=== PATIENT | female | born 1945 | race Caucasian/White ===

== ENCOUNTER 2020-08-23 14:03 | Emergency (ER) | payer MEDICARE, SELFPAY ==
--- NOTE | 2020-08-23 | CT_ITS ---
EXAMINATION: CHEST X-RAY CLINICAL INFORMATION: Mental status change COMPARISON: Previous chest x-ray November 2019 TECHNIQUE: AP portable chest FINDINGS: The cardiac and mediastinal contours are stable. The lung volumes are low. The lungs are clear. There is no pleural effusion or pneumothorax. There are degenerative changes of the spine. IMPRESSION: No evidence for acute disease in the chest. EXAMINATION: Head CT without contrast CLINICAL INFORMATION: Mental status change COMPARISON: Previous head CT scans most recent November 2019 TECHNIQUE: Axial images through the brain without contrast. Sagittal and coronal reconstructions on the technologist workstation were performed. Patient dose 7 5 7 mg/cm. FINDINGS: There is no evidence of an extra-axial collection. There is no evidence of intra or extra-axial hemorrhage. The ventricles and extra-axial CSF spaces are prominent suggestive of generalized atrophy. There is nonspecific periventricular white matter disease. No mass, mass effect or infarct is seen. No skull fracture is seen. Visualized paranasal sinuses, mastoid air cells and middle ears are clear. IMPRESSION: No acute findings. Generalized atrophy and periventricular white matter disease similar to previous exams.
[2020-08-23 14:10] VITALS: BP 120/80; BP 122/41; PULSE 76; PULSE 80; RESP 18; TEMP 36.9; O2SAT 98; BMI 43.0
--- NOTE | 2020-08-23 15:01 | ECG_ITS ---
Test Reason : WEAKNESS Blood Pressure : / mmHG Vent. Rate : 069 BPM Atrial Rate : 069 BPM P-R Int : 170 ms QRS Dur : 094 ms QT Int : 420 ms P-R-T Axes : 047 -05 062 degrees QTc Int : 450 ms Normal sinus rhythm Possible Anterior infarct (cited on or before 17-JUL-2015) Abnormal ECG When compared with ECG of 11-DEC-2019 08:35, No significant change was found Referred By: Michelle Braun Electronically Signed By:MIKHAIL PATRICIA MD
--- NOTE | 2020-08-23 15:16 | ED.AMS ---
HPI - Altered Mental Status General Chief Complaint: Weakness Stated Complaint: AMS WEAKNESS Time Seen by Provider: 08/23/20 15:00 Source: patient and EMS Mode of arrival: EMS Limitations: other ( dementia) History of Present Illness HPI narrative: 74-year-old female with a past medical history of CVA, diabetes, hyperlipidemia, schizoaffective disorder, hypertension, dementia BIBA from snf for worsening confusion / AMS, and frequent falls the past few days. SNF concern for increased weakness and drooling /facial droop noted today. Reportedly baseline is pleasantly demented, occasionally follows commands, baseline ambulates with walker. unable to obtain history from patient due to dementia MD complaint: altered mental status and confusion Onset (ago): day(s) Related Data Allergies Allergy/AdvReac Type Severity Reaction Status Date / Time No Known Allergies Allergy Unverified 08/02/20 15:35 Review of Systems Review of Systems: unable to obtain due to dementia [facility] Past Medical History Attestation statement: The following information was validated with the patient. Source: old records reviewed and nursing notes reviewed Medical History (Updated 08/23/20 @ 16:30 by ROOSEVELT Vance) CVA (cerebral vascular accident) Diabetes Hyperlipidemia Schizoaffective disorder Social History Social History Alcohol intake: never Smoking Status: Heavy tobacco smoker Use of substances other than those prescribed or required for medical reasons: No Advance Directives: No Advance Directives Information Provided: Yes Physical Exam Vital Signs and I&O and Narrative: Vital Signs and I&O: Vital Signs Temp 98.4 F 08/23/20 14:10 Pulse 76 08/23/20 14:10 Resp 18 08/23/20 14:10 BP 122/41 L 08/23/20 14:10 Pulse Ox 98 08/23/20 14:10 Intake & Output 08/22/20 08/23/20 08/23/20 18:59 06:59 18:59 Weight 99.79 kg Body Mass Index 43.0 Const: General: cooperative Orientation/consciousness: oriented to person and oriented to place HENMT: Head: Yes normal to inspection Ears: hearing grossly normal bilaterally General nose exam: Normal external nose present Eyes: General: appearance normal, both eyes and all related structures Pupils: Equal, round and reactive pupils present EOM: EOMs intact bilaterally Neck: Neck: Yes normal visual inspection Resp: Effort & Inspection: normal respiratory effort and no stridor Auscultation: clear to auscultation bilaterally, no crackles, no rales, no rhonchi and no wheezes Cardio: Rate: regular rate Heart sounds: S1 normal heart sound present and S2 normal heart sound present GI: Inspection: Yes normal to inspection Palpation (GI): Soft to palpation, nontender, no guarding and not rigid Skin: Wounds: no wounds Neuro: Other: does not follow commands for complete/accurate evaluation General: oriented to person and oriented to place Cranial nerves: Yes Equal, round and reactive pupils present Motor exam (neuro): Abnormal motor strength present ( decrease in left upper extremity and left lower extremity) Extrem: General: Yes normal to inspection Course Course Course Narrative: -1627-- mild leukocytosis of 12.1, H&H at baseline, glucose low at 55>> patient given p.o. juice head CT without acute findings CXR without acute changes -1429--Repeat POC 87 MDM - Altered Mental Status MDM Narrative Medical decision making narrative: 74-year-old female with a past medical history of CVA, diabetes, hyperlipidemia, schizoaffective disorder, hypertension, dementia BIBA from snf for worsening confusion / AMS, and frequent falls the past few days. on exam VSS, NAD/well-appearing, A&O x2, left-sided weakness appreciated. Patient not following commands. concern for subacute CVA vs ICH vs infectious etiology plan: EKG, labs, UA, head CT, reassess Differential Diagnosis Differential diagnosis: Likely altered mental status, delirium, dementia, hypoglycemia and subarachnoid hemorrhage Medical Records Attestation: I reviewed the patient's medical records. Lab Data Attestation: I reviewed the patient's lab results. Result diagrams: 08/23/20 15:36 08/23/20 15:36 Labs: Lab Results 08/23/20 08/23/20 08/23/20 Range/Units 15:28 15:36 15:36 WBC 12.1 H (4.8-10.8) X10*3/uL RBC 4.43 (4.20-5.50) X10*6/uL Hgb 12.7 (12.0-16.0) g/dl Hct 39.4 (37-47) % MCV 88.9 (80-98) fL MCH 28.7 (27.0-33.0) pg MCHC 32.2 (31.0-35.0) g/dl RDW 13.7 (11.0-16.0) % Plt Count 373 (160-400) X10*3/uL MPV 9.5 (9.4-12.3) fL Immature Gran % (Auto) 0.3 (0.0-0.4) % Neut % (Auto) 56.0 (45-73) % Lymph % (Auto) 28.7 (20-40) % Power % (Auto) 11.6 H (2-11) % Eos % (Auto) 3.0 (0-4) % Baso % (Auto) 0.4 (0-2) % Lymph # (Auto) 3.5 (1.2-4.9) X10*3/uL Power # (Auto) 1.4 H (0.1-1.2) X10*3/uL Eos # (Auto) 0.4 (0.0-0.4) X10*3/uL Baso # (Auto) 0.1 (0.0-0.2) X10*3/uL Abs Immat Gran (auto) 0.04 H (0.00-0.03) X10*3/uL Absolute Neuts (auto) 6.8 (2.0-8.3) X10*3/uL Absolute Nucleated RBC 0.000 (0.0-0.012) X10*3/uL Nucleated RBC % (auto) 0.0 (0.0-0.2) /100WBC PT 12.3 (10.8-13.0) SEC INR 1.0 (0.9-1.1) APTT 38.0 (24.1-38.0) SEC Sodium (135-145) mmol/L Potassium (3.3-5.1) mmol/l Chloride (96-108) mmol/L Carbon Dioxide (22-29) mmol/L Anion Gap (12-20) BUN (9-16) mg/dL Creatinine (0.5-1.4) mg/dL Estim Creat Clear Calc Estimated GFR POC Glucose 55 L* (60-115) mg/dL Random Glucose (60-115) mg/dL Calcium (8.4-10.2) mg/dL Magnesium (1.6-2.6) mg/dL Total Bilirubin (0.0-1.0) mg/dL Direct Bilirubin (0.0-0.5) mg/dL AST (5-31) U/L ALT (0-31) U/L Alkaline Phosphatase (39-117) U/L Total Creatine Kinase (26-140) U/L Troponin I High Sens (<3.5-17.0) ng/L B-Natriuretic Peptide (<100) pg/mL Total Protein (6.5-8.0) g/dL Albumin (3.5-5.0) g/dL Lipase (8-78) U/L 08/23/20 08/23/20 08/23/20 Range/Units 15:36 15:36 15:39 WBC (4.8-10.8) X10*3/uL RBC (4.20-5.50) X10*6/uL Hgb (12.0-16.0) g/dl Hct (37-47) % MCV (80-98) fL MCH (27.0-33.0) pg MCHC (31.0-35.0) g/dl RDW (11.0-16.0) % Plt Count (160-400) X10*3/uL MPV (9.4-12.3) fL Immature Gran % (Auto) (0.0-0.4) % Neut % (Auto) (45-73) % Lymph % (Auto) (20-40) % Power % (Auto) (2-11) % Eos % (Auto) (0-4) % Baso % (Auto) (0-2) % Lymph # (Auto) (1.2-4.9) X10*3/uL Power # (Auto) (0.1-1.2) X10*3/uL Eos # (Auto) (0.0-0.4) X10*3/uL Baso # (Auto) (0.0-0.2) X10*3/uL Abs Immat Gran (auto) (0.00-0.03) X10*3/uL Absolute Neuts (auto) (2.0-8.3) X10*3/uL Absolute Nucleated RBC (0.0-0.012) X10*3/uL Nucleated RBC % (auto) (0.0-0.2) /100WBC PT (10.8-13.0) SEC INR (0.9-1.1) APTT (24.1-38.0) SEC Sodium 138 (135-145) mmol/L Potassium 4.4 (3.3-5.1) mmol/l Chloride 101 (96-108) mmol/L Carbon Dioxide 30 H (22-29) mmol/L Anion Gap 11 L (12-20) BUN 21 H (9-16) mg/dL Creatinine 0.83 (0.5-1.4) mg/dL Estim Creat Clear Calc 61.1 Estimated GFR > 60 POC Glucose (60-115) mg/dL Random Glucose 56 L* (60-115) mg/dL Calcium 9.4 (8.4-10.2) mg/dL Magnesium 2.2 (1.6-2.6) mg/dL Total Bilirubin 0.5 (0.0-1.0) mg/dL Direct Bilirubin 0.2 (0.0-0.5) mg/dL AST 25 (5-31) U/L ALT 30 (0-31) U/L Alkaline Phosphatase 91 (39-117) U/L Total Creatine Kinase 315 H (26-140) U/L Troponin I High Sens 4.2 (<3.5-17.0) ng/L B-Natriuretic Peptide 37 (<100) pg/mL Total Protein 6.2 L (6.5-8.0) g/dL Albumin 3.6 (3.5-5.0) g/dL Lipase 21 (8-78) U/L Discharge Plan Discharge Clinical Impression: Altered mental status
[2020-08-23 15:33] LABS: Glucose, Whole Blood 55 mg/dL (60-115)
[2020-08-23 15:43] LABS: MANUAL DIFF FLAG NO
[2020-08-23 15:48] LABS: Basophils Absolute Auto 0.1 X10*3/uL (0.0-0.2); Basophils Percent Auto 0.4 % (0-2); Eosinophils Absolute Auto 0.4 X10*3/uL (0.0-0.4); Hematocrit 39.4 % (37-47); Hemoglobin 12.7 g/dl (12.0-16.0); Imm Gran Abs Auto 0.04 X10*3/uL (0.00-0.03); Imm Gran Pct Auto 0.3 % (0.0-0.4); Lymphocytes Absolute Auto 3.5 X10*3/uL (1.2-4.9); Lymphocytes Percent Auto 28.7 % (20-40); Mean Corpuscular HGB Conc 32.2 g/dl (31.0-35.0); Mean Corpuscular Hemoglobin 28.7 pg (27.0-33.0); Mean Corpuscular Volume 88.9 fL (80-98); Mean Platelet Volume 9.5 fL (9.4-12.3); Monocytes Absolute Auto 1.4 X10*3/uL (0.1-1.2); Monocytes Percent Auto 11.6 % (2-11); Neutrophils Absolute Auto 6.8 X10*3/uL (2.0-8.3); Platelet Count 373 X10*3/uL (160-400); Red Blood Count 4.43 X10*6/uL (4.20-5.50); Red Cell Distribution Width 13.7 % (11.0-16.0); White Blood Count 12.1 X10*3/uL (4.8-10.8)
[2020-08-23 16:06] LABS: Prothrombin Time 12.3 SEC (10.8-13.0)
[2020-08-23 16:24] LABS: B Type Natriuretic Peptide 37 pg/mL (<100)
[2020-08-23 16:25] LABS: Troponin-I High Sensitivity 4.2 ng/L (<3.5-17.0)
[2020-08-23 16:26] LABS: Alanine Aminotransferase 30 U/L (0-31); Albumin Level 3.6 g/dL (3.5-5.0); Alkaline Phosphatase 91 U/L (39-117); Anion Gap 11 (12-20); Aspartate Amino Transferase 25 U/L (5-31); Bilirubin Direct 0.2 mg/dL (0.0-0.5); Bilirubin Total 0.5 mg/dL (0.0-1.0); Blood Urea Nitrogen 21 mg/dL (9-16); Calcium 9.4 mg/dL (8.4-10.2); Carbon Dioxide 30 mmol/L (22-29); Chloride 101 mmol/L (96-108); Creatinine Clr Calc Pharmacy 61.1; Estimated Glomerular Filt Rate > 60; Glucose Random 56 mg/dL (60-115); Lipase 21 U/L (8-78); Magnesium 2.2 mg/dL (1.6-2.6); Potassium 4.4 mmol/l (3.3-5.1); Sodium 138 mmol/L (135-145); Total Protein 6.2 g/dL (6.5-8.0)
[2020-08-23 16:33] LABS: Glucose, Whole Blood 87 mg/dL (60-115)
[2020-08-23 17:39] LABS: Appearance Urine CLEAR; Color Urine YELLOW; Glucose Urine UA NEG (NEG); Leukocyte Esterase Urine NEG (NEG); Nitrite Urine NEG (NEG); Urine Blood NEG (NEG); Urine Ketones NEG (NEG); Urine Protein NEG (NEG-TRACE)
[2020-08-23 18:16] VITALS: RESP 18
[2020-08-23 18:35] LABS: Glucose, Whole Blood 104 mg/dL (60-115)
[2020-08-23 18:38] VITALS: BP 128/64; PULSE 74; RESP 16; O2SAT 96
[2020-08-23] MEDS: 0.9 % Sodium Chloride 1,000 ML 999 ML IVCONT (18:38)
[2020-08-23] MEDS: Fluconazole 150 MG TABLET PO (18:44)
--- NOTE | 2020-08-23 19:11 | PC.NURSE ---
Robyn [place]: [phone]. Daughter and proxy can be reached at this number for update. Daughter called at this time for update.
[2020-08-23 20:17] VITALS: BP 168/68; PULSE 80; RESP 16; TEMP 36.8; O2SAT 96
[2020-08-23] MEDS: Acetaminophen 325 MG TABLET 650 MG PO (20:57)
== END 2020-08-23 21:04 | disposition home or self-care (01) ==
PROVIDERS: Physician Assistant; Emergency Provider Internal Medicine; PCP Family Medicine
DX: R41.82 Altered mental status, unspecified (principal); B37.3 Candidiasis of vulva and vagina; E11.9 Type 2 diabetes mellitus without complications; I10 Essential (primary) hypertension; F25.9 Schizoaffective disorder, unspecified; F03.90 Unspecified dementia, unspecified severity, without behavioral disturbance, psychotic disturbance, mood disturbance, and anxiety; F17.210 Nicotine dependence, cigarettes, uncomplicated
CPT/HCPCS: 36415; 70450; 71045; 80048; 80076; 81003; 82550; 82947; 83690; 83735; 83880; 84484; 85025; 85610; 85730; 93005; 96365; 96366; 96375; 99284; 99285; 99291

== ENCOUNTER 2020-10-09 11:52 | Inpatient (IN) | payer MEDICARE, SELFPAY ==
[2020-10-09] VITALS (7 sets, daily range): BP systolic 114–160; BP diastolic 39–80; PULSE 74–90; RESP 18–22; TEMP 36.1–37.8; O2SAT 88–98; BMI 37.8; BMI 39.2
[2020-10-09 12:31] LABS: Glucose, Whole Blood 131 mg/dL (60-115)
--- NOTE | 2020-10-09 12:32 | XR_ITS ---
EXAMINATION: XR CHEST CLINICAL INFORMATION: Shortness of breath COMPARISON: Previous chest x-ray August 2018 TECHNIQUE: Frontal view of the chest was obtained. FINDINGS: The cardiac and mediastinal contours are stable. The lungs are clear. There is no pleural effusion or pneumothorax. There are degenerative changes of the spine. XR/XR chest 1V IMPRESSION: No evidence for acute disease in the chest.
--- NOTE | 2020-10-09 12:32 | ECG_ITS ---
Test Reason : SOB Blood Pressure : / mmHG Vent. Rate : 078 BPM Atrial Rate : 078 BPM P-R Int : 164 ms QRS Dur : 088 ms QT Int : 392 ms P-R-T Axes : 051 -18 047 degrees QTc Int : 446 ms Normal sinus rhythm Left axis deviation Possible Anterior infarct (cited on or before 17-JUL-2015) Abnormal ECG When compared with ECG of 23-AUG-2020 15:14, No significant change was found Referred By: Generic ED Physician Electronically Signed By:MIKHAIL PATRICIA MD
--- NOTE | 2020-10-09 12:49 | PC.NURSE ---
Pt is full assist for all adl;s. bedbound, skin integrety good but blanchable area on coccyx, brief filled with loose stool, brown and cleansed at arrival. l sided deficit from cva. following simple commands. garggled resp continue and creamy yellow loose sputumn expelled at times. ski pwd. nsr on monitor. awaits md palencia.
[2020-10-09 13:00] LABS: MANUAL DIFF FLAG NO
[2020-10-09 13:02] LABS: Basophils Percent Auto 0.1 % (0-2); Hemoglobin 12.1 g/dl (12.0-16.0); Imm Gran Abs Auto 0.03 X10*3/uL (0.00-0.03); Imm Gran Pct Auto 0.3 % (0.0-0.4); Lymphocytes Absolute Auto 2.4 X10*3/uL (1.2-4.9); Lymphocytes Percent Auto 23.6 % (20-40); Mean Corpuscular HGB Conc 32.7 g/dl (31.0-35.0); Mean Corpuscular Hemoglobin 28.8 pg (27.0-33.0); Mean Corpuscular Volume 88.1 fL (80-98); Mean Platelet Volume 9.9 fL (9.4-12.3); Monocytes Absolute Auto 1.5 X10*3/uL (0.1-1.2); Monocytes Percent Auto 14.5 % (2-11); Neutrophils Absolute Auto 6.2 X10*3/uL (2.0-8.3); Neutrophils Percent Auto 61.5 % (45-73); Platelet Count 249 X10*3/uL (160-400)
[2020-10-09 13:13] LABS: Glucose Urine UA NEG (NEG); Leukocyte Esterase Urine 3+ (NEG); Nitrite Urine NEG (NEG); Urine Blood 3+ (NEG); Urine Ketones NEG (NEG); Urine Protein 1+ MG/DL (NEG-TRACE)
[2020-10-09 13:14] LABS: Appearance Urine CLOUDY; Color Urine YELLOW
[2020-10-09 13:24] LABS: Bacteria Urine 3+ /LPF; Squamous Epithelial Cell Urine 1+ /LPF; WBC Urine TNTC /HPF (0-4)
--- NOTE | 2020-10-09 13:24 | PC.NURSE ---
TIFFANY black at [place] states that patient 10/04 covid negative 10/05 covid positive. Baseline b/f covid was ambulatory and able to take pills. Now she's a bladimir lift, crushed pills, pureed meals, 81% room air 99.3 temporal. Pt has declined quickly.
[2020-10-09 13:27] LABS: Lactic Acid 0.9 mmol/L (0.5-2.0)
--- NOTE | 2020-10-09 13:27 | ED_ITS ---
HPI - SOB/Dyspnea General Chief Complaint: Dyspnea Stated Complaint: COVID +, SHORTNESS OF BREATH Time Seen by Provider: 10/09/20 12:55 History of Present Illness HPI Narrative: 75-year-old female transferred to the emergency department from her alf facility for altered mental status, decreased ability to ambulate, increased shortness of breath and increased hypoxia. The patient does have a history of schizoaffective disorder and stroke but according to the alf facility, at her baseline, she is awake, alert and able to walk without any difficulty. The patient was diagnosed with COVID-19 on October 05, 2020 and according to the alf facility she has been gradually deteriorating. She is not able to get out of bed and walk. She has become more lethargic. She has become more short of breath over the past 1-2 days and now has gurgling respirations. She has also required higher oxygen demands and her O2 saturation on room air was 88% at the nursing facility. The patient does speak Slov[place] only and with an translator and interpreter, she is only complaining of lower back pain and has no other complaints. She does appear to be in moderate respiratory distress and here in the emergency department her O2 saturation was 88% on room air and 95% on 2 L of oxygen via nasal cannula. 1501: Patient's laboratory evaluation revealed a normal CBC, normal BMP with a slightly elevated glucose of 128, LFTs with slight elevated AST of 35 otherwise unremarkable. The patient's ferritin was markedly elevated at 1094. Troponin was slightly elevated at 17.5. l. Lactic acid was normal at 0.9. D-dimer was elevated at 530, this could be related to the patient's COVID-19. Chest x-ray revealed no significant infiltrates to explain hypoxia. Patient's urinalysis was positive for rbc's, leukocyte esterase, too numerous to count WBCs and 3+ bacteria. The patient was given Levaquin 750 mg IV to give her pulmonary doctor as well as urinary coverage for possible bacterial sources. Patient shortness of breath and hypoxia could be related to COVID-19. I will discuss the patient with the covering hospitalist. Related Data Allergies Allergy/AdvReac Type Severity Reaction Status Date / Time No Known Allergies Allergy Verified 10/09/20 11:55 Review of Systems Review of Systems: Yes Unobtainable due to mental condition PMFSH Past Medical History Medical History CVA (cerebral vascular accident) Diabetes Hyperlipidemia Schizoaffective disorder Social History Social History Alcohol intake: unknown Smoking Status: Heavy tobacco smoker Smoked in Last 30 Days: No Use of substances other than those prescribed or required for medical reasons: Unknown Advance Directives: No Advance Directives Information Provided: Yes Physical Exam Vital Signs: Vital Signs: Last Vital Signs Temp 100.1 F 10/09/20 12:14 Pulse 74 10/09/20 14:00 Resp 18 10/09/20 14:00 BP 114/39 L 10/09/20 14:00 Pulse Ox 96 10/09/20 14:00 Body Mass Index 37.8 Const: General: awake and in distress (Tachypnea, gurgling respiratory sounds) Orientation/consciousness: oriented to person HENMT: Head: Yes normal to inspection, Yes normocephalic and Yes atraumatic Ears: external ears normal Eyes: General: appearance normal, both eyes and all related structures Periorbital: periorbital findings normal Eyelids: Yes eyelids normal Conjunctivae: conjunctivae normal Sclerae: sclerae normal Corneas: corneas normal Pupils: Equal, round and reactive pupils present Direct Ophth almoscopy: normal light reflex Neck: Neck: Yes normal visual inspection and Yes supple Lymphatic: no lymphadenopathy noted Chest: Chest palpation & inspection: normal inspection of the chest and normal palpation of entire chest wall Resp: Effort & Inspection: abnormal respiratory pattern, audible wheezes, respiratory distress, tachypneic and uses accessory muscles Auscultation: clear to auscultation bilaterally, crackles, rales, rhonchi and no wheezes Cardio: Rate: regular rate Rhythm: regular rhythm Heart sounds: S1 normal heart sound present, S2 normal heart sound present and Murmur heart sound present GI: Inspection: No distended Palpation (GI): Soft to palpation, nontender, no guarding and No hepatosplenomegaly present Auscultation: normal bowel sounds : General: Yes no CVA tenderness Back/Spine/Pelvis: Back: no CVA tenderness Skin: General skin exam: no rashes or lesions noted Lesions: no lesions Rashes: no rashes Wounds: no wounds Neuro: General: oriented to person Cranial nerves: Yes CN's II-XII intact bilaterally and Yes Equal, round and reactive pupils present Cognition (Neuro): abnormal cognition Motor exam (neuro): 5/5 motor strength present throughout Extrem: General: Yes normal to inspection, Yes full ROM, Yes no pedal edema and Yes no calf tenderness Psych: Affect: normal affect Course Course Course Narrative: MDM: 75-year-old female with history of diabetes, hyperlipidemia, stroke and schizoaffective disorder was diagnosed with COVID-19 10/05/2020 was sent emergency department for evaluation of change in mental status, increased respiratory distress, inability to walk, and hypoxia. The patient's O2 saturation on room air was 88% on 2 L improved to 95% and the patient does appear to be in moderate respiratory distress. A septic workup was ordered. 1500: The patient's laboratory evaluation revealed a normal CBC and normal comprehensive metabolic panel. The patient's lactate was not elevated. The patient's chest x-ray revealed no clear evidence for pneumonia or congestive heart failure. Patient's procalcitonin level was not elevated. Patient does have a slight elevation in her troponin of 17.5. The patient is COVID-19 positive and her INR at this time is normal at 1.1, her ferritin is markedly elevated at 1094. Patient's urinalysis is positive for rbc's and leukocyte esterase. Urine Microscopic revealed too numerous to count white blood cells and 3+ bacteria. This patient may have a urinary tract infection however this does not explain her respiratory symptoms and her hypoxia. I did order Levaquin 750 mg IV to treat her for urinary tract infection as well as given her coverage for possible pulmonary sources for infection. Given all of these laboratory findings and her presentation, I do not think that the patient has severe sepsis despite meeting SIRS criteria and being hypoxic. I think that her symptoms are more likely related to her COVID-19 viral infection and a large fluid bolus at this time may precipitate ARDS therefore she did not get 30 milliliters/kilogram of normal saline IV. I did discuss the patient's presentation with the covering hospitalist and the patient will be admitted to the [facility] COVID unit for further treatment. Twelve lead EKG interpretation: EKG was done at 12:53 p.m. and seen by me immediately after it was done. EKG revealed a sinus rhythm rate of 78, normal MS, QRS and QTC intervals, patient has Q-waves in lead 3 and AVF with poor R- wave progression V1 through V 3, there is no ST segment elevation, there is no ST segment depression. I the patient had an old EKG dated August 23, 2020 which revealed that the Q-waves and poor R-wave progression were old. Critical Care: The patient was critically ill with a high probability of imminent or life threatening deterioration. I spent greater than 30 minutes of discontinuous time evaluating the patient,delivering critical care at the bedside, discussing and evaluating pertinent data the covering hospitalist. Critical care time does not include time spent performing separately billable procedures or teaching. Total time spent performing critical care was 55 garcia rik. MDM - SOB/Dyspnea Lab Data Result diagrams: 10/09/20 12:44 10/09/20 12:43 Labs: Lab Results 10/09/20 10/09/20 10/09/20 Range/Units 12:18 12:43 12:43 WBC (4.8-10.8) X10*3/uL RBC (4.20-5.50) X10*6/uL Hgb (12.0-16.0) g/dl Hct (37-47) % MCV (80-98) fL MCH (27.0-33.0) pg MCHC (31.0-35.0) g/dl RDW (11.0-16.0) % Plt Count (160-400) X10*3/uL MPV (9.4-12.3) fL Immature Gran % (Auto) (0.0-0.4) % Neut % (Auto) (45-73) % Lymph % (Auto) (20-40) % Gray % (Auto) (2-11) % Eos % (Auto) (0-4) % Baso % (Auto) (0-2) % Lymph # (Auto) (1.2-4.9) X10*3/uL Gray # (Auto) (0.1-1.2) X10*3/uL Eos # (Auto) (0.0-0.4) X10*3/uL Baso # (Auto) (0.0-0.2) X10*3/uL Abs Immat Gran (auto) (0.00-0.03) X10*3/uL Absolute Neuts (auto) (2.0-8.3) X10*3/uL Absolute Nucleated RBC (0.0-0.012) X10*3/uL Nucleated RBC % (auto) (0.0-0.2) /100WBC PT 12.8 (10.8-13.0) SEC INR 1.1 (0.9-1.1) APTT 34.7 (24.1-38.0) SEC D-Dimer 537 NG/ML Hold Blue Top SEE NOTE Sodium (135-145) mmol/L Potassium (3.3-5.1) mmol/l Chloride (96-108) mmol/L Carbon Dioxide (22-29) mmol/L Anion Gap (12-20) BUN (9-16) mg/dL Creatinine (0.5-1.4) mg/dL Estim Creat Clear Calc Estimated GFR POC Glucose 131 H (60-115) mg/dL Random Glucose (60-115) mg/dL Lactic Acid (0.5-2.0) mmol/L Calcium (8.4-10.2) mg/dL Ferritin (10-250) ng/mL Total Bilirubin (0.0-1.0) mg/dL Direct Bilirubin (0.0-0.5) mg/dL AST (5-31) U/L ALT (0-31) U/L Alkaline Phosphatase (39-117) U/L Lactate Dehydrogenase (122-220) U/L Troponin I High Sens (<3.5-17.0) ng/L Total Protein (6.5-8.0) g/dL Albumin (3.5-5.0) g/dL Lipase (8-78) U/L Procalcitonin ng/mL Urine Color YELLOW Urine Appearance CLOUDY Urine pH 7.0 (5.0-8.0) Ur Specific [place] 1.020 (1.005-1.025) Urine Protein 1+ H (NEG-TRACE) MG/DL Urine Glucose (UA) NEG (NEG) MG/DL Urine Ketones NEG (NEG) MG/DL Urine Blood 3+ H (NEG) Urine Nitrite NEG (NEG) Ur Leukocyte Esterase 3+ H (NEG) Urine RBC 15-29 H (0) /HPF Urine WBC TNTC H (0-4) /HPF Ur Squamous Epith Cells 1+ /LPF Urine Bacteria 3+ /LPF 10/09/20 10/09/20 10/09/20 Range/Units 12:43 12:43 12:43 WBC (4.8-10.8) X10*3/uL RBC (4.20-5.50) X10*6/uL Hgb (12.0-16.0) g/dl Hct (37-47) % MCV (80-98) fL MCH (27.0-33.0) pg MCHC (31.0-35.0) g/dl RDW (11.0-16.0) % Plt Count (160-400) X10*3/uL MPV (9.4-12.3) fL Immature Gran % (Auto) (0.0-0.4) % Neut % (Auto) (45-73) % Lymph % (Auto) (20-40) % Gray % (Auto) (2-11) % Eos % (Auto) (0-4) % Baso % (Auto) (0-2) % Lymph # (Auto) (1.2-4.9) X10*3/uL Gray # (Auto) (0.1-1.2) X10*3/uL Eos # (Auto) (0.0-0.4) X10*3/uL Baso # (Auto) (0.0-0.2) X10*3/uL Abs Immat Gran (auto) (0.00-0.03) X10*3/uL Absolute Neuts (auto) (2.0-8.3) X10*3/uL Absolute Nucleated RBC (0.0-0.012) X10*3/uL Nucleated RBC % (auto) (0.0-0.2) /100WBC PT (10.8-13.0) SEC INR (0.9-1.1) APTT (24.1-38.0) SEC D-Dimer NG/ML Hold Blue Top Sodium 132 L (135-145) mmol/L Potassium 4.5 (3.3-5.1) mmol/l Chloride 96 (96-108) mmol/L Carbon Dioxide 29 (22-29) mmol/L Anion Gap 12 (12-20) BUN 19 H (9-16) mg/dL Creatinine 1.00 (0.5-1.4) mg/dL Estim Creat Clear Calc 54.1 Estimated GFR 54 POC Glucose (60-115) mg/dL Random Glucose 128 H D (60-115) mg/dL Lactic Acid 0.9 (0.5-2.0) mmol/L Calcium 8.7 D (8.4-10.2) mg/dL Ferritin 1094 H (10-250) ng/mL Total Bilirubin 0.4 (0.0-1.0) mg/dL Direct Bilirubin 0.3 (0.0-0.5) mg/dL AST 35 H (5-31) U/L ALT 27 (0-31) U/L Alkaline Phosphatase 74 (39-117) U/L Lactate Dehydrogenase 211 (122-220) U/L Troponin I High Sens 17.5 H D (<3.5-17.0) ng/L Total Protein 6.1 L (6.5-8.0) g/dL Albumin 3.3 L (3.5-5.0) g/dL Lipase 23 (8-78) U/L Procalcitonin ng/mL Urine Color Urine Appearance Urine pH (5.0-8.0) Ur Specific [place] (1.005-1.025) Urine Protein (NEG-TRACE) MG/DL Urine Glucose (UA) (NEG) MG/DL Urine Ketones (NEG) MG/DL Urine Blood (NEG) Urine Nitrite (NEG) Ur Leukocyte Esterase (NEG) Urine RBC (0) /HPF Urine WBC (0-4) /HPF Ur Squamous Epith Cells /LPF Urine Bacteria /LPF 10/09/20 10/09/20 Range/Units 12:43 12:44 WBC 10.0 (4.8-10.8) X10*3/uL RBC 4.20 (4.20-5.50) X10*6/uL Hgb 12.1 (12.0-16.0) g/dl Hct 37.0 (37-47) % MCV 88.1 (80-98) fL MCH 28.8 (27.0-33.0) pg MCHC 32.7 (31.0-35.0) g/dl RDW 14.0 (11.0-16.0) % Plt Count 249 D (160-400) X10*3/uL MPV 9.9 (9.4-12.3) fL Immature Gran % (Auto) 0.3 (0.0-0.4) % Neut % (Auto) 61.5 (45-73) % Lymph % (Auto) 23.6 (20-40) % Gray % (Auto) 14.5 H (2-11) % Eos % (Auto) 0.0 (0-4) % Baso % (Auto) 0.1 (0-2) % Lymph # (Auto) 2.4 (1.2-4.9) X10*3/uL Gray # (Auto) 1.5 H (0.1-1.2) X10*3/uL Eos # (Auto) 0.0 (0.0-0.4) X10*3/uL Baso # (Auto) 0.0 (0.0-0.2) X10*3/uL Abs Immat Gran (auto) 0.03 (0.00-0.03) X10*3/uL Absolute Neuts (auto) 6.2 (2.0-8.3) X10*3/uL Absolute Nucleated RBC 0.000 (0.0-0.012) X10*3/uL Nucleated RBC % (auto) 0.0 (0.0-0.2) /100WBC PT (10.8-13.0) SEC INR (0.9-1.1) APTT (24.1-38.0) SEC D-Dimer NG/ML Hold Blue Top Sodium (135-145) mmol/L Potassium (3.3-5.1) mmol/l Chloride (96-108) mmol/L Carbon Dioxide (22-29) mmol/L Anion Gap (12-20) BUN (9-16) mg/dL Creatinine (0.5-1.4) mg/dL Estim Creat Clear Calc Estimated GFR POC Glucose (60-115) mg/dL Random Glucose (60-115) mg/dL Lactic Acid (0.5-2.0) mmol/L Calcium (8.4-10.2) mg/dL Ferritin (10-250) ng/mL Total Bilirubin (0.0-1.0) mg/dL Direct Bilirubin (0.0-0.5) mg/dL AST (5-31) U/L ALT (0-31) U/L Alkaline Phosphatase (39-117) U/L Lactate Dehydrogenase (122-220) U/L Troponin I High Sens (<3.5-17.0) ng/L Total Protein (6.5-8.0) g/dL Albumin (3.5-5.0) g/dL Lipase (8-78) U/L Procalcitonin 0.20 ng/mL Urine Color Urine Appearance Urine pH (5.0-8.0) Ur Specific [place] (1.005-1.025) Urine Protein (NEG-TRACE) MG/DL Urine Glucose (UA) (NEG) MG/DL Urine Ketones (NEG) MG/DL Urine Blood (NEG) Urine Nitrite (NEG) Ur Leukocyte Esterase (NEG) Urine RBC (0) /HPF Urine WBC (0-4) /HPF Ur Squamous Epith Cells /LPF Urine Bacteria /LPF
[2020-10-09 13:33] LABS: Anion Gap 12 (12-20); Blood Urea Nitrogen 19 mg/dL (9-16); Calcium 8.7 mg/dL (8.4-10.2); Carbon Dioxide 29 mmol/L (22-29); Chloride 96 mmol/L (96-108); Creatinine Clr Calc Pharmacy 54.1; Estimated Glomerular Filt Rate 54; Glucose Random 128 mg/dL (60-115); Potassium 4.5 mmol/l (3.3-5.1); Sodium 132 mmol/L (135-145)
[2020-10-09 13:37] LABS: INTERNATIONAL NORM RATIO 1.1 (0.9-1.1); Prothrombin Time 12.8 SEC (10.8-13.0)
[2020-10-09 13:40] LABS: D Dimer 537 NG/ML; Partial Thromboplastin Time 34.7 SEC (24.1-38.0)
[2020-10-09 13:42] LABS: Troponin-I High Sensitivity 17.5 ng/L (<3.5-17.0)
[2020-10-09 13:45] LABS: Alanine Aminotransferase 27 U/L (0-31); Albumin Level 3.3 g/dL (3.5-5.0); Alkaline Phosphatase 74 U/L (39-117); Aspartate Amino Transferase 35 U/L (5-31); Bilirubin Direct 0.3 mg/dL (0.0-0.5); Bilirubin Total 0.4 mg/dL (0.0-1.0); Lactate Dehydrogenase 211 U/L (122-220); Lipase 23 U/L (8-78); Total Protein 6.1 g/dL (6.5-8.0)
--- NOTE | 2020-10-09 14:01 | PC.NURSE ---
Update given to daughter who's in [place]. [phone] Robyn Epperson. HCP.
[2020-10-09 14:06] LABS: Ferritin 1094 ng/mL (10-250)
--- NOTE | 2020-10-09 14:18 | PC.NURSE ---
Report received from Roxi ALLEN. Patient remains incoherent. On 3L O2 nasal cannula. O2 sat low to mid 90s. Patient continuously removing nasal cannula, and O2 sat drops to high 80s. Respirations continue to sound wet and gargly. Skin PWD. Awaiting results.
[2020-10-09] MEDS: levoFLOXacin/D5W 750 MG/150 ML PIGGYBACK 100 MG IV (15:19)
--- NOTE | 2020-10-09 15:55 | PC.NURSE ---
floor called for report. awaiting return call.
--- NOTE | 2020-10-09 16:12 | PM.IMHP ---
History of Present Illness Date of Service: 10/09/20 Chief Complaint: Shortness of breath, hypoxemia, increased lethargy, a 75 years old lady with PMH of diabetes, CVA , schizoaffective disorder and HLD who presents to the hospital from long-term for increased weakness, difficulty breathing and reported altered mentation. The patient is awake but seems id bit confused and speaks only [place]. History taken from long-term notes and emergency physician. The patient was tested positive for COVID-19 infection on the 13 of October. She has been to relating since then physically and mentally with decreased oral intake and increased lethargy. For the last day she was noticed to drop her oxygen saturation on room air requiring oxygen supplement. Today decision to bring her to the hospital as her overall situation deteriorated. In the emergency CXR showing clean lungs with no infiltrate. Urine is suspicious for possible infection. D-dimer mildly elevated at 500. Admitted for further evaluation and treatment. Review of Systems Review of Systems: No repoted fever, chills , has worsening weakness No chest pain, palpitation reported shortness of breath or coughing No abdominal pain, nausea or vomiting dysuria urinary symptoms No any rash or wounds PMFSH Medical History CVA (cerebral vascular accident) Diabetes Hyperlipidemia Schizoaffective disorder Social History Alcohol intake: unknown Smoking Status: Heavy tobacco smoker Smoked in Last 30 Days: No Use of substances other than those prescribed or required for medical reasons: Unknown Advance Directives: No Advance Directives Information Provided: Yes Meds Allergies Allergy/AdvReac Type Severity Reaction Status Date / Time No Known Allergies Allergy Verified 10/09/20 11:55 Physical Exam Vital Signs and Narrative: Vital Signs: Last Vital Signs Temp 100.1 F 10/09/20 12:14 Pulse 74 10/09/20 14:00 Resp 18 10/09/20 14:00 BP 114/39 L 10/09/20 14:00 Pulse Ox 96 10/09/20 14:00 Body Mass Index 37.8 Constitutional : Alert, mildly disoriented, not in distress Neck : Normal inspection, Supple Cardiovascular : RRR, S1 S2, no lower extremity edema Respiratory : decrease bilateral air entry, fine basal crackles, no wheezes or rhonchi Gastrointestinal: soft, lax, Normal bowel sounds, Non tender Skin : Warm/Dry, No rash Neurological : Alert & disoriented, No focal deficit Results Labs CBC and Chem 7: 10/09/20 12:44 10/09/20 12:43 Labs: Laboratory Results - last 24 hr 10/09/20 10/09/20 10/09/20 12:18 12:43 12:43 MCV MCH MCHC RDW Plt Count MPV Immature Gran % (Auto) Neut % (Auto) Lymph % (Auto) [place] % (Auto) Eos % (Auto) Baso % (Auto) Lymph # (Auto) [place] # (Auto) Eos # (Auto) Baso # (Auto) Abs Immat Gran (auto) Absolute Neuts (auto) Absolute Nucleated RBC Nucleated RBC % (auto) PT 12.8 INR 1.1 APTT 34.7 D-Dimer 537 Hold Blue Top SEE NOTE Anion Gap Estim Creat Clear Calc Estimated GFR POC Glucose 131 H Random Glucose Lactic Acid Calcium Ferritin Total Bilirubin Direct Bilirubin AST ALT Alkaline Phosphatase Lactate Dehydrogenase Troponin I High Sens Total Protein Albumin Lipase Procalcitonin Urine Color YELLOW Urine Appearance CLOUDY Urine pH 7.0 Ur Specific [place] 1.020 Urine Protein 1+ H Urine Glucose (UA) NEG Urine Ketones NEG Urine Blood 3+ H Urine Nitrite NEG Ur Leukocyte Esterase 3+ H Urine RBC 15-29 H Urine WBC TNTC H Ur Squamous Epith Cells 1+ Urine Bacteria 3+ 10/09/20 10/09/20 10/09/20 12:43 12:43 12:43 MCV MCH MCHC RDW Plt Count MPV Immature Gran % (Auto) Neut % (Auto) Lymph % (Auto) [place] % (Auto) Eos % (Auto) Baso % (Auto) Lymph # (Auto) [place] # (Auto) Eos # (Auto) Baso # (Auto) Abs Immat Gran (auto) Absolute Neuts (auto) Absolute Nucleated RBC Nucleated RBC % (auto) PT INR APTT D-Dimer Hold Blue Top Anion Gap 12 Estim Creat Clear Calc 54.1 Estimated GFR 54 POC Glucose Random Glucose 128 H D Lactic Acid 0.9 Calcium 8.7 D Ferritin 1094 H Total Bilirubin 0.4 Direct Bilirubin 0.3 AST 35 H ALT 27 Alkaline Phosphatase 74 Lactate Dehydrogenase 211 Troponin I High Sens 17.5 H D Total Protein 6.1 L Albumin 3.3 L Lipase 23 Procalcitonin Urine Color Urine Appearance Urine pH Ur Specific [place] Urine Protein Urine Glucose (UA) Urine Ketones Urine Blood Urine Nitrite Ur Leukocyte Esterase Urine RBC Urine WBC Ur Squamous Epith Cells Urine Bacteria 10/09/20 10/09/20 12:43 12:44 MCV 88.1 MCH 28.8 MCHC 32.7 RDW 14.0 Plt Count 249 D MPV 9.9 Immature Gran % (Auto) 0.3 Neut % (Auto) 61.5 Lymph % (Auto) 23.6 [place] % (Auto) 14.5 H Eos % (Auto) 0.0 Baso % (Auto) 0.1 Lymph # (Auto) 2.4 [place] # (Auto) 1.5 H Eos # (Auto) 0.0 Baso # (Auto) 0.0 Abs Immat Gran (auto) 0.03 Absolute Neuts (auto) 6.2 Absolute Nucleated RBC 0.000 Nucleated RBC % (auto) 0.0 PT INR APTT D-Dimer Hold Blue Top Anion Gap Estim Creat Clear Calc Estimated GFR POC Glucose Random Glucose Lactic Acid Calcium Ferritin Total Bilirubin Direct Bilirubin AST ALT Alkaline Phosphatase Lactate Dehydrogenase Troponin I High Sens Total Protein Albumin Lipase Procalcitonin 0.20 Urine Color Urine Appearance Urine pH Ur Specific [place] Urine Protein Urine Glucose (UA) Urine Ketones Urine Blood Urine Nitrite Ur Leukocyte Esterase Urine RBC Urine WBC Ur Squamous Epith Cells Urine Bacteria Imaging Radiologist's Impressions: Impressions Chest X-Ray 10/09/20 12:32 IMPRESSION: No evidence for acute disease in the chest. Assessment and Plan (1) Acute respiratory failure with hypoxia: Status: Acute (2) COVID-19 virus infection: Status: Acute (3) UTI (urinary tract infection): Status: Acute (4) Metabolic encephalopathy: Status: Acute a 75 years old lady with PMH of diabetes, CVA , schizoaffective disorder and HLD who presents to the hospital from long-term for increased weakness, difficulty breathing and reported altered mentation. Acute hypoxic respiratory failure Secondary COVID-19 infection O2 supplement, to wean down as tolerated O2 sat in 90s at this point Started on dexamethasone 6 mg daily Hold on room DC VH pending ID evaluation Inhalers as needed Cough medicine UTI Pending urine culture Received a dose of Levaquin in the emergency, to change to ceftriaxone Pending final culture result Metabolic encephalopathy 2/2 infection, hypoxemia, other etiologies To treat underlying infection Recurrent reorientation DMII SSI for now pending med rec. for rest of home meds DVT PPx Lovenox
--- NOTE | 2020-10-09 16:31 | PC.NURSE ---
Report given to [facility] RN. Patient remains on 2L O2 nasal cannula. Continues to produce white/yellow sputum. Upper gargled breathing. Attempted to suction excess sputum from mouth. Patient intolerant. Vitals remain stable. Repeat troponin collected. Awaiting transport.
[2020-10-09 16:49] LABS: Troponin-I High Sensitivity 15.3 ng/L (<3.5-17.0)
[2020-10-09] MEDS: dexAMETHasone sod phosphate 4 MG/ML VIAL 6 MG IVPUSH (16:55)
[2020-10-09] MEDS: 0.9 % Sodium Chloride Flush 3 ML SYRINGE IVFLUSH ×2 (16:55→21:31)
[2020-10-09] MEDS: Enoxaparin Sodium 40 MG/0.4 ML SYRINGE SUBCUT (17:16)
[2020-10-09 17:17] LABS: Glucose, Whole Blood 103 mg/dL (60-115)
[2020-10-09 21:14] LABS: Glucose, Whole Blood 131 mg/dL (60-115)
[2020-10-09] MEDS: Atorvastatin Calcium 40 MG TABLET PO (21:32)
[2020-10-09] MEDS: Divalproex Sodium Sprinkles 125 MG CAP.DR.SPR 250 MG PO (21:32)
[2020-10-09] MEDS: Sennosides 8.6 MG TABLET 17.2 MG PO (21:54)
[2020-10-09] MEDS: guaiFENesin LA 600 MG TAB.ER.12H PO (21:54)
[2020-10-10] VITALS (8 sets, daily range): BP systolic 143–169; BP diastolic 60–78; PULSE 74–83; RESP 18–20; TEMP 36.1–37.2; O2SAT 95–99; BMI 39.2
[2020-10-10 06:20] LABS: Hematocrit 37.8 % (37-47); Hemoglobin 12.1 g/dl (12.0-16.0); Mean Corpuscular Hemoglobin 28.2 pg (27.0-33.0); Mean Corpuscular Volume 88.1 fL (80-98); Mean Platelet Volume 9.9 fL (9.4-12.3); Platelet Count 247 X10*3/uL (160-400); Red Blood Count 4.29 X10*6/uL (4.20-5.50); White Blood Count 10.1 X10*3/uL (4.8-10.8)
[2020-10-10 06:28] LABS: D Dimer 508 NG/ML
[2020-10-10 07:03] LABS: Anion Gap 12 (12-20); Blood Urea Nitrogen 21 mg/dL (9-16); Calcium 8.6 mg/dL (8.4-10.2); Carbon Dioxide 28 mmol/L (22-29); Chloride 96 mmol/L (96-108); Creatinine Clr Calc Pharmacy 64.9; Estimated Glomerular Filt Rate > 60; Glucose Random 173 mg/dL (60-115); Potassium 4.9 mmol/l (3.3-5.1); Sodium 131 mmol/L (135-145)
[2020-10-10 08:12] LABS: Glucose, Whole Blood 159 mg/dL (60-115)
[2020-10-10] MEDS: cefTRIAXone sodium 1 GM in 0.9 % Sodium Chloride 50 ML IV (08:21)
[2020-10-10] MEDS: 0.9 % Sodium Chloride Flush 3 ML SYRINGE IVFLUSH ×3 (08:22→21:01)
[2020-10-10] MEDS: dexAMETHasone sod phosphate 4 MG/ML VIAL 6 MG IVPUSH (08:22)
[2020-10-10] MEDS: Insulin Lispro 100 UNIT/ML 3 ML VIAL SUBCUT ×4 (08:23→21:00)
[2020-10-10] MEDS: Divalproex Sodium Sprinkles 125 MG CAP.DR.SPR 250 MG PO ×2 (08:24→21:01)
[2020-10-10] MEDS: Aspirin 81 MG TAB.CHEW PO (08:24)
[2020-10-10] MEDS: lisinopriL 40 MG TABLET PO (08:24)
[2020-10-10] MEDS: guaiFENesin LA 600 MG TAB.ER.12H PO ×2 (08:24→21:01)
[2020-10-10] MEDS: Artificial Tears 15 ML DROPS 1 DROP EYE-BOTH ×2 (08:26→21:00)
--- NOTE | 2020-10-10 10:06 | MHC.CM.PN ---
Patient is on the Covid Unit and unable to be reached by phone; CM spoke with Daughter- Robyn. Patient is a LTC Resident at [facility] and the goal for dc is to return there. CM has initiated and will follow for dc planning.IMM addressed with Robyn and the original will be mailed certified letter to her and a copy has been placed on the chart.
[2020-10-10 11:39] LABS: Glucose, Whole Blood 223 mg/dL (60-115)
--- NOTE | 2020-10-10 13:27 | W.PM.IDCN ---
History of Present Illness Data of Consult Service Date: 10/10/20 Requesting physician: Rosio Chavez Primary Care Provider: Unknown Physician HPI Reason for consult: lethargy,gram negative rods urine She presents to hospital with lethargy from SNF She was diagnosed with COVID 10/05 there She has had declining ability to ambulate last week She cannot utter urinary symptoms Review of Systems Review of Systems: Yes Unobtainable due to mental status Neurologic: Reports confusion Psychiatric: Psychiatric: Reports confusion [facility] [place] Past Medical History Medical History Chronic lower back pain COVID-19 CVA (cerebral vascular accident) Diabetes HTN (hypertension) Hyperlipidemia Schizoaffective disorder Social History Social History Household Members: Caregiver Housing: [facility] Alcohol intake: unknown Smoking Status: Unknown if ever smoked Smoked in Last 30 Days: No Second Hand Smoke Exposure: No Use of substances other than those prescribed or required for medical reasons: Unknown Last Used Substance: Unknown Currently Displaying Signs/Symptoms of Drug Intoxication Withdrawal: No Advance Directives: No Advance Directives Information Provided: Yes Do you have thoughts of harming others: None Do you have a plan to hurt others: No Plan Recently lost weight without trying: No service: No Current occupational status: retired [employer] Allergies Allergy/AdvReac Type Severity Reaction Status Date / Time No Known Allergies Allergy Verified 10/09/20 11:55 Home Medications Medication Instructions Recorded Confirmed Type albuterol 2 mcg INHALATION Q4H 10/09/20 10/17/20 History aspirin 81 mg PO DAILY 10/09/20 10/17/20 History atorvastatin 40 mg PO BEDTIME 10/09/20 10/17/20 History glipizide 1 tab PO BID 10/09/20 10/17/20 History guaifenesin 1,200 mg PO DAILY 10/09/20 10/17/20 History lisinopril 1 tab PO DAILY 10/09/20 10/17/20 History olopatadine 1 drp OPHTHALMIC (EYE) BID 10/09/20 10/17/20 History polyvinyl alcohol 1 drp OPHTHALMIC (EYE) BID 10/09/20 10/17/20 History sennosides [senna] 17.2 mg PO BEDTIME 10/09/20 10/17/20 History Physical Exam Vital Signs: Vital Signs: Last Vital Signs Temp 97.2 F 10/10/20 11:11 Pulse 76 10/10/20 11:11 Resp 18 10/10/20 11:11 BP 169/74 H 10/10/20 11:11 Pulse Ox 98 10/10/20 11:11 Body Mass Index 39.2 Const: General: cooperative and confusion Orientation/consciousness: confusion HENMT: Head: Yes normal to inspection Mouth: Normal oral and palatal mucosa present Eyes: General: appearance normal, both eyes and all related structures Resp: Effort & Inspection: normal respiratory effort Cardio: Rate: regular rate Rhythm: regular rhythm GI: Palpation (GI): Soft to palpation and nontender : General: Yes no CVA tenderness Back/Spine/Pelvis: Back: no CVA tenderness Skin: General skin exam: no rashes or lesions noted Neuro: General: confusion Assessment and Plan (1) UTI (urinary tract infection): Status: Acute Continue Ceftriaxone Await blood cultures (2) COVID-19 virus infection: Status: Acute Would give Dexamethasone 6 mg daily, 10 d total Results Labs CBC & Chem 7: 10/14/20 06:36 10/14/20 06:36 Labs: Short CBC 10/10/20 Range/Units 05:46 WBC 10.1 (4.8-10.8) X10*3/uL Hgb 12.1 (12.0-16.0) g/dl Hct 37.8 (37-47) % Plt Count 247 (160-400) X10*3/uL BMP 10/09/20 10/10/20 12:43 05:46 Sodium 132 L 131 L Potassium 4.5 4.9 Chloride 96 96 Carbon Dioxide 29 28 BUN 19 H 21 H Creatinine 1.00 0.85 Calcium 8.7 D 8.6 Liver Function 10/09/20 Range/Units 12:43 Total Bilirubin 0.4 (0.0-1.0) mg/dL Direct Bilirubin 0.3 (0.0-0.5) mg/dL AST 35 H (5-31) U/L ALT 27 (0-31) U/L Alkaline Phosphatase 74 (39-117) U/L Albumin 3.3 L (3.5-5.0) g/dL Microbiology Microbiology Results: Microbiology 10/09/20 Unknown Urine Catheterized - Shore Catheter Urine Culture - Preliminary Gram negative skye 10/09/20 12:50 Blood - Venous Blood Culture - Preliminary
[2020-10-10] MEDS: Enoxaparin Sodium 40 MG/0.4 ML SYRINGE SUBCUT (16:25)
[2020-10-10 16:27] LABS: Glucose, Whole Blood 350 mg/dL (60-115)
--- NOTE | 2020-10-10 16:48 | HO.PM.IMPN ---
Subjective Subjective Date of Service: 10/10/20 Interval History: the patient was seen and evaluated this morning Laying in bed, feels comfortable Denies any fever, chills Report coughing and mind shortness of breath No reported other overnight events. Systemic review: No fever, chills or weakness No chest pain, palpitation reporting shortness of breath or coughing No abdominal pain, nausea or vomiting No urinary symptoms No any rash or wounds Physical Exam Vital Signs: Vital Signs: Last Vital Signs Temp 99.0 F 10/10/20 15:29 Pulse 80 10/10/20 15:29 Resp 20 10/10/20 15:29 BP 158/70 H 10/10/20 15:29 Pulse Ox 96 10/10/20 15:29 Body Mass Index 39.2 Constitutional : Alert, oriented, not in distress Neck : Normal inspection, Supple Cardiovascular : RRR, S1 S2, no lower extremity edema Respiratory : fair bilateral air entry, no crackles, scattered wheezes no rhonchi Gastrointestinal: soft, lax, Normal bowel sounds, Non tender Skin : Warm/Dry, No rash Neurological : Alert & oriented x3, mild left-sided weakness which is chronic Objective Data Current Medications Generic Name Dose Route Start Last Admin Trade Name Freq PRN Reason Stop Dose Admin Acetaminophen 650 mg 10/09/20 16:53 Acetaminophen 325 Mg Tablet PO Q6H PRN Pain, Mild (Pain Scale 1-3) Albuterol Sulfate 2 puff 10/09/20 16:53 Albuterol Sulfate 90 Mcg 8 Gm Inhaler INHALE RQ4H PRN Shortness of Breath/Wheezing Artificial Tears 1 drop 10/09/20 21:00 10/10/20 08:26 Artificial Tears 15 Ml Drops EYE-BOTH 1 drop BID MYCHAL Administration Aspirin 81 mg 10/10/20 09:00 10/10/20 08:24 Aspirin 81 Mg Tab.Chew PO 81 mg DAILY MY[facility] Administration Atorvastatin Calcium 40 mg 10/09/20 21:00 10/09/20 21:32 Atorvastatin Calcium 40 Mg Tablet PO 40 mg BEDTIME MY[facility] Administration Dexamethasone Sodium Phosphate 6 mg 10/09/20 15:30 10/10/20 08:22 Dexamethasone Sod Phosphate 4 Mg/Ml Vial IVPUSH 6 mg DAILY [facility] Administration Divalproex Sodium 250 mg 10/09/20 21:00 10/10/20 08:24 Divalproex Sodium Sprinkles 125 Mg Shree. PO 250 mg BID MY[facility] Administration Enoxaparin Sodium 40 mg 10/09/20 16:53 10/10/20 16:25 Enoxaparin Sodium 40 Mg/0.4 Ml Syringe SUBCUT 40 mg Q24H [facility] Administration Guaifenesin 600 mg 10/09/20 21:00 10/10/20 08:24 Guaifenesin La 600 Mg Tab.Er.12h PO 600 mg BID MY[facility] Administration Ceftriaxone Sodium 1 gm/ 50 mls @ 100 mls/hr 10/10/20 09:00 10/10/20 08:56 Sodium Chloride IV Infused Q24H [facility] Infusion Insulin Human Lispro 0 unit 10/09/20 21:00 10/10/20 16:25 Insulin Lispro 100 Unit/Ml 3 Ml Vial SUBCUT 8 unit QIDACHS [facility] Administration Protocol Lisinopril 40 mg 10/10/20 09:00 10/10/20 08:24 Lisinopril 40 Mg Tablet PO 40 mg DAILY [facility] Administration Protocol Ondansetron HCl 4 mg 10/09/20 16:53 Ondansetron Hcl 4 Mg/2 Ml Vial IVPUSH Q8H PRN Nausea and Vomiting Senna 17.2 mg 10/09/20 21:00 10/09/20 21:54 Sennosides 8.6 Mg Tablet PO 17.2 mg BEDTIME [facility] Administration Sodium Chloride 3 ml 10/09/20 16:53 10/10/20 15:18 0.9 % Sodium Chloride Flush 3 Ml Syringe IVFLUSH 3 ml QSHIFT [facility] Administration Labs CBC & Chem 7: 10/10/20 05:46 10/10/20 05:46 Microbiology Microbiology Results: Microbiology 10/09/20 12:50 Blood - Venous Blood Culture - Preliminary No growth after 24 hours. 10/09/20 Unknown Urine Catheterized - Shore Catheter Urine Culture - Preliminary Gram negative skye 10/09/20 12:50 Blood - Venous Blood Culture - Preliminary Assessment and Plan (1) Acute respiratory failure with hypoxia: Status: Acute (2) COVID-19 virus infection: Problem details: She has had about a week She has 2 liters saturation 95%, no desaturation Status: Acute (3) UTI (urinary tract infection): Problem details: gram negative rods Status: Acute (4) Metabolic encephalopathy: Status: Acute Assessment and Plan: a 75 years old lady with PMH of diabetes, CVA , schizoaffective disorder and HLD who presents to the hospital from [facility] for increased weakness, difficulty breathing and reported altered mentation. Acute hypoxic respiratory failure Secondary COVID-19 infection O2 supplement, to wean down as tolerated O2 saturation mid 90s o with oxygen supplement today continue dexamethasone 6 mg daily id input appreciated, continue steroids only for now Inhalers as needed Cough medicine gram-negative bacteremia Secondary to UTI Pending urine culture pending final blood culture result continue ceftriaxone Metabolic encephalopathy Improving 2/2 infection, hypoxemia, other etiologies Continue treat underlying infection Recurrent reorientation DMII SSI for now pending med rec. for rest of home meds DVT PPx Lovenox
[2020-10-10 20:39] LABS: Glucose, Whole Blood 320 mg/dL (60-115)
[2020-10-10] MEDS: Atorvastatin Calcium 40 MG TABLET PO (21:01)
[2020-10-11 03:40] VITALS: BP 141/83; PULSE 82; RESP 19; TEMP 36.1; O2SAT 95
[2020-10-11 07:30] LABS: Hematocrit 40.1 % (37-47); Hemoglobin 13.2 g/dl (12.0-16.0); Mean Corpuscular HGB Conc 32.9 g/dl (31.0-35.0); Mean Corpuscular Hemoglobin 28.8 pg (27.0-33.0); Mean Corpuscular Volume 87.4 fL (80-98); Mean Platelet Volume 10.4 fL (9.4-12.3); Platelet Count 317 X10*3/uL (160-400); Red Blood Count 4.59 X10*6/uL (4.20-5.50); Red Cell Distribution Width 13.6 % (11.0-16.0); White Blood Count 11.4 X10*3/uL (4.8-10.8)
[2020-10-11 07:55] LABS: Anion Gap 11 (12-20); Blood Urea Nitrogen 18 mg/dL (9-16); Calcium 8.9 mg/dL (8.4-10.2); Carbon Dioxide 30 mmol/L (22-29); Chloride 97 mmol/L (96-108); Creatinine Clr Calc Pharmacy 69.9; Estimated Glomerular Filt Rate > 60; Glucose Random 189 mg/dL (60-115); Potassium 4.4 mmol/l (3.3-5.1); Sodium 134 mmol/L (135-145)
[2020-10-11 08:00] VITALS: PULSE 85; RESP 20; TEMP 36.3; O2SAT 94
[2020-10-11 08:00] LABS: Glucose, Whole Blood 181 mg/dL (60-115)
[2020-10-11] MEDS: 0.9 % Sodium Chloride Flush 3 ML SYRINGE IVFLUSH ×3 (08:26→19:59)
[2020-10-11] MEDS: Insulin Lispro 100 UNIT/ML 3 ML VIAL SUBCUT ×3 (08:26→20:01)
[2020-10-11] MEDS: dexAMETHasone sod phosphate 4 MG/ML VIAL 6 MG IVPUSH (08:27)
[2020-10-11] MEDS: cefTRIAXone sodium 1 GM in 0.9 % Sodium Chloride 50 ML IV (08:27)
[2020-10-11] MEDS: ondansetron HCL 4 MG/2 ML VIAL IVPUSH (08:46)
[2020-10-11 11:41] LABS: Glucose, Whole Blood 192 mg/dL (60-115)
[2020-10-11 12:00] VITALS: BP 177/73; PULSE 84; RESP 20; TEMP 37.9; O2SAT 94
[2020-10-11 12:13] LABS: D Dimer 845 NG/ML
[2020-10-11 12:37] LABS: Troponin-I High Sensitivity 8.8 ng/L (<3.5-17.0)
--- NOTE | 2020-10-11 13:58 | HO.PM.IMPN ---
Subjective Subjective Date of Service: 10/11/20 Interval History: the patient was seen and evaluated this morning Laying in bed, not in distress spots looks altered mentation and difficult to arouse Unable to obtain much of the patient with her current situation No reported other overnight events. Systemic review: Very lethargic to answer and reply, Review of Systems Review of Systems: Yes Unobtainable due to mental condition Physical Exam Vital Signs: Vital Signs: Last Vital Signs Temp 97.4 F 10/11/20 08:00 Pulse 85 10/11/20 08:00 Resp 20 10/11/20 08:00 BP 141/83 H 10/11/20 03:40 Pulse Ox 94 10/11/20 08:00 Body Mass Index 39.2 Constitutional : Altered mentation, Alert with stimulation, cannot assess orientation, not in distress Neck : Normal inspection, Supple Cardiovascular : RRR, S1 S2, no lower extremity edema Respiratory : Fair bilateral air entry, no crackles, scattered bilateral wheezes and rhonchi can be here Gastrointestinal: soft, lax, Normal bowel sounds, Non tender Skin : Warm/Dry, No rash Neurological : Alert with stimulation, left-sided chronic weakness, altered mentation Objective Data Current Medications Generic Name Dose Route Start Last Admin Trade Name Freq PRN Reason Stop Dose Admin Acetaminophen 650 mg 10/09/20 16:53 Acetaminophen 325 Mg Tablet PO Q6H PRN Pain, Mild (Pain Scale 1-3) Albuterol Sulfate 2 puff 10/09/20 16:53 Albuterol Sulfate 90 Mcg 8 Gm Inhaler INHALE RQ4H PRN Shortness of Breath/Wheezing Artificial Tears 1 drop 10/09/20 21:00 10/11/20 08:27 Artificial Tears 15 Ml Drops EYE-BOTH Not Given BID [facility] Aspirin 81 mg 10/10/20 09:00 10/11/20 08:43 Aspirin 81 Mg Tab.Chew PO Not Given DAILY [facility] Atorvastatin Calcium 40 mg 10/09/20 21:00 10/10/20 21:01 Atorvastatin Calcium 40 Mg Tablet PO 40 mg BEDTIME [facility] Administration Dexamethasone Sodium Phosphate 6 mg 10/09/20 15:30 10/11/20 08:27 Dexamethasone Sod Phosphate 4 Mg/Ml Vial IVPUSH 6 mg DAILY [facility] Administration Divalproex Sodium 250 mg 10/09/20 21:00 10/11/20 08:43 Divalproex Sodium Sprinkles 125 Mg Cap.Spr PO Not Given BID [facility] Enoxaparin Sodium 40 mg 10/09/20 16:53 10/10/20 16:25 Enoxaparin Sodium 40 Mg/0.4 Ml Syringe SUBCUT 40 mg Q24H [facility] Administration Guaifenesin 600 mg 10/09/20 21:00 10/11/20 08:43 Guaifenesin La 600 Mg Tab.Er.12h PO Not Given BID [facility] Ceftriaxone Sodium 1 gm/ 50 mls @ 100 mls/hr 10/10/20 09:00 10/11/20 09:11 Sodium Chloride IV Infused Q24H [facility] Infusion Insulin Human Lispro 0 unit 10/09/20 21:00 10/11/20 12:19 Insulin Lispro 100 Unit/Ml 3 Ml Vial SUBCUT Not Given QIDACHS [facility] Protocol Lisinopril 40 mg 10/10/20 09:00 10/11/20 08:43 Lisinopril 40 Mg Tablet PO Not Given DAILY [facility] Protocol Ondansetron HCl 4 mg 10/09/20 16:53 10/11/20 08:46 Ondansetron Hcl 4 Mg/2 Ml Vial IVPUSH 4 mg Q8H PRN Administration Nausea and Vomiting Senna 17.2 mg 10/09/20 21:00 10/10/20 21:02 Sennosides 8.6 Mg Tablet PO Not Given BEDTIME [facility] Sodium Chloride 3 ml 10/09/20 16:53 10/11/20 08:26 0.9 % Sodium Chloride Flush 3 Ml Syringe IVFLUSH 3 ml QSHIFT [facility] Administration Labs CBC & Chem 7: 10/11/20 06:30 10/11/20 06:30 Microbiology Microbiology Results: Microbiology 10/09/20 Unknown Urine Catheterized - Shore Catheter Urine Culture - Final Proteus mirabilis 10/09/20 12:50 Blood - Venous Blood Culture - Preliminary Coagulase-neg Staphyloccocus 10/09/20 12:50 Blood - Venous Blood Culture - Preliminary No growth after 24 hours. Assessment and Plan (1) Acute respiratory failure with hypoxia: Status: Acute (2) COVID-19 virus infection: Problem details: She has had about a week She has 2 liters saturation 95%, no desaturation Status: Acute (3) UTI (urinary tract infection): Problem details: gram negative rods Status: Acute (4) Metabolic encephalopathy: Status: Acute Assessment and Plan: a 75 years old lady with PMH of diabetes, CVA , schizoaffective disorder and HLD who presents to the hospital from group home for increased weakness, difficulty breathing and reported altered mentation. Acute hypoxic respiratory failure Secondary COVID-19 infection O2 supplement, to wean down as tolerated O2 saturation mid 90s o with oxygen supplement today continue dexamethasone 6 mg daily id input appreciated, continue steroids only for now Inhalers as needed Cough medicine UTI Urine growing Proteus Final blood culture growing coag-negative staph Discontinue ceftriaxone Changed to Zosyn for broader coverage of possible aspiration pneumonia Metabolic encephalopathy For started to get worse again today EKG negative for any ACS, troponin negative To check ABG Decreased valproic acid dose to once a day for now Continue treat underlying infection Recurrent reorientation DMII SSI for now pending med rec. for rest of home meds DVT PPx Lovenox
[2020-10-11] MEDS: Piperacillin Sodium/Tazobactam 3.375 GM in 0.9 % Sodium Chloride 50 ML IV ×2 (14:29→19:58)
[2020-10-11] MEDS: Acetaminophen 325 MG TABLET 650 MG PO (14:29)
[2020-10-11 15:35] VITALS: BP 158/99; PULSE 83; RESP 20; TEMP 37.4; O2SAT 93
[2020-10-11 16:33] LABS: Glucose, Whole Blood 257 mg/dL (60-115)
[2020-10-11] MEDS: Enoxaparin Sodium 40 MG/0.4 ML SYRINGE SUBCUT (17:02)
[2020-10-11 19:10] VITALS: BP 139/65; PULSE 80; RESP 20; TEMP 38; O2SAT 97
[2020-10-11 20:04] LABS: Glucose, Whole Blood 273 mg/dL (60-115)
[2020-10-11 20:55] LABS: Base Excess VBG 3.9 mmol/L; Blood Gas Serial # 5414; HCO3 VBG 27 mmol/L; Oxygen Saturation VBG 85.5 %; PCO2 VBG 36 mmhg; PO2 VBG 45 mmhg; pH VBG 7.49 (7.32-7.43)
[2020-10-11 23:42] VITALS: BP 175/80; PULSE 76; RESP 18; TEMP 37.1; O2SAT 96
[2020-10-12] VITALS (8 sets, daily range): BP systolic 149–186; BP diastolic 70–90; PULSE 64–78; RESP 18–20; TEMP 36.1–37.6; O2SAT 91–96
[2020-10-12] MEDS: Piperacillin Sodium/Tazobactam 3.375 GM in 0.9 % Sodium Chloride 50 ML IV ×4 (02:13→21:28)
[2020-10-12] MEDS: vancomycin HCL 1,000 MG in 0.9 % Sodium Chloride 250 ML 270 MG IV (03:56)
[2020-10-12] MEDS: Artificial Tears 15 ML DROPS 1 DROP EYE-BOTH ×3 (05:31→21:30)
[2020-10-12 07:15] LABS: Hematocrit 37.6 % (37-47); Hemoglobin 12.1 g/dl (12.0-16.0); Mean Corpuscular HGB Conc 32.2 g/dl (31.0-35.0); Mean Corpuscular Hemoglobin 28.4 pg (27.0-33.0); Mean Corpuscular Volume 88.3 fL (80-98); Mean Platelet Volume 11.3 fL (9.4-12.3); Platelet Count 248 X10*3/uL (160-400); Red Blood Count 4.26 X10*6/uL (4.20-5.50); White Blood Count 8.3 X10*3/uL (4.8-10.8)
[2020-10-12 07:39] LABS: D Dimer 1447 NG/ML
[2020-10-12 08:04] LABS: Alanine Aminotransferase 28 U/L (0-31); Albumin Level 3.2 g/dL (3.5-5.0); Alkaline Phosphatase 70 U/L (39-117); Anion Gap 15 (12-20); Aspartate Amino Transferase 28 U/L (5-31); Bilirubin Direct 0.2 mg/dL (0.0-0.5); Bilirubin Total 0.5 mg/dL (0.0-1.0); Blood Urea Nitrogen 20 mg/dL (9-16); Calcium 8.4 mg/dL (8.4-10.2); Carbon Dioxide 25 mmol/L (22-29); Chloride 101 mmol/L (96-108); Creatinine Clr Calc Pharmacy 69.9; Estimated Glomerular Filt Rate > 60; Glucose Random 154 mg/dL (60-115); Potassium 4.3 mmol/l (3.3-5.1); Sodium 137 mmol/L (135-145); Total Protein 6.2 g/dL (6.5-8.0)
[2020-10-12] MEDS: 0.9 % Sodium Chloride Flush 3 ML SYRINGE IVFLUSH ×3 (08:13→21:30)
[2020-10-12] MEDS: dexAMETHasone sod phosphate 4 MG/ML VIAL 6 MG IVPUSH (08:13)
[2020-10-12] MEDS: Divalproex Sodium Sprinkles 125 MG CAP.DR.SPR 250 MG PO (08:14)
[2020-10-12] MEDS: Aspirin 81 MG TAB.CHEW PO (08:14)
[2020-10-12] MEDS: guaiFENesin LA 600 MG TAB.ER.12H PO ×2 (08:14→21:29)
[2020-10-12] MEDS: lisinopriL 40 MG TABLET PO (08:15)
[2020-10-12 08:33] LABS: Glucose, Whole Blood 150 mg/dL (60-115)
[2020-10-12 11:45] LABS: Glucose, Whole Blood 244 mg/dL (60-115)
[2020-10-12] MEDS: Insulin Lispro 100 UNIT/ML 3 ML VIAL SUBCUT ×3 (11:59→21:30)
--- NOTE | 2020-10-12 12:37 | ECG_ITS ---
Test Reason : CHEST PAIN Blood Pressure : / mmHG Vent. Rate : 086 BPM Atrial Rate : 086 BPM P-R Int : 166 ms QRS Dur : 090 ms QT Int : 372 ms P-R-T Axes : 052 -07 059 degrees QTc Int : 445 ms Normal sinus rhythm Intra-ventricular conduction delay Left axis deviation Borderline ECG No significant changes seen Referred By: Rosio Chavez Electronically Signed By:MIKHAIL PATRICIA MD
--- NOTE | 2020-10-12 12:51 | MHC.CM.PN ---
Goal for dc is for Patient to return to LTC at [facility]. Patient is receiving IV Decadron, IV Zosyn, and IV Vanco and is not yet medically cleared for dc. CM will continue to follow for dc planning and the possible need to adjust the dc plan.
--- NOTE | 2020-10-12 12:54 | P.EN_ITS ---
Event Note Date of Service: 10/12/20 Event Note: Patient with coagulase negative staph x2 in blood No vascular device or senior living line seen so most likely contaminant Of note,she defervesced when Vancomycin started Will stop Vancomycin and recheck blood cultures as doing and also recheck when off Vancomycin for 2-3 days
--- NOTE | 2020-10-12 16:02 | HO.PM.IMPN ---
Subjective Subjective Date of Service: 10/12/20 Interval History: the patient was seen and evaluated this morning Laying in bed, feels comfortable, confused and lethargic but much alert and oriented since yesterday Denies any fever, chills or shortness of breath No reported other overnight events. Systemic review: Feels weak and tired and had fever yesterday seems confused, alert and talkative, moving all extremities No chest pain, palpitation No shortness of breath or coughing No abdominal pain, nausea or vomiting No urinary symptoms No any rash or wounds Physical Exam Vital Signs: Vital Signs: Last Vital Signs Temp 97.4 F 10/12/20 15:18 Pulse 77 10/12/20 15:18 Resp 18 10/12/20 15:18 BP 182/81 H 10/12/20 15:18 Pulse Ox 96 10/12/20 15:18 Body Mass Index 39.2 Constitutional : Alert, Disoriented, not in distress Neck : Normal inspection, Supple Cardiovascular : RRR, S1 S2, no lower extremity edema Respiratory : fair and decreased bilateral air entry, no crackles, wheezes or rhonchi Gastrointestinal: soft, lax, Normal bowel sounds, Non tender Skin : Warm/Dry, No rash Neurological : Alert & oriented x3, No focal deficit Objective Data Current Medications Generic Name Dose Route Start Last Admin Trade Name Tachoq PRN Reason Stop Dose Admin Acetaminophen 650 mg 10/09/20 16:53 10/11/20 14:29 Acetaminophen 325 Mg Tablet PO 650 mg Q6H PRN Administration Pain, Mild (Pain Scale 1-3) Albuterol Sulfate 2 puff 10/09/20 16:53 Albuterol Sulfate 90 Mcg 8 Gm Inhaler INHALE RQ4H PRN Shortness of Breath/Wheezing Artificial Tears 1 drop 10/09/20 21:00 10/12/20 08:34 Artificial Tears 15 Ml Drops EYE-BOTH 1 drop BID [facility] Administration Aspirin 81 mg 10/10/20 09:00 10/12/20 08:14 Aspirin 81 Mg Tab.Chew PO 81 mg DAILY [facility] Administration Atorvastatin Calcium 40 mg 10/09/20 21:00 10/11/20 20:01 Atorvastatin Calcium 40 Mg Tablet PO Not Given BEDTIME [facility] Dexamethasone Sodium Phosphate 6 mg 10/09/20 15:30 10/12/20 08:13 Dexamethasone Sod Phosphate 4 Mg/Ml Vial IVPUSH 6 mg DAILY [facility] Administration Divalproex Sodium 250 mg 10/12/20 09:00 10/12/20 08:14 Divalproex Sodium Sprinkles 125 Mg Cap.Spr PO 250 mg DAILY [facility] Administration Enoxaparin Sodium 40 mg 10/09/20 16:53 10/11/20 17:02 Enoxaparin Sodium 40 Mg/0.4 Ml Syringe SUBCUT 40 mg Q24H [facility] Administration Guaifenesin 600 mg 10/09/20 21:00 10/12/20 08:14 Guaifenesin La 600 Mg Tab.Er.12h PO 600 mg BID [facility] Administration Piperacillin Sod/Tazobactam 50 mls @ 100 mls/hr 10/11/20 14:15 10/12/20 14:43 Sod 3.375 gm/ Sodium Chloride IV Infused Q6H [facility] Infusion Insulin Human Lispro 0 unit 10/09/20 21:00 10/12/20 11:59 Insulin Lispro 100 Unit/Ml 3 Ml Vial SUBCUT 4 unit QIDACHS [facility] Administration Protocol Lisinopril 40 mg 10/10/20 09:00 10/12/20 08:15 Lisinopril 40 Mg Tablet PO 40 mg DAILY [facility] Administration Protocol Ondansetron HCl 4 mg 10/09/20 16:53 10/11/20 08:46 Ondansetron Hcl 4 Mg/2 Ml Vial IVPUSH 4 mg Q8H PRN Administration Nausea and Vomiting Pharmacy Consult 1 each 10/11/20 14:41 Consult Rx Vancomycin Dosing MISCELLANE DAILY PRN Consult order Senna 17.2 mg 10/09/20 21:00 10/11/20 20:02 Sennosides 8.6 Mg Tablet PO Not Given BEDTIME [facility] Sodium Chloride 3 ml 10/09/20 16:53 10/12/20 14:08 0.9 % Sodium Chloride Flush 3 Ml Syringe IVFLUSH 3 ml QSHIFT [facility] Administration Labs CBC & Chem 7: 10/12/20 06:03 10/12/20 06:03 Microbiology Microbiology Results: Microbiology 10/09/20 12:50 Blood - Venous Blood Culture - Preliminary Coag negative Staphylococcus 10/09/20 12:50 Blood - Venous Blood Culture - Preliminary Staphylococcus epidermidis 10/09/20 Unknown Urine Catheterized - Shore Catheter Urine Culture - Final Proteus mirabilis Assessment and Plan (1) Acute respiratory failure with hypoxia: Status: Acute (2) COVID-19 virus infection: Status: Acute (3) UTI (urinary tract infection): Status: Acute (4) Metabolic encephalopathy: Status: Acute Assessment and Plan: a 75 years old lady with PMH of diabetes, CVA , schizoaffective disorder and HLD who [facility] for increased weakness, difficulty breathing and reported altered mentation. Acute hypoxic respiratory failure, resolving Secondary COVID-19 infection O2 supplement, wean down to room air continue dexamethasone 6 mg daily id input appreciated, continue steroids only for now Inhalers as needed Cough medicine Staph epidermidis positive blood culture Started on vancomycin received Two doses Id recommended holding id Pending repeat blood cultures UTI Urine growing Proteus Final blood culture growing coag-negative staph Discontinue ceftriaxone Changed to Zosyn for broader coverage of possible aspiration Risk Metabolic encephalopathy improving EKG negative for any ACS, troponin negative within normal ABG Decreased valproic acid dose to once a day for now Continue treat underlying infection with broad-spectrum antibiotics Recurrent reorientation DMII SSI of diabetic diet DVT PPx Lovenox
[2020-10-12 16:23] LABS: Glucose, Whole Blood 252 mg/dL (60-115)
[2020-10-12] MEDS: Enoxaparin Sodium 40 MG/0.4 ML SYRINGE SUBCUT (16:33)
[2020-10-12] MEDS: amLODIPine Besylate 2.5 MG TABLET PO (16:41)
[2020-10-12 20:59] LABS: Glucose, Whole Blood 272 mg/dL (60-115)
[2020-10-12] MEDS: Atorvastatin Calcium 40 MG TABLET PO (21:29)
[2020-10-12] MEDS: Sennosides 8.6 MG TABLET 17.2 MG PO (21:29)
[2020-10-13] MEDS: Piperacillin Sodium/Tazobactam 3.375 GM in 0.9 % Sodium Chloride 50 ML IV ×3 (01:36→14:12)
[2020-10-13 03:59] LABS: Vancomycin Trough 7.1 mcg/mL (10.0-20.0)
[2020-10-13 04:00] VITALS: BP 108/76; PULSE 70; RESP 18; TEMP 37.1; O2SAT 94
[2020-10-13 07:17] LABS: Anion Gap 13 (12-20); Blood Urea Nitrogen 17 mg/dL (9-16); Calcium 8.7 mg/dL (8.4-10.2); Carbon Dioxide 29 mmol/L (22-29); Chloride 101 mmol/L (96-108); Creatinine Clr Calc Pharmacy 70.8; Estimated Glomerular Filt Rate > 60; Glucose Random 156 mg/dL (60-115); Sodium 139 mmol/L (135-145)
[2020-10-13 08:00] VITALS: BP 152/72; PULSE 66; RESP 19; TEMP 37.2; O2SAT 95
[2020-10-13 08:01] LABS: Glucose, Whole Blood 155 mg/dL (60-115)
[2020-10-13] MEDS: Insulin Lispro 100 UNIT/ML 3 ML VIAL SUBCUT ×4 (08:52→21:23)
[2020-10-13] MEDS: 0.9 % Sodium Chloride Flush 3 ML SYRINGE IVFLUSH ×3 (08:52→21:23)
[2020-10-13] MEDS: dexAMETHasone sod phosphate 4 MG/ML VIAL 6 MG IVPUSH (08:54)
[2020-10-13 08:55] VITALS: BP 152/72; PULSE 66
[2020-10-13] MEDS: guaiFENesin LA 600 MG TAB.ER.12H PO ×2 (08:55→21:23)
[2020-10-13] MEDS: Aspirin 81 MG TAB.CHEW PO (08:55)
[2020-10-13] MEDS: Divalproex Sodium Sprinkles 125 MG CAP.DR.SPR 250 MG PO (08:55)
[2020-10-13] MEDS: lisinopriL 40 MG TABLET PO (08:55)
[2020-10-13] MEDS: Artificial Tears 15 ML DROPS 1 DROP EYE-BOTH ×2 (09:13→21:23)
[2020-10-13 11:13] VITALS: BP 141/81; PULSE 67; RESP 18; TEMP 36.1; O2SAT 96
[2020-10-13 11:23] LABS: Glucose, Whole Blood 185 mg/dL (60-115)
--- NOTE | 2020-10-13 13:18 | P.PNIM_ITS ---
Subjective Subjective Date of Service: 10/13/20 Interval History: the patient was seen and evaluated this morning more alert and interactive today, still confused but overall looks comfortable On room air satting in 90s Denies any fever, chills or shortness of breath No reported other overnight events. Systemic review: Feels weak and tired seems confused, alert and talkative No chest pain, palpitation No shortness of breath or coughing No abdominal pain, nausea or vomiting No urinary symptoms No any rash or wounds Physical Exam Vital Signs: Vital Signs: Last Vital Signs Temp 97.0 F 10/13/20 11:13 Pulse 67 10/13/20 11:13 Resp 18 10/13/20 11:13 BP 141/81 H 10/13/20 11:13 Pulse Ox 96 10/13/20 11:13 Body Mass Index 39.2 Constitutional : Alert, Disoriented, not in distress Neck : Normal inspection, Supple Cardiovascular : RRR, S1 S2, no lower extremity edema Respiratory : fair and decreased bilateral air entry, no crackles, wheezes or rhonchi Gastrointestinal: soft, lax, Normal bowel sounds, Non tender Skin : Warm/Dry, No rash Neurological : Alert & oriented x3, No focal deficit Objective Data Current Medications Generic Name Dose Route Start Last Admin Trade Name Freq PRN Reason Stop Dose Admin Acetaminophen 650 mg 10/09/20 16:53 10/11/20 14:29 Acetaminophen 325 Mg Tablet PO 650 mg Q6H PRN Administration Pain, Mild (Pain Scale 1-3) Albuterol Sulfate 2 puff 10/09/20 16:53 Albuterol Sulfate 90 Mcg 8 Gm Inhaler INHALE RQ4H PRN Shortness of Breath/Wheezing Artificial Tears 1 drop 10/09/20 21:00 10/13/20 09:13 Artificial Tears 15 Ml Drops EYE-BOTH 1 drop BID MYCHAL Administration Aspirin 81 mg 10/10/20 09:00 10/13/20 08:55 Aspirin 81 Mg Tab.Chew PO 81 mg DAILY MYCHAL Administration Atorvastatin Calcium 40 mg 10/09/20 21:00 10/12/20 21:29 Atorvastatin Calcium 40 Mg Tablet PO 40 mg BEDTIME MYCHAL Administration Dexamethasone Sodium Phosphate 6 mg 10/09/20 15:30 10/13/20 08:54 Dexamethasone Sod Phosphate 4 Mg/Ml Vial IVPUSH 6 mg DAILY MYCHAL Administration Divalproex Sodium 250 mg 10/12/20 09:00 10/13/20 08:55 Divalproex Sodium Sprinkles 125 Mg Cap.Spr PO 250 mg DAILY MYCHAL Administration Enoxaparin Sodium 40 mg 10/09/20 16:53 10/12/20 16:33 Enoxaparin Sodium 40 Mg/0.4 Ml Syringe SUBCUT 40 mg Q24H MYCHAL Administration Guaifenesin 600 mg 10/09/20 21:00 10/13/20 08:55 Guaifenesin La 600 Mg Tab.Er.12h PO 600 mg BID MYCHAL Administration Piperacillin Sod/Tazobactam 50 mls @ 100 mls/hr 10/11/20 14:15 10/13/20 10:09 Sod 3.375 gm/ Sodium Chloride IV Infused Q6H [facility] Infusion Insulin Human Lispro 0 unit 10/09/20 21:00 10/13/20 11:43 Insulin Lispro 100 Unit/Ml 3 Ml Vial SUBCUT 2 unit QIDACHS [facility] Administration Protocol Lisinopril 40 mg 10/10/20 09:00 10/13/20 08:55 Lisinopril 40 Mg Tablet PO 40 mg DAILY [facility] Administration Protocol Ondansetron HCl 4 mg 10/09/20 16:53 10/11/20 08:46 Ondansetron Hcl 4 Mg/2 Ml Vial IVPUSH 4 mg Q8H PRN Administration Nausea and Vomiting Pharmacy Consult 1 each 10/11/20 14:41 Consult Rx Vancomycin Dosing MISCELLANE DAILY PRN Consult order Senna 17.2 mg 10/09/20 21:00 10/12/20 21:29 Sennosides 8.6 Mg Tablet PO 17.2 mg BEDTIME [facility] Administration Sodium Chloride 3 ml 10/09/20 16:53 10/13/20 08:52 0.9 % Sodium Chloride Flush 3 Ml Syringe IVFLUSH 3 ml QSHIFT [facility] Administration Labs CBC & Chem 7: 10/12/20 06:03 10/13/20 06:07 Microbiology Microbiology Results: Microbiology 10/09/20 12:50 Blood - Venous Blood Culture - Preliminary Staphylococcus hominis ssp jaspal 10/11/20 14:36 Blood - Venous Blood Culture - Preliminary No growth after 24 hours. 10/11/20 14:33 Blood - Venous Blood Culture - Preliminary No growth after 24 hours. 10/09/20 12:50 Blood - Venous Blood Culture - Preliminary Staphylococcus epidermidis 10/09/20 Unknown Urine Catheterized - Shore Catheter Urine Culture - Final Proteus mirabilis Assessment and Plan (1) Acute respiratory failure with hypoxia: Status: Acute (2) COVID-19 virus infection: Status: Acute (3) UTI (urinary tract infection): Status: Acute (4) Metabolic encephalopathy: Status: Acute Assessment and Plan: a 75 years old lady with PMH of diabetes, CVA , schizoaffective disorder and HLD who presents to the hospital [facility] [place] [facility] for increased weakness, difficulty breathing and reported altered mentation. Acute hypoxic respiratory failure, resolved Secondary COVID-19 infection O2 supplement, wean down to room air continue dexamethasone 6 mg day 03/25 id input appreciated, continue steroids only for now Inhalers as needed Cough medicine Staph epidermidis positive blood culture Started on vancomycin received Two doses Id recommended holding id Pending repeat blood cultures UTI Urine growing Proteus Final blood culture growing coag-negative staph Discontinue ceftriaxone Discontinue Zosyn start p.o. Ceftin Metabolic encephalopathy Could be secondary to prolonged hospital stay delirium Decreased valproic acid dose to once a day for now Continue treat underlying infection with broad-spectrum antibiotics Recurrent reorientation DMII SSI of diabetic diet DVT PPx Lovenox
--- NOTE | 2020-10-13 15:13 | PC.NURSE ---
This RN found a skin tear to pt Buttocks. Xeroform and pink foam applied.
[2020-10-13] MEDS: Enoxaparin Sodium 40 MG/0.4 ML SYRINGE SUBCUT (15:28)
[2020-10-13 16:00] VITALS: BP 160/90; PULSE 87; RESP 18; TEMP 37; O2SAT 95
[2020-10-13 16:44] LABS: Glucose, Whole Blood 328 mg/dL (60-115)
[2020-10-13 20:00] VITALS: BP 164/86; PULSE 73; RESP 18; TEMP 36.6; O2SAT 99
[2020-10-13 21:17] LABS: Glucose, Whole Blood 291 mg/dL (60-115)
[2020-10-13] MEDS: Atorvastatin Calcium 40 MG TABLET PO (21:22)
[2020-10-13] MEDS: Sennosides 8.6 MG TABLET 17.2 MG PO (21:22)
[2020-10-14] VITALS: BP 168/80; PULSE 51; RESP 20; TEMP 36.4; O2SAT 95
[2020-10-14 03:46] VITALS: BP 160/82; PULSE 66; RESP 16; TEMP 36.6; O2SAT 96
[2020-10-14 07:09] LABS: Hematocrit 40.1 % (37-47); Mean Corpuscular HGB Conc 32.4 g/dl (31.0-35.0); Mean Corpuscular Hemoglobin 28.5 pg (27.0-33.0); Mean Corpuscular Volume 87.9 fL (80-98); Mean Platelet Volume 10.5 fL (9.4-12.3); Platelet Count 324 X10*3/uL (160-400); Red Blood Count 4.56 X10*6/uL (4.20-5.50); Red Cell Distribution Width 13.5 % (11.0-16.0); White Blood Count 8.4 X10*3/uL (4.8-10.8)
[2020-10-14 07:35] LABS: Anion Gap 13 (12-20); Blood Urea Nitrogen 17 mg/dL (9-16); Calcium 8.6 mg/dL (8.4-10.2); Carbon Dioxide 28 mmol/L (22-29); Chloride 100 mmol/L (96-108); Estimated Glomerular Filt Rate > 60; Glucose Random 163 mg/dL (60-115); Potassium 5.2 mmol/l (3.3-5.1); Sodium 136 mmol/L (135-145)
[2020-10-14 07:37] LABS: Glucose, Whole Blood 159 mg/dL (60-115)
[2020-10-14 08:00] VITALS: BP 130/67; PULSE 77; RESP 18; TEMP 36.1; O2SAT 93
[2020-10-14] MEDS: Insulin Lispro 100 UNIT/ML 3 ML VIAL SUBCUT ×2 (09:22→11:47)
[2020-10-14] MEDS: Divalproex Sodium Sprinkles 125 MG CAP.DR.SPR 250 MG PO (09:23)
[2020-10-14] MEDS: guaiFENesin LA 600 MG TAB.ER.12H PO (09:23)
[2020-10-14] MEDS: 0.9 % Sodium Chloride Flush 3 ML SYRINGE IVFLUSH (09:23)
[2020-10-14] MEDS: Artificial Tears 15 ML DROPS 1 DROP EYE-BOTH (09:23)
[2020-10-14] MEDS: Aspirin 81 MG TAB.CHEW PO (09:23)
[2020-10-14] MEDS: dexAMETHasone sod phosphate 4 MG/ML VIAL 6 MG IVPUSH (09:23)
[2020-10-14 09:24] VITALS: BP 130/67; PULSE 77
[2020-10-14] MEDS: lisinopriL 40 MG TABLET PO (09:24)
[2020-10-14 11:21] LABS: Glucose, Whole Blood 240 mg/dL (60-115)
[2020-10-14] MEDS: Sodium Polystyrene Sulfon/Sorb 15 GM/60 ML ORAL.SUSP 30 GM PO (11:47)
[2020-10-14 12:00] VITALS: BP 146/84; PULSE 67; RESP 18; TEMP 35.8; O2SAT 95
--- NOTE | 2020-10-14 13:39 | PM.DS ---
DS: Providers Provider Date of admission: 10/09/20 15:29 Primary care physician: Unknown Physician Consults: 10/09/20 16:53 Consult to Infectious Diseases Routine Consulting Provider: Romy Finnegan Reason for consultation: Hypoxemia 2/2 Covid 19 infection for your eval DS: Diagnosis Discharge Diagnosis (1) Acute respiratory failure with hypoxia: Status: Acute (2) COVID-19 virus infection: Status: Acute (3) UTI (urinary tract infection): Status: Acute (4) Metabolic encephalopathy: Status: Acute DS: Medications Discharge Medications Home Medications: Home Medications Medication Instructions Recorded Confirmed albuterol 2 mcg INHALATION Q4H 10/09/20 10/09/20 aspirin 81 mg PO DAILY 10/09/20 10/09/20 atorvastatin 40 mg PO BEDTIME 10/09/20 10/09/20 glipizide 1 tab PO BID 10/09/20 10/09/20 guaifenesin 1,200 mg PO DAILY 10/09/20 10/09/20 lisinopril 1 tab PO DAILY 10/09/20 10/09/20 olopatadine 1 drp OPHTHALMIC (EYE) BID 10/09/20 10/09/20 polyvinyl alcohol 1 drp OPHTHALMIC (EYE) BID 10/09/20 10/09/20 sennosides [senna] 17.2 mg PO BEDTIME 10/09/20 10/09/20 Previous Rx's Medication Instructions Recorded cefuroxime axetil 500 mg PO Q12H #4 tab 10/14/20 dexamethasone 6 mg PO DAILY #4 tab 10/14/20 divalproex 250 mg PO BEDTIME #0 cap 10/14/20 DS: Summary Hospital Course Hospital Course: admission note HPI a 75 years old lady with PMH of diabetes, CVA , schizoaffective disorder and HLD who presents to the hospital from long term for increased weakness, difficulty breathing and reported altered mentation. The patient is awake but seems id bit confused and speaks only [place]. History taken from long term notes and emergency physician. The patient was tested positive for COVID-19 infection on the 13 of October. She has been to relating since then physically and mentally with decreased oral intake and increased lethargy. For the last day she was noticed to drop her oxygen saturation on room air requiring oxygen supplement. Today decision to bring her to the hospital as her overall situation deteriorated. In the emergency CXR showing clean lungs with no infiltrate. Urine is suspicious for possible infection. D-dimer mildly elevated at 500. Admitted for further evaluation and treatment.The Hospital course The patient was admitted to the hospital for respiratory failure secondary to COVID-19 infection. Started treatment with oxygen supplement and dexamethasone IV. She was evaluated by infectious disease specialist who recommended to continue the steroids with no need to use any antiviral medications or plasma transfusion. The patient was successfully weaned off the oxygen during the hospital stay saturating mid 90s on room air. She was also noticed to have urine infection which was treated with IV antibiotic of ceftriaxone. Urine culture grew Proteus bacteria. To continue Ceftin for 2 more days. she developed acute encephalopathy during the hospital stay which was believed to be multifactorial including inpatient hypoactive delirium and usage of valproic acid home dose. Divalproex was decreased to 250 mg once daily instead. Confirmed with the daughter that the patient has no seizure disorder and she is using the medication for schizoaffective disorder. Blood cultures grew coagulase-negative Staph aureus. Evaluated by Infectious Disease who recommended no treatment as the sample contaminated. Repeated blood cultures remain negative after 48 hours of hospital stay. Time Spent with Patient Time attestation: Total time spent providing and/or coordinating discharge services: Physical Exam Vital Signs: Vital Signs: Last Vital Signs Temp 96.4 F L 10/14/20 12:00 Pulse 67 10/14/20 12:00 Resp 18 10/14/20 12:00 BP 146/84 H 10/14/20 12:00 Pulse Ox 95 10/14/20 12:00 Body Mass Index 39.2 Constitutional : Alert, oriented to sell and place, not in distress Neck : Normal inspection, Supple Cardiovascular : RRR, S1 S2, no lower extremity edema Respiratory : fair bilateral air entry, no crackles, fine scattered wheezes or rhonchi Gastrointestinal: soft, lax, Normal bowel sounds, Non tender Skin : Warm/Dry, No rash Neurological : Alert & oriented to self and place the the, No focal deficit DS: Data Data Completed and Pending Labs on day of discharge: 10/09/20 Urine Culture Routine 10/09/20 12:18 Glucose, Whole Blood Routine 10/09/20 12:32 ECG 12 lead EKG Stat XR chest 1V Stat 10/09/20 12:33 EKG Documentation DIRECTED 10/09/20 12:43 Basic Metabolic Panel Stat D Dimer Stat Ferritin Stat Hold Lt Blue - Possible Coag Stat Lactate Dehydrogenase Stat Lactic Acid Stat Lipase Stat Liver Panel Stat Partial Thromboplastin Time Stat Procalcitonin Stat Prothrombin Time INR Stat Troponin-I High Sensitivity Stat 10/09/20 12:44 Complete Blood Count Auto Diff Stat 10/09/20 13:35 Add Laboratory Test Stat Add Laboratory Test Stat 10/09/20 14:46 levoFLOXacin/D5W [Levaquin] 750 mg in 150 ml IV ONCE 10/09/20 15:21 Transfer Order Routine 10/09/20 Lunch Regular Diet 10/09/20 16:13 Troponin-I High Sensitivity Stat 10/09/20 16:53 Consult Rx Perform Med Rec 1 each MISCELLANE ONCE ONE 10/09/20 17:14 Glucose, Whole Blood Routine 10/09/20 21:00 Divalproex Sodium Sprinkles [Depakote Sprinkles] 250 mg PO BID 10/09/20 21:08 Glucose, Whole Blood Routine 10/10/20 05:46 Basic Metabolic Panel DAILY@0600 Complete Blood Count no Diff DAILY@0600 D Dimer Routine 10/10/20 07:42 Glucose, Whole Blood Routine 10/10/20 08:16 cefTRIAXone sodium [Rocephin] 1 gm .ROUTE .STK-MED ONE 10/10/20 09:00 cefTRIAXone sodium [Rocephin] 1 gm 0.9 % Sodium Chloride [Ns] 50 ml IV Q24H 10/10/20 11:14 Glucose, Whole Blood Routine 10/10/20 16:18 Glucose, Whole Blood Routine 10/10/20 20:33 Glucose, Whole Blood Routine 10/11/20 06:30 Basic Metabolic Panel DAILY@0600 Complete Blood Count no Diff DAILY@0600 10/11/20 07:51 Glucose, Whole Blood Routine 10/11/20 08:22 cefTRIAXone sodium [Rocephin] 1 gm .ROUTE .STK-MED ONE 10/11/20 11:32 Glucose, Whole Blood Routine 10/11/20 11:37 D Dimer Stat Troponin-I High Sensitivity ONCE 10/11/20 14:15 Piperacillin Sodium/Tazobactam [Zosyn] 3.375 gm 0.9 % Sodium Chloride [Ns] 50 ml IV Q6H 10/11/20 14:23 Piperacillin Sodium/Tazobactam [Zosyn] 3.375 gm IV .STK-MED ONE 10/11/20 16:00 vancomycin HCL 1,500 mg 0.9 % Sodium Chloride [Ns] 250 ml IV ONCE 10/11/20 16:24 Glucose, Whole Blood Routine 10/11/20 19:50 Piperacillin Sodium/Tazobactam [Zosyn] 3.375 gm IV .STK-MED ONE 10/11/20 19:56 Glucose, Whole Blood Routine 10/11/20 20:45 VBG [Venous Blood Gas] Routine 10/12/20 02:03 Piperacillin Sodium/Tazobactam [Zosyn] 3.375 gm IV .STK-MED ONE 10/12/20 03:48 vancomycin HCL 1,000 mg .ROUTE .STK-MED ONE 10/12/20 04:00 vancomycin HCL 1,000 mg 0.9 % Sodium Chloride [Ns] 250 ml IV Q12H 10/12/20 06:03 Basic Metabolic Panel DAILY@0600 Complete Blood Count no Diff DAILY@0600 D Dimer Routine Liver Panel Routine 10/12/20 07:55 Glucose, Whole Blood Routine 10/12/20 08:10 Piperacillin Sodium/Tazobactam [Zosyn] 3.375 gm IV .STK-MED ONE 10/12/20 11:26 Glucose, Whole Blood Routine 10/12/20 12:39 EKG Documentation DIRECTED 10/12/20 14:06 Piperacillin Sodium/Tazobactam [Zosyn] 3.375 gm IV .STK-MED ONE 10/12/20 16:17 Glucose, Whole Blood Routine 10/12/20 16:32 amLODIPine Besylate [Norvasc] 2.5 mg PO ONCE ONE 10/12/20 20:50 Glucose, Whole Blood Routine 10/12/20 21:21 Piperacillin Sodium/Tazobactam [Zosyn] 3.375 gm IV .STK-MED ONE 10/13/20 01:30 Piperacillin Sodium/Tazobactam [Zosyn] 3.375 gm IV .STK-MED ONE 10/13/20 02:53 Vancomycin Trough Routine 10/13/20 06:07 Basic Metabolic Panel DAILY@0600 10/13/20 07:57 Glucose, Whole Blood Routine 10/13/20 08:47 Piperacillin Sodium/Tazobactam [Zosyn] 3.375 gm IV .STK-MED ONE 10/13/20 11:11 Glucose, Whole Blood Routine 10/13/20 14:06 Piperacillin Sodium/Tazobactam [Zosyn] 3.375 gm IV .STK-MED ONE 10/13/20 16:38 Glucose, Whole Blood Routine 10/13/20 20:59 Glucose, Whole Blood Routine 10/14/20 06:36 Basic Metabolic Panel DAILY@0600 Complete Blood Count no Diff DAILY@0600 10/14/20 07:32 Glucose, Whole Blood Routine 10/14/20 08:01 Sodium Polystyrene Sulfon/Sorb [Kayexalate] 30 gm PO ONCE ONE 10/14/20 11:16 Glucose, Whole Blood Routine Laboratory Last Values WBC 8.4 X10*3/uL (4.8-10.8) 10/14/20 06:36 RBC 4.56 X10*6/uL (4.20-5.50) 10/14/20 06:36 Hgb 13.0 g/dl (12.0-16.0) 10/14/20 06:36 Hct 40.1 % (37-47) 10/14/20 06:36 MCV 87.9 fL (80-98) 10/14/20 06:36 MCH 28.5 pg (27.0-33.0) 10/14/20 06:36 MCHC 32.4 g/dl (31.0-35.0) 10/14/20 06:36 RDW 13.5 % (11.0-16.0) 10/14/20 06:36 Plt Count 324 X10*3/uL (160-400) D 10/14/20 06:36 MPV 10.5 fL (9.4-12.3) 10/14/20 06:36 Immature Gran % (Auto) 0.3 % (0.0-0.4) 10/09/20 12:44 Neut % (Auto) 61.5 % (45-73) 10/09/20 12:44 Lymph % (Auto) 23.6 % (20-40) 10/09/20 12:44 [place] % (Auto) 14.5 % (2-11) H 10/09/20 12:44 Eos % (Auto) 0.0 % (0-4) 10/09/20 12:44 Baso % (Auto) 0.1 % (0-2) 10/09/20 12:44 Lymph # (Auto) 2.4 X10*3/uL (1.2-4.9) 10/09/20 12:44 [place] # (Auto) 1.5 X10*3/uL (0.1-1.2) H 10/09/20 12:44 Eos # (Auto) 0.0 X10*3/uL (0.0-0.4) 10/09/20 12:44 Baso # (Auto) 0.0 X10*3/uL (0.0-0.2) 10/09/20 12:44 Abs Immat Gran (auto) 0.03 X10*3/uL (0.00-0.03) 10/09/20 12:44 Absolute Neuts (auto) 6.2 X10*3/uL (2.0-8.3) 10/09/20 12:44 Absolute Nucleated RBC 0.000 X10*3/uL (0.0-0.012) 10/14/20 06:36 Nucleated RBC % (auto) 0.0 /100WBC (0.0-0.2) 10/14/20 06:36 PT 12.8 SEC (10.8-13.0) 10/09/20 12:43 INR 1.1 (0.9-1.1) 10/09/20 12:43 APTT 34.7 SEC (24.1-38.0) 10/09/20 12:43 D-Dimer 1447 NG/ML 10/12/20 06:03 Hold Blue Top SEE NOTE 10/09/20 12:43 VBG pH 7.49 (7.32-7.43) H 10/11/20 20:45 VBG pCO2 36 mmhg 10/11/20 20:45 VBG pO2 45 mmhg 10/11/20 20:45 VBG HCO3 27 mmol/L 10/11/20 20:45 VBG O2 Saturation 85.5 % 10/11/20 20:45 VBG Base Excess 3.9 mmol/L 10/11/20 20:45 Sodium 136 mmol/L (135-145) 10/14/20 06:36 Potassium 5.2 mmol/l (3.3-5.1) H D 10/14/20 06:36 Chloride 100 mmol/L (96-108) 10/14/20 06:36 Carbon Dioxide 28 mmol/L (22-29) 10/14/20 06:36 Anion Gap 13 (12-20) 10/14/20 06:36 BUN 17 mg/dL (9-16) H 10/14/20 06:36 Creatinine 0.80 mg/dL (0.5-1.4) 10/14/20 06:36 Estim Creat Clear Calc 69.0 10/14/20 06:36 Estimated GFR > 60 10/14/20 06:36 POC Glucose 240 mg/dL (60-115) H 10/14/20 11:16 Random Glucose 163 mg/dL (60-115) H 10/14/20 06:36 Lactic Acid 0.9 mmol/L (0.5-2.0) 10/09/20 12:43 Calcium 8.6 mg/dL (8.4-10.2) 10/14/20 06:36 Ferritin 1094 ng/mL (10-250) H 10/09/20 12:43 Total Bilirubin 0.5 mg/dL (0.0-1.0) 10/12/20 06:03 Total Bilirubin Cancelled 10/12/20 06:03 Direct Bilirubin 0.2 mg/dL (0.0-0.5) 10/12/20 06:03 Direct Bilirubin Cancelled 10/12/20 06:03 AST 28 U/L (5-31) 10/12/20 06:03 AST Cancelled 10/12/20 06:03 ALT 28 U/L (0-31) 10/12/20 06:03 ALT Cancelled 10/12/20 06:03 Alkaline Phosphatase 70 U/L (39-117) 10/12/20 06:03 Alkaline Phosphatase Cancelled 10/12/20 06:03 Lactate Dehydrogenase 211 U/L (122-220) 10/09/20 12:43 Troponin I High Sens 8.8 ng/L (<3.5-17.0) 10/11/20 11:37 Total Protein 6.2 g/dL (6.5-8.0) L 10/12/20 06:03 Total Protein Cancelled 10/12/20 06:03 Albumin 3.2 g/dL (3.5-5.0) L 10/12/20 06:03 Albumin Cancelled 10/12/20 06:03 Lipase 23 U/L (8-78) 10/09/20 12:43 Procalcitonin 0.20 ng/mL 10/09/20 12:43 Urine Color YELLOW 10/09/20 12:43 Urine Appearance CLOUDY 10/09/20 12:43 Urine pH 7.0 (5.0-8.0) 10/09/20 12:43 Ur Specific [place] 1.020 (1.005-1.025) 10/09/20 12:43 Urine Protein 1+ MG/DL (NEG-TRACE) H 10/09/20 12:43 Urine Glucose (UA) NEG MG/DL (NEG) 10/09/20 12:43 Urine Ketones NEG MG/DL (NEG) 10/09/20 12:43 Urine Blood 3+ (NEG) H 10/09/20 12:43 Urine Nitrite NEG (NEG) 10/09/20 12:43 Ur Leukocyte Esterase 3+ (NEG) H 10/09/20 12:43 Urine RBC 15-29 /HPF (0) H 10/09/20 12:43 Urine WBC TNTC /HPF (0-4) H 10/09/20 12:43 Ur Squamous Epith Cells 1+ /LPF 10/09/20 12:43 Urine Bacteria 3+ /LPF 10/09/20 12:43 Vancomycin Trough 7.1 mcg/mL (10.0-20.0) L 10/13/20 02:53 Preliminary micro results at discharge 10/11/20 14:33 Blood Culture - Preliminary Blood - Venous No growth after 48 hours. 10/11/20 14:36 Blood Culture - Preliminary Blood - Venous No growth after 48 hours. 10/09/20 12:50 Blood Culture - Preliminary Blood - Venous Staphylococcus hominis ssp jaspal 10/09/20 12:50 Blood Culture - Preliminary Blood - Venous Staphylococcus epidermidis Discharge Plan Discharge Patient Disposition: er [facility] Referrals: Physician,Unknown [Primary Care Provider] - Discharge Medications: New cefuroxime axetil 500 mg Tablet 500 mg PO Q12H Qty: 4 RF: 0 dexamethasone 6 mg tablet 6 mg PO DAILY Qty: 4 RF: 0 Continued atorvastatin 40 mg tablet 40 mg PO BEDTIME RF: 0 lisinopril 40 mg tablet 1 tab PO DAILY RF: 0 glipizide 5 mg tablet 1 tab PO BID RF: 0 olopatadine 0.2 % drops 1 drp ophthalmic (eye) BID RF: 0 sennosides [senna] 8.6 mg Tablet 17.2 mg PO BEDTIME RF: 0 guaifenesin 600 mg Tablet Extended Release 1,200 mg PO DAILY RF: 0 polyvinyl alcohol 1.4 % Drops 1 drp OPHTHALMIC (EYE) BID RF: 0 aspirin 81 mg Tablet,Chewable 81 mg PO DAILY RF: 0 albuterol 90 mcg/actuation Aerosol 2 mcg INHALATION Q4H RF: 0 Changed divalproex 125 mg capsule, delayed rel sprinkle 250 mg PO BEDTIME Qty: 0 RF: 0 Discharge Orders: Discharge Order (Routine); Ordered 10/14/20 Ordered By: Rosio Chavez Diet: advance to usual diet Activity on Discharge: As tolerated Visit Report Forms: Patient Portal Discharge page Care Plan Goals: read below Health Concerns: read below Plan of Treatment: you were admitted to the hospital for evaluation of difficulty breathing and shortness of breath. Found to have COVID-19 infection treated with oxygen supplement and steroids with good response. You were evaluated by infectious disease specialist and treated with IV antibiotics for urine infection. You have recovered well from the COVID infection but you might still be infection was. We advise you to keep yourself current team for at least 1 week after resolving of all symptoms. Continue dexamethasone for 4 more days to use Ceftin for 2 more days for urine infection Decrease Divalproex he to 250 mg once daily at bedtime
--- NOTE | 2020-10-14 13:46 | MHC.CM.PN ---
pt cleared for DC back to [facility]. CM contacted pts daughter, Robyn ([phone]) who indicated she had a couple of questions for the MD but was otherwise very happy that her mother would be returning to the SNF. Robyn was informed that pt would transport via [facility] at 1430 and pts second IMM was delivered.
== END 2020-10-14 16:00 | disposition skilled nursing facility (03) | DRG 177 ==
LOC: HO.ED 12:54 → HO.IMC 15:43
PROVIDERS: Admitting Provider Student in an Organized Health Care Education/Training Program; Emergency Provider Emergency Medicine Emergency Medical Services; Visit Provider Student in an Organized Health Care Education/Training Program
DX: U07.1 COVID-19 (principal); J96.01 Acute respiratory failure with hypoxia; G93.41 Metabolic encephalopathy; N39.0 Urinary tract infection, site not specified; B96.4 Proteus (mirabilis) (morganii) as the cause of diseases classified elsewhere; F25.9 Schizoaffective disorder, unspecified; E78.5 Hyperlipidemia, unspecified; E11.9 Type 2 diabetes mellitus without complications; Z86.73 Personal history of transient ischemic attack (TIA), and cerebral infarction without residual deficits; Z79.82 Long term (current) use of aspirin; Z79.84 Long term (current) use of oral hypoglycemic drugs; Z79.899 Other long term (current) drug therapy
CPT/HCPCS: 36415; 71045; 80048; 80076; 80202; 81001; 81003; 82728; 82803; 82947; 83605; 83615; 83690; 84145; 84484; 85025; 85027; 85379; 85610; 85730; 87040; 87077; 87086; 87088; 87147; 87186; 93005; 96365; 96366; 99285; J0696; J1100; J1650; J1956; J2405; J2543; J3370

== ENCOUNTER 2020-10-17 12:47 | Inpatient (IN) | payer MEDICARE, SELFPAY ==
[2020-10-17] VITALS (10 sets, daily range): BP systolic 149–188; BP diastolic 57–97; PULSE 71–89; RESP 16–20; TEMP 36.2–37.7; O2SAT 91–99; BMI 34.4
--- NOTE | 2020-10-17 13:04 | ECG_ITS ---
Test Reason : STROKE Blood Pressure : / mmHG Vent. Rate : 079 BPM Atrial Rate : 079 BPM P-R Int : 160 ms QRS Dur : 088 ms QT Int : 422 ms P-R-T Axes : 045 -13 145 degrees QTc Int : 483 ms Normal sinus rhythm T wave abnormality, consider lateral ischemia Prolonged QT Abnormal ECG When compared to the previous EKG of Lateral T waves changes noted Referred By: Carrillo Taylor Electronically Signed By:LUCIA AMADOR MD
--- NOTE | 2020-10-17 13:04 | CT_ITS ---
EXAMINATION: CT HEAD WITHOUT CONTRAST (STROKE PROTOCOL) CLINICAL INFORMATION: Stroke protocol. COMPARISON: February 22, 2020 TECHNIQUE: Contiguous axial imaging was performed from the skull base to vertex without intravenous administration of contrast. This CT examination was performed using dose optimization techniques as appropriate, variously including the following: *Automated exposure control *Adjustment of mA and/or kV according to patient size (this includes techniques or standardized protocols for targeted exams where dose is matched to indication/reason for exam; i.e. extremities or head) *Use of iterative reconstruction technique DLP: 868 mGy-cm FINDINGS: There is no intracranial hemorrhage, hematoma, or extra-axial fluid collection. The ventricles, sulci, and cisterns are prominent consistent with generalized atrophy. There is a large amount of periventricular white matter low density consistent with diffuse microangiopathy. There are also noted to be old infarcts involving the right thalamus, the right extreme capsule in the right insular as well as the left lentiform nucleus with some calcifications present as well.. There is no acute infarct or mass lesion. The calvarium appears intact. There is no pneumocephalus or orbital emphysema. The visualized sinuses and middle ears and mastoid air cells show no significant mucosal thickening. There are no air-fluid levels. CT/CT head for stroke IMPRESSION: No acute intracranial pathology. Stable diffuse changes of microangiopathy. This critical result was discussed with Dr. Taylor at 1:42 PM hours on October 17, 2020. It was ascertained that the content and urgency of the report was understood at the time of direct communication.
--- NOTE | 2020-10-17 13:04 | ED_ITS ---
HPI - Neuro Symptoms/Deficit General Chief Complaint: Weakness Stated Complaint: covid/ams Time Seen by Provider: 10/17/20 13:03 Source: EMS Mode of arrival: EMS Limitations: language barrier and altered mental status History of Present Illness HPI Narrative: Patient last seen well at breakfast found 30 minutes ago with altered mental status with left sided weakness. Patient with old CVA unknown deficits at this time Onset (ago): minute(s) (30) Location: speech, left face, left arm and left leg Severity: severe Quality: weak and constant Relieving factors: none Context: other (unknown onset, found this way) Associated symptoms: confusion Related Data Home Medications Medication Instructions Recorded Confirmed albuterol 2 mcg INHALATION Q4H 10/09/20 10/09/20 aspirin 81 mg PO DAILY 10/09/20 10/09/20 atorvastatin 40 mg PO BEDTIME 10/09/20 10/09/20 glipizide 1 tab PO BID 10/09/20 10/09/20 guaifenesin 1,200 mg PO DAILY 10/09/20 10/09/20 lisinopril 1 tab PO DAILY 10/09/20 10/09/20 olopatadine 1 drp OPHTHALMIC (EYE) BID 10/09/20 10/09/20 polyvinyl alcohol 1 drp OPHTHALMIC (EYE) BID 10/09/20 10/09/20 sennosides [senna] 17.2 mg PO BEDTIME 10/09/20 10/09/20 Previous Rx's Medication Instructions Recorded cefuroxime axetil 500 mg PO Q12H #4 tab 10/14/20 dexamethasone 6 mg PO DAILY #4 tab 10/14/20 divalproex 250 mg PO BEDTIME #0 cap 10/14/20 Allergies Allergy/AdvReac Type Severity Reaction Status Date / Time No Known Allergies Allergy Verified 10/09/20 11:55 Review of Systems Review of Systems: Yes Unobtainable due to mental status Neurologic: Denies Sensory deficit (Neuro) [facility] Past Medical History Medical History Chronic lower back pain COVID-19 CVA (cerebral vascular accident) Diabetes HTN (hypertension) Hyperlipidemia Schizoaffective disorder Social History Social History Household Members: Other Housing: Intermediate Alcohol intake: unknown Smoking Status: Never smoker Second Hand Smoke Exposure: No Advance Directives: No Advance Directives Information Provided: Yes service: No Current occupational status: retired Physical Exam Vital Signs: Vital Signs: Last Vital Signs Temp 99.8 F 10/17/20 12:58 Pulse 77 10/17/20 15:25 Resp 20 10/17/20 15:25 BP 159/97 H 10/17/20 15:25 Pulse Ox 98 10/17/20 15:25 Body Mass Index 34.4 Const: Other: not verbalizing and not moving her left side Nutritional Appearance: obese Orientation/consciousness: oriented to person Limitations: altered mental status HENMT: Head: Yes normal to inspection Ears: external ears normal General nose exam: Normal external nose present Mouth: Normal oral and palatal mucosa present and oropharynx normal Throat: Yes posterior oropharynx normal Eyes: General: appearance normal, both eyes and all related structures Neck: Other: supple Neck: Yes normal visual inspection Chest: Chest palpation & inspection: normal inspection of the chest Resp: Auscultation: clear to auscultation bilaterally Cardio: Jugular venous distension: no JVD Rate: regular rate Rhythm: regular rhythm Heart sounds: S1 normal heart sound present and S2 normal heart sound present GI: Other: obese Palpation (GI): Soft to palpation, nontender and No hepatosplenomegaly present Auscultation: normal bowel sounds : General: Yes no CVA tenderness Back/Spine/Pelvis: Back: no CVA tenderness Skin: General skin exam: no rashes or lesions noted Neuro: General: oriented to person and Unable to assess gait Cranial nerves: Yes Other cranial nerve findings present (left facial deficit) Speech: Other speech findings present (Neuro) (dysarthria) Gait exam (Neuro): Unable to assess gait Motor exam (neuro): Other motor observations present (left arm and leg weakness does not withdraw to pain) Sensory Exam: No Sensory deficit (Neuro) Coordination: other (unable) Extrem: General: Yes normal to inspection Psych: Appearance: grossly normal Course Course Course Narrative: Patient with likely stroke secondary to COVID MDM - Neuro Symptoms/Deficit MDM Narrative Medical decision making narrative: Patient with likely thronboembolic disease secondary to COVID. No evidence of CVA on CT, no LVO. However patient has multiple PEs seen on CT angio of head and neck. will admit for stroke and PE Lab Data Result diagrams: 10/17/20 13:16 10/17/20 13:16 Labs: Lab Results 10/17/20 10/17/20 10/17/20 Range/Units 13:16 13:16 13:16 WBC 15.3 H (4.8-10.8) X10*3/uL RBC 4.22 (4.20-5.50) X10*6/uL Hgb 12.3 (12.0-16.0) g/dl Hct 37.4 (37-47) % MCV 88.6 (80-98) fL MCH 29.1 (27.0-33.0) pg MCHC 32.9 (31.0-35.0) g/dl RDW 13.6 (11.0-16.0) % Plt Count 433 H D (160-400) X10*3/uL MPV 9.3 L (9.4-12.3) fL Immature Gran % (Auto) 1.0 H (0.0-0.4) % Neut % (Auto) 83.0 H (45-73) % Lymph % (Auto) 11.3 L (20-40) % Hod[place]eman % (Auto) 4.5 (2-11) % Eos % (Auto) 0.1 (0-4) % Baso % (Auto) 0.1 (0-2) % Lymph # (Auto) 1.7 (1.2-4.9) X10*3/uL Hodgeman # (Auto) 0.7 (0.1-1.2) X10*3/uL Eos # (Auto) 0.0 (0.0-0.4) X10*3/uL Baso # (Auto) 0.0 (0.0-0.2) X10*3/uL Abs Immat Gran (auto) 0.15 H (0.00-0.03) X10*3/uL Absolute Neuts (auto) 12.7 H (2.0-8.3) X10*3/uL Absolute Nucleated RBC 0.000 (0.0-0.012) X10*3/uL Nucleated RBC % (auto) 0.0 (0.0-0.2) /100WBC PT 14.0 H (10.8-13.0) SEC INR 1.2 H (0.9-1.1) APTT 32.8 (24.1-38.0) SEC Sodium 138 (135-145) mmol/L Potassium 4.8 (3.3-5.1) mmol/l Chloride 101 (96-108) mmol/L Carbon Dioxide 30 H (22-29) mmol/L Anion Gap 12 (12-20) BUN 20 H (9-16) mg/dL Creatinine 0.82 (0.5-1.4) mg/dL Estim Creat Clear Calc 67.4 Estimated GFR > 60 Random Glucose 362 H* (60-115) mg/dL Calcium 8.7 (8.4-10.2) mg/dL Total Bilirubin 0.6 (0.0-1.0) mg/dL Direct Bilirubin 0.2 (0.0-0.5) mg/dL AST 24 (5-31) U/L ALT 30 (0-31) U/L Alkaline Phosphatase 74 (39-117) U/L Troponin I High Sens (<3.5-17.0) ng/L Total Protein 6.3 L (6.5-8.0) g/dL Albumin 3.0 L (3.5-5.0) g/dL Urine Color Urine Appearance Urine pH (5.0-8.0) Ur Specific [place] (1.005-1.025) Urine Protein (NEG-TRACE) MG/DL Urine Glucose (UA) (NEG) MG/DL Urine Ketones (NEG) MG/DL Urine Blood (NEG) Urine Nitrite (NEG) Ur Leukocyte Esterase (NEG) 10/17/20 10/17/20 Range/Units 13:16 14:23 WBC (4.8-10.8) X10*3/uL RBC (4.20-5.50) X10*6/uL Hgb (12.0-16.0) g/dl Hct (37-47) % MCV (80-98) fL MCH (27.0-33.0) pg MCHC (31.0-35.0) g/dl RDW (11.0-16.0) % Plt Count (160-400) X10*3/uL MPV (9.4-12.3) fL Immature Gran % (Auto) (0.0-0.4) % Neut % (Auto) (45-73) % Lymph % (Auto) (20-40) % Hodgeman % (Auto) (2-11) % Eos % (Auto) (0-4) % Baso % (Auto) (0-2) % Lymph # (Auto) (1.2-4.9) X10*3/uL Hodgeman # (Auto) (0.1-1.2) X10*3/uL Eos # (Auto) (0.0-0.4) X10*3/uL Baso # (Auto) (0.0-0.2) X10*3/uL Abs Immat Gran (auto) (0.00-0.03) X10*3/uL Absolute Neuts (auto) (2.0-8.3) X10*3/uL Absolute Nucleated RBC (0.0-0.012) X10*3/uL Nucleated RBC % (auto) (0.0-0.2) /100WBC PT (10.8-13.0) SEC INR (0.9-1.1) APTT (24.1-38.0) SEC Sodium (135-145) mmol/L Potassium (3.3-5.1) mmol/l Chloride (96-108) mmol/L Carbon Dioxide (22-29) mmol/L Anion Gap (12-20) BUN (9-16) mg/dL Creatinine (0.5-1.4) mg/dL Estim Creat Clear Calc Estimated GFR Random Glucose (60-115) mg/dL Calcium (8.4-10.2) mg/dL Total Bilirubin (0.0-1.0) mg/dL Direct Bilirubin (0.0-0.5) mg/dL AST (5-31) U/L ALT (0-31) U/L Alkaline Phosphatase (39-117) U/L Troponin I High Sens 15.7 D (<3.5-17.0) ng/L Total Protein (6.5-8.0) g/dL Albumin (3.5-5.0) g/dL Urine Color YELLOW Urine Appearance HAZY Urine pH 7.5 (5.0-8.0) Ur Specific [place] 1.010 (1.005-1.025) Urine Protein NEG (NEG-TRACE) MG/DL Urine Glucose (UA) 500 H (NEG) MG/DL Urine Ketones NEG (NEG) MG/DL Urine Blood NEG (NEG) Urine Nitrite NEG (NEG) Ur Leukocyte Esterase NEG (NEG) Imaging Data CT scan - head: Radiologist's impression: Partially imaged right upper lobar and right upper lobe segmental pulmonary arterial emboli. Chest CTA/PE protocol recommended for further assessment. - Limited assessment for acute infarcts given the degree of probable advanced chronic microangiopathy. There is global cerebral volume loss. If there is focal neurologic deficit, MRI would be more sensitive in evaluation. - Indeterminate age partial occlusion of one of the anterior right sylvian MCA branches with associated oligemia throughout the anterior right MCA territory. - Indeterminate age occlusion of the left anterior cerebral artery A3 segment at the level of the genu of the corpus callosum with more distal reconstitution of this vessel. There is also a severe stenosis involving the proximal right A2 KRISTIE segment. - There are multiple severe segmental stenoses along the left posterior cerebral artery which remains patent. - There is a severe stenosis of the distal intradural right vertebral artery. - There is atherosclerotic calcification involving the left greater than right carotid bifurcation resulting in an 80% stenosis of the proximal left cervical ICA in a less than 50% stenosis of the proximal right cervical ICA. Critical findings discussed with Dr. Taylor at 2:00 PM on 10/17/2020. Dictated By:REDD ROLAND MD Signed By:<Electronically signed by REDD ROLAND MD in OV>10/17/20 1404 DD/ 1306 TD/TT: [employer] Technician ECG Data Attestation: I personally reviewed and interpreted this ECG as follows: Interpretation: sinus rate of 80, flipped ts in I and AVL, no acute st or twave changes NIH Stroke Scale Internal: Other (5 hours) Level of Consciousness: Alert Level of Consciousness Questions: Answers neither question correctly Level of Consciousness Commands: Performs neither task correctly Best Gaze: Normal Visual: No visual loss Facial Palsy: Minor paralyis Motor Arm (Right): No drift Motor Arm (Left): Some effort against gravity Motor Leg (Right): No drift Motor Leg (Left): Some effort against gravity Limb Ataxia: Absent Best Language: No aphasia Dysarthia: Severe dysarthria Extinction and Inattention: Profound charlene-inattention or extinction to more than one modality Critical Care Time Critical Care Time Critical Care Time: Yes Total Critical Care Time: 35 Attestation: I spent 35 minutes of critical care, with interventions, assessments, speaking to patient, consultants, and family. Discharge Plan Discharge Clinical Impression: COVID-19 virus infection CVA (cerebral vascular accident) Qualifiers: CVA mechanism: embolism Precerebral and cerebral artery: unspecified cerebral artery Qualified Code(s): I63.40 - Cerebral infarction due to embolism of unspecified cerebral artery Pulmonary embolism Qualifiers: Pulmonary embolism type: multiple subsegmental (without acute cor pulmonale) Qualified Code(s): I26.94 - Multiple subsegmental pulmonary emboli without acute cor pulmonale Patient Disposition: Admitted As Inpatient
--- NOTE | 2020-10-17 13:04 | XR_ITS ---
EXAMINATION: XR CHEST CLINICAL INFORMATION: Covid Positive and low O2 COMPARISON: Chest x-ray 10/09/2020 TECHNIQUE: Frontal view of the chest was obtained. FINDINGS: No significant abnormality is noted involving the heart, lungs, mediastinum, bony thorax or soft tissues. XR/XR chest 1V IMPRESSION: Unremarkable chest examination.
--- NOTE | 2020-10-17 13:06 | CT_ITS ---
EXAMINATION: CT ANGIOGRAM NECK WITH CONTRAST CT ANGIOGRAM BRAIN WITH CONTRAST CLINICAL INFORMATION: Question large vessel occlusion. COMPARISON: Head CT performed earlier the same day. TECHNIQUE: Test bolus sequences followed by intravenous administration 70 mL of Omnipaque 350. Helical imaging was performed in the axial plane from the thoracic inlet to the skull vertex. Delayed postcontrast imaging of the head was also performed. The data was processed at the health information technologist workstation for generation of MIP sequences. Angled MIPs and volume rendered reformatted images were also generated at an offline 3D workstation under concurrent supervision. Stenoses are assessed in accordance with NASCET criteria unless otherwise indicated. This CT examination was performed using dose optimization techniques as appropriate, variously including the following: *Automated exposure control *Adjustment of mA and/or kV according to patient size (this includes techniques or standardized protocols for targeted exams where dose is matched to indication/reason for exam; i.e. extremities or head) *Use of iterative reconstruction technique FINDINGS: BRAIN: [Limited assessment for acute infarcts given the degree of probable advanced chronic microangiopathy. There is global cerebral volume loss. If there is focal neurologic deficit, MRI would be more sensitive in evaluation. There is no intracranial hemorrhage, hydrocephalus, extra-axial surface collection, midline shift, or other herniation pattern. Reyes to white matter differentiation is diffusely maintained without evidence of an evolved acute territorial infarct. The basilar cisterns are preserved. No significant soft tissue abnormality. No acute osseous abnormality. The paranasal sinuses and the mastoid air cells are well aerated.] CERVICAL SOFT TISSUES AND LUNG APICES: Partially imaged right upper lobar and right upper lobe segmental pulmonary arterial emboli. Chest CTA/PE protocol recommended for further assessment. There is multilevel cervical spondylosis. No significant soft tissue findings are appreciated within the neck with assessment limited by patient obliquity. NECK CTA: [There is a classic 3 vessel configuration of the aortic arch. Proximal arch vessels are non-stenotic. The vertebral arteries are codominant. No significant ostial stenosis is visualized on either side. Both vertebral arteries are widely patent throughout their extracranial cervical course. Both common carotid arteries are normal in course and caliber.] There is atherosclerotic calcification involving the left greater than right carotid bifurcation resulting in an 80% stenosis of the proximal left cervical ICA in a less than 50% stenosis of the proximal right cervical ICA. BRAIN CTA: Atherosclerotic calcification involving the intradural vertebral arteries bilaterally without significant stenosis. There is atherosclerotic calcification throughout the carotid siphons bilaterally resulting in mild luminal narrowing of the intracranial internal carotid arteries on both sides. Indeterminate age occlusion of the left anterior cerebral artery A3 segment at the level of the genu of the corpus callosum with more distal reconstitution of this vessel. There is also a severe stenosis involving the proximal right A2 KRISTIE segment. There is a severe stenosis of the distal intradural right vertebral artery. There are multiple severe segmental stenoses along the left posterior cerebral artery which remains patent. CT/CT angio head neck stroke IMPRESSION: - Partially imaged right upper lobar and right upper lobe segmental pulmonary arterial emboli. Chest CTA/PE protocol recommended for further assessment. - Limited assessment for acute infarcts given the degree of probable advanced chronic microangiopathy. There is global cerebral volume loss. If there is focal neurologic deficit, MRI would be more sensitive in evaluation. - Indeterminate age partial occlusion of one of the anterior right sylvian MCA branches with associated oligemia throughout the anterior right MCA territory. - Indeterminate age occlusion of the left anterior cerebral artery A3 segment at the level of the genu of the corpus callosum with more distal reconstitution of this vessel. There is also a severe stenosis involving the proximal right A2 KRISTIE segment. - There are multiple severe segmental stenoses along the left posterior cerebral artery which remains patent. - There is a severe stenosis of the distal intradural right vertebral artery. - There is atherosclerotic calcification involving the left greater than right carotid bifurcation resulting in an 80% stenosis of the proximal left cervical ICA in a less than 50% stenosis of the proximal right cervical ICA. Critical findings discussed with Dr. Taylor at 2:00 PM on 10/17/2020.
[2020-10-17 13:26] LABS: Basophils Percent Auto 0.1 % (0-2); Eosinophils Percent Auto 0.1 % (0-4); Hematocrit 37.4 % (37-47); Hemoglobin 12.3 g/dl (12.0-16.0); Imm Gran Abs Auto 0.15 X10*3/uL (0.00-0.03); Lymphocytes Absolute Auto 1.7 X10*3/uL (1.2-4.9); Lymphocytes Percent Auto 11.3 % (20-40); Mean Corpuscular HGB Conc 32.9 g/dl (31.0-35.0); Mean Corpuscular Hemoglobin 29.1 pg (27.0-33.0); Mean Corpuscular Volume 88.6 fL (80-98); Mean Platelet Volume 9.3 fL (9.4-12.3); Monocytes Absolute Auto 0.7 X10*3/uL (0.1-1.2); Monocytes Percent Auto 4.5 % (2-11); Neutrophils Absolute Auto 12.7 X10*3/uL (2.0-8.3); Platelet Count 433 X10*3/uL (160-400); Red Blood Count 4.22 X10*6/uL (4.20-5.50); Red Cell Distribution Width 13.6 % (11.0-16.0); White Blood Count 15.3 X10*3/uL (4.8-10.8)
[2020-10-17 13:27] LABS: MANUAL DIFF FLAG NO
[2020-10-17 13:34] LABS: INTERNATIONAL NORM RATIO 1.2 (0.9-1.1)
[2020-10-17 13:37] LABS: Partial Thromboplastin Time 32.8 SEC (24.1-38.0)
[2020-10-17 13:43] LABS: Stroke Lab Use COMPLETE
[2020-10-17 13:52] LABS: Anion Gap 12 (12-20); Carbon Dioxide 30 mmol/L (22-29); Chloride 101 mmol/L (96-108); Potassium 4.8 mmol/l (3.3-5.1); Sodium 138 mmol/L (135-145); Troponin-I High Sensitivity 15.7 ng/L (<3.5-17.0)
[2020-10-17] MEDS: iohexoL 350 MG/ML 100 ML INFUS..BTL 70 ML IV (13:55)
[2020-10-17 14:01] LABS: Alanine Aminotransferase 30 U/L (0-31); Alkaline Phosphatase 74 U/L (39-117); Aspartate Amino Transferase 24 U/L (5-31); Bilirubin Direct 0.2 mg/dL (0.0-0.5); Bilirubin Total 0.6 mg/dL (0.0-1.0); Blood Urea Nitrogen 20 mg/dL (9-16); Calcium 8.7 mg/dL (8.4-10.2); Creatinine Clr Calc Pharmacy 67.4; Estimated Glomerular Filt Rate > 60; Total Protein 6.3 g/dL (6.5-8.0)
[2020-10-17 14:33] LABS: Glucose Urine UA 500 MG/DL (NEG); Leukocyte Esterase Urine NEG (NEG); Nitrite Urine NEG (NEG); PH 7.5 (5.0-8.0); Urine Blood NEG (NEG); Urine Ketones NEG (NEG); Urine Protein NEG (NEG-TRACE)
[2020-10-17 14:34] LABS: Appearance Urine HAZY; Color Urine YELLOW
[2020-10-17] MEDS: Heparin Sodium,Porcine 5,000 UNIT/ML VIAL 7760 UNIT IVPUSH (15:14)
[2020-10-17] MEDS: Insulin Regular, Human 100 UNIT/ML 3 ML VIAL SUBCUT (15:14)
[2020-10-17] MEDS: Heparin Sodium,Porcine/1/2NS 25,000 UNIT/250 ML IV.SOLN 13.58 UNIT IVCONT (15:18)
[2020-10-17 15:24] LABS: Glucose Random 362 mg/dL (60-115)
[2020-10-17] MEDS: Aspirin 300 MG SUPP.RECT PR (16:01)
[2020-10-17 16:34] LABS: Glucose, Whole Blood 339 mg/dL (60-115)
--- NOTE | 2020-10-17 17:19 | PC.NURSE ---
Per Dr. Chavez follow protocol for redraw pt/ptt at 2000 for heparin.
--- NOTE | 2020-10-17 17:39 | PM.IMHP ---
History of Present Illness Date of Service: 10/17/20 <Ana Luisa Andrews NP - Last Filed: 10/17/20 18:43> Chief Complaint: Confusion <Ana Luisa Andrews NP - Last Filed: 10/17/20 18:43> 75 year old women presenting from [facility] with confusion. She also had facial droop on the left side of of her face. She is lethargic and unable to give any accurate information. According to the record she was seen at breakfast in her usual state of health and then found 30 minutes later with altered mental status and left-sided weakness. Her daughter lives win [place] and is her HCP. Head CTA showed multiple areas of stenosis and occlusion as well as pulmonary emboli. She was started on IV heparin, given aspirin, insulin. She will be admitted for Stroke, acute PE and covid-19. <Ana Luisa Andrews NP - Last Filed: 10/17/20 18:43> Review of Systems Review of Systems: Yes Unobtainable due to mental status <Ana Luisa Andrews NP - Last Filed: 10/17/20 18:43> Neurologic: Denies Sensory deficit (Neuro) <Ana Luisa Andrews NP - Last Filed: 10/17/20 18:43> [facility] Medical History: Medical History Chronic lower back pain COVID-19 CVA (cerebral vascular accident) Diabetes HTN (hypertension) Hyperlipidemia Schizoaffective disorder <Ana Luisa Andrews NP - Last Filed: 10/17/20 18:43> Pertinent family history: Unable to obtain due to confusion <Ana Luisa Andrews NP - Last Filed: 10/17/20 18:43> Social History: Social History Household Members: Caregiver Housing: Snf Alcohol intake: unknown Smoking Status: Unknown if ever smoked Smoked in Last 30 Days: No Second Hand Smoke Exposure: No Use of substances other than those prescribed or required for medical reasons: Unknown Last Used Substance: Unknown Currently Displaying Signs/Symptoms of Drug Intoxication Withdrawal: No Advance Directives: No Advance Directives Information Provided: Yes Do you have thoughts of harming others: None Do you have a plan to hurt others: No Plan Recently lost weight without trying: No service: No Current occupational status: retired <Ana Luisa Andrews NP - Last Filed: 10/17/20 18:43> Meds Allergies/Adverse reactions: Allergies Allergy/AdvReac Type Severity Reaction Status Date / Time No Known Allergies Allergy Verified 10/09/20 11:55 <Ana Luisa Andrews NP - Last Filed: 10/17/20 18:43> Home medications: Home Medications Medication Instructions Recorded Confirmed Type albuterol 2 mcg INHALATION Q4H 10/09/20 10/17/20 History aspirin 81 mg PO DAILY 10/09/20 10/17/20 History atorvastatin 40 mg PO BEDTIME 10/09/20 10/17/20 History glipizide 1 tab PO BID 10/09/20 10/17/20 History guaifenesin 1,200 mg PO DAILY 10/09/20 10/17/20 History lisinopril 1 tab PO DAILY 10/09/20 10/17/20 History olopatadine 1 drp OPHTHALMIC (EYE) BID 10/09/20 10/17/20 History polyvinyl alcohol 1 drp OPHTHALMIC (EYE) BID 10/09/20 10/17/20 History sennosides [senna] 17.2 mg PO BEDTIME 10/09/20 10/17/20 History <Ana Luisa Andrews NP - Last Filed: 10/17/20 18:43> Physical Exam Vital Signs and Narrative: Vital Signs: Last Vital Signs Temp 98.7 F 10/17/20 16:14 Pulse 89 10/17/20 16:14 Resp 16 10/17/20 16:14 BP 160/70 H 10/17/20 16:14 Pulse Ox 99 10/17/20 16:00 Body Mass Index 34.4 <Ana Luisa Andrews NP - Last Filed: 10/17/20 18:43> Lethargic head is normocephalic atraumatic eyes pupils are PERRLA sclera is anicteric mouth throat mucous membranes are intact and moist neck is supple lung sounds normal lung expansion heart regular rate rhythm Soft abdomen neuro not alert, mumbling, left sided facial droop, not moving extremities, wakes to painful stimuli only. <Ana Luisa Andrews NP - Last Filed: 10/17/20 18:43> Neuro: Sensory Exam: No Sensory deficit (Neuro) <Ana Luisa Andrews NP - Last Filed: 10/17/20 18:43> Results Labs CBC and Chem 7: : 10/20/20 06:02 10/20/20 06:02 <Ana Luisa Andrews NP - Last Filed: 10/17/20 18:43> Labs: Laboratory Results - last 24 hr 10/17/20 10/17/20 10/17/20 13:16 13:16 13:16 MCV 88.6 MCH 29.1 MCHC 32.9 RDW 13.6 Plt Count 433 H D MPV 9.3 L Immature Gran % (Auto) 1.0 H Neut % (Auto) 83.0 H Lymph % (Auto) 11.3 L Dickinson % (Auto) 4.5 Eos % (Auto) 0.1 Baso % (Auto) 0.1 Lymph # (Auto) 1.7 Dickinson # (Auto) 0.7 Eos # (Auto) 0.0 Baso # (Auto) 0.0 Abs Immat Gran (auto) 0.15 H Absolute Neuts (auto) 12.7 H Absolute Nucleated RBC 0.000 Nucleated RBC % (auto) 0.0 PT 14.0 H INR 1.2 H APTT 32.8 Anion Gap 12 Estim Creat Clear Calc 67.4 Estimated GFR > 60 POC Glucose Random Glucose 362 H* Calcium 8.7 Total Bilirubin 0.6 Direct Bilirubin 0.2 AST 24 ALT 30 Alkaline Phosphatase 74 Troponin I High Sens Total Protein 6.3 L Albumin 3.0 L Urine Color Urine Appearance Urine pH Ur Specific [place] Urine Protein Urine Glucose (UA) Urine Ketones Urine Blood Urine Nitrite Ur Leukocyte Esterase 10/17/20 10/17/20 10/17/20 13:16 14:23 16:10 MCV MCH MCHC RDW Plt Count MPV Immature Gran % (Auto) Neut % (Auto) Lymph % (Auto) Dickinson % (Auto) Eos % (Auto) Baso % (Auto) Lymph # (Auto) Dickinson # (Auto) Eos # (Auto) Baso # (Auto) Abs Immat Gran (auto) Absolute Neuts (auto) Absolute Nucleated RBC Nucleated RBC % (auto) PT INR APTT Anion Gap Estim Creat Clear Calc Estimated GFR POC Glucose 339 H Random Glucose Calcium Total Bilirubin Direct Bilirubin AST ALT Alkaline Phosphatase Troponin I High Sens 15.7 D Total Protein Albumin Urine Color YELLOW Urine Appearance HAZY Urine pH 7.5 Ur Specific [place] 1.010 Urine Protein NEG Urine Glucose (UA) 500 H Urine Ketones NEG Urine Blood NEG Urine Nitrite NEG Ur Leukocyte Esterase NEG <Ana Luisa Andrews NP - Last Filed: 10/17/20 18:43> Imaging Radiologist's Impressions: Impressions Chest X-Ray 10/17/20 13:04 IMPRESSION: Unremarkable chest examination. Head CT 10/17/20 13:04 IMPRESSION: No acute intracranial pathology. Stable diffuse changes of microangiopathy. This critical result was discussed with Dr. Taylor at 1:42 PM hours on October 17, 2020. It was ascertained that the content and urgency of the report was understood at the time of direct communication. Head/Neck CTA 10/17/20 13:06 IMPRESSION: - Partially imaged right upper lobar and right upper lobe segmental pulmonary arterial emboli. Chest CTA/PE protocol recommended for further assessment. - Limited assessment for acute infarcts given the degree of probable advanced chronic microangiopathy. There is global cerebral volume loss. If there is focal neurologic deficit, MRI would be more sensitive in evaluation. - Indeterminate age partial occlusion of one of the anterior right sylvian MCA branches with associated oligemia throughout the anterior right MCA territory. - Indeterminate age occlusion of the left anterior cerebral artery A3 segment at the level of the genu of the corpus callosum with more distal reconstitution of this vessel. There is also a severe stenosis involving the proximal right A2 KRISTIE segment. - There are multiple severe segmental stenoses along the left posterior cerebral artery which remains patent. - There is a severe stenosis of the distal intradural right vertebral artery. - There is atherosclerotic calcification involving the left greater than right carotid bifurcation resulting in an 80% stenosis of the proximal left cervical ICA in a less than 50% stenosis of the proximal right cervical ICA. Critical findings discussed with Dr. Taylor at 2:00 PM on 10/17/2020. <Ana Luisa Andrews NP - Last Filed: 10/17/20 18:43> Assessment and Plan (1) CVA (cerebral vascular accident): Qualifiers: CVA mechanism: embolism Precerebral and cerebral artery: unspecified cerebral artery Qualified Code(s): I63.40 - Cerebral infarction due to embolism of unspecified cerebral artery <Ana Luisa Andrews NP - Last Filed: 10/17/20 18:43> Status: Acute <Ana Luisa Andrews NP - Last Filed: 10/17/20 18:43> (2) Pulmonary embolism: Qualifiers: Pulmonary embolism type: multiple subsegmental (without acute cor pulmonale) Qualified Code(s): I26.94 - Multiple subsegmental pulmonary emboli without acute cor pulmonale <Ana Luisa Andrews NP - Last Filed: 10/17/20 18:43> Status: Acute <Ana Luisa Andrews NP - Last Filed: 10/17/20 18:43> 75 year old women admitted with what appears to be an acute CVA. She was also noted to have multiple PE and multiple areas of stenosis and occlusion on head CTA. Stroke. MRI, neuro to follow. Lethargic unable to give oral medications at this time. Swallow evaluation, PT/OT. Pulmonary embolism. Likely secondary to Covid. Will need Chest CTA, Heparin drip started in the ED. Follow neuro status, with the stroke its possible she could have Hemorrhagic conversion If she does indeed have a stroke. COVID-19. Diagnosed at SNF. no hypoxia noted Metabolic encephalopathy. Likely related to stroke, follow neuro status. hx of dementia. Diabetes. Sliding scale, NPO for now. DVT prophylaxis with heparin. Discussed with Dr. Lau Full code <Ana Luisa Andrews NP - Last Filed: 10/17/20 18:43>
--- NOTE | 2020-10-17 17:55 | PC.NURSE ---
Hospitalist in to see pt, update given to daughter and HCP, gertrude, via telephone. No neuro status change, pt remains confused.
--- NOTE | 2020-10-17 18:48 | P.ACPN_ITS ---
Documented by User: Ana Luisa Andrews NP 10/17/20 18:54 Advanced Care Planning Note Advanced Care Planning Note Discussed with: family member(s) (Daughter Robyn ) Time spent (in minutes): 18 Narrative: 75 year old women presenting from SNF with what appears to be a stroke. She has baseline dementia but today seems more confused. Head CTA showed multiple areas of occlusion as well as PE. Spoke with her daughter Robyn, who lives in [place]. Discussion was had regarding patients poor prognosis. Patient is currently a full code and her daughter would like a chance to speak with her brother regarding the patients condition and if her code status should be changed to DNR considering her condition. Her daughter was able to have all her questions answered and she is aware that if the patients condition changes she will be contacted. Problems Discussed (1) CVA (cerebral vascular accident): (2) Pulmonary embolism:
[2020-10-17 19:19] LABS: COVID-19 Test Positive (Negative); IDNOW Serial# 9DD0AD1C
--- NOTE | 2020-10-17 19:38 | PC.NURSE ---
x1 attempt to give report, traveling secretary states bed listed is not covid room, pending new bed assignment, plumbing warehouse helper aware.
--- NOTE | 2020-10-17 20:22 | PC.NURSE ---
x2 attempt to give report
[2020-10-17 21:04] LABS: INTERNATIONAL NORM RATIO 1.3 (0.9-1.1); Prothrombin Time 15.6 SEC (10.8-13.0)
--- NOTE | 2020-10-17 21:04 | PC.NURSE ---
x3 call for report. awaiting callback
[2020-10-17 21:34] LABS: PTT Heparin Drip > 200.0 SEC (53-77.9)
[2020-10-17 22:14] LABS: Glucose, Whole Blood 319 mg/dL (60-115)
[2020-10-17 23:06] LABS: PTT Heparin Drip > 200.0 SEC (53-77.9)
[2020-10-18] VITALS (9 sets, daily range): BP systolic 140–209; BP diastolic 70–91; PULSE 69–80; RESP 18–20; TEMP 36.2–36.8; O2SAT 96–98; BMI 34.4
[2020-10-18] MEDS: Insulin Lispro 100 UNIT/ML 3 ML VIAL SUBCUT ×4 (00:02→17:09)
[2020-10-18] MEDS: 0.9 % Sodium Chloride Flush 3 ML SYRINGE IVFLUSH ×3 (00:10→22:29)
[2020-10-18 01:05] LABS: PTT Heparin Drip 154.3 SEC (53-77.9)
[2020-10-18 02:05] LABS: PTT Heparin Drip 59.9 SEC (53-77.9)
--- NOTE | 2020-10-18 06:00 | CT_ITS ---
EXAMINATION: CT ANGIOGRAM OF THE CHEST WITH AND WITHOUT CONTRAST (CT PULMONARY ANGIOGRAM FOR PE) CLINICAL INFORMATION: Reason for Exam multiple PE on head CT COMPARISON: CTA of the head and neck TECHNIQUE: Prior to contrast administration, noncontrast localization images were obtained. Subsequently, multidetector volumetric imaging was performed from the thoracic inlet to below the diaphragms following the administration of 65 mL Omnipaque 350 intravenous contrast. No contrast reaction reported Sagittal, coronal, and MIP oblique sagittal reformatted images were obtained on the CT workstation, uploaded to PACS, and reviewed. This CT examination was performed using dose optimization techniques as appropriate, variously including the following: *Automated exposure control *Adjustment of mA and/or kV according to patient size (this includes techniques or standardized protocols for targeted exams where dose is matched to indication/reason for exam; i.e. extremities or head) *Use of iterative reconstruction technique Total exam dose-length product 205 mGy-cm FINDINGS: QUALITY OF STUDY/CONTRAST BOLUS: Satisfactory. PULMONARY ARTERIES: No central or segmental pulmonary emboli. THORACIC AORTA: No aneurysm or dissection. LUNG: There is right lower lobe consolidation present which may be related to atelectasis or pneumonitis. There is mild dependent atelectasis seen at the left base. Central airways are patent. There is some bronchial wall thickening seen centrally bilaterally. No bronchiectasis is appreciated. There are mild changes of centrilobular emphysema within the upper lobes. PLEURA: No pleural effusion or pneumothorax. MEDIASTINUM: Heart normal size. No pericardial effusion. Mild coronary artery calcification present. No evidence of septal bowing or right heart strain. There appears to be some right paratracheal lymphadenopathy however due to streak artifact is difficult to evaluate well. There is some right infrahilar lymphadenopathy measuring approximately 1.5 x 1.4 cm in size. CHEST WALL/AXILLA: No axillary or internal mammary lymphadenopathy. OSSEOUS STRUCTURES: No suspicious destructive bony lesions identified. There is multilevel degenerative disc disease seen. There is degenerative change of both shoulders. UPPER ABDOMEN: Unremarkable. No reflux of contrast into the hepatic veins to suggest elevated right heart pressures. CT/CT angio chest PE protocol IMPRESSION: No evidence of acute pulmonary artery embolus. The appearance of emboli within the right upper lobe on CTA of the head and neck was artifactual. No evidence of thoracic aortic aneurysm or dissection. Consolidation of the right lower lobe with inferior right hilar lymphadenopathy. VTE: negative
[2020-10-18 06:23] LABS: MANUAL DIFF FLAG NO
[2020-10-18 06:29] LABS: Hematocrit 36.2 % (37-47); Hemoglobin 11.6 g/dl (12.0-16.0); Imm Gran Abs Auto 0.13 X10*3/uL (0.00-0.03); Imm Gran Pct Auto 1.1 % (0.0-0.4); Lymphocytes Absolute Auto 2.5 X10*3/uL (1.2-4.9); Lymphocytes Percent Auto 20.7 % (20-40); Mean Corpuscular Hemoglobin 28.4 pg (27.0-33.0); Mean Corpuscular Volume 88.5 fL (80-98); Mean Platelet Volume 9.8 fL (9.4-12.3); Monocytes Absolute Auto 1.1 X10*3/uL (0.1-1.2); Monocytes Percent Auto 9.4 % (2-11); Neutrophils Absolute Auto 8.4 X10*3/uL (2.0-8.3); Neutrophils Percent Auto 68.8 % (45-73); Platelet Count 447 X10*3/uL (160-400); Red Blood Count 4.09 X10*6/uL (4.20-5.50); Red Cell Distribution Width 13.2 % (11.0-16.0); White Blood Count 12.2 X10*3/uL (4.8-10.8)
[2020-10-18 06:45] LABS: INTERNATIONAL NORM RATIO 1.2 (0.9-1.1); Prothrombin Time 13.7 SEC (10.8-13.0)
[2020-10-18 06:55] LABS: Anion Gap 12 (12-20); Blood Urea Nitrogen 18 mg/dL (9-16); Calcium 8.9 mg/dL (8.4-10.2); Carbon Dioxide 32 mmol/L (22-29); Chloride 101 mmol/L (96-108); Cholesterol 119 mg/dL; Creatinine Clr Calc Pharmacy 70.9; Estimated Glomerular Filt Rate > 60; Glucose Random 283 mg/dL (60-115); HDL Cholesterol 33 mg/dL; LDL Cholesterol Calculated 64 mg/dl; Potassium 4.2 mmol/l (3.3-5.1); Sodium 141 mmol/L (135-145); Triglycerides 114 mg/dL
[2020-10-18 08:10] LABS: Glucose, Whole Blood 356 mg/dL (60-115)
--- NOTE | 2020-10-18 08:59 | MHC.CM.PN ---
IMM 10/18/20 Verbal delivery HCP. Female Covid+ CVA PE. Information obtained from HCP, EMR and therapy staff. Pt resides at [facility] . She has a PMH of Dementia and CVA. HCP and Molst on file. She is dependent all functional mobility. DP return to [place] via BLS. CM will follow.
[2020-10-18 09:38] LABS: PTT Heparin Drip 98.3 SEC (53-77.9)
[2020-10-18 12:09] LABS: Glucose, Whole Blood 311 mg/dL (60-115)
--- NOTE | 2020-10-18 12:33 | HO.PM.IMPN ---
Subjective Subjective Date of Service: 10/18/20 Interval History: Seen in f/u for stroke, PE in setting recent covid. Remarkably doing much better this morning. She is fully alert, and moving all extremities. Physical Exam Vital Signs: Vital Signs: Last Vital Signs Temp 98.0 F 10/18/20 11:56 Pulse 80 10/18/20 11:56 Resp 20 10/18/20 11:56 BP 165/74 H 10/18/20 11:56 Pulse Ox 97 10/18/20 11:56 Body Mass Index 34.4 General: AO X 3, no acute distress normal lung examResp: CVS: S1,S2,RRR GI: +BS, NT, no distention Skin: No rash Neuro: moving all extremities Psych: appropriate affect Objective Data Current Medications Generic Name Dose Route Start Last Admin Trade Name Freq PRN Reason Stop Dose Admin Aspirin 81 mg 10/18/20 09:00 10/18/20 09:55 Aspirin 81 Mg Tab.Chew PO Not Given DAILY [facility] Atorvastatin Calcium 40 mg 10/17/20 22:02 10/17/20 23:23 Atorvastatin Calcium 40 Mg Tablet PO Not Given BEDTIME [facility] Heparin Sodium (Porcine) 7,760 unit 10/17/20 14:30 10/17/20 15:14 Heparin Sodium,Porcine 5,000 Unit/Ml Vial 80 unit/kg (7760 unit) 7,760 unit IVPUSH Administration BOLUS PRN 80 unit/kg - Heparin Protocol Heparin Sodium/Sodium Chloride 25,000 unit in 250 mls @ 0 mls/hr 10/17/20 14:30 10/18/20 11:14 IVCONT 7 units/kg/hr .Q0M [facility] 6.79 mls/hr Titration Protocol Per Protocol Insulin Human Lispro 0 unit 10/17/20 22:02 10/18/20 09:54 Insulin Lispro 100 Unit/Ml 3 Ml Vial SUBCUT 10 unit QIDACHS [facility] Administration Protocol Pharmacy Consult 1 each 10/17/20 15:30 Consult Rx Perform Med Rec MISCELLANE ONCE PRN Consult order Sodium Chloride 3 ml 10/18/20 00:00 10/18/20 09:55 0.9 % Sodium Chloride Flush 3 Ml Syringe IVFLUSH Not Given QSHIFT [facility] Labs CBC & Chem 7: 10/18/20 05:43 10/18/20 05:43 Assessment and Plan (1) CVA (cerebral vascular accident): Status: Acute (2) Pulmonary embolism: Status: Acute Assessment and Plan: 75 year old women admitted with what appears to be an acute CVA. She was also noted to have multiple PE and multiple areas of stenosis and occlusion on head CTA. Acute embolic stroke in setting of recent covid and PE. Clincally looks much better. MRI won't change outcome. Continu rehab PT, OT, speech, ASA, statin Pulmonary embolism. Likely secondary to Covid. CTA confirms PE COVID-19. Diagnosed at SNF. no hypoxia noted , no further treatment at this time Metabolic encephalopathy. Likely related to stroke, follow neuro status. hx of dementia. Diabetes. Sliding scale, NPO for now. DVT prophylaxis with heparin.
--- NOTE | 2020-10-18 13:01 | MHC.CLN ---
RE: CONSULT PT CURRENTLY NPO WHEN DIET ADVANCED, RECOMMEND 1800 DM DIET WITH GLUCERNA AND ATIF TO PROMOTE WOUND HEALING SEE ALSO NUTRITION ASSESSMENT
[2020-10-18] MEDS: iohexoL 350 MG/ML 100 ML INFUS..BTL 65 ML IV (13:03)
[2020-10-18] MEDS: Heparin Sodium,Porcine/1/2NS 25,000 UNIT/250 ML IV.SOLN 6.79 UNIT IVCONT (14:21)
[2020-10-18 16:24] LABS: PTT Heparin Drip 59.5 SEC (53-77.9)
--- NOTE | 2020-10-18 16:27 | PC.NURSE ---
BP 190/[address] Lau.
--- NOTE | 2020-10-18 16:31 | PM.NEUROCN ---
History of Present Illness Data of Consult Service Date: 10/18/20 Primary Care Provider: Unknown Physician 75 years old woman who was admitted from emergency room yesterday presenting with left-sided weakness and lethargy and was diagnosed with pulmonary embolism and possible stroke. She was anticoagulated for pulmonary embolism. This morning she was feeling better. There was no sign of trauma or seizure disorder. On presentation her diagnosis was unclear and had comorbidity of pulmonary embolism because of which stroke treatment with intravenous tPA was not considered. Review of Systems Review of Systems: Initially she was confused and had lethargy and shortness of breath. There was no recent cold or flu-like illness but she was complaining of bronchitis type of symptoms. Neurologic: Denies Sensory deficit (Neuro) PMFSH Past Medical History Medical History Chronic lower back pain COVID-19 CVA (cerebral vascular accident) Diabetes HTN (hypertension) Hyperlipidemia Schizoaffective disorder Social History Social History Household Members: Caregiver Housing: Detention Alcohol intake: unknown Smoking Status: Unknown if ever smoked Smoked in Last 30 Days: No Second Hand Smoke Exposure: No Use of substances other than those prescribed or required for medical reasons: Unknown Last Used Substance: Unknown Currently Displaying Signs/Symptoms of Drug Intoxication Withdrawal: No Advance Directives: No Advance Directives Information Provided: Yes Do you have thoughts of harming others: None Do you have a plan to hurt others: No Plan Recently lost weight without trying: No service: No Current occupational status: retired Meds Allergies Allergy/AdvReac Type Severity Reaction Status Date / Time No Known Allergies Allergy Verified 10/09/20 11:55 Home Medications Medication Instructions Recorded Confirmed Type albuterol 2 mcg INHALATION Q4H 10/09/20 10/17/20 History aspirin 81 mg PO DAILY 10/09/20 10/17/20 History atorvastatin 40 mg PO BEDTIME 10/09/20 10/17/20 History glipizide 1 tab PO BID 10/09/20 10/17/20 History guaifenesin 1,200 mg PO DAILY 10/09/20 10/17/20 History lisinopril 1 tab PO DAILY 10/09/20 10/17/20 History olopatadine 1 drp OPHTHALMIC (EYE) BID 10/09/20 10/17/20 History polyvinyl alcohol 1 drp OPHTHALMIC (EYE) BID 10/09/20 10/17/20 History sennosides [senna] 17.2 mg PO BEDTIME 10/09/20 10/17/20 History Physical Exam Vital Signs: Vital Signs: Last Vital Signs Temp 98.0 F 10/18/20 16:00 Pulse 69 10/18/20 16:00 Resp 18 10/18/20 16:00 BP 190/81 H 10/18/20 16:00 Pulse Ox 97 10/18/20 16:00 Body Mass Index 34.4 She was alert and awake with normal spontaneity of speech. She was answering questions and following commands. There was right-sided facial weakness of central type and right hemiparesis. She was able to move her left side. She also had right visual field defect. Plantars were equivocal. Pupils were equal and reactive to light. Neuro: Sensory Exam: No Sensory deficit (Neuro) Results Labs CBC & Chem 7: 10/18/20 05:43 10/18/20 05:43 Labs: Short CBC 10/18/20 10/18/20 Range/Units 05:43 05:43 WBC Cancelled 12.2 H Hgb Cancelled 11.6 L Hct Cancelled 36.2 L Plt Count Cancelled 447 H BMP 10/18/20 05:43 Sodium 141 Potassium 4.2 Chloride 101 Carbon Dioxide 32 H BUN 18 H Creatinine 0.[address] and CTA of brain and neck revealed no obvious acute pathology. Significant chronic microvascular disease was noted. Diffuse cerebral atrophy was noted. She had multiple areas of intracranial and extracranial atherosclerotic vascular disease of cerebral vasculature. There was moderate to severe right ICA and [id number] left ICA extracranial stenosis. Right vertebral artery stenosis was noted and some stenoses were noted in intracranial vasculature. Assessment and Plan (1) CVA (cerebral vascular accident): Qualifiers: CVA mechanism: embolism Precerebral and cerebral artery: unspecified cerebral artery Qualified Code(s): I63.40 - Cerebral infarction due to embolism of unspecified cerebral artery Status: Acute 75 years old woman with a complex medical situation including COVID infection, pulmonary embolism, previous cerebral vascular ischemic disease, multiple areas of intracranial and extracranial atherosclerotic vascular stenoses and possibly another cerebral infarct. At this time she was anticoagulated because of pulmonary embolism. Recommendations 1. May continue anticoagulation 2. For now I would defer MRI scan because of the COVID situation and also it would not change our management in any way. If needed a repeat noncontrast head CT can be obtained. 3. Blood pressure control 4. Baby aspirin daily when feasible and 5. Statin
[2020-10-18 16:48] LABS: Glucose, Whole Blood 238 mg/dL (60-115)
[2020-10-18 20:29] LABS: Glucose, Whole Blood 217 mg/dL (60-115)
--- NOTE | 2020-10-18 20:47 | PC.NURSE ---
spoke with daughter on phone this evening, requesting a [employer] update as well, facetime email confirmed with daughter, head of digital and this RN attempted x4 to [employer], no answer.
[2020-10-19] VITALS (8 sets, daily range): BP systolic 127–145; BP diastolic 62–88; PULSE 69–85; RESP 18–20; TEMP 36.1–37.1; O2SAT 92–100
--- NOTE | 2020-10-19 | CT_ITS ---
EXAMINATION: CT HEAD WITHOUT CONTRAST CLINICAL INFORMATION: Posterior stroke evaluation. COMPARISON: CT brain 10/17/2020 TECHNIQUE: Contiguous axial imaging was performed from the skull base to vertex without intravenous administration of contrast. This CT examination was performed using dose optimization techniques as appropriate, variously including the following: *Automated exposure control *Adjustment of mA and/or kV according to patient size (this includes techniques or standardized protocols for targeted exams where dose is matched to indication/reason for exam; i.e. extremities or head) *Use of iterative reconstruction technique DLP: 1472 mGy-cm FINDINGS: The lateral ventricles are moderately enlarged with mild proximal cortical sulci consistent cerebral volume loss. There is diffuse perivascular hypodensity consistent with advanced chronic small vessel ischemic changes. Bilateral prominent sylvian fissures are seen. There is no acute intra-axial, extra-axial bleed, masses or midline shift. There is no acute infarction in evolution compared to previous study 10/17/2020. Bone windows reveal no calvarial abnormality. There is no scalp soft tissue mammography. There is benign hyperostosis frontalis interna. The paranasal sinuses and mastoid air cells are well-aerated and clear. There is normal symmetry of both orbits, optic globe and optic nerves. CT/CT head/brain wo con IMPRESSION: No acute intracranial process. Significant cerebral atrophy with chronic small assessment changes involving both cerebral hemispheres. No major change from 10/17/2020 Results were called to Dr. Lacy by [facility] at 3:30 PM.
[2020-10-19 00:22] LABS: PTT Heparin Drip 59.6 SEC (53-77.9)
[2020-10-19 06:51] LABS: PTT Heparin Drip 59.1 SEC (53-77.9)
[2020-10-19 07:27] LABS: Glucose, Whole Blood 192 mg/dL (60-115)
[2020-10-19] MEDS: Insulin Lispro 100 UNIT/ML 3 ML VIAL SUBCUT ×4 (08:51→21:04)
[2020-10-19] MEDS: 0.9 % Sodium Chloride Flush 3 ML SYRINGE IVFLUSH ×2 (08:51→21:03)
--- NOTE | 2020-10-19 10:27 | MHC.SLORD ---
CANNED FOOD RECONDITIONING INSPECTOR attempted to see patient for dysphagia treatment, but patient was not appropriate for PO trials due to lethargy. RN reported that patient ate breakfast without difficulty. Patient is on GROUND/[facility] ALTERED (NDD2) solids and NECTAR THICK liquids, with pills CRUSHED in PUREE. Continue to recommend assistance with meals, total supervision, and strict aspiration precautions. Name: Ibis Hernandez Date of : 1945 Age: 75 Date of Registration: 10/17/20 Speech Language Pathology Order Status:
[2020-10-19 11:02] LABS: Glucose, Whole Blood 275 mg/dL (60-115)
--- NOTE | 2020-10-19 12:21 | P.PNIM_ITS ---
Subjective Subjective Date of Service: 10/19/20 Interval History: Seen in f/u for stroke, PE in setting recent covid. She seems a bit more tired today, yet following direction moves arms ROS: no new neuro changes. no chest pain, sob Physical Exam Vital Signs: Vital Signs: Last Vital Signs Temp 97.6 F 10/19/20 08:00 Pulse 69 10/19/20 09:38 Resp 18 10/19/20 08:00 BP 135/62 10/19/20 09:38 Pulse Ox 92 10/19/20 09:38 Body Mass Index 34.4 General: Alert,no acute distress normal lung examResp: CVS: S1,S2,RRR GI: +BS, NT, no distention Skin: No rash Neuro: moving all extremities, Psych: appropriate affect Objective Data Current Medications Generic Name Dose Route Start Last Admin Trade Name Freq PRN Reason Stop Dose Admin Acetaminophen 650 mg 10/18/20 18:31 Acetaminophen 325 Mg Tablet PO Q6H PRN Pain, Mild (Pain Scale 1-3) Aspirin 81 mg 10/18/20 09:00 10/19/20 08:51 Aspirin 81 Mg Tab.Chew PO Not Given DAILY [facility] Atorvastatin Calcium 40 mg 10/17/20 22:02 10/18/20 20:43 Atorvastatin Calcium 40 Mg Tablet PO Not Given BEDTIME [facility] Heparin Sodium (Porcine) 7,760 unit 10/17/20 14:30 10/17/20 15:14 Heparin Sodium,Porcine 5,000 Unit/Ml Vial 80 unit/kg (7760 unit) 7,760 unit IVPUSH Administration BOLUS PRN 80 unit/kg - Heparin Protocol Heparin Sodium/Sodium Chloride 25,000 unit in 250 mls @ 0 mls/hr 10/17/20 14 :30 10/18/20 16:58 IVCONT 7 units/kg/hr .Q0M MYCHAL 6.79 mls/hr Titration Protocol Per Protocol Insulin Human Lispro 0 unit 10/17/20 22:02 10/19/20 12:10 Insulin Lispro 100 Unit/Ml 3 Ml Vial SUBCUT 6 unit QIDACHS MYCHAL Administration Protocol Pharmacy Consult 1 each 10/17/20 15:30 Consult Rx Perform Med Rec MISCELLANE ONCE PRN Consult order Sodium Chloride 3 ml 10/18/20 00:00 10/19/20 08:51 0.9 % Sodium Chloride Flush 3 Ml Syringe IVFLUSH 3 ml QSHIFT MYCHAL Administration Labs CBC & Chem 7: 10/18/20 05:43 10/18/20 05:43 Assessment and Plan (1) CVA (cerebral vascular accident): Status: Acute (2) Pulmonary embolism: Status: Acute Assessment and Plan: 75 year old women admitted with what appears to be an acute CVA. She was also noted to have multiple PE and multiple areas of stenosis and occlusion on head CTA. Acute embolic stroke in setting of recent covid and PE. Clincally looks much better. MRI won't change outcome. Continu rehab PT, OT, speech, ASA, statin. Repeat head CT today Pulmonary embolism. Likely secondary to Covid. CTA confirms PE -continue heparin if repeat CT is ok, will transitioned to eliquis COVID-19. Diagnosed at SNF. no hypoxia noted , no further treatment at this time Metabolic encephalopathy. Likely related to stroke, follow neuro status. hx of dementia. improving Diabetes. Sliding scale, diet as recommended by speech DVT prophylaxis with heparin.
[2020-10-19 16:40] LABS: Glucose, Whole Blood 281 mg/dL (60-115)
[2020-10-19 20:32] LABS: Glucose, Whole Blood 322 mg/dL (60-115)
[2020-10-19] MEDS: Apixaban 5 MG TABLET PO (21:03)
[2020-10-19] MEDS: Atorvastatin Calcium 40 MG TABLET PO (21:03)
[2020-10-20 03:40] VITALS: BP 147/69; PULSE 75; RESP 20; TEMP 36.2; O2SAT 94
[2020-10-20 07:10] LABS: Hematocrit 36.4 % (37-47); Hemoglobin 11.8 g/dl (12.0-16.0); Mean Corpuscular HGB Conc 32.4 g/dl (31.0-35.0); Mean Corpuscular Hemoglobin 28.7 pg (27.0-33.0); Mean Corpuscular Volume 88.6 fL (80-98); Mean Platelet Volume 10.2 fL (9.4-12.3); Platelet Count 433 X10*3/uL (160-400); Red Blood Count 4.11 X10*6/uL (4.20-5.50); Red Cell Distribution Width 13.2 % (11.0-16.0)
[2020-10-20 07:18] LABS: Anion Gap 13 (12-20); Blood Urea Nitrogen 21 mg/dL (9-16); Calcium 8.6 mg/dL (8.4-10.2); Carbon Dioxide 28 mmol/L (22-29); Chloride 100 mmol/L (96-108); Estimated Glomerular Filt Rate > 60; Glucose Random 217 mg/dL (60-115); Potassium 3.7 mmol/l (3.3-5.1); Sodium 137 mmol/L (135-145)
[2020-10-20 07:43] LABS: Glucose, Whole Blood 255 mg/dL (60-115)
[2020-10-20 08:00] VITALS: BP 177/79; PULSE 74; RESP 20; TEMP 36.2; O2SAT 94
[2020-10-20] MEDS: Apixaban 5 MG TABLET PO (09:42)
[2020-10-20] MEDS: 0.9 % Sodium Chloride Flush 3 ML SYRINGE IVFLUSH ×3 (09:42→20:47)
[2020-10-20] MEDS: Aspirin 81 MG TAB.CHEW PO (09:42)
[2020-10-20] MEDS: Insulin Lispro 100 UNIT/ML 3 ML VIAL SUBCUT ×4 (09:42→20:47)
[2020-10-20 11:18] LABS: Glucose, Whole Blood 367 mg/dL (60-115)
[2020-10-20 11:37] VITALS: BP 174/77; PULSE 87; RESP 20; O2SAT 97
--- NOTE | 2020-10-20 14:20 | MHC.CM.PN ---
BENIGNO spoke to pts daughter, Robyn ([phone]) who reports she is interested in changing pts code status and would like to speak to the MD. BENIGNO messaged MD with the request. She also reports she wants to have the pt cremated and asked for numbers to local crematoriums which was provided. Pt is a LTC resident of [facility]. Current DC plan is to return there via BLS.
--- NOTE | 2020-10-20 14:57 | P.PNIM_ITS ---
Subjective Subjective Date of Service: 10/20/20 Interval History: Seen in f/u for stroke, PE in setting recent covid. She continues to make progress with no new neurological symptoms and no new covid symptoms ROS: no new neuro changes. no chest pain, sob Physical Exam Vital Signs: Vital Signs: Last Vital Signs Temp 97.1 F 10/20/20 08:00 Pulse 87 10/20/20 11:37 Resp 20 10/20/20 11:37 BP 174/77 H 10/20/20 11:37 Pulse Ox 97 10/20/20 11:37 Body Mass Index 34.4 General: Alert,no acute distress normal lung examResp: CVS: S1,S2,RRR GI: +BS, NT, no distention Skin: No rash Neuro: moving all extremities, Psych: appropriate affect Objective Data Current Medications Generic Name Dose Route Start Last Admin Trade Name Freq PRN Reason Stop Dose Admin Acetaminophen 650 mg 10/18/20 18:31 Acetaminophen 325 Mg Tablet PO Q6H PRN Pain, Mild (Pain Scale 1-3) Apixaban 10 mg 10/20/20 21:00 Apixaban 5 Mg Tablet PO BID [facility] Aspirin 81 mg 10/18/20 09:00 10/20/20 09:42 Aspirin 81 Mg Tab.Chew PO 81 mg DAILY MYCHAL Administration Atorvastatin Calcium 40 mg 10/17/20 22:02 10/19/20 21:03 Atorvastatin Calcium 40 Mg Tablet PO 40 mg BEDTIME MYCHAL Administration Insulin Human Lispro 0 unit 10/17/20 22:02 10/20/20 14:19 Insulin Lispro 100 Unit/Ml 3 Ml Vial SUBCUT 10 unit QIDACHS [facility] Administration Protocol Pharmacy Consult 1 each 10/17/20 15:30 Consult Rx Perform Med Rec MISCELLANE ONCE PRN Consult order Sodium Chloride 3 ml 10/18/20 00:00 10/20/20 09:42 0.9 % Sodium Chloride Flush 3 Ml Syringe IVFLUSH 3 ml QSHIFT [facility] Administration Labs CBC & Chem 7: 10/20/20 06:02 10/20/20 06:02 Assessment and Plan (1) CVA (cerebral vascular accident): Status: Acute (2) Pulmonary embolism: Status: Acute Assessment and Plan: 75 year old women admitted with what appears to be an acute CVA. She was also noted to have multiple PE and multiple areas of stenosis and occlusion on head CTA. Acute embolic stroke in setting of recent covid and PE. Clincally looks much better. MRI won't change outcome. Continu rehab PT, OT, speech, ASA, statin. Repeat head CT today Pulmonary embolism. Likely secondary to Covid. CTA confirms PE -Has transitioned to Eliquis COVID-19. Diagnosed at SNF. no hypoxia noted , no further treatment at this time Metabolic encephalopathy. Likely related to stroke, follow neuro status. hx of dementia. improving Diabetes. Sliding scale, diet as recommended by speech DVT prophylaxis with heparin. Goal of care covresation between me, patient, patient's daughter Robyn,nurse Norma and patient wants to be DNR/DNI.. See additional documentation Plan to discharge tomorrow back o SNF
[2020-10-20 15:51] VITALS: BP 128/65; PULSE 92; RESP 18; TEMP 36.5; O2SAT 95
[2020-10-20 16:34] LABS: Glucose, Whole Blood 388 mg/dL (60-115)
[2020-10-20 19:29] VITALS: BP 158/70; PULSE 93; RESP 18; TEMP 36.9; O2SAT 98
[2020-10-20 20:34] LABS: Glucose, Whole Blood 286 mg/dL (60-115)
[2020-10-20] MEDS: Apixaban 5 MG TABLET 10 MG PO (20:46)
[2020-10-20] MEDS: Atorvastatin Calcium 40 MG TABLET PO (20:46)
[2020-10-21] VITALS: BP 155/86; PULSE 79; RESP 20; TEMP 36.7; O2SAT 95
[2020-10-21 03:40] VITALS: BP 148/72; PULSE 76; RESP 18; TEMP 37.1; O2SAT 98
[2020-10-21 07:38] LABS: Glucose, Whole Blood 211 mg/dL (60-115)
[2020-10-21 08:00] VITALS: BP 140/67; PULSE 84; RESP 20; TEMP 36.9; O2SAT 95
[2020-10-21] MEDS: Aspirin 81 MG TAB.CHEW PO (09:07)
[2020-10-21] MEDS: Apixaban 5 MG TABLET 10 MG PO (09:07)
[2020-10-21] MEDS: Insulin Lispro 100 UNIT/ML 3 ML VIAL SUBCUT ×2 (09:07→12:47)
[2020-10-21] MEDS: 0.9 % Sodium Chloride Flush 3 ML SYRINGE IVFLUSH (09:08)
--- NOTE | 2020-10-21 10:08 | P.DS_ITS ---
DS: Providers Provider Date of admission: 10/17/20 18:10 Primary care physician: Unknown Physician Consults: 10/17/20 22:02 Consult to Neurology Routine Consulting Provider: [facility] Reason for consultation: stroke Has provider been notified: No DS: Diagnosis Discharge Diagnosis (1) CVA (cerebral vascular accident): Status: Acute (2) Pulmonary embolism: Status: Acute DS: Medications Discharge Medications Home Medications: Home Medications Medication Instructions Recorded Confirmed albuterol 2 mcg INHALATION Q4H 10/09/20 10/17/20 aspirin 81 mg PO DAILY 10/09/20 10/17/20 atorvastatin 40 mg PO BEDTIME 10/09/20 10/17/20 glipizide 1 tab PO BID 10/09/20 10/17/20 guaifenesin 1,200 mg PO DAILY 10/09/20 10/17/20 lisinopril 1 tab PO DAILY 10/09/20 10/17/20 olopatadine 1 drp OPHTHALMIC (EYE) BID 10/09/20 10/17/20 polyvinyl alcohol 1 drp OPHTHALMIC (EYE) BID 10/09/20 10/17/20 sennosides [senna] 17.2 mg PO BEDTIME 10/09/20 10/17/20 Previous Rx's Medication Instructions Recorded divalproex 250 mg PO BEDTIME #0 cap 10/14/20 DS: Summary Hospital Course Hospital Course: Date of admission: 10/17/20 Chief Complaint: Confusion HPI: 75 year old women presenting from [facility] with confusion. She also had facial droop on the left side of of her face. She is lethargic and unable to give any accurate information. According to the record she was seen at breakfast in her usual state of health and then found 30 minutes later with altered mental status and left-sided weakness. Her daughter lives [facility] and is her HCP. Head CTA showed multiple areas of stenosis and occlusion as well as pulmonary emboli. She was started on IV heparin, given aspirin, insulin. She will be admitted for Stroke, acute PE and covid-1. Hospital course by Problems: Acute embolic stroke in setting of recent covid and PE. Clincally looks much better but still has some right sided facial weak, little muffle speech, and weakness of the right side MRI won't change outcome sow was not done. Repeat CT 2 days later showed no bleed. She was seen by Dr. Davalos recommend anticoagulation (on for PE), statin and BP control. She was seen by PT, OT and OT per stroke protocol. Pulmonary embolism. Likely secondary to Covid. She was initially anticoagulated with heparin but transitioned to Eliquis on10/19 and should be on 10 bid for total of 7 days, then 5 bid --standard for PE COVID-19. Diagnosed at SNF. no hypoxia noted , no further treatment at this time Metabolic encephalopathy. Likely related to stroke, follow neuro status. hx of dementia. Seems to be at her baseline Diabetes. Sliding scale. Speech recommends GROUND/MECH ALTERED (NDD2) solids and NECTAR THICK liquids, with pills CRUSHED in PUREE. Continue to recommend assistance with meals, total supervision, and strict aspiration precautions. Following discussion with patient and daughter Robyn by phone conference patient opted to be DNR/DNI--conversation witnessed by RN Jennifer Mooney on 10/20/20 Time Spent with Patient Time attestation: Total time spent providing and/or coordinating discharge services: Discharge coordination time: Greater than 30 minutes Physical Exam Vital Signs: Vital Signs: Last Vital Signs Temp 98.5 F 10/21/20 08:00 Pulse 84 10/21/20 08:00 Resp 20 10/21/20 08:00 BP 140/67 H 10/21/20 08:00 Pulse Ox 95 10/21/20 08:00 Body Mass Index 34.4 General: Alert,no acute distress normal lung examResp: CVS: S1,S2,RRR GI: +BS, NT, no distention Skin: No rash Neuro: moving all extremities, right sided facial weaknes, and arm weakness but better Psych: appropriate affect DS: Data Data Completed and Pending Labs on day of discharge: 10/17/20 13:04 ECG 12 lead EKG Stat EKG Documentation DIRECTED CT head for stroke Stat XR chest 1V Stat 10/17/20 13:06 CT angio head neck stroke Stat 10/17/20 13:11 Glucose, Whole Blood Routine 10/17/20 13:16 Basic Metabolic Panel Stat Complete Blood Count Auto Diff Stat Liver Panel Stat Partial Thromboplastin Time Stat Prothrombin Time INR Stat Stroke Lab Use Stat Troponin-I High Sensitivity Stat 10/17/20 13:55 iohexoL 350 MG/ML [Omnipaque 350 MG/ML] 70 ml IV ONCE ONE 10/17/20 14:23 UA CC w/rflx Micro + Cult Stat 10/17/20 14:29 Aspirin Enteric Coated [Ecotrin] 162 mg PO ONCE ONE 10/17/20 14:30 Heparin Sodium,Porcine 7,760 unit IVPUSH BOLUS PRN Heparin Sodium,Porcine/1/2NS 25,000 unit in 250 ml IVCONT Per Protocol units/kg/hr 10/17/20 14:35 Insulin Regular, Human [Humulin R] 5 unit SUBCUT ONCE ONE 10/17/20 15:25 Aspirin 300 mg RI ONCE ONE 10/17/20 16:10 Glucose, Whole Blood Routine 10/17/20 17:40 Code Status Routine Transfer Order Routine 10/17/20 17:52 COVID-19 ID NOW (Paula) Stat 10/17/20 Dinner NPO Diet 10/17/20 20:13 PTT Heparin Drip Stat Prothrombin Time INR Stat 10/17/20 22:02 Insulin Lispro [Humalog] See Protocol SUBCUT QIDACHS 10/17/20 22:10 Glucose, Whole Blood Routine 10/17/20 22:25 PTT Heparin Drip Stat 10/17/20 23:26 Insulin Lispro [Humalog] 2 unit SUBCUT ONCE ONE 10/18/20 00:20 PTT Heparin Drip Stat 10/18/20 01:42 PTT Heparin Drip Stat 10/18/20 04:51 Labetalol HCL [Normodyne] 10 mg IVPUSH ONCE ONE 10/18/20 05:43 Basic Metabolic Panel DAILY@0600 Complete Blood Count Auto Diff DAILY@0600 Lipid Panel Routine Prothrombin Time INR Routine 10/18/20 06:00 CT angio chest PE protocol Routine 10/18/20 09:15 PTT Heparin Drip Stat 10/18/20 11:29 Glucose, Whole Blood Routine 10/18/20 13:02 iohexoL 350 MG/ML [Omnipaque 350 MG/ML] 65 ml IV ONCE ONE 10/18/20 15:44 PTT Heparin Drip Routine 10/18/20 16:35 Glucose, Whole Blood Routine 10/18/20 Dinner Diabetic Diet 10/18/20 20:25 Glucose, Whole Blood Routine 10/18/20 23:45 PTT Heparin Drip Routine 10/19/20 CT head/brain wo con Stat 10/19/20 06:18 PTT Heparin Drip Routine 10/19/20 07:21 Glucose, Whole Blood Routine 10/19/20 10:56 Glucose, Whole Blood Routine 10/19/20 16:35 Glucose, Whole Blood Routine 10/19/20 20:28 Glucose, Whole Blood Routine 10/19/20 21:00 Apixaban [Eliquis] 5 mg PO BID 10/20/20 06:02 Basic Metabolic Panel DAILY@0600 Complete Blood Count no Diff DAILY@0600 10/20/20 07:39 Glucose, Whole Blood Routine 10/20/20 11:12 Glucose, Whole Blood Routine 10/20/20 16:31 Glucose, Whole Blood Routine 10/20/20 20:30 Glucose, Whole Blood Routine 10/21/20 07:34 Glucose, Whole Blood Routine Laboratory Last Values WBC 10.0 X10*3/uL (4.8-10.8) 10/20/20 06:02 RBC 4.11 X10*6/uL (4.20-5.50) L 10/20/20 06:02 Hgb 11.8 g/dl (12.0-16.0) L 10/20/20 06:02 Hct 36.4 % (37-47) L 10/20/20 06:02 MCV 88.6 fL (80-98) 10/20/20 06:02 MCH 28.7 pg (27.0-33.0) 10/20/20 06:02 MCHC 32.4 g/dl (31.0-35.0) 10/20/20 06:02 RDW 13.2 % (11.0-16.0) 10/20/20 06:02 Plt Count 433 X10*3/uL (160-400) H 10/20/20 06:02 MPV 10.2 fL (9.4-12.3) 10/20/20 06:02 Immature Gran % (Auto) 1.1 % (0.0-0.4) H 10/18/20 05:43 Neut % (Auto) 68.8 % (45-73) 10/18/20 05:43 Lymph % (Auto) 20.7 % (20-40) 10/18/20 05:43 [place] % (Auto) 9.4 % (2-11) 10/18/20 05:43 Eos % (Auto) 0.0 % (0-4) 10/18/20 05:43 Baso % (Auto) 0.0 % (0-2) 10/18/20 05:43 Lymph # (Auto) 2.5 X10*3/uL (1.2-4.9) 10/18/20 05:43 [place] # (Auto) 1.1 X10*3/uL (0.1-1.2) 10/18/20 05:43 Eos # (Auto) 0.0 X10*3/uL (0.0-0.4) 10/18/20 05:43 Baso # (Auto) 0.0 X10*3/uL (0.0-0.2) 10/18/20 05:43 Abs Immat Gran (auto) 0.13 X10*3/uL (0.00-0.03) H 10/18/20 05:43 Absolute Neuts (auto) 8.4 X10*3/uL (2.0-8.3) H 10/18/20 05:43 Absolute Nucleated RBC 0.000 X10*3/uL (0.0-0.012) 10/20/20 06:02 Nucleated RBC % (auto) 0.0 /100WBC (0.0-0.2) 10/20/20 06:02 PT 13.7 SEC (10.8-13.0) H 10/18/20 05:43 INR 1.2 (0.9-1.1) H 10/18/20 05:43 APTT 32.8 SEC (24.1-38.0) 10/17/20 13:16 PTT (Heparin Protocol) 59.1 SEC (53-77.9) 10/19/20 06:18 Sodium 137 mmol/L (135-145) 10/20/20 06:02 Potassium 3.7 mmol/l (3.3-5.1) 10/20/20 06:02 Chloride 100 mmol/L (96-108) 10/20/20 06:02 Carbon Dioxide 28 mmol/L (22-29) 10/20/20 06:02 Anion Gap 13 (12-20) 10/20/20 06:02 BUN 21 mg/dL (9-16) H 10/20/20 06:02 Creatinine 0.70 mg/dL (0.5-1.4) 10/20/20 06:02 Estim Creat Clear Calc 79.0 10/20/20 06:02 Estimated GFR > 60 10/20/20 06:02 POC Glucose 211 mg/dL (60-115) H 10/21/20 07:34 Random Glucose 217 mg/dL (60-115) H 10/20/20 06:02 Calcium 8.6 mg/dL (8.4-10.2) 10/20/20 06:02 Total Bilirubin 0.6 mg/dL (0.0-1.0) 10/17/20 13:16 Direct Bilirubin 0.2 mg/dL (0.0-0.5) 10/17/20 13:16 AST 24 U/L (5-31) 10/17/20 13:16 ALT 30 U/L (0-31) 10/17/20 13:16 Alkaline Phosphatase 74 U/L (39-117) 10/17/20 13:16 Troponin I High Sens 15.7 ng/L (<3.5-17.0) D 10/17/20 13:16 Total Protein 6.3 g/dL (6.5-8.0) L 10/17/20 13:16 Albumin 3.0 g/dL (3.5-5.0) L 10/17/20 13:16 Triglycerides 114 mg/dL 10/18/20 05:43 Cholesterol 119 mg/dL 10/18/20 05:43 LDL Cholesterol, Calc 64 mg/dl 10/18/20 05:43 HDL Cholesterol 33 mg/dL 10/18/20 05:43 Urine Color YELLOW 10/17/20 14:23 Urine Appearance HAZY 10/17/20 14:23 Urine pH 7.5 (5.0-8.0) 10/17/20 14:23 Ur Specific [place] 1.010 (1.005-1.025) 10/17/20 14:23 Urine Protein NEG MG/DL (NEG-TRACE) 10/17/20 14:23 Urine Glucose (UA) 500 MG/DL (NEG) H 10/17/20 14:23 Urine Ketones NEG MG/DL (NEG) 10/17/20 14:23 Urine Blood NEG (NEG) 10/17/20 14:23 Urine Nitrite NEG (NEG) 10/17/20 14:23 Ur Leukocyte Esterase NEG (NEG) 10/17/20 14:23 COVID-19 (EMERY) Positive (Negative) A 10/17/20 17:52 COVID-19 Clin Com See Note 10/17/20 17:52 Discharge Plan Discharge Anticipated Discharge Date/Time: 10/21/20 10:28 Patient Disposition: er SNF Referrals: [facility] [Outside] Physician,Unknown [Primary Care Provider] - Discharge Medications: New apixaban 5 mg tablet 5 - 10 mg PO BID Qty: 60 RF: 0 Continued atorvastatin 40 mg tablet 40 mg PO BEDTIME RF: 0 lisinopril 40 mg tablet 1 tab PO DAILY RF: 0 glipizide 5 mg tablet 1 tab PO BID RF: 0 olopatadine 0.2 % drops 1 drp ophthalmic (eye) BID RF: 0 sennosides [senna] 8.6 mg Tablet 17.2 mg PO BEDTIME RF: 0 guaifenesin 600 mg Tablet Extended Release 1,200 mg PO DAILY RF: 0 polyvinyl alcohol 1.4 % Drops 1 drp OPHTHALMIC (EYE) BID RF: 0 aspirin 81 mg Tablet,Chewable 81 mg PO DAILY RF: 0 albuterol 90 mcg/actuation Aerosol 2 mcg INHALATION Q4H RF: 0 divalproex 125 mg capsule, delayed rel sprinkle 250 mg PO BEDTIME Qty: 0 RF: 0 Discharge Orders: Discharge Order (Routine); Ordered 10/21/20 Ordered By: Harinder Lau Diet: other Activity on Discharge: As tolerated Discharge Date/Time: 10/21/20 16:55 Visit Report Forms: Patient Portal Discharge page Care Plan Goals: Some of full recovery from stroke and pulmonary embolism Health Concerns: stroke, Pulmonary embolism and covid 19 Plan of Treatment: continue covid 19 isolation per facility protocol Take Eliquis as directed with 10 mg bid x 7 days (ending on 10/25/20), then 5 mg bid indefinately, take baby aspirin, Lipitor and blood pressure medication and participate in PT, OT and speech therapy. The following diet is recommended by Speech therapy:GROUND/MECH ALTERED (NDD2) solids and NECTAR THICK liquids, with pills CRUSHED in PUREE. Continue to recommend assistance with meals, total supervision, and strict aspiration precautions.
[2020-10-21 11:23] LABS: Glucose, Whole Blood 290 mg/dL (60-115)
[2020-10-21 12:00] VITALS: BP 174/81; PULSE 78; RESP 20; TEMP 36.9; O2SAT 97
[2020-10-21 15:25] VITALS: BP 172/71; PULSE 86; RESP 18; TEMP 36.6; O2SAT 98
--- NOTE | 2020-10-21 16:02 | MHC.CM.PN ---
CONFERENCE CALL COMPLETED WITH PTS DAUGHTER/HCP, Amada DAWSON/W, AND HOSPITALIST. HOSPITALIST REVIEWED THE MOLST FOR WITH PTS HCP AND WHAT EACH SECTION MEANT AND PTS HCP VOCALIZED WHAT SHE BELIEVED HER MOTHER/THE PT WOULD WANT. MOLST FORM WAS SIGNED BY HOSPITALIST AND WITNESSED BY T/W. CM THEN SENT A COPY TO PTS SNF VIA [employer] AND PLACED ONE IN THE CHART. [facility] WILL EMAIL A COPY TO PTS HCP PER HER REQUEST TO [facility]. HCP WAS AWARE PT WAS CLEARED TO DC BACK TO SNF TODAY. DC SET FOR 1600 HOURS. HCP REQUESTED CM ASK THE SNF STAFF TO CONTACT HER ONCE THE PT ARRIVED. REQUEST FORWARDED VIA [employer]. PT WILL DISCHARGE BACK TO [place] FOR LTC [facility]IA [facility]
--- NOTE | 2020-10-21 17:32 | W.MHC.ACPN ---
Advanced Care Planning Note Advanced Care Planning Note Time spent (in minutes): 25 Narrative: Multiple conversation over the phone with patient's daughter Robyn who is health care proxy to disucuss patient's diagnossis, treatment plan and clinical outcome and intermediate goal as well discussing code status which was change from Full code to DNR after explaining in detail to patient, her daughter via a telephone conference. In a separate conversation i discussed and completed MOLST form with patient's daughter over the phone with medical case manager Natalie Motta , time spent 25 minutes in agregate. Problems Discussed (1) CVA (cerebral vascular accident): (2) Pulmonary embolism:
--- NOTE | 2020-10-22 10:46 | MHC.STROKE ---
Addendum entered by Nelsy Larson RN 10/24/20 12:02: LATE ENTRY, CLARIFICATION ON LKW, SEEN AT BREAKFAST TIME 0800 AND SYMPTOMS DISCOVERED APPROX 12:15. Original Note: late entry for 10/17/20 1347 NIHSS = 14 done upon arrival to ED.
== END 2020-10-21 16:55 | disposition skilled nursing facility (03) | DRG 64 ==
LOC: HO.ED 15:29 → HO.IMC 19:20
PROVIDERS: Internal Medicine; Nurse Practitioner Acute Care; Physician Assistant Medical; Admitting Provider Internal Medicine; Emergency Provider Emergency Medicine; Visit Provider Internal Medicine
DX: I63.40 Cerebral infarction due to embolism of unspecified cerebral artery (principal); U07.1 COVID-19; I26.94 Multiple subsegmental thrombotic pulmonary emboli without acute cor pulmonale; G93.41 Metabolic encephalopathy; G81.94 Hemiplegia, unspecified affecting left nondominant side; E11.9 Type 2 diabetes mellitus without complications; F03.90 Unspecified dementia, unspecified severity, without behavioral disturbance, psychotic disturbance, mood disturbance, and anxiety; E78.5 Hyperlipidemia, unspecified; Z79.82 Long term (current) use of aspirin; Z79.899 Other long term (current) drug therapy
CPT/HCPCS: 36415; 70450; 70496; 70498; 71045; 71275; 80048; 80061; 80076; 81003; 82947; 84484; 85025; 85027; 85610; 85730; 87635; 92523; 92610; 93005; 96375; 97112; 97163; 97167; 99285; 99291; Q9967

== ENCOUNTER 2022-12-18 13:36 | Inpatient (IN) | payer OTHER, SELFPAY ==
[2022-12-18] VITALS (9 sets, daily range): BP systolic 105–157; BP diastolic 37–83; PULSE 80–94; RESP 14–22; TEMP 36.1–36.9; O2SAT 99–100; BMI 35.2
--- NOTE | ~2022-12-18 | CT_ITS ---
EXAMINATION: CT PELVIS WITH CONTRAST CLINICAL INFORMATION: Bacteremia, sacral pressure ulcer. Rule out abscess. COMPARISON: CT abdomen and pelvis dated 12/18/2022. TECHNIQUE: Helical scanning was performed with submillimeter collimation through the pelvis with the use of oral contrast and during bolus intravenous injection of 100 mL of Omnipaque 350 intravenous contrast. Sagittal and coronal multiplanar 2-D reconstructions were obtained. This CT examination was performed using dose optimization techniques as appropriate, variously including the following: *Automated exposure control *Adjustment of mA and/or kV according to patient size (this includes techniques or standardized protocols for targeted exams where dose is matched to indication/reason for exam; i.e. extremities or head) *Use of iterative reconstruction technique DLP: 431 mGy-cm FINDINGS: There is subtle skin thickening over the sacrum which may correspond to the known site of soft tissue ulceration. No underlying fluid collections are identified. The sacrum and coccyx are normal in bone mineralization without evidence of osteomyelitis. No significant presacral fluid collections. Minimal presacral fat stranding. There is mild osteoarthritis in the hips bilaterally with nonuniform joint space narrowing, marginal osteophytes, and foci of subchondral cystic change. Mild osteoarthritis is also evident at the SI joints. There is more moderate osteoarthritis at the pubic symphysis. Degenerative spondylosis is present in the lower lumbar spine with marked facet arthropathy, grade 1 anterolisthesis of L4 on L5, and grade 1 anterolisthesis of L5 on S1. There is an air-fluid level in the rectum, consistent with liquid stool. No appreciable bowel wall thickening at the imaged intrapelvic small bowel and colon. No appreciable intraperitoneal free fluid or free air. Appendix is normal. Calcific atherosclerosis is present in the abdominal aorta and iliac arteries. No aneurysmal dilatation. No adenopathy. The bladder wall is thickened with mucosal hyperemia as can be seen with cystitis. Uterus is unremarkable. No appreciable adnexal lesions. There is generalized subcutaneous fat stranding at the abdomen and pelvis, likely due to mild anasarca. CT/CT pelvis w IV con IMPRESSION: 1. Subtle skin thickening over the sacrum, potentially corresponding to the known site of soft tissue ulceration. No underlying fluid collections. No evidence of osteomyelitis. 2. Air-fluid level in the rectum, consistent with liquid stool. 3. Mild bladder wall thickening with mucosal hyperemia is suggestive of cystitis. Recommend correlation with urinalysis. 4. Mild osteoarthritis in the hips, SI joints, and pubic symphysis. 5. Mild anasarca. 6. Degenerative spondylosis in the lower lumbar spine with grade 1 anterolisthesis of L4 on L5 and L5 on S1.
--- NOTE | ~2022-12-18 | XR_ITS ---
EXAMINATION: XR CHEST CLINICAL INFORMATION: Stroke COMPARISON: Chest x-ray 10/17/2020 TECHNIQUE: Frontal portable view of the chest was obtained. 2:49 PM FINDINGS: No significant abnormality is noted involving the heart, lungs, mediastinum, bony thorax or soft tissues. XR/XR chest 1V IMPRESSION: Unremarkable examination.
--- NOTE | ~2022-12-18 | CT_ITS ---
EXAMINATION: CT HEAD WITHOUT CONTRAST CLINICAL INFORMATION: Acute change in mental status. Flaccid right side. COMPARISON: CT head from 10/19/2020. TECHNIQUE: Contiguous axial imaging was performed from the skull base to vertex without intravenous administration of contrast. This CT examination was performed using dose optimization techniques as appropriate, variously including the following: *Automated exposure control. *Adjustment of mA and/or kV according to patient size (this includes techniques or standardized protocols for targeted exams where dose is matched to indication/reason for exam; i.e. extremities or head). *Use of iterative reconstruction technique. DLP: 854 mGy-cm FINDINGS: There is loss of thayer-white matter differentiation within the high parasagittal right parietal lobe. No evidence of acute intracranial hemorrhage. Confluent hypoattenuation in the periventricular and deep white matter. Chronic lacunar infarcts of the right lentiform nucleus and left thalamus. Proportional prominence of the ventricles and sulcal spaces without evidence of obstructive hydrocephalus. No abnormal mass effect or midline shift. No extra-axial fluid collections. Calcific atherosclerotic disease of the intracranial internal carotid and vertebral arteries. No overtly demonstrated hyperdense vessel sign. No acute soft tissue or osseous abnormalities. Mild mucosal thickening of the paranasal sinuses. The mastoid air cells and middle ear cavities are clear. CT/CT head for stroke IMPRESSION: 1. Loss of thayer-white matter differentiation within the high parasagittal right parietal lobe suggestive of an acute to subacute infarct. 2. No evidence of acute intracranial hemorrhage. 3. Extensive underlying microangiopathy and generalized cerebral volume loss. Chronic lacunar infarcts of the deep nuclei. This critical result was discussed with Dr. Clark Irizarry at 14:25 on 12/18/2022 and it was ascertained that the content and urgency of the report was understood at the time of direct communication.
--- NOTE | ~2022-12-18 | CT_ITS ---
EXAMINATION: CT CHEST, ABDOMEN AND PELVIS WITH CONTRAST CLINICAL INFORMATION: Anemia, unclear etiology. COMPARISON: 10/18/2020 TECHNIQUE: Multidetector volumetric imaging was performed of the chest, abdomen and pelvis following administration of oral and 100 mL Omnipaque 300 intravenous contrast. Sagittal and coronal reformatted images were obtained on the technologist's workstation. This CT examination was performed using dose optimization techniques as appropriate, variously including the following: *Automated exposure control *Adjustment of mA and/or kV according to patient size (this includes techniques or standardized protocols for targeted exams where dose is matched to indication/reason for exam; i.e. extremities or head) *Use of iterative reconstruction technique DLP: 572.66 mGy-cm FINDINGS: CHEST, ABDOMINAL AND PELVIC WALL: Small fat-containing umbilical hernia. LUNGS: Mild motion degradation lung bases otherwise, right lung base linear atelectasis versus scarring. No pulmonary consolidation or suspicious nodule central airways are patent. MEDIASTINUM: No mediastinal adenopathy. No hilar adenopathy. Mild coronary artery atherosclerotic calcifications. PLEURA: There is no pleural effusion. No pleural mass or thickening. AXILLA: No lymphadenopathy. LIVER AND BILIARY TREE: Hepatic steatosis. No suspicious liver lesions. GALLBLADDER: Status post cholecystectomy. PANCREAS: Mild pancreatic atrophy.. SPLEEN: Unremarkable ADRENAL GLANDS: Unremarkable. KIDNEYS AND URETERS: Unremarkable. GASTROINTESTINAL TRACT: . Thickening rectosigmoid colon with focal narrowing of the sigmoid colon followed by gaseous distention of the proximal sigmoid colon (13:60). No evidence of bowel obstruction. Small bowel is unremarkable. Normal appendix. VASCULAR: Aortic atherosclerotic calcifications, no aneurysmal dilation. LYMPH NODES: No lymphadenopathy. FREE FLUID: No free fluid. BLADDER: Unremarkable PELVIC VISCERA: Unremarkable OSSEOUS STRUCTURES: Mild degenerative changes of the spine . CT/CT abdomen pelvis w IV con IMPRESSION: 1. Mild thickening of the rectosigmoid colon with focal narrowing of the sigmoid colon followed by gaseous distention of the proximal colon. Differential considerations include infectious/inflammatory colitis, however underlying neoplasm cannot be excluded, particularly in the setting of anemia of unknown etiology and recommend correlation with colonoscopy.. 2. Hepatic steatosis.
--- NOTE | 2022-12-18 13:43 | ECG_ITS ---
Test Reason : STROKE Blood Pressure : / mmHG Vent. Rate : 082 BPM Atrial Rate : 094 BPM P-R Int : 188 ms QRS Dur : 090 ms QT Int : 370 ms P-R-T Axes : 067 002 165 degrees QTc Int : 432 ms Artifact in tracing Sinus rhythm with marked sinus arrhythmia with Premature supraventricular complexes Cannot rule out Anterior infarct , age undetermined Abnormal ECG When compared with ECG of 17-OCT-2020 13:55, Premature supraventricular complexes are now Present Nonspecific T wave abnormality, worse in Inferior leads Referred By: Clark Irizarry Electronically Signed By:Baldemar Mayer
--- NOTE | 2022-12-18 13:51 | ED_ITS ---
HPI - General Adult General Chief complaint: Stroke Stated complaint: STROKE ALERT Time Seen by Provider: 12/18/22 13:43 Source: EMS Mode of arrival: EMS Limitations: altered mental status History of Present Illness HPI narrative: 77-year-old female presents with possible stroke. She was found unresponsive around 11:00 a.m. today. Is unclear when the last time she was seen normal. Apparently she denied good breakfast earlier today and when she was checked on she was found unresponsive. Patient is unable to provide history due to her current medical condition. History is limited due to the unavailability of [facility] care facility. They are not answering the phone. Related Data Home Medications Medication Instructions Recorded Confirmed albuterol 90 mcg/actuation aerosol 2 mcg inhalation Q4H 10/09/20 10/17/20 inhaler aspirin 81 mg chewable tablet 81 mg PO DAILY 10/09/20 10/17/20 atorvastatin 40 mg tablet 40 mg PO BEDTIME 10/09/20 10/17/20 glipizide 5 mg tablet 1 tab PO BID 10/09/20 10/17/20 guaifenesin 600 mg tablet,extended 1,200 mg PO DAILY 10/09/20 10/17/20 release lisinopril 40 mg tablet 1 tab PO DAILY 10/09/20 10/17/20 olopatadine 0.2 % eye drops 1 drp ophthalmic (eye) BID 10/09/20 10/17/20 polyvinyl alcohol 1.4 % eye drops 1 drp ophthalmic (eye) BID 10/09/20 10/17/20 sennosides 8.6 mg tablet (senna) 17.2 mg PO BEDTIME 10/09/20 10/17/20 Previous Rx's Medication Instructions Recorded divalproex 125 mg capsule,delayed 250 mg PO BEDTIME #0 caps 10/14/20 release sprinkle apixaban 5 mg tablet 5 - 10 mg PO BID #60 tabs 10/21/20 Allergies Allergy/AdvReac Type Severity Reaction Status Date / Time No Known Allergies Allergy Verified 10/09/20 11:55 Review of Systems Review of Systems: Yes Unobtainable due to mental condition (Obtundation) PMFSH Past Medical History Medical History Chronic lower back pain COVID-19 CVA (cerebral vascular accident) Diabetes HTN (hypertension) Hyperlipidemia Schizoaffective disorder Social History Social History Household Members: Caregiver Household Members Other:: SNF Housing: Group Home Do you presently have visiting nurse or other home services: No (DETENTION) Unable to assess alcohol history related to: Unable to respond Alcohol intake: unknown Smoked in Last 30 Days: No Second Hand Smoke Exposure: No Use of substances other than those prescribed or required for medical reasons: No Advance Directives: Yes Advance Directives on File: Yes Advance Directives Date on File: 12/18/22 service: No Current occupational status: retired Physical Exam ED Vital Signs: Vital Signs - 24 hr 12/18/22 14:15 12/18/22 14:39 12/18/22 16:00 Temperature 97.0 F Pulse Rate 82 94 Respiratory Rate 22 H 14 Blood Pressure 135/53 L 114/37 L Pulse Oximetry 100 99 Oxygen Delivery Method Room Air Room Air BMI result Body Mass Index 35.2 Course Course Course Narrative: 77-year-old female with a history of CVA presents to the emergency department with alteration in mental status, seemed to go unresponsive around 11:00 a.m. today. Is currently approximately 2:00 a.m. this afternoon. Patient presented as a stroke alert. However, I cannot clearly identify focal neurologic defic its. I do not have a timeline. Per EMS, she was seen to go unresponsive or was found unresponsive around 11:00 a.m.. I attempted to call Bijan Serrato 10 times around 145 today. I called multiple floors as well as a cloth shrinking supervisor. The supervisors mailbox was not available to leave a message. At this point, I do not have an appropriate time line consider the patient for possible tPA. Also, given the global nature of her condition, and that she is having a brainstem stroke or global stroke, is unlikely to be an acute CVA. Is most likely a encephalopathy of some sort. In any event, we will obtain a CT scan routine urinalysis laboratory analysis chest x-ray an EKG. Patient will likely need to be admitted to the hospital. Reevaluation(s) Reevaluation #1: audio visual coordinator was able to get a hold of abnormality. Apparently she was not seen well about 9:00 a.m. this morning. Unclear when she was last seen well. At around 11:00 a.m. she seemed to be much less responsive than earlier around 1:00 a.m. this afternoon they called EMS to bring her to the hospital. I did receive a call from the radiologist who read her CT noting some right-sided parietal edematous changes however, patient has significant diffuse disease from previous insult. audio visual coordinator pipe smoking machine operator helping us determine whether a CTA would be appropriate at this time whether she would be a thrombectomy candidate. At this point, I still suspect patient has another issue other than acute CVA given her encephalopathic appearance. Time: 14:37 Reevaluation #2: Spoke with daughter Robyn about patient's current condition as well as her low hemoglobin level. I am recommending blood transfusion help prevent end-organ damage and also improve her mental status. Patient will contact her brother to see if this is consistent with the care that they would like the mother to receive. I have ordered a type and screen in the meantime. Time: 14:58 Reevaluation #3: Discussed potential need for transfusion with E larry and son Lucas. They would like her to receive a transfusion at this time. She remains DNR DNI. We will contact the hospitalist regarding admission. She was guaiac negative with brown stool. Unclear etiology of either blood loss or lack of production. Time: 15:23 Additional Reevaluation(s): Spoke with the hospitalist attending admission. Will obtain CT scan prior to doing so in order to decide whether patient and family to consider comfort measures versus continue current treatment with blood transfusions and supportive care. Medical Decision Making Medical Decision Making MDM Narrative: Please see course above, patient presented as seen to be unresponsive. She is a DNR DNI. Is not entirely clear the course of events when she was last seen normal. Around 11:00 a.m. she was either seen to go unresponsive were found unresponsive. She does have a history of a CVA. On examination she is obtunded. She has rigidity of the left arm in full acidity of the right upper extremity. She is otherwise unresponsive except to painful stimuli. Unable to assess fully neurologic exam. We will do a full workup the patient will likely need to be admitted. Differential Diagnosis Differential Diagnoses: The differential diagnosis associated with the presentation includes (Encephalopathy, urinary tract infection, pneumonia, CVA, diabetic complication, altered mental status) Admission/Observation Consideration of admission/observation: Escalation of care including admission/o bservation considered Lab Data MDM Lab Attestation statement: I reviewed the patient's lab results. 12/18/22 14:22 12/18/22 14:22 Labs: Lab Results 12/18/22 12/18/22 12/18/22 Range/Units 14:20 14:22 14:22 WBC 8.1 (4.8-10.8) X10*3/uL RBC 2.43 L (4.20-5.50) X10*6/uL Hgb 4.4 L* (12.0-16.0) g/dl Hct 16.4 L* (37.0-47.0) % MCV 67.5 L (80.0-98.0) fL MCH 18.1 L (27.0-33.0) pg MCHC 26.8 L (31.0-35.0) g/dl RDW 18.4 H (11.0-16.0) % Plt Count 387 (160-400) X10*3/uL MPV 9.4 (9.4-12.3) fL Immature Gran % (Auto) 0.4 (0.0-0.4) % Neut % (Auto) 71.0 (45-73) % Lymph % (Auto) 20.2 (20-40) % [place] % (Auto) 8.1 (2-11) % Eos % (Auto) 0.2 (0-4) % Baso % (Auto) 0.1 (0-2) % Lymph # (Auto) 1.6 (1.2-4.9) X10*3/uL [place] # (Auto) 0.7 (0.1-1.2) X10*3/uL Eos # (Auto) 0.0 (0.0-0.4) X10*3/uL Baso # (Auto) 0.0 (0.0-0.2) X10*3/uL Abs Immat Gran (auto) 0.03 (0.00-0.03) X10*3/uL Absolute Neuts (auto) 5.7 (2.0-8.3) x10*3/uL Absolute Nucleated RBC 0.020 H (0.0-0.012) X10*3/uL Nucleated RBC % (auto) 0.2 (0.0-0.2) /100WBC Absolute Retic 0.046 (0.026-0.095) X10*6/uL Percent Retic 1.9 H (0.5-1.8) % Immature Retic Fraction 16.7 H (3.0-15.9) % Retic Hgb Equivalent 15.9 L (30.0-35.0) pg PT 18.7 H (10.0-13.1) SEC INR 1.6 H (0.9-1.1) APTT 39.3 H (26.0-36.4) SEC Sodium (135-145) mmol/L Potassium (3.3-5.1) mmol/L Chloride (96-108) mmol/L Carbon Dioxide (22-29) mmol/L Anion Gap (12-20) BUN (9-16) mg/dL Creatinine (0.5-1.4) mg/dL Estim Creat Clear Calc Estimated GFR POC Glucose 111 (60-115) mg/dL Random Glucose (60-115) mg/dL Lactic Acid (0.5-2.0) mmol/L Calcium (8.4-10.2) mg/dL Total Bilirubin (0.0-1.0) mg/dL Direct Bilirubin (0.0-0.5) mg/dL AST (5-31) U/L ALT (0-31) U/L Alkaline Phosphatase (39-117) U/L Total Creatine Kinase (26-140) U/L Troponin I High Sens (<3.5-17.0) ng/L Total Protein (6.5-8.0) g/dL Albumin (3.5-5.0) g/dL COVID-19 (EMERY) (Negative) COVID-19 Clin Com Crossmatch 12/18/22 12/18/22 12/18/22 Range/Units 14:22 14:22 14:22 WBC (4.8-10.8) X10*3/uL RBC (4.20-5.50) X10*6/uL Hgb (12.0-16.0) g/dl Hct (37.0-47.0) % MCV (80.0-98.0) fL MCH (27.0-33.0) pg MCHC (31.0-35.0) g/dl RDW (11.0-16.0) % Plt Count (160-400) X10*3/uL MPV (9.4-12.3) fL Immature Gran % (Auto) (0.0-0.4) % Neut % (Auto) (45-73) % Lymph % (Auto) (20-40) % [place] % (Auto) (2-11) % Eos % (Auto) (0-4) % Baso % (Auto) (0-2) % Lymph # (Auto) (1.2-4.9) X10*3/uL [place] # (Auto) (0.1-1.2) X10*3/uL Eos # (Auto) (0.0-0.4) X10*3/uL Baso # (Auto) (0.0-0.2) X10*3/uL Abs Immat Gran (auto) (0.00-0.03) X10*3/uL Absolute Neuts (auto) (2.0-8.3) x10*3/uL Absolute Nucleated RBC (0.0-0.012) X10*3/uL Nucleated RBC % (auto) (0.0-0.2) /100WBC Absolute Retic (0.026-0.095) X10*6/uL Percent Retic (0.5-1.8) % Immature Retic Fraction (3.0-15.9) % Retic Hgb Equivalent (30.0-35.0) pg PT (10.0-13.1) SEC INR (0.9-1.1) APTT (26.0-36.4) SEC Sodium 141 (135-145) mmol/L Potassium 4.3 (3.3-5.1) mmol/L Chloride 104 (96-108) mmol/L Carbon Dioxide 29 (22-29) mmol/L Anion Gap 12 (12-20) BUN 31 H (9-16) mg/dL Creatinine 1.18 (0.5-1.4) mg/dL Estim Creat Clear Calc 47.4 Estimated GFR 44 POC Glucose (60-115) mg/dL Random Glucose 101 (60-115) mg/dL Lactic Acid 0.8 (0.5-2.0) mmol/L Calcium 9.4 D (8.4-10.2) mg/dL Total Bilirubin 0.6 (0.0-1.0) mg/dL Direct Bilirubin 0.2 (0.0-0.5) mg/dL AST 15 (5-31) U/L ALT 12 (0-31) U/L Alkaline Phosphatase 76 (39-117) U/L Total Creatine Kinase 53 (26-140) U/L Troponin I High Sens 5.1 (<3.5-17.0) ng/L Total Protein 6.5 (6.5-8.0) g/dL Albumin 3.7 (3.5-5.0) g/dL COVID-19 (EMERY) (Negative) COVID-19 Clin Com Crossmatch 12/18/22 12/18/22 Range/Units 14:22 16:19 WBC (4.8-10.8) X10*3/uL RBC (4.20-5.50) X10*6/uL Hgb (12.0-16.0) g/dl Hct (37.0-47.0) % MCV (80.0-98.0) fL MCH (27.0-33.0) pg MCHC (31.0-35.0) g/dl RDW (11.0-16.0) % Plt Count (160-400) X10*3/uL MPV (9.4-12.3) fL Immature Gran % (Auto) (0.0-0.4) % Neut % (Auto) (45-73) % Lymph % (Auto) (20-40) % [place] % (Auto) (2-11) % Eos % (Auto) (0-4) % Baso % (Auto) (0-2) % Lymph # (Auto) (1.2-4.9) X10*3/uL [place] # (Auto) (0.1-1.2) X10*3/uL Eos # (Auto) (0.0-0.4) X10*3/uL Baso # (Auto) (0.0-0.2) X10*3/uL Abs Immat Gran (auto) (0.00-0.03) X10*3/uL Absolute Neuts (auto) (2.0-8.3) x10*3/uL Absolute Nucleated RBC (0.0-0.012) X10*3/uL Nucleated RBC % (auto) (0.0-0.2) /100WBC Absolute Retic (0.026-0.095) X10*6/uL Percent Retic (0.5-1.8) % Immature Retic Fraction (3.0-15.9) % Retic Hgb Equivalent (30.0-35.0) pg PT (10.0-13.1) SEC INR (0.9-1.1) APTT (26.0-36.4) SEC Sodium (135-145) mmol/L Potassium (3.3-5.1) mmol/L Chloride (96-108) mmol/L Carbon Dioxide (22-29) mmol/L Anion Gap (12-20) BUN (9-16) mg/dL Creatinine (0.5-1.4) mg/dL Estim Creat Clear Calc Estimated GFR POC Glucose (60-115) mg/dL Random Glucose (60-115) mg/dL Lactic Acid (0.5-2.0) mmol/L Calcium (8.4-10.2) mg/dL Total Bilirubin (0.0-1.0) mg/dL Direct Bilirubin (0.0-0.5) mg/dL AST (5-31) U/L ALT (0-31) U/L Alkaline Phosphatase (39-117) U/L Total Creatine Kinase (26-140) U/L Troponin I High Sens (<3.5-17.0) ng/L Total Protein (6.5-8.0) g/dL Albumin (3.5-5.0) g/dL COVID-19 (EMERY) Negative (Negative) COVID-19 Clin Com See Note Crossmatch See Detail Independent Interpretation I performed an independent interpretation of an: EKG (Normal sinus rhythm with heart rate of 82, sinus arrhythmia, PVCs, no acute ST elevations or depressions) and Plain X-Ray Radiology Impression Discussion of test interpretation with radiology: I have reviewed the radiologist's reading. (1. Loss of thayer-white matter differentiation within the high parasagittal right parietal lobe suggestive of an acute to subacute infarct. 2. No evidence of acute intracranial hemorrhage. 3. Extensive under lying microangiopathy and generalized cerebral volume loss. Chronic lacunar infarcts of the ) Independent Historian Clinical information obtained from an independent historian. History obtained from or confirmed by: EMS External Record Review External record reviewed: Inpatient record (2019 CVA discharge summary) Tests considered The following testing was considered but not selected: MRI, CTA Chronic Conditions Patient?s care impacted by: Diabetes and Other (CVA) Discharge Plan Discharge Clinical Impression: Unresponsive state Prescriptions: No Action apixaban 5 mg tablet 5 - 10 mg PO BID Qty: 60 0RF Rx Instructions: 10 mg bid until 10/25/20, then 5 bid after that atorvastatin 40 mg tablet 40 mg PO BEDTIME lisinopril 40 mg tablet 1 tab PO DAILY glipizide 5 mg tablet 1 tab PO BID olopatadine 0.2 % drops 1 drp ophthalmic (eye) BID sennosides [senna] 8.6 mg Tablet 17.2 mg PO BEDTIME guaifenesin 600 mg Tablet Extended Release 1,200 mg PO DAILY Rx Instructions: X 7 DAYS polyvinyl alcohol 1.4 % Drops 1 drp OPHTHALMIC (EYE) BID aspirin 81 mg Tablet,Chewable 81 mg PO DAILY albuterol 90 mcg/actuation Aerosol 2 mcg INHALATION Q4H divalproex 125 mg capsule, delayed rel sprinkle 250 mg PO BEDTIME Qty: 0 0RF
[2022-12-18 14:34] LABS: MANUAL DIFF FLAG NO
[2022-12-18 14:36] LABS: Glucose, Whole Blood 111 mg/dL (60-115)
--- NOTE | 2022-12-18 14:36 | PC.NURSE ---
Pt presents to ED, transfer to CT scan upon arrival. Pt noted minimally responsive to voice. Eyes closed. Mumbling when attempting to speak. B/L etyes with PERRLA however sluggish. Gaze to left noted. Per EMS onset of sx approx 10-11am, Per facility [facility] arond 0930 per Nelsy medication coordinator. Pt skin pale. Afebrile with rectal of 97.0. A fib on tele rate 90s at this time. Pt congested. Sat 95-100% on room air. Large amount of diarrhea on arrival, cleaned and repositioned
[2022-12-18 14:38] LABS: Basophils Percent Auto 0.1 % (0-2); Eosinophils Percent Auto 0.2 % (0-4); Imm Gran Abs Auto 0.03 X10*3/uL (0.00-0.03); Imm Gran Pct Auto 0.4 % (0.0-0.4); Lymphocytes Absolute Auto 1.6 X10*3/uL (1.2-4.9); Lymphocytes Percent Auto 20.2 % (20-40); Mean Corpuscular HGB Conc 26.8 g/dl (31.0-35.0); Mean Corpuscular Hemoglobin 18.1 pg (27.0-33.0); Mean Corpuscular Volume 67.5 fL (80.0-98.0); Mean Platelet Volume 9.4 fL (9.4-12.3); Monocytes Absolute Auto 0.7 X10*3/uL (0.1-1.2); Monocytes Percent Auto 8.1 % (2-11); NRBC Pct Auto 0.2 /100WBC (0.0-0.2); Neutrophils Absolute Auto 5.7 x10*3/uL (2.0-8.3); Platelet Count 387 X10*3/uL (160-400); Red Blood Count 2.43 X10*6/uL (4.20-5.50); Red Cell Distribution Width 18.4 % (11.0-16.0); White Blood Count 8.1 X10*3/uL (4.8-10.8)
[2022-12-18 14:42] LABS: Hematocrit 16.4 % (37.0-47.0)
[2022-12-18 14:45] LABS: INTERNATIONAL NORM RATIO 1.6 (0.9-1.1); Prothrombin Time 18.7 SEC (10.0-13.1)
[2022-12-18 14:48] LABS: Hemoglobin 4.4 g/dl (12.0-16.0); Partial Thromboplastin Time 39.3 SEC (26.0-36.4)
[2022-12-18 14:50] LABS: Stroke Lab Use COMPLETE
[2022-12-18 14:51] LABS: Alanine Aminotransferase 12 U/L (0-31); Albumin Level 3.7 g/dL (3.5-5.0); Alkaline Phosphatase 76 U/L (39-117); Anion Gap 12 (12-20); Aspartate Amino Transferase 15 U/L (5-31); Bilirubin Direct 0.2 mg/dL (0.0-0.5); Bilirubin Total 0.6 mg/dL (0.0-1.0); Blood Urea Nitrogen 31 mg/dL (9-16); Calcium 9.4 mg/dL (8.4-10.2); Carbon Dioxide 29 mmol/L (22-29); Chloride 104 mmol/L (96-108); Creatinine Clr Calc Pharmacy 47.4; Estimated Glomerular Filt Rate 44; Glucose Random 101 mg/dL (60-115); Lactic Acid 0.8 mmol/L (0.5-2.0); Potassium 4.3 mmol/L (3.3-5.1); Sodium 141 mmol/L (135-145); Total Protein 6.5 g/dL (6.5-8.0)
--- NOTE | 2022-12-18 14:51 | PC.NURSE ---
Spoke to daughter Robyn and updated. Dr Irizarry speaking to Robyn at this time
[2022-12-18 14:52] LABS: COVID-19 Test Negative (Negative); IDNOW Serial# 16C4AD1C
[2022-12-18 14:58] LABS: Troponin-I High Sensitivity 5.1 ng/L (<3.5-17.0)
--- NOTE | 2022-12-18 15:16 | PM.NEUROCN ---
History of Present Illness Data of Consult Service Date: 12/18/22 HPI Reason for consult: Change in mental status 77 years old woman with underlying extensive atherosclerotic disease, she has affective disorder, diabetes and UTI who was brought to hospital with unresponsiveness. She was noted to have left gaze deviation and this consultation was requested. I saw her in emergency room. She was unable to provide any history. Review of Systems Review of Systems: [facility] be [facility] Past Medical History Medical History Chronic lower back pain COVID-19 CVA (cerebral vascular accident) Diabetes HTN (hypertension) Hyperlipidemia Schizoaffective disorder Social History Social History Household Members: Caregiver Household Members Other:: SNF Housing: Long Term Do you presently have visiting nurse or other home services: No (HALF-WAY) Unable to assess alcohol history related to: Unable to respond Alcohol intake: unknown Smoked in Last 30 Days: No Second Hand Smoke Exposure: No Use of substances other than those prescribed or required for medical reasons: No service: No Current occupational status: [employer] Allergies Allergy/AdvReac Type Severity Reaction Status Date / Time No Known Allergies Allergy Verified 10/09/20 11:55 Home Medications Medication Instructions Recorded Confirmed Last Taken Type albuterol 90 mcg/actuation aerosol 2 mcg inhalation Q4H 10/09/20 10/17/20 Unknown History inhaler aspirin 81 mg chewable tablet 81 mg PO DAILY 10/09/20 10/17/20 Unknown History atorvastatin 40 mg tablet 40 mg PO BEDTIME 10/09/20 10/17/20 Unknown History glipizide 5 mg tablet 1 tab PO BID 10/09/20 10/17/20 Unknown History guaifenesin 600 mg tablet,extended 1,200 mg PO DAILY 10/09/20 10/17/20 Unknown History release lisinopril 40 mg tablet 1 tab PO DAILY 10/09/20 10/17/20 Unknown History olopatadine 0.2 % eye drops 1 drp ophthalmic (eye) BID 10/09/20 10/17/20 Unknown History polyvinyl alcohol 1.4 % eye drops 1 drp ophthalmic (eye) BID 10/09/20 10/17/20 Unknown History sennosides 8.6 mg tablet (senna) 17.2 mg PO BEDTIME 10/09/20 10/17/20 Unknown History Physical Exam Vital Signs: Vital Signs: Last Vital Signs Temp 97.0 F 12/18/22 14:39 Pulse 82 12/18/22 14:15 Resp 22 H 12/18/22 14:15 BP 135/53 L 12/18/22 14:15 Pulse Ox 100 12/18/22 14:15 O2 Del Method 12/18/22 14:15 BMI result Body Mass Index 35.2 Neuro: Other: Mumbling but could not answer questions. Gaze was deviated to left with slight jerking movements. Otherwise there was no overt shaking in face or limbs. There was no abnormal posturing. Plantars were flexors. Exam was limited. Results Labs 12/18/22 14:22 12/18/22 14:22 Labs: Short CBC 12/18/22 Range/Units 14:22 WBC 8.1 (4.8-10.8) X10*3/uL Hgb 4.4 L* (12.0-16.0) g/dl Hct 16.4 L* (37.0-47.0) % Plt Count 387 (160-400) X10*3/uL BMP 12/18/22 14:22 Sodium 141 Potassium 4.3 Chloride 104 Carbon Dioxide 29 BUN 31 H Creatinine 1.18 Calcium 9.4 D Cardiac Enzymes 12/18/22 Range/Units 14:22 Total Creatine Kinase 53 (26-140) U/L Liver Function 12/18/22 Range/Units 14:22 Total Bilirubin 0.6 (0.0-1.0) mg/dL Direct Bilirubin 0.2 (0.0-0.5) mg/dL AST 15 (5-31) U/L ALT 12 (0-31) U/L Alkaline Phosphatase 76 (39-117) U/L Albumin 3.7 (3.5-5.0) g/dL Head CT did not reveal any acute abnormality. Assessment and Plan (1) Unresponsive state: Status: Acute 77 years old woman with unresponsiveness. Exam revealed left gaze deviation with slight eye jerking and mumbling speech. Possibilities included seizure disorder, infection or stroke. Her hematocrit has tremendously dropped and I would suggest investigating that. I do not recommend any further investigation for stroke as no further treatment could be offered. If her mental status is not improved, an EEG should be performed tomorrow or rule out possibility of epileptic encephalopathy. Time Spent With Patient Time: Total time managing care of this patient today ____ minutes. Procedures Date of Service Date of Service: 12/18/22
--- NOTE | 2022-12-18 15:32 | MHC.STROKE ---
12/18/22 EMS PRE-NOTIFICATION STROKE ALERT, FROM [facility], PATIENT FOUND UNRESPONSIVE, UNCLEAR ONSET. ARRIVED AT [facility]. EXAMINED BY PROVIDER, STROKE PROTOCOL ACTIVATED, CTH DONE NO BLEED. NIHSS = 31, I CALLED [facility], I SPOKE WITH INSTANTIZER OPERATOR DIANA TO CLARIFY ONSET OF SYMPTOMS SHE SAID STAFF DISCOVERED HER TO BE LETHARGIC AROUND 0930, EMS WAS CALLED 1300. HER BASELINE IS ALERT BUT CONFUSED, BEDBOUND, NEEDS TO BE FED 1:1, ON ELIQUIS 5MG BID, SEE MED LIST. EXCLUDED FROM TPA - THROMBOLYTICS BASED ON A NUMBER OF REASONS, H&H 4.4/16.4, MOLST FORM ON CHART, DNR/DNI, CTA NOT RECOMMENDED BY NEUROLOGY, EEG IN AM, CASE DISCUSSED WITH PROVIDER AND NURSE. SEVERAL DISCUSSIONS WITH THE FAMILY BY THE PROVIDER AND NURSE. PATIENT KNOWN TO STROKE SERVICE FROM 10/2020 CVA, PE, I WILL CONTINUE TO FOLLOW.
--- NOTE | 2022-12-18 15:35 | PC.NURSE ---
patient responding to painful stimulus, property assessment monitor intact, vitals stable at this time, graduate nurse performing ekg, will obtain t&s as well, call gregory within reach, will continue to monitor
[2022-12-18 15:41] LABS: SCAN SMEAR FLAG 1
[2022-12-18 15:43] LABS: Immature Retic Fraction 16.7 % (3.0-15.9); Retic HGB Equivalent 15.9 pg (30.0-35.0); Reticulocyte Percent 1.9 % (0.5-1.8); Reticulocytes Absolute 0.046 X10*6/uL (0.026-0.095)
[2022-12-18] MEDS: iohexoL 350 MG/ML 100 ML INFUS..BTL IV (17:08)
--- NOTE | 2022-12-18 18:12 | PC.NURSE ---
patient awake- attempting to speak-speech garbled, left gaze, personnel monitor intact, vss, blood transfusion started-pt tolerating well, will continue to monitor
--- NOTE | 2022-12-18 19:03 | P.HPHOSP_ITS ---
History of Present Illness Date of Service: 12/18/22 Chief Complaint: Altered mentation This is a 77-year-old female with pertinent history of qej-fnugryn-lnwsdrxsu diabetes mellitus, mood disorder, history of CVA, mixed hyperlipidemia, essential hypertension, history of PE on Eliquis was sent to the emergency dep artment for altered mental status. Patient was found with unresponsiveness at around 11:00 today. Patient is unable to provide any history. History obtained from the ER provider and chart review. Apparently patient refused breakfast this morning and later was found to be unresponsiveness. In the emergency department, left gaze deviation was noted and neurology was consulted Review of Systems Review of Systems: Yes Unobtainable due to mental condition [facility] Medical History Chronic lower back pain COVID-19 CVA (cerebral vascular accident) Diabetes HTN (hypertension) Hyperlipidemia Schizoaffective disorder Social History Household Members: Caregiver Household Members Other:: SNF Housing: [facility] Do you presently have visiting nurse or other home services: No ([facility]) Unable to assess alcohol history related to: Unable to respond Alcohol intake: unknown Smoked in Last 30 Days: No Second Hand Smoke Exposure: No Use of substances other than those prescribed or required for medical reasons: No Advance Directives: Yes Advance Directives on File: Yes Advance Directives Date on File: 12/18/22 service: No Current occupational status: retired Meds Allergies Allergy/AdvReac Type Severity Reaction Status Date / Time No Known Allergies Allergy Verified 10/09/20 11:55 Active Medications: Current Medications Acetaminophen (Acetaminophen Supp 650 Mg Supp.Rect) 650 mg MO Q6H PRN PRN Reason: Pain, Mild (Pain Scale 1-3) Melatonin (Melatonin 3 Mg Tablet) 6 mg PO BEDTIME PRN PRN Reason: Insomnia Ondansetron HCl (Ondansetron Hcl 4 Mg/2 Ml Vial) 4 mg IVPUSH Q8H PRN PRN Reason: Nausea and Vomiting Sodium Chloride (0.9 % Sodium Chloride Flush 3 Ml Syringe) 3 ml IVFLUSH [facility] Home Medications Medication Instructions Recorded Confirmed Last Taken Type albuterol 90 mcg/actuation aerosol 90 mcg inhalation Q4H 10/09/20 12/18/22 Unknown History inhaler aspirin 81 mg chewable tablet 81 mg PO DAILY 10/09/20 12/18/22 Unknown History atorvastatin 40 mg tablet 40 mg PO BEDTIME 10/09/20 12/18/22 Unknown History glipizide 5 mg tablet 1 tab PO BID 10/09/20 12/18/22 Unknown History lisinopril 40 mg tablet 1 tab PO DAILY 10/09/20 12/18/22 Unknown History olopatadine 0.2 % eye drops 1 drp ophthalmic (eye) BID 10/09/20 12/18/22 Unknown History sennosides 8.6 mg tablet (senna) 17.2 mg PO BEDTIME 10/09/20 12/18/22 Unknown History acetaminophen 325 mg tablet 650 mg PO Q4H PRN Pain 12/18/22 12/18/22 Unknown History apixaban 5 mg tablet 5 mg PO BID 12/18/22 12/18/22 Unknown History divalproex 125 mg capsule,delayed 125 mg PO BID 12/18/22 12/18/22 Unknown History release sprinkle furosemide 40 mg tablet 1 tab PO DAILY 12/18/22 12/18/22 Unknown History pantoprazole 40 mg tablet,delayed 1 tab PO BID 12/18/22 12/18/22 Unknown History release potassium chloride 40 mEq/15 mL 40 meq PO DAILY 12/18/22 12/18/22 Unknown History oral liquid Physical Exam Vital Signs and Narrative: Vital Signs: Last Vital Signs Temp 97.6 F 12/18/22 18:08 Pulse 93 12/18/22 18:08 Resp 18 12/18/22 18:08 BP 152/68 H 12/18/22 18:08 Pulse Ox 99 12/18/22 16:00 O2 Del Method 12/18/22 16:00 BMI result Body Mass Index 35.2 Middle-aged female lying in bed Neck supple, no JVD Regular rate and rhythm, S1-S2 heard Regular breath sounds bilaterally, no wheezing or crackles appreciated Abdomen soft nontender, no guarding, no rigidity Patient is awake and mumbling, withdraws to pain, left gaze deviation, non conversational Results Labs 12/18/22 14:22 12/18/22 14:22 Labs: Laboratory Results - last 24 hr 12/18/22 12/18/22 12/18/22 14:20 14:22 14:22 MCV 67.5 L MCH 18.1 L MCHC 26.8 L RDW 18.4 H Plt Count 387 MPV 9.4 Immature Gran % (Auto) 0.4 Neut % (Auto) 71.0 Lymph % (Auto) 20.2 Wheeler % (Auto) 8.1 Eos % (Auto) 0.2 Baso % (Auto) 0.1 Lymph # (Auto) 1.6 Wheeler # (Auto) 0.7 Eos # (Auto) 0.0 Baso # (Auto) 0.0 Abs Immat Gran (auto) 0.03 Absolute Neuts (auto) 5.7 Absolute Nucleated RBC 0.020 H Nucleated RBC % (auto) 0.2 Absolute Retic 0.046 Percent Retic 1.9 H Immature Retic Fraction 16.7 H Retic Hgb Equivalent 15.9 L PT 18.7 H INR 1.6 H APTT 39.3 H Anion Gap Estim Creat Clear Calc Estimated GFR POC Glucose 111 Random Glucose Lactic Acid Calcium Total Bilirubin Direct Bilirubin AST ALT Alkaline Phosphatase Total Creatine Kinase Troponin I High Sens Total Protein Albumin COVID-19 (EMERY) COVIDISBX Blood Type Antibody Screen Crossmatch 12/18/22 12/18/22 12/18/22 14:22 14:22 14:22 MCV MCH MCHC RDW Plt Count MPV Immature Gran % (Auto) Neut % (Auto) Lymph % (Auto) Wheeler % (Auto) Eos % (Auto) Baso % (Auto) Lymph # (Auto) Wheeler # (Auto) Eos # (Auto) Baso # (Auto) Abs Immat Gran (auto) Absolute Neuts (auto) Absolute Nucleated RBC Nucleated RBC % (auto) Absolute Retic Percent Retic Immature Retic Fraction Retic Hgb Equivalent PT INR APTT Anion Gap 12 Estim Creat Clear Calc 47.4 Estimated GFR 44 POC Glucose Random Glucose 101 Lactic Acid 0.8 Calcium 9.4 D Total Bilirubin 0.6 Direct Bilirubin 0.2 AST 15 ALT 12 Alkaline Phosphatase 76 Total Creatine Kinase 53 Troponin I High Sens 5.1 Total Protein 6.5 Albumin 3.7 COVID-19 (EMERY) COVIDISBX Blood Type Antibody Screen Crossmatch 12/18/22 12/18/22 14:22 16:19 MCV MCH MCHC RDW Plt Count MPV Immature Gran % (Auto) Neut % (Auto) Lymph % (Auto) Wheeler % (Auto) Eos % (Auto) Baso % (Auto) Lymph # (Auto) Wheeler # (Auto) Eos # (Auto) Baso # (Auto) Abs Immat Gran (auto) Absolute Neuts (auto) Absolute Nucleated RBC Nucleated RBC % (auto) Absolute Retic Percent Retic Immature Retic Fraction Retic Hgb Equivalent PT INR APTT Anion Gap Estim Creat Clear Calc Estimated GFR POC Glucose Random Glucose Lactic Acid Calcium Total Bilirubin Direct Bilirubin AST ALT Alkaline Phosphatase Total Creatine Kinase Troponin I High Sens Total Protein Albumin COVID-19 (EMERY) Negative COVID-19 Clin Com See Note Blood Type O Positive Antibody Screen NEGATIVE Crossmatch See Detail Imaging Radiologist's Impressions: Impressions Head CT 12/18/22 14:05 IMPRESSION: 1. Loss of thayer-white matter differentiation within the high parasagittal right parietal lobe suggestive of an acute to subacute infarct. 2. No evidence of acute intracranial hemorrhage. 3. Extensive underlying microangiopathy and generalized cerebral volume loss. Chronic lacunar infarcts of the deep nuclei. This critical result was discussed with Dr. Clark Irizarry at 14:25 on 12/18/2022 and it was ascertained that the content and urgency of the report was understood at the time of direct communication. Chest X-Ray 12/18/22 14:55 IMPRESSION: Unremarkable examination. Abdomen/Pelvis CT 12/18/22 17:04 IMPRESSION: 1. Mild thickening of the rectosigmoid colon with focal narrowing of the sigmoid colon followed by gaseous distention of the proximal colon. Differential considerations include infectious/inflammatory colitis, however underlying neoplasm cannot be excluded, particularly in the setting of anemia of unknown etiology and recommend correlation with colonoscopy.. 2. Hepatic steatosis. Chest CT 12/18/22 17:04 IMPRESSION: 1. Mild thickening of the rectosigmoid colon with focal narrowing of the sigmoid colon followed by gaseous distention of the proximal colon. Differential considerations include infectious/inflammatory colitis, however underlying neoplasm cannot be excluded, particularly in the setting of anemia of unknown etiology and recommend correlation with colonoscopy.. 2. Hepatic steatosis. Assessment and Plan (1) Unresponsive state: Status: Acute Plan This is a 77-year-old female with pertinent history of acv-ctahgvh-pbydsmtli diabetes mellitus, mood disorder, history of CVA, mixed hyperlipidemia, essential hypertension, history of PE on Eliquis was sent to the emergency department for altered mental status. #. Acute encephalopathy: Unclear etiology. Neurology consulted from the ER, appreciate recommendations. Differentials include seizure disorder versus acute CVA. Hold off investigation for stroke as per Neurology as no further treatment to be offered. Imaging with acute to subacute infarct. Will order EEG to rule out epileptic encephalopathy. UA pending #. Microcytic anemia, ?acute: Consulted GI to rule out GI loss. Iron panel pending. 2 unit PRBC ordered in the ER. Closely monitor H&H. IV Protonix 80 mg x 1 #. Imaging with thickening of rectosigmoid colon: GI consulted as above to rule out neoplasm with possible colonoscopy #. Dtw-enpuvyq-siqeeenco diabetes mellitus: Initiate Accu-Cheks with sliding scale insulin every 6 hours #. History of PE: Hold Eliquis in the setting of possible GI bleed. #. Mood disorder: Has history of bipolar and schizoaffective disorder. Med rec pending DVT prophylaxis: Mechanical. DNR/DNI NPO until mentation improves Admit as inpatient and will require two night minimum hospital stay for PRBC tr ansfusion and possible GI scope. Specialist consult pending Time Spent With Patient Time: Total time managing care of this patient today ____ minutes. Quality Stroke Does the patient have a stroke diagnosis?: No VTE Prior VTE?: No VTE Risk Level:: Medical - moderate - high VTE Device Contraindication: N/A - Device Ordered VTE Drug Contraindication: Treatment Not Indicated
--- NOTE | 2022-12-18 19:49 | PHA.MEDREC ---
Pharmacy Consult ? Medication Reconciliation Pharmacy has completed the medication reconciliation. List from [facility]
--- NOTE | 2022-12-18 19:50 | PC.NURSE ---
This telegraphic typewriter mechanic assumed care of this PT at 1900. Rigid left arm noted, moving right arm appropriately. PT verbally mumbling. PT has bilateral wraps to lower extremities, no edema noted. Skin is warm and intact. 16F ochoa placed as ordered, draining clear, yellow urine. Urine sample collected and sent to lab. Second unit of blood running.
[2022-12-18 19:55] LABS: Iron 17 mcg/dL (30-160); Lactate Dehydrogenase 198 U/L (122-220); Percent Iron Saturation 4 % (15-50); Total Iron Binding Capacity 410 mcg/dL (228-428); Unsaturated Iron Binding 393 ug/dL
--- NOTE | 2022-12-18 20:48 | PC.NURSE ---
patient awake, slurred speech, threat monitoring analyst intact nsr, vss, second unit of blood hanging-pt tolerating well, urine obtained, call gregory within reach, will continue to monitor
[2022-12-18 20:55] LABS: Glucose, Whole Blood 89 mg/dL (60-115)
[2022-12-18 21:04] LABS: Appearance Urine Clear; Color Urine Yellow; Glucose Urine UA Negative (Negative); Leukocyte Esterase Urine Negative (Negative); Nitrite Urine Negative (Negative); PH 5.5 (5.0-9.0); Specific Gravity - Urine >= 1.030 (1.005-1.025); Urine Blood Negative (Negative); Urine Ketones Negative (Negative); Urine Protein Negative (Neg-Trace)
[2022-12-18 21:13] LABS: Amphetamine Screen Urine Not Detected (Not Detect); Barbiturates, Urine Not Detected (Not Detect); Benzodiazepines Screen Urine Not Detected (Not Detect); Cannabinoid Screen Urine Not Detected (Not Detect); Cocaine Screen Urine Not Detected (Not Detect); Fentanyl, urine Not Detected (Not Detect); Opiate Screen Urine Not Detected (Not Detect); Phencyclidine Screen Urine Not Detected (Not Detect)
[2022-12-18] MEDS: Pantoprazole Sodium 40 MG/10 ML VIAL 80 MG IVPUSH (21:13)
[2022-12-19] VITALS (7 sets, daily range): BP systolic 119–164; BP diastolic 60–88; PULSE 58–87; RESP 16–20; TEMP 36–36.6; O2SAT 93–100; BMI 32.1
--- NOTE | 2022-12-19 | EEG_ITS ---
FINDINGS: This is a 16-channel EEG with an EKG lead. Patient is reported unresponsive during tracing. Background EEG rhythm is low amplitude, mixed theta, beta with no obvious asymmetry or paroxysmal tendency. Photic stimulation and hypoventilation were not performed. Cardiac lead does not reveal any significant abnormality. No sharp spikes or paroxysmal tendency noted. IMPRESSION: Generalized slowing with no evidence of seizure disorder. MD JAMES Ambrosio/ALISA / [id number]
--- NOTE | 2022-12-19 00:01 | PC.NURSE ---
second unit of blood complete. VSS. No apparent distress. Will CTM.
[2022-12-19] MEDS: 0.9 % Sodium Chloride Flush 3 ML SYRINGE IVFLUSH ×4 (00:12→20:32)
--- NOTE | 2022-12-19 01:41 | PC.NURSE ---
Incontinent care provided. PT repositioned. PT resting comfortably, no apparent distress.
--- NOTE | 2022-12-19 02:03 | PC.NURSE ---
Rn to RN report given. PT being transported to room 384 by color laboratory technician. Daughter updated.
--- NOTE | 2022-12-19 02:40 | PC.NURSE ---
Pt arrived to the unit via stretcher, lethargic, garbled speech, right sided facial drop, responding to loud noise and painful stimuli. Respiration is even and non laboured. POC 69, pt given 50 % Dextrose per hypoglycemic protocol, 15 minute repeat POC is 179.
[2022-12-19 02:58] LABS: Glucose, Whole Blood 69 mg/dL (60-115)
[2022-12-19] MEDS: Dextrose 50 % 25 GM/50 ML SYRINGE IVPUSH (03:27)
[2022-12-19 03:54] LABS: Glucose, Whole Blood 176 mg/dL (60-115)
[2022-12-19 06:21] LABS: MANUAL DIFF FLAG NO
[2022-12-19 06:32] LABS: Basophils Percent Auto 0.5 % (0-2); Eosinophils Absolute Auto 0.1 X10*3/uL (0.0-0.4); Eosinophils Percent Auto 0.9 % (0-4); Hematocrit 26.7 % (37.0-47.0); Imm Gran Abs Auto 0.05 X10*3/uL (0.00-0.03); Imm Gran Pct Auto 0.8 % (0.0-0.4); Lymphocytes Absolute Auto 2.2 X10*3/uL (1.2-4.9); Lymphocytes Percent Auto 32.6 % (20-40); Mean Corpuscular Hemoglobin 22.8 pg (27.0-33.0); Mean Corpuscular Volume 76.1 fL (80.0-98.0); Mean Platelet Volume 9.4 fL (9.4-12.3); Monocytes Percent Auto 15.6 % (2-11); Neutrophils Absolute Auto 3.3 x10*3/uL (2.0-8.3); Neutrophils Percent Auto 49.6 % (45-73); Platelet Count 324 X10*3/uL (160-400); Red Blood Count 3.51 X10*6/uL (4.20-5.50); Red Cell Distribution Width 21.2 % (11.0-16.0); White Blood Count 6.6 X10*3/uL (4.8-10.8)
[2022-12-19 06:38] LABS: NRBC Pct Auto 1.1 /100WBC (0.0-0.2)
[2022-12-19 06:41] LABS: INTERNATIONAL NORM RATIO 1.4 (0.9-1.1); Prothrombin Time 16.4 SEC (10.0-13.1)
[2022-12-19 07:03] LABS: Anion Gap 11 (12-20); Blood Urea Nitrogen 28 mg/dL (9-16); Calcium 9.8 mg/dL (8.4-10.2); Carbon Dioxide 29 mmol/L (22-29); Chloride 106 mmol/L (96-108); Creatinine Clr Calc Pharmacy 59.9; Estimated Glomerular Filt Rate > 60; Glucose Random 94 mg/dL (60-115); Sodium 142 mmol/L (135-145)
[2022-12-19 07:55] LABS: Glucose, Whole Blood 83 mg/dL (60-115)
--- NOTE | 2022-12-19 09:06 | P.CNGI_ITS ---
History of Present Illness Data of Consult Service Date: 12/19/22 Requesting physician: Berto Charles Primary Care Provider: Vanessa Kennedy MD HPI Reason for consult: anemia 77-year-old female with history of [id number] diabetes mellitus, mood disorder, history of CVA, mixed hyperlipidemia, essential hypertension, history of PE on Eliquis who I am seeing for assessment for anemia Patient unable to provide history, information from chart and discussion with primary team. Patient was initially admitted for altered mental state and unresponsiveness. She was noted to have right sided weakness and CT revealed right sided acute parietal lobe infarct as well as chronic lacunar infarcts. Ct abdoment iwth rectosigmoid thickening and possible stricture with proximal dilation Labs revealed microcytic anemia with HGB 4.4. g/dl, received 2 units pRBC with increase of HGB to 8 g/dl Review of Systems Review of Systems: Yes Unobtainable due to mental condition and Unobtainable due to mental status PMFSH Past Medical History Medical History Chronic lower back pain COVID-19 CVA (cerebral vascular accident) Diabetes HTN (hypertension) Hyperlipidemia Schizoaffective disorder Social History Social History Household Members: Unknown / Unable to assess Household Members Other:: SNF Housing: Unknown / Unable to assess Do you presently have visiting nurse or other home services: No ([facility]) Unable to assess alcohol history related to: Unable to respond Alcohol intake: unknown Patient Tobacco Use Status: Tobacco use Unknown Second Hand Smoke Exposure: No Advance Directives Date on File: 12/18/22 service: No Current occupational status: retired Meds Allergies Allergy/AdvReac Type Severity Reaction Status Date / Time No Known Allergies Allergy Verified 10/09/20 11:55 Active Medications: Current Medications Acetaminophen (Acetaminophen Supp 650 Mg Supp.Rect) 650 mg IL Q6H PRN PRN Reason: Pain, Mild (Pain Scale 1-3) Atorvastatin Calcium (Atorvastatin Calcium 40 Mg Tablet) 40 mg PO BEDTIME MYCHAL Dextrose (Dextrose 50 % 25 Gm/50 Ml Syringe) 25 gm IVPUSH Q15M PRN; Protocol PRN Reason: per Hypoglycemia Standing Ord. Last Admin: 12/19/22 03:27 Dose: 25 gm Divalproex Sodium (Divalproex Sodium Sprinkles 125 Mg ) 125 mg PO BID [facility] Glucose (Glucose Gel 15 Gm Gel..Gram.) 15 gm PO Q15M PRN; Protocol PRN Reason: per Hypoglycemia Standing Ord. Insulin Human Lispro (Insulin Lispro 100 Unit/Ml 3 Ml Vial) 0 unit SUBCUT Q6H [facility]; Protocol Last Admin: 12/19/22 08:07 Dose: Not Given Melatonin (Melatonin 3 Mg Tablet) 6 mg PO BEDTIME PRN PRN Reason: Insomnia Ondansetron HCl (Ondansetron Hcl 4 Mg/2 Ml Vial) 4 mg IVPUSH Q8H PRN PRN Reason: Nausea and Vomiting Pharmacy Consult (Consult Rx Perform Med Rec) 1 each MISCELLANE ONCE PRN PRN Reason: Consult order Sodium Chloride (0.9 % Sodium Chloride Flush 3 Ml Syringe) 3 ml IVFLUSH QSHIFT [facility] Last Admin: 12/19/22 08:18 Dose: 3 ml Home Medications Medication Instructions Recorded Confirmed Last Taken Type albuterol 90 mcg/actuation aerosol 90 mcg inhalation Q4H 10/09/20 12/18/22 Unknown History inhaler aspirin 81 mg chewable tablet 81 mg PO DAILY 10/09/20 12/18/22 Unknown History atorvastatin 40 mg tablet 40 mg PO BEDTIME 10/09/20 12/18/22 Unknown History glipizide 5 mg tablet 1 tab PO BID 10/09/20 12/18/22 Unknown History lisinopril 40 mg tablet 1 tab PO DAILY 10/09/20 12/18/22 Unknown History olopatadine 0.2 % eye drops 1 drp ophthalmic (eye) BID 10/09/20 12/18/22 Unknown History sennosides 8.6 mg tablet (senna) 17.2 mg PO BEDTIME 10/09/20 12/18/22 Unknown History acetaminophen 325 mg tablet 650 mg PO Q4H PRN Pain 12/18/22 12/18/22 Unknown History apixaban 5 mg tablet 5 mg PO BID 12/18/22 12/18/22 Unknown History divalproex 125 mg capsule,delayed 125 mg PO BID 12/18/22 12/18/22 Unknown History release sprinkle furosemide 40 mg tablet 1 tab PO DAILY 12/18/22 12/18/22 Unknown History pantoprazole 40 mg tablet,delayed 1 tab PO BID 12/18/22 12/18/22 Unknown History release potassium chloride 40 mEq/15 mL 40 meq PO DAILY 12/18/22 12/18/22 Unknown History oral liquid Physical Exam Vital Signs: Vital Signs: Last Vital Signs Temp 96.8 F 12/19/22 08:00 Pulse 77 12/19/22 08:00 Resp 16 12/19/22 08:00 BP 164/77 H 12/19/22 08:00 Pulse Ox 93 12/19/22 08:00 O2 Del Method 12/19/22 08:00 BMI result Body Mass Index 32.1 EXAM: GENERAL: The patient is obese VITAL SIGNS:see workflow HEENT: Nonicteric sclerae, PERRLA, EOMI. Oropharynx clear. Moist mucous membranes. Conjunctivae appear well perfused. No thyroid mass. CHEST: Chest wall is nontender. HEART: Regular rate and rhythm without murmurs. LUNGS: Clear to auscultation bilaterally. ABDOMEN: Soft, positive bowel sounds, nontender, no organomegaly.no flank tenderness SKIN: No rash, no excessive bruising, petechiae, or purpura. NEUROLOGIC: facial droop and right sided flacid, incoherent speech Psych: mumbling, incoherent Results Labs 12/19/22 05:48 12/19/22 05:48 Labs: Short CBC 12/18/22 12/19/22 Range/Units 14:22 05:48 WBC 8.1 6.6 (4.8-10.8) X10*3/uL Hgb 4.4 L* 8.0 L D (12.0-16.0) g/dl Hct 16.4 L* 26.7 L D (37.0-47.0) % Plt Count 387 324 (160-400) X10*3/uL BMP 12/18/22 12/19/22 14:22 05:48 Sodium 141 142 Potassium 4.3 4.0 Chloride 104 106 Carbon Dioxide 29 29 BUN 31 H 28 H Creatinine 1.18 0.89 Calcium 9.4 D 9.8 Cardiac Enzymes 12/18/22 Range/Units 14:22 Total Creatine Kinase 53 (26-140) U/L Liver Function 12/18/22 Range/Units 14:22 Total Bilirubin 0.6 (0.0-1.0) mg/dL Direct Bilirubin 0.2 (0.0-0.5) mg/dL AST 15 (5-31) U/L ALT 12 (0-31) U/L Alkaline Phosphatase 76 (39-117) U/L Albumin 3.7 (3.5-5.0) g/dL Urine 12/18/22 Range/Units 20:57 Urine Color Yellow Urine Appearance Clear Urine pH 5.5 (5.0-9.0) Ur Specific [place] >= 1.030 H (1.005-1.025) Urine Protein Negative (Neg-Trace) mg/dL Urine Glucose (UA) Negative (Negative) mg/dL Microbiology Microbiology Results: Microbiology 12/18/22 14:22 Blood - Venous Blood Culture - Preliminary Prelim: GPC Gram Stain only Imaging CT scan - head: Attestation: I personally reviewed and interpreted this imaging study as follows: (right sided swelling and edema ) Assessment and Plan (1) Anemia: Qualifiers: Iron deficiency anemia type: chronic blood loss Status: Acute (2) CVA (cerebral vascular accident): Qualifiers: CVA mechanism: embolism Precerebral and cerebral artery: unspecified cerebral artery Qualified Code(s): I63.40 - Cerebral infarction due to embolism of unspecified cerebral artery Status: Acute Plan 1/ Acute CVA with anemia, most likely the anemia is chronic givne the blood indices with low MCV. Abnormal imaging with possible rectosigmoid thickening with possible stricture/ patient is also on eliquis and aspirin which may also be playing a role in her anemia. PLAN: 1/ Given she has just had an acute stroke and anemia appears chronic would hold on endoscopy for the moment and revisit this in 1-2 weeks. In the interim recommend PPI e.g pantoprazole 40 mg OD, would cont with aspirin if needed, consider holding eliquis for the moment 2/ If she has overt GI bleeding then would need to weigh the benefits vs risks at that time 3/ check CEA level Time Spent With Patient Time: Total time managing care of this patient today ____ minutes. Procedures Date of Service Date of Service: 12/19/22
--- NOTE | 2022-12-19 11:06 | HO.PM.IMPN ---
Subjective Subjective Date of Service: 12/19/22 Interval History: cc: ams interval history:not verbal Physical Exam Vital Signs: Vital Signs: Last Vital Signs Temp 96.8 F 12/19/22 08:00 Pulse 77 12/19/22 08:00 Resp 16 12/19/22 08:00 BP 164/77 H 12/19/22 08:00 Pulse Ox 93 12/19/22 08:00 O2 Del Method 12/19/22 08:00 BMI result Body Mass Index 32.1 non verbal, left hemiparesis Objective Data Active Medications Acetaminophen (Acetaminophen Supp 650 Mg Supp.Rect) 650 mg ID Q6H PRN PRN Reason: Pain, Mild (Pain Scale 1-3) Atorvastatin Calcium (Atorvastatin Calcium 40 Mg Tablet) 40 mg PO BEDTIME MYCHAL Dextrose (Dextrose 50 % 25 Gm/50 Ml Syringe) 25 gm IVPUSH Q15M PRN; Protocol PRN Reason: per Hypoglycemia Standing Ord. Last Admin: 12/19/22 03:27 Dose: 25 gm Documented By: NARINDER Divalproex Sodium (Divalproex Sodium Sprinkles 125 Mg Shree.) 125 mg PO BID [facility] Glucose (Glucose Gel 15 Gm Gel..Gram.) 15 gm PO Q15M PRN; Protocol PRN Reason: per Hypoglycemia Standing Ord. Insulin Human Lispro (Insulin Lispro 100 Unit/Ml 3 Ml Vial) 0 unit SUBCUT Q6H [facility]; Protocol Last Admin: 12/19/22 08:07 Dose: Not Given Documented By: LEWIS Non-Admin Reason: No Insulin Coverage Melatonin (Melatonin 3 Mg Tablet) 6 mg PO BEDTIME PRN PRN Reason: Insomnia Ondansetron HCl (Ondansetron Hcl 4 Mg/2 Ml Vial) 4 mg IVPUSH Q8H PRN PRN Reason: Nausea and Vomiting Pharmacy Consult (Consult Rx Perform Med Rec) 1 each MISCELLANE ONCE PRN PRN Reason: Consult order Sodium Chloride (0.9 % Sodium Chloride Flush 3 Ml Syringe) 3 ml IVFLUSH QSHIFT [facility] Last Admin: 12/19/22 08:18 Dose: 3 ml Documented By: LEWIS Labs 12/19/22 05:48 12/19/22 05:48 Labs: Laboratory Results - last 24 hr 12/18/22 12/18/22 12/18/22 14:20 14:22 14:22 MCV 67.5 L MCH 18.1 L MCHC 26.8 L RDW 18.4 H Plt Count 387 MPV 9.4 Immature Gran % (Auto) 0.4 Neut % (Auto) 71.0 Lymph % (Auto) 20.2 [place] % (Auto) 8.1 Eos % (Auto) 0.2 Baso % (Auto) 0.1 Lymph # (Auto) 1.6 [place] # (Auto) 0.7 Eos # (Auto) 0.0 Baso # (Auto) 0.0 Abs Immat Gran (auto) 0.03 Absolute Neuts (auto) 5.7 Absolute Nucleated RBC 0.020 H Nucleated RBC % (auto) 0.2 Absolute Retic 0.046 Percent Retic 1.9 H Immature Retic Fraction 16.7 H Retic Hgb Equivalent 15.9 L PT 18.7 H INR 1.6 H APTT 39.3 H Anion Gap Estim Creat Clear Calc Estimated GFR POC Glucose 111 Random Glucose Lactic Acid Calcium Iron TIBC % Saturation Unsat Iron Binding Total Bilirubin Direct Bilirubin AST ALT Alkaline Phosphatase Lactate Dehydrogenase Total Creatine Kinase Troponin I High Sens Total Protein Albumin Urine Color Urine Appearance Urine pH Ur Specific [place] Urine Protein Urine Glucose (UA) Urine Ketones Urine Blood Urine Nitrite Ur Leukocyte Esterase Urine Opiates Screen Urine Fentanyl Screen Ur Barbiturates Screen Ur Phencyclidine Scrn Ur Amphetamines Screen U Benzodiazepines Scrn Urine Cocaine Screen U Marijuana (THC) Screen COVID-19 (EMERY) COVID-19 Clin Com Blood Type Antibody Screen Crossmatch 12/18/22 12/18/22 12/18/22 14:22 14:22 14:22 MCV MCH MCHC RDW Plt Count MPV Immature Gran % (Auto) Neut % (Auto) Lymph % (Auto) [place] % (Auto) Eos % (Auto) Baso % (Auto) Lymph # (Auto) [place] # (Auto) Eos # (Auto) Baso # (Auto) Abs Immat Gran (auto) Absolute Neuts (auto) Absolute Nucleated RBC Nucleated RBC % (auto) Absolute Retic Percent Retic Immature Retic Fraction Retic Hgb Equivalent PT INR APTT Anion Gap 12 Estim Creat Clear Calc 47.4 Estimated GFR 44 POC Glucose Random Glucose 101 Lactic Acid 0.8 Calcium 9.4 D Iron TIBC % Saturation Unsat Iron Binding Total Bilirubin 0.6 Direct Bilirubin 0.2 AST 15 ALT 12 Alkaline Phosphatase 76 Lactate Dehydrogenase Total Creatine Kinase 53 Troponin I High Sens 5.1 Total Protein 6.5 Albumin 3.7 Urine Color Urine Appearance Urine pH Ur Specific [place] Urine Protein Urine Glucose (UA) Urine Ketones Urine Blood Urine Nitrite Ur Leukocyte Esterase Urine Opiates Screen Urine Fentanyl Screen Ur Barbiturates Screen Ur Phencyclidine Scrn Ur Amphetamines Screen U Benzodiazepines Scrn Urine Cocaine Screen U Marijuana (THC) Screen COVID-19 (EMERY) COVID-19 Clin Com Blood Type Antibody Screen Crossmatch 12/18/22 12/18/22 12/18/22 14:22 14:22 16:19 MCV MCH MCHC RDW Plt Count MPV Immature Gran % (Auto) Neut % (Auto) Lymph % (Auto) [place] % (Auto) Eos % (Auto) Baso % (Auto) Lymph # (Auto) [place] # (Auto) Eos # (Auto) Baso # (Auto) Abs Immat Gran (auto) Absolute Neuts (auto) Absolute Nucleated RBC Nucleated RBC % (auto) Absolute Retic Percent Retic Immature Retic Fraction Retic Hgb Equivalent PT INR APTT Anion Gap Estim Creat Clear Calc Estimated GFR POC Glucose Random Glucose Lactic Acid Calcium Iron 17 L TIBC 410 % Saturation 4 L Unsat Iron Binding 393 Total Bilirubin Direct Bilirubin AST ALT Alkaline Phosphatase Lactate Dehydrogenase 198 Total Creatine Kinase Troponin I High Sens Total Protein Albumin Urine Color Urine Appearance Urine pH Ur Specific [place] Urine Protein Urine Glucose (UA) Urine Ketones Urine Blood Urine Nitrite Ur Leukocyte Esterase Urine Opiates Screen Urine Fentanyl Screen Ur Barbiturates Screen Ur Phencyclidine Scrn Ur Amphetamines Screen U Benzodiazepines Scrn Urine Cocaine Screen U Marijuana (THC) Screen COVID-19 (EMERY) Negative COVID-19 Clin Com See Note Blood Type O Positive Antibody Screen NEGATIVE Crossmatch See Detail 12/18/22 12/18/22 12/18/22 20:52 20:57 20:57 MCV MCH MCHC RDW Plt Count MPV Immature Gran % (Auto) Neut % (Auto) Lymph % (Auto) [place] % (Auto) Eos % (Auto) Baso % (Auto) Lymph # (Auto) [place] # (Auto) Eos # (Auto) Baso # (Auto) Abs Immat Gran (auto) Absolute Neuts (auto) Absolute Nucleated RBC Nucleated RBC % (auto) Absolute Retic Percent Retic Immature Retic Fraction Retic Hgb Equivalent PT INR APTT Anion Gap Estim Creat Clear Calc Estimated GFR POC Glucose 89 Random Glucose Lactic Acid Calcium Iron TIBC % Saturation Unsat Iron Binding Total Bilirubin Direct Bilirubin AST ALT Alkaline Phosphatase Lactate Dehydrogenase Total Creatine Kinase Troponin I High Sens Total Protein Albumin Urine Color Yellow Urine Appearance Clear Urine pH 5.5 Ur Specific [place] >= 1.030 H Urine Protein Negative Urine Glucose (UA) Negative Urine Ketones Negative Urine Blood Negative Urine Nitrite Negative Ur Leukocyte Esterase Negative Urine Opiates Screen Not Detected Urine Fentanyl Screen Not Detected Ur Barbiturates Screen Not Detected Ur Phencyclidine Scrn Not Detected Ur Amphetamines Screen Not Detected U Benzodiazepines Scrn Not Detected Urine Cocaine Screen Not Detected U Marijuana (THC) Screen Not Detected COVID-19 (EMERY) COVID-19 Biopharmacopae Com Blood Type Antibody Screen Crossmatch 12/19/22 12/19/22 12/19/22 02:53 03:51 05:48 MCV 76.1 L D MCH 22.8 L MCHC 30.0 L RDW 21.2 H Plt Count 324 MPV 9.4 Immature Gran % (Auto) 0.8 H Neut % (Auto) 49.6 Lymph % (Auto) 32.6 [place] % (Auto) 15.6 H Eos % (Auto) 0.9 Baso % (Auto) 0.5 Lymph # (Auto) 2.2 [place] # (Auto) 1.0 Eos # (Auto) 0.1 Baso # (Auto) 0.0 Abs Immat Gran (auto) 0.05 H Absolute Neuts (auto) 3.3 Absolute Nucleated RBC 0.070 H Nucleated RBC % (auto) 1.1 H Absolute Retic Percent Retic Immature Retic Fraction Retic Hgb Equivalent PT INR APTT Anion Gap Estim Creat Clear Calc Estimated GFR POC Glucose 69 176 H Random Glucose Lactic Acid Calcium Iron TIBC % Saturation Unsat Iron Binding Total Bilirubin Direct Bilirubin AST ALT Alkaline Phosphatase Lactate Dehydrogenase Total Creatine Kinase Troponin I High Sens Total Protein Albumin Urine Color Urine Appearance Urine pH Ur Specific [place] Urine Protein Urine Glucose (UA) Urine Ketones Urine Blood Urine Nitrite Ur Leukocyte Esterase Urine Opiates Screen Urine Fentanyl Screen Ur Barbiturates Screen Ur Phencyclidine Scrn Ur Amphetamines Screen U Benzodiazepines Scrn Urine Cocaine Screen U Marijuana (THC) Screen COVID-19 (EMERY) COVID-19 Biopharmacopae Com Blood Type Antibody Screen Crossmatch 12/19/22 12/19/22 12/19/22 05:48 05:48 07:44 MCV MCH MCHC RDW Plt Count MPV Immature Gran % (Auto) Neut % (Auto) Lymph % (Auto) [place] % (Auto) Eos % (Auto) Baso % (Auto) Lymph # (Auto) [place] # (Auto) Eos # (Auto) Baso # (Auto) Abs Immat Gran (auto) Absolute Neuts (auto) Absolute Nucleated RBC Nucleated RBC % (auto) Absolute Retic Percent Retic Immature Retic Fraction Retic Hgb Equivalent PT 16.4 H INR 1.4 H APTT Anion Gap 11 L Estim Creat Clear Calc 59.9 Estimated GFR > 60 POC Glucose 83 Random Glucose 94 Lactic Acid Calcium 9.8 Iron TIBC % Saturation Unsat Iron Binding Total Bilirubin Direct Bilirubin AST ALT Alkaline Phosphatase Lactate Dehydrogenase Total Creatine Kinase Troponin I High Sens Total Protein Albumin Urine Color Urine Appearance Urine pH Ur Specific [place] Urine Protein Urine Glucose (UA) Urine Ketones Urine Blood Urine Nitrite Ur Leukocyte Esterase Urine Opiates Screen Urine Fentanyl Screen Ur Barbiturates Screen Ur Phencyclidine Scrn Ur Amphetamines Screen U Benzodiazepines Scrn Urine Cocaine Screen U Marijuana (THC) Screen COVID-19 (EMERY) COVID-19 Clin Com Blood Type Antibody Screen Crossmatch Microbiology Microbiology Results: Microbiology 12/18/22 14:22 Blood Culture - Preliminary Blood - Venous Prelim: GPC Gram Stain only Assessment and Plan (1) Anemia: Status: Acute Plan 77-year-old female with pertinent history of [id number] diabetes mellitus, mood disorder, history of CVA with left hemiparesis, mixed hyperlipidemia, essential hypertension, history of PE on Eliquis was sent to the emergency department for altered mental status. 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 Mechanical due to bleed DNR/DNI reason for continued hospitalization:working up ams and gi bleed Time Spent With Patient Time: Total time managing care of this patient today ____ minutes. Quality Stroke Does the patient have a stroke diagnosis?: No VTE Prior VTE?: No VTE Risk Level:: Medical - moderate - high VTE Device Contraindication: N/A - Device Ordered VTE Drug Contraindication: Treatment Not Indicated
--- NOTE | 2022-12-19 13:05 | PHA.PROG ---
Admission Date/Time: December 18, 2022 19:00 Indication: bacteremia Weight in k kg Adjusted body weight in Kg: Clare body weight in Kg: Obesity Dosing Indication % IBW: Serum Creatinine - Last 168 Hours 12/18/22 12/19/22 14:22 05:48 Creatinine 1.18 0.89 Estimated CrCl and GFR - Last 168 Hours 12/18/22 12/19/22 14:22 05:48 Estim Creat Clear Calc 47.4 59.9 Estimated GFR 44 > 60 Vancomycin Loading Dose: 2000mg X 1 Current Vancomycin Dosing Regimen: 1250mg Q24H Vancomycin Monitoring using AUC goal of 400 - 600 range with trough as surrogate marker: 535mg/L Date and Time for next Vancomycin Level to be drawn: 12/22/22 @1100 Pharmacist Comments on Vancomycin Plan: obesity model used, will continue to monitor renal Vancomycin dosing will take advantage of [employer] as a clinical decision support tool that uses Bayesian modeling to calculate individual patient's pharmacokinetic parameters and forecast the patient's drug concentration time course with the target goal AUC 24 range of 400 - 600 mg/L/hr.
[2022-12-19] MEDS: levETIRAcetam in NaCl (iso-os) 1,000 MG/100 ML PIGGYBACK 400 MG IV ×2 (13:11→23:23)
--- NOTE | 2022-12-19 13:21 | MHC.CM.PN ---
PATIENT IS IN FROM [place] (BED HOLD) REFERRAL PLACED F OR FACILITY OT FOLLOW CASE MANAGEMENT TO CONTACT FAMILY/HCP (ON FILE) AND PERFORM ASSESSMENT
--- NOTE | 2022-12-19 13:56 | MHC.SL.SWA ---
Speech Pathologist Impression: Oropharyngeal dysphagia, risk of aspiration Risk of Aspiration Due to: Neurological Condition Dysphasia Diet Status: Coughing on thin and NT liquids; Downgrade liquids to HT Liquid Consistency and Strategies for Safe Swallow: Liquid Intake Recommendation: Honey Thick Liquid Intake Strategies: Small Sips No Straws Solid Food Consistency: Dietary Recommendations: Pureed (NDD1) Additional Modifications to Solid Foods: Recommend start on PUREED (NDD1) diet and HONEY THICK liquids by teaspoon or controlled cup sip (NO STRAWS), pills CRUSHED in PUREE. Ensure pt is awake and alert for presentation of PO, minimize distractions during mealtime. Pt requires total 1:1 assistance feeding and strict aspiration precautions, monitoring of tolerance. RN REHAB wrote recommendations on whiteboard in pt's room. Notified care team (MD, RN, RD) via [employer] Message. Oral Medication Intake: Crushed with Puree Please contact the pharmacy regarding appropriate crushable or liquid drug formulations that are available whenever modified delivery is recommended. Compensatory Strategies and Precautions to be Taken for Safe Swallow: Sitting Upright (90 deg) No Straw Small Bites and Sips Rate of Ingestion Change Oral Check Supervision While Eating and Drinking for Safe Swallow: Total Assistance (1:1) Swallowing Recommended Treatments: Compens. Strategy Educat. Recommendation for Speech: Inpatient Speech Therapy Speech Therapy through Rehab Facility Rink Rat Clinican/Clinical Fellow: No Supervisory Statement: I have reviewed and agree with the student/clinical fellow's documentation: N/A Speech Language Pathologist: Rosalind Blackmon M.A., CCC-RN REHAB
[2022-12-19 14:50] LABS: Glucose, Whole Blood 87 mg/dL (60-115)
--- NOTE | 2022-12-19 15:14 | MHC.CM.PN ---
CALL TO HCP/JOSH [phone] PATIENT HAS BEEN AT [facility] SINCE JANUARY 2020, AFTER SHE CONTRACTED COVID. PLAN IS FOR PATIENT TO RETURN TO FACILITY. HCP ON FILE AND VERIFIED IMM 2/3 IN CHART
--- NOTE | 2022-12-19 15:19 | MHC.CM.PN ---
PLAN IS FOR COLONOSCOPY Thursday12/22/22 SON JOSH ([phone]) AWARE
[2022-12-19 16:43] LABS: Glucose, Whole Blood 86 mg/dL (60-115)
[2022-12-19 17:51] LABS: Prothrombin Time Whole Bld POC 18.1 sec (11.1-13.5); ~PT, ~INR - Anti Coag Clinic 1.5 (0.9-1.1)
[2022-12-19 20:12] LABS: Glucose, Whole Blood 111 mg/dL (60-115)
[2022-12-19] MEDS: Divalproex Sodium Sprinkles 125 MG CAP.DR.SPR PO (20:37)
[2022-12-19] MEDS: Atorvastatin Calcium 40 MG TABLET PO (20:37)
[2022-12-20 02:12] LABS: Glucose, Whole Blood 83 mg/dL (60-115)
[2022-12-20 03:13] VITALS: BP 154/65; PULSE 69; RESP 17; TEMP 36.1; O2SAT 98
[2022-12-20 06:11] LABS: Hematocrit 25.8 % (37.0-47.0); Hemoglobin 7.6 g/dl (12.0-16.0); Mean Corpuscular HGB Conc 29.5 g/dl (31.0-35.0); Mean Corpuscular Hemoglobin 23.2 pg (27.0-33.0); Mean Corpuscular Volume 78.7 fL (80.0-98.0); Mean Platelet Volume 9.4 fL (9.4-12.3); Platelet Count 293 X10*3/uL (160-400); Red Blood Count 3.28 X10*6/uL (4.20-5.50); Red Cell Distribution Width 21.3 % (11.0-16.0); White Blood Count 7.4 X10*3/uL (4.8-10.8)
[2022-12-20 06:32] LABS: Anion Gap 9 (12-20); Blood Urea Nitrogen 22 mg/dL (9-16); Calcium 9.3 mg/dL (8.4-10.2); Carbon Dioxide 31 mmol/L (22-29); Chloride 107 mmol/L (96-108); Creatinine Clr Calc Pharmacy 72.2; Estimated Glomerular Filt Rate > 60; Glucose Fasting 74 mg/dL (60-99); Potassium 4.1 mmol/L (3.3-5.1); Sodium 143 mmol/L (135-145)
[2022-12-20 07:58] LABS: Glucose, Whole Blood 79 mg/dL (60-115)
[2022-12-20 08:00] VITALS: BP 143/66; PULSE 63; RESP 18; TEMP 35.1; O2SAT 98
--- NOTE | 2022-12-20 09:13 | P.PNIM_ITS ---
Subjective Subjective Date of Service: 12/20/22 Interval History: cc: ams interval history:not verbal Physical Exam Vital Signs: Vital Signs: Last Vital Signs Temp 95.2 F L 12/20/22 08:00 Pulse 63 12/20/22 08:00 Resp 18 12/20/22 08:00 BP 143/66 H 12/20/22 08:00 Pulse Ox 98 12/20/22 08:00 O2 Del Method 12/20/22 08:00 BMI result Body Mass Index 32.1 non verbal, left hemiparesis Objective Data Active Medications Acetaminophen (Acetaminophen Supp 650 Mg Supp.Rect) 650 mg DE Q6H PRN PRN Reason: Pain, Mild (Pain Scale 1-3) Aspirin (Aspirin Enteric Coated 81 Mg Tablet.) 81 mg PO DAILY [facility] Atorvastatin Calcium (Atorvastatin Calcium 40 Mg Tablet) 40 mg PO BEDTIME [facility] Last Admin: 12/19/22 20:37 Dose: 40 mg Documented By: JAH Dextrose (Dextrose 50 % 25 Gm/50 Ml Syringe) 25 gm IVPUSH Q15M PRN; Protocol PRN Reason: per Hypoglycemia Standing Ord. Last Admin: 12/19/22 03:27 Dose: 25 gm Documented By: NARINDER Divalproex Sodium (Divalproex Sodium Sprinkles 125 Mg ) 125 mg PO BID [facility] Last Admin: 12/19/22 20:37 Dose: 125 mg Documented By: JAH Glucose (Glucose Gel 15 Gm Gel..Gram.) 15 gm PO Q15M PRN; Protocol PRN Reason: per Hypoglycemia Standing Ord. Levetiracetam (Keppra) 1,000 mg in 100 mls @ 400 mls/hr IV Q12H [facility] Last Infusion: 12/19/22 23:42 Dose: 0 mls/hr Documented By: JAH Vancomycin HCl 1,250 mg/ (Sodium Chloride) 250 mls @ 166.667 mls/hr IV Q24H [facility] Insulin Human Lispro (Insulin Lispro 100 Unit/Ml 3 Ml Vial) 0 unit SUBCUT Q6H [facility]; Protocol Last Admin: 12/20/22 08:06 Dose: Not Given Documented By: MARICARMEN Non-Admin Reason: No Insulin Coverage Melatonin (Melatonin 3 Mg Tablet) 6 mg PO BEDTIME PRN PRN Reason: Insomnia Ondansetron HCl (Ondansetron Hcl 4 Mg/2 Ml Vial) 4 mg IVPUSH Q8H PRN PRN Reason: Nausea and Vomiting Pharmacy Consult (Consult Rx Perform Med Rec) 1 each MISCELLANE ONCE PRN PRN Reason: Consult order Pharmacy Consult (Consult Rx Vancomycin Dosing) 1 each MISCELLANE DAILY PRN PRN Reason: Consult order Sodium Chloride (0.9 % Sodium Chloride Flush 3 Ml Syringe) [facility] Admin: 12/19/22 20:32 Dose: 3 ml Documented By: JAH Labs 12/20/22 05:42 12/20/22 05:42 Labs: Laboratory Results - last 24 hr 12/18/22 12/19/22 12/19/22 14:19 14:47 15:38 MCV MCH MCHC RDW Plt Count MPV Absolute Nucleated RBC Nucleated RBC % (auto) Whole Blood PT 18.1 H Whole Blood INR 1.5 H Anion Gap Estim Creat Clear Calc Estimated GFR POC Glucose 87 86 Fasting Glucose Calcium 12/19/22 12/20/22 12/20/22 20:04 02:08 05:42 MCV MCH MCHC RDW Plt Count MPV Absolute Nucleated RBC Nucleated RBC % (auto) Whole Blood PT Whole Blood INR Anion Gap 9 L Estim Creat Clear Calc 72.2 Estimated GFR > 60 POC Glucose 111 83 Fasting Glucose 74 Calcium 9.3 12/20/22 12/20/22 05:42 07:31 MCV 78.7 L MCH 23.2 L MCHC 29.5 L RDW 21.3 H Plt Count 293 MPV 9.4 Absolute Nucleated RBC 0.000 Nucleated RBC % (auto) 0.0 Whole Blood PT Whole Blood INR Anion Gap Estim Creat Clear Calc Estimated GFR POC Glucose 79 Fasting Glucose Calcium Microbiology Microbiology Results: Microbiology 12/18/22 14:22 Blood Culture - Preliminary Blood - Venous Staphylococcus species 12/18/22 14:22 Blood Culture - Preliminary Blood - Venous Staphylococcus species Assessment and Plan (1) Anemia: Status: Acute Plan 77-year-old female with pertinent history of [id number]-[id number] diabetes mellitus, mood disorder, history of CVA with left hemiparesis, mixed hyperlipidemia, essential hypertension, history of PE on Eliquis was sent to the emergency department for altered mental status. 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 Mechanical due to bleed DNR/DNI reason for continued hospitalization:working up ams and gi bleed, bacteremia Time Spent With Patient Time: Total time managing care of this patient today ____ minutes. Quality Stroke Does the patient have a stroke diagnosis?: No VTE Prior VTE?: No VTE Risk Level:: Medical - moderate - high VTE Device Contraindication: N/A - Device Ordered VTE Drug Contraindication: Treatment Not Indicated
--- NOTE | 2022-12-20 09:15 | HE.PHANOTE ---
scr improved, predicted auc is 456, cont same dose, trough 2/6
[2022-12-20 10:30] VITALS: TEMP 35.9
[2022-12-20] MEDS: Divalproex Sodium Sprinkles 125 MG CAP.DR.SPR PO ×2 (10:30→20:32)
[2022-12-20] MEDS: Aspirin Enteric Coated 81 MG TABLET.DR PO (10:30)
[2022-12-20] MEDS: 0.9 % Sodium Chloride Flush 3 ML SYRINGE IVFLUSH ×3 (10:31→20:32)
[2022-12-20] MEDS: levETIRAcetam in NaCl (iso-os) 1,000 MG/100 ML PIGGYBACK 400 MG IV ×2 (11:28→23:18)
[2022-12-20 12:11] LABS: Glucose, Whole Blood 147 mg/dL (60-115)
[2022-12-20] MEDS: vancomycin HCL 1,250 MG in 0.9 % Sodium Chloride 250 ML 166.67 MG IV (12:40)
[2022-12-20 14:02] LABS: COVID-19 Test Negative (Negative); IDNOW Serial# 16C4AD1C
[2022-12-20 14:23] LABS: Haptoglobin 207 mg/dL (43-212)
[2022-12-20 15:40] VITALS: BP 122/55; PULSE 59; RESP 14; TEMP 35.9; O2SAT 98
[2022-12-20 16:37] LABS: Glucose, Whole Blood 93 mg/dL (60-115)
[2022-12-20] MEDS: Pantoprazole Sodium 40 MG/10 ML VIAL IVPUSH (17:21)
[2022-12-20 19:28] VITALS: BP 127/58; PULSE 63; RESP 17; TEMP 36.1; O2SAT 97
[2022-12-20 20:18] LABS: Glucose, Whole Blood 124 mg/dL (60-115)
[2022-12-20] MEDS: Atorvastatin Calcium 40 MG TABLET PO (20:32)
[2022-12-21 01:55] LABS: Glucose, Whole Blood 89 mg/dL (60-115)
[2022-12-21 04:00] VITALS: BP 142/66; PULSE 67; RESP 18; TEMP 36.7; O2SAT 97
[2022-12-21] MEDS: Pantoprazole Sodium 40 MG/10 ML VIAL IVPUSH (05:19)
[2022-12-21 07:46] LABS: Hematocrit 25.9 % (37.0-47.0); Hemoglobin 7.6 g/dl (12.0-16.0); Mean Corpuscular HGB Conc 29.3 g/dl (31.0-35.0); Mean Corpuscular Hemoglobin 22.8 pg (27.0-33.0); Mean Corpuscular Volume 77.5 fL (80.0-98.0); Mean Platelet Volume 9.6 fL (9.4-12.3); NRBC Pct Auto 0.3 /100WBC (0.0-0.2); Platelet Count 345 X10*3/uL (160-400); Red Blood Count 3.34 X10*6/uL (4.20-5.50); Red Cell Distribution Width 22.5 % (11.0-16.0); White Blood Count 7.9 X10*3/uL (4.8-10.8)
[2022-12-21 08:00] VITALS: BP 133/63; PULSE 65; RESP 18; TEMP 36.1; O2SAT 100
[2022-12-21 08:14] LABS: Glucose, Whole Blood 85 mg/dL (60-115)
[2022-12-21 08:39] LABS: Anion Gap 15 (12-20); Blood Urea Nitrogen 20 mg/dL (9-16); Calcium 9.4 mg/dL (8.4-10.2); Carbon Dioxide 26 mmol/L (22-29); Chloride 108 mmol/L (96-108); Creatinine Clr Calc Pharmacy 69.3; Estimated Glomerular Filt Rate > 60; Glucose Fasting 73 mg/dL (60-99); Sodium 145 mmol/L (135-145)
[2022-12-21] MEDS: 0.9 % Sodium Chloride Flush 3 ML SYRINGE IVFLUSH ×2 (09:13→16:23)
[2022-12-21] MEDS: Divalproex Sodium Sprinkles 125 MG CAP.DR.SPR PO ×2 (09:13→21:29)
--- NOTE | 2022-12-21 09:39 | P.PNIM_ITS ---
Subjective Subjective Date of Service: 12/21/22 Interval History: more responsive Physical Exam Vital Signs: Vital Signs: Last Vital Signs Temp 97.0 F 12/21/22 08:00 Pulse 65 12/21/22 08:00 Resp 18 12/21/22 08:00 BP 133/63 12/21/22 08:00 Pulse Ox 100 12/21/22 08:00 O2 Del Method 12/21/22 08:00 BMI result Body Mass Index 32.1 more responsive, answering simple questions, left hemiparesis Objective Data Active Medications Acetaminophen (Acetaminophen Supp 650 Mg Supp.Rect) 650 mg OR Q6H PRN PRN Reason: Pain, Mild (Pain Scale 1-3) Aspirin (Aspirin Enteric Coated 81 Mg Tablet.) 81 mg PO DAILY [facility] Last Admin: 12/21/22 09:10 Dose: Not Given Documented By: KENNY Non-Admin Reason: cant crush med Atorvastatin Calcium (Atorvastatin Calcium 40 Mg Tablet) 40 mg PO BEDTIME [facility] Last Admin: 12/20/22 20:32 Dose: 40 mg Documented By: JAH Dextrose (Dextrose 50 % 25 Gm/50 Ml Syringe) 25 gm IVPUSH Q15M PRN; Protocol PRN Reason: per Hypoglycemia Standing Ord. Last Admin: 12/19/22 03:27 Dose: 25 gm Documented By: NARINDER Divalproex Sodium (Divalproex Sodium Sprinkles 125 Mg Cap) 125 mg PO BID [facility] Last Admin: 12/21/22 09:13 Dose: 125 mg Documented By: KENNY Glucose (Glucose Gel 15 Gm Gel..Gram.) 15 gm PO Q15M PRN; Protocol PRN Reason: per Hypoglycemia Standing Ord. Levetiracetam (Keppra) 1,000 mg in 100 mls @ 400 mls/hr IV Q12H [facility] Last Infusion: 12/20/22 23:36 Dose: 0 mls/hr Documented By: JAH Vancomycin HCl 1,250 mg/ (Sodium Chloride) 250 mls @ 166.667 mls/hr IV Q24H [facility] Last Infusion: 12/20/22 14:21 Dose: 0 mls/hr Documented By: MARICARMEN Insulin Human Lispro (Insulin Lispro 100 Unit/Ml 3 Ml Vial) 0 unit SUBCUT Q6H [facility]; Protocol Last Admin: 12/21/22 08:18 Dose: Not Given Documented By: KENNY Non-Admin Reason: No Insulin Coverage Melatonin (Melatonin 3 Mg Tablet) 6 mg PO BEDTIME PRN PRN Reason: Insomnia Ondansetron HCl (Ondansetron Hcl 4 Mg/2 Ml Vial) 4 mg IVPUSH Q8H PRN PRN Reason: Nausea and Vomiting Pantoprazole Sodium (Pantoprazole Sodium 40 Mg/10 Ml Vial) 40 mg IVPUSH BID@0630,1630 [facility] Last Admin: 12/21/22 05:19 Dose: 40 mg Documented By: JAH Pharmacy Consult (Consult Rx Perform Med Rec) 1 each MISCELLANE ONCE PRN PRN Reason: Consult order Pharmacy Consult (Consult Rx Vancomycin Dosing) 1 each MISCELLANE DAILY PRN PRN Reason: Consult order Sodium Chloride (0.9 % Sodium Chloride Flush 3 Ml Syringe) 3 ml IVFLUSH QSHIFT [facility] Last Admin: 12/21/22 09:13 Dose: 3 ml Documented By: KENNY Labs 12/21/22 05:55 12/21/22 05:55 Labs: Laboratory Results - last 24 hr 12/18/22 12/18/22 12/20/22 14:22 16:19 12:04 MCV MCH MCHC RDW Plt Count MPV Absolute Nucleated RBC Nucleated RBC % (auto) Haptoglobin 207 Anion Gap Estim Creat Clear Calc Estimated GFR POC Glucose 147 H Fasting Glucose Calcium COVID-19 ([facility]) COVID-19 Clin Com Crossmatch See Detail 12/20/22 12/20/22 12/20/22 13:41 16:33 20:05 MCV MCH MCHC RDW Plt Count MPV Absolute Nucleated RBC Nucleated RBC % (auto) Haptoglobin Anion Gap Estim Creat Clear Calc Estimated GFR POC Glucose 93 124 H Fasting Glucose Calcium COVID-19 ([facility]) Negative COVID-19 Clin Com See Note Crossmatch 12/21/22 12/21/22 12/21/22 01:51 05:55 05:55 MCV 77.5 L MCH 22.8 L MCHC 29.3 L RDW 22.5 H Plt Count 345 MPV 9.6 Absolute Nucleated RBC 0.020 H Nucleated RBC % (auto) 0.3 H Haptoglobin Anion Gap 15 Estim Creat Clear Calc 69.3 Estimated GFR > 60 POC Glucose 89 Fasting Glucose 73 Calcium 9.4 COVID-19 ([facility]) COVID-19 Clin Com Crossmatch 12/21/22 07:35 MCV MCH MCHC RDW Plt Count MPV Absolute Nucleated RBC Nucleated RBC % (auto) Haptoglobin Anion Gap Estim Creat Clear Calc Estimated GFR POC Glucose 85 Fasting Glucose Calcium COVID-19 ([facility]) COVID-19 Clin Com Crossmatch Microbiology Microbiology Results: Microbiology 12/18/22 14:22 Blood Culture - Final Blood - Venous Staphylococcus warneri 12/18/22 14:22 Blood Culture - Final Blood - Venous Staphylococcus warneri Assessment and Plan (1) Anemia: Status: Acute Plan 77-year-old female with pertinent history of [id number]-czurvsyuq diabetes mellitus, mood disorder, history of CVA with left hemiparesis, mixed hyperlipidemia, essential hypertension, history of PE on Eliquis was sent to the emergency department for altered mental status. 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 Mechanical due to bleed DNR/DNI reason for continued hospitalization:working up ams and gi bleed, bacteremia Time Spent With Patient Time: Total time managing care of this patient today ____ minutes. Quality Stroke Does the patient have a stroke diagnosis?: No VTE Prior VTE?: No VTE Risk Level:: Medical - moderate - high VTE Device Contraindication: N/A - Device Ordered VTE Drug Contraindication: Treatment Not Indicated
[2022-12-21] MEDS: levETIRAcetam Oral Soln 500 MG/5 ML 1000 MG PO ×2 (10:43→21:29)
[2022-12-21 11:33] LABS: Glucose, Whole Blood 166 mg/dL (60-115)
[2022-12-21] MEDS: vancomycin HCL 1,250 MG in 0.9 % Sodium Chloride 250 ML 166.67 MG IV (13:02)
[2022-12-21] MEDS: Insulin Lispro 100 UNIT/ML 3 ML VIAL SUBCUT (15:04)
[2022-12-21 15:05] LABS: Glucose, Whole Blood 158 mg/dL (60-115)
[2022-12-21 16:00] VITALS: BP 157/62; PULSE 65; RESP 15; TEMP 36.1; O2SAT 99
[2022-12-21 16:46] LABS: Glucose, Whole Blood 141 mg/dL (60-115)
[2022-12-21 19:49] VITALS: BP 147/64; PULSE 72; RESP 16; TEMP 36.1; O2SAT 98
[2022-12-21 20:22] LABS: Glucose, Whole Blood 141 mg/dL (60-115)
[2022-12-21] MEDS: Atorvastatin Calcium 40 MG TABLET PO (21:29)
[2022-12-22] MEDS: 0.9 % Sodium Chloride Flush 3 ML SYRINGE IVFLUSH ×4 (00:34→20:29)
[2022-12-22 02:11] LABS: Glucose, Whole Blood 89 mg/dL (60-115)
[2022-12-22 04:00] VITALS: BP 128/58; PULSE 69; RESP 18; TEMP 37; O2SAT 96
[2022-12-22 06:45] LABS: Hematocrit 27.4 % (37.0-47.0); Mean Corpuscular HGB Conc 29.2 g/dl (31.0-35.0); Mean Corpuscular Hemoglobin 22.8 pg (27.0-33.0); Mean Corpuscular Volume 78.1 fL (80.0-98.0); Mean Platelet Volume 9.1 fL (9.4-12.3); Platelet Count 337 X10*3/uL (160-400); Red Blood Count 3.51 X10*6/uL (4.20-5.50); Red Cell Distribution Width 22.9 % (11.0-16.0); White Blood Count 8.1 X10*3/uL (4.8-10.8)
[2022-12-22 07:07] LABS: Anion Gap 12 (12-20); Blood Urea Nitrogen 16 mg/dL (9-16); Calcium 9.3 mg/dL (8.4-10.2); Carbon Dioxide 27 mmol/L (22-29); Chloride 108 mmol/L (96-108); Creatinine Clr Calc Pharmacy 76.2; Estimated Glomerular Filt Rate > 60; Glucose Fasting 84 mg/dL (60-99); Potassium 3.5 mmol/L (3.3-5.1); Sodium 143 mmol/L (135-145)
[2022-12-22 07:40] LABS: Glucose, Whole Blood 83 mg/dL (60-115)
[2022-12-22 08:00] VITALS: BP 132/60; PULSE 69; RESP 18; TEMP 36.2; O2SAT 97
[2022-12-22] MEDS: Divalproex Sodium Sprinkles 125 MG CAP.DR.SPR PO ×2 (08:46→20:28)
[2022-12-22] MEDS: Aspirin Enteric Coated 81 MG TABLET.DR PO (08:46)
[2022-12-22] MEDS: levETIRAcetam Oral Soln 500 MG/5 ML 1000 MG PO ×2 (08:47→20:28)
--- NOTE | 2022-12-22 08:51 | HO.PM.IMPN ---
Subjective Subjective Date of Service: 12/22/22 Interval History: better appetite Physical Exam Vital Signs: Vital Signs: Last Vital Signs Temp 97.1 F 12/22/22 08:00 Pulse 69 12/22/22 08:00 Resp 18 12/22/22 08:00 BP 132/60 12/22/22 08:00 Pulse Ox 97 12/22/22 08:00 O2 Del Method 12/22/22 08:00 BMI result Body Mass Index 32.1 more responsive, answering simple questions, left hemiparesis Objective Data Active Medications Acetaminophen (Acetaminophen Supp 650 Mg Supp.Rect) 650 mg NM Q6H PRN PRN Reason: Pain, Mild (Pain Scale 1-3) Aspirin (Aspirin Enteric Coated 81 Mg Tablet.) 81 mg PO DAILY [facility] Last Admin: 12/21/22 09:10 Dose: Not Given Documented By: KENNY Non-Admin Reason: cant crush med Atorvastatin Calcium (Atorvastatin Calcium 40 Mg Tablet) 40 mg PO BEDTIME [facility] Last Admin: 12/21/22 21:29 Dose: 40 mg Documented By: RICKEY Dextrose (Dextrose 50 % 25 Gm/50 Ml Syringe) 25 gm IVPUSH Q15M PRN; Protocol PRN Reason: per Hypoglycemia Standing Ord. Last Admin: 12/19/22 03:27 Dose: 25 gm Documented By: NARINDER Divalproex Sodium (Divalproex Sodium Sprinkles 125 Mg Cap.) 125 mg PO BID [facility] Last Admin: 12/21/22 21:29 Dose: 125 mg Documented By: RICKEY Glucose (Glucose Gel 15 Gm Gel..Gram.) 15 gm PO Q15M PRN; Protocol PRN Reason: per Hypoglycemia Standing Ord. Vancomycin HCl 1,250 mg/ (Sodium Chloride) 250 mls @ 166.667 mls/hr IV Q24H [facility] Last Infusion: 12/21/22 14:57 Dose: 0 mls/hr Documented By: KENNY Insulin Human Lispro (Insulin Lispro 100 Unit/Ml 3 Ml Vial) 0 unit SUBCUT Q6H [facility]; Protocol Last Admin: 12/22/22 07:59 Dose: Not Given Documented By: TAMICA Non-Admin Reason: No Insulin Coverage Levetiracetam (Levetiracetam Oral Soln 500 Mg/5 Ml) 1,000 mg PO BID [facility] Last Admin: 12/21/22 21:29 Dose: 1,000 mg Documented By: RICKEY Melatonin (Melatonin 3 Mg Tablet) 6 mg PO BEDTIME PRN PRN Reason: Insomnia Omeprazole (Omeprazole 40 Mg Capsule.Dr) 40 mg PO BID@0630,1630 [facility] Last Admin: 12/22/22 06:07 Dose: Not Given Documented By: JENNA Non-Admin Reason: sleepy, unable swallow safely Ondansetron HCl (Ondansetron Hcl 4 Mg/2 Ml Vial) 4 mg IVPUSH Q8H PRN PRN Reason: Nausea and Vomiting Pharmacy Consult (Consult Rx Perform Med Rec) 1 each MISCELLANE ONCE PRN PRN Reason: Consult order Pharmacy Consult (Consult Rx Vancomycin Dosing) 1 each MISCELLANE DAILY PRN PRN Reason: Consult order Sodium Chloride (0.9 % Sodium Chloride Flush 3 Ml Syringe) 3 ml IVFLUSH QSHIFT [facility] Last Admin: 12/22/22 00:34 Dose: 3 ml Documented By: JENNA Labs 12/22/22 06:15 12/22/22 06:15 Labs: Laboratory Results - last 24 hr 12/21/22 12/21/22 12/21/22 11:20 15:00 16:34 MCV MCH MCHC RDW Plt Count MPV Absolute Nucleated RBC Nucleated RBC % (auto) Anion Gap Estim Creat Clear Calc Estimated GFR POC Glucose 166 H 158 H 141 H Fasting Glucose Calcium 12/21/22 12/22/22 12/22/22 20:13 02:06 06:15 MCV MCH MCHC RDW Plt Count MPV Absolute Nucleated RBC Nucleated RBC % (auto) Anion Gap 12 Estim Creat Clear Calc 76.2 Estimated GFR > 60 POC Glucose 141 H 89 Fasting Glucose 84 Calcium 9.3 12/22/22 12/22/22 06:15 07:33 MCV 78.1 L MCH 22.8 L MCHC 29.2 L RDW 22.9 H Plt Count 337 MPV 9.1 L Absolute Nucleated RBC 0.000 Nucleated RBC % (auto) 0.0 Anion Gap Estim Creat Clear Calc Estimated GFR POC Glucose 83 Fasting Glucose Calcium Microbiology Microbiology Results: Microbiology 12/21/22 05:55 Blood Culture - Preliminary Blood - Venous Prelim: GPC Gram Stain only 12/21/22 05:55 Blood Culture - Preliminary Blood - Venous Prelim: GPC Gram Stain only 12/18/22 14:22 Blood Culture - Final Blood - Venous Staphylococcus warneri 12/18/22 14:22 Blood Culture - Final Blood - Venous Staphylococcus warneri Assessment and Plan (1) Anemia: Status: Acute Plan 77-year-old female with pertinent history of ywx-drswktk-heazxfofj diabetes mellitus, mood disorder, history of CVA with left hemiparesis, mixed hyperlipidemia, essential hypertension, history of PE on Eliquis was sent to the emergency department for altered mental status. 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 Mechanical due to bleed DNR/DNI reason for continued hospitalization:working up ams and gi bleed, bacteremia Time Spent With Patient Time: Total time managing care of this patient today ____ minutes. Quality Stroke Does the patient have a stroke diagnosis?: No VTE Prior VTE?: No VTE Risk Level:: Medical - moderate - high VTE Device Contraindication: N/A - Device Ordered VTE Drug Contraindication: Treatment Not Indicated
--- NOTE | 2022-12-22 10:58 | MHC.CM.PN ---
PATIENT IS STILL ACUTE. NO PLAN FOR DC TODAY TWAN GUNTER UPDATED IN [facility]
[2022-12-22 11:14] LABS: Glucose, Whole Blood 124 mg/dL (60-115)
--- NOTE | 2022-12-22 11:23 | MHC.SLORD ---
Speech Language Pathology Order Status: Pt sleeping upon arrival of ELECTRICAL DEVELOPMENT ENGINEER. Pt quickly falling back asleep after awoken momentarily, was not appropriate for PO trials d/t lethargic state. Pt is on NDD1 diet with honey thick liquids. Ensure pt is awake and alert for presentation of PO, hold tray if pt is lethargic or unable to attend to meal. ELECTRICAL DEVELOPMENT ENGINEER will continue to follow.
[2022-12-22 11:34] LABS: Vancomycin Trough 13.2 mcg/mL (10.0-20.0)
[2022-12-22] MEDS: vancomycin HCL 1,250 MG in 0.9 % Sodium Chloride 250 ML 166.67 MG IV (12:04)
--- NOTE | 2022-12-22 15:34 | W.PM.IDCN ---
History of Present Illness Data of Consult Service Date: 12/22/22 Requesting physician: Berto Charles Primary Care Provider: Vanessa Kennedy MD HPI Reason for consult: bacteremia She presents with unresponsiveness. She has no specific symptoms but was lethargic. Blood cultures staph warneri x2. She has repeat blood cultures pending with positive gram stain so far. Review of Systems Review of Systems: Yes all other systems are reviewed and are negative [facility] Past Medical History Medical History Chronic lower back pain COVID-19 CVA (cerebral vascular accident) Diabetes HTN (hypertension) Hyperlipidemia Schizoaffective disorder Family History Family history: reviewed and not pertinent Social History Social History Household Members: Unknown / Unable to assess Household Members Other:: SNF Housing: Unknown / Unable to assess Do you presently have visiting nurse or other home services: No (ALF) Unable to assess alcohol history related to: Unable to respond Alcohol intake: unknown Patient Tobacco Use Status: Tobacco use Unknown Second Hand Smoke Exposure: No Advance Directives Date on File: 12/18/22 service: No Current occupational status: retired [employer] Allergies Allergy/AdvReac Type Severity Reaction Status Date / Time No Known Allergies Allergy Verified 10/09/20 11:55 Active Medications: Current Medications Acetaminophen (Acetaminophen Supp 650 Mg Supp.Rect) 650 mg DE Q6H PRN PRN Reason: Pain, Mild (Pain Scale 1-3) Aspirin (Aspirin Enteric Coated 81 Mg Tablet.) 81 mg PO DAILY [facility] Last Admin: 12/22/22 08:46 Dose: 81 mg Atorvastatin Calcium (Atorvastatin Calcium 40 Mg Tablet) 40 mg PO BEDTIME [facility] Last Admin: 12/21/22 21:29 Dose: 40 mg Dextrose (Dextrose 50 % 25 Gm/50 Ml Syringe) 25 gm IVPUSH Q15M PRN; Protocol PRN Reason: per Hypoglycemia Standing Ord. Last Admin: 12/19/22 03:27 Dose: 25 gm Divalproex Sodium (Divalproex Sodium Sprinkles 125 Mg ) 125 mg PO BID [facility] Last Admin: 12/22/22 08:46 Dose: 125 mg Glucose (Glucose Gel 15 Gm Gel..Gram.) 15 gm PO Q15M PRN; Protocol PRN Reason: per Hypoglycemia Standing Ord. Vancomycin HCl 1,250 mg/ (Sodium Chloride) 250 mls @ 166.667 mls/hr IV Q24H [facility] Last Infusion: 12/22/22 13:56 Dose: Infused Insulin Human Lispro (Insulin Lispro 100 Unit/Ml 3 Ml Vial) 0 unit SUBCUT Q6H [facility]; Protocol Last Admin: 12/22/22 15:24 Dose: Not Given Levetiracetam (Levetiracetam Oral Soln 500 Mg/5 Ml) 1,000 mg PO BID [facility] Last Admin: 12/22/22 08:47 Dose: 1,000 mg Melatonin (Melatonin 3 Mg Tablet) 6 mg PO BEDTIME PRN PRN Reason: Insomnia Omeprazole (Omeprazole 40 Mg Capsule.Dr) 40 mg PO BID@0630,1630 [facility] Last Admin: 12/22/22 06:07 Dose: Not Given Ondansetron HCl (Ondansetron Hcl 4 Mg/2 Ml Vial) 4 mg IVPUSH Q8H PRN PRN Reason: Nausea and Vomiting Pharmacy Consult (Consult Rx Perform Med Rec) 1 each MISCELLANE ONCE PRN PRN Reason: Consult order Pharmacy Consult (Consult Rx Vancomycin Dosing) 1 each MISCELLANE DAILY PRN PRN Reason: Consult order Sodium Chloride (0.9 % Sodium Chloride Flush 3 Ml Syringe) 3 ml IVFLUSH QSHIFT [facility] Last Admin: 12/22/22 08:46 Dose: 3 ml Home Medications Medication Instructions Recorded Confirmed Last Taken Type albuterol 90 mcg/actuation aerosol 90 mcg inhalation Q4H 10/09/20 12/18/22 Unknown History inhaler aspirin 81 mg chewable tablet 81 mg PO DAILY 10/09/20 12/18/22 Unknown History atorvastatin 40 mg tablet 40 mg PO BEDTIME 10/09/20 12/18/22 Unknown History glipizide 5 mg tablet 1 tab PO BID 10/09/20 12/18/22 Unknown History lisinopril 40 mg tablet 1 tab PO DAILY 10/09/20 12/18/22 Unknown History olopatadine 0.2 % eye drops 1 drp ophthalmic (eye) BID 10/09/20 12/18/22 Unknown History sennosides 8.6 mg tablet (senna) 17.2 mg PO BEDTIME 10/09/20 12/18/22 Unknown History acetaminophen 325 mg tablet 650 mg PO Q4H PRN Pain 12/18/22 12/18/22 Unknown History apixaban 5 mg tablet 5 mg PO BID 12/18/22 12/18/22 Unknown History divalproex 125 mg capsule,delayed 125 mg PO BID 12/18/22 12/18/22 Unknown History release sprinkle furosemide 40 mg tablet 1 tab PO DAILY 12/18/22 12/18/22 Unknown History pantoprazole 40 mg tablet,delayed 1 tab PO BID 12/18/22 12/18/22 Unknown History release potassium chloride 40 mEq/15 mL 40 meq PO DAILY 12/18/22 12/18/22 Unknown History oral liquid Physical Exam Vital Signs: Vital Signs: Last Vital Signs Temp 97.1 F 12/22/22 08:00 Pulse 69 12/22/22 08:00 Resp 18 12/22/22 08:00 BP 132/60 12/22/22 08:00 Pulse Ox 97 12/22/22 08:00 O2 Del Method 12/22/22 08:00 BMI result Body Mass Index 32.1 Const: General: cooperative HEENT: Head: Yes normal to inspection Face and sinus: Yes normal facial exam Mouth: Normal oral and palatal mucosa present Teeth and gingiva: dentition normal Eyes: General: appearance normal, both eyes and all related structures Pupils: Equal, round and reactive pupils present Resp: Effort & Inspection: normal respiratory effort Cardio: Rate: regular rate Rhythm: regular rhythm GI: Palpation (GI): Soft to palpation and nontender : General: Yes no CVA tenderness Back/Spine/Pelvis: Back: no CVA tenderness Skin: General skin exam: no rashes or lesions noted Neuro: General: moves all extremities Cranial nerves: Yes Equal, round and reactive pupils present Extrem: General: Yes normal to inspection Psych: Appearance: grossly normal Results Labs 12/22/22 06:15 12/22/22 06:15 Labs: Short CBC 12/22/22 Range/Units 06:15 WBC 8.1 (4.8-10.8) X10*3/uL Hgb 8.0 L (12.0-16.0) g/dl Hct 27.4 L (37.0-47.0) % Plt Count 337 (160-400) X10*3/uL BMP 12/22/22 06:15 Sodium 143 Potassium 3.5 Chloride 108 Carbon Dioxide 27 BUN 16 Creatinine 0.70 Calcium 9.3 Microbiology Microbiology Results: Microbiology 12/21/22 05:55 Blood - Venous Blood Culture - Preliminary Prelim: GPC Gram Stain only 12/21/22 05:55 Blood - Venous Blood Culture - Preliminary Prelim: GPC Gram Stain only 12/18/22 14:22 Blood - Venous Blood Culture - Final Staphylococcus warneri 12/18/22 14:22 Blood - Venous Blood Culture - Final Staphylococcus warneri Assessment and Plan (1) Unresponsive state: Status: Acute staph warneri generally contaminant and patient has no focus seen for these infections such as joint or catheter (2) Anemia: Qualifiers: Iron deficiency anemia type: chronic blood loss Status: Acute Plan Continue Vancomycin at this time and see what new positive cultures show. Would check echo. Time Spent With Patient Time: Total time managing care of this patient today ____ minutes.
[2022-12-22 15:50] VITALS: BP 164/77; PULSE 80; RESP 16; TEMP 36.3; O2SAT 98
[2022-12-22] MEDS: Omeprazole 40 MG CAPSULE.DR PO (15:54)
[2022-12-22 16:43] LABS: Glucose, Whole Blood 137 mg/dL (60-115)
[2022-12-22 20:00] VITALS: BP 155/70; PULSE 82; RESP 20; TEMP 36.1; O2SAT 95
[2022-12-22] MEDS: Atorvastatin Calcium 40 MG TABLET PO (20:28)
[2022-12-22] MEDS: Insulin Lispro 100 UNIT/ML 3 ML VIAL SUBCUT (21:23)
[2022-12-22 21:25] LABS: Glucose, Whole Blood 172 mg/dL (60-115)
[2022-12-23 03:19] VITALS: BP 150/68; PULSE 67; RESP 19; TEMP 36.1; O2SAT 98
[2022-12-23 03:33] LABS: Glucose, Whole Blood 84 mg/dL (60-115)
[2022-12-23] MEDS: 0.9 % Sodium Chloride Flush 3 ML SYRINGE IVFLUSH ×2 (06:15→20:31)
[2022-12-23 06:54] LABS: Hemoglobin 7.8 g/dl (12.0-16.0); Mean Corpuscular HGB Conc 28.9 g/dl (31.0-35.0); Mean Corpuscular Hemoglobin 22.6 pg (27.0-33.0); Mean Corpuscular Volume 78.3 fL (80.0-98.0); Mean Platelet Volume 9.4 fL (9.4-12.3); Platelet Count 357 X10*3/uL (160-400); Red Blood Count 3.45 X10*6/uL (4.20-5.50); Red Cell Distribution Width 23.1 % (11.0-16.0); White Blood Count 9.9 X10*3/uL (4.8-10.8)
--- NOTE | 2022-12-23 07:00 | CA_ITS ---
Transthoracic Echocardiogram/Limited Patient (Last, First, Middle): Ibis Hernandez, Gender: Female Date of : 1945 Age: 77 Procedure Date: 12/23/2022 Procedure Type: Transthoracic Echocardiogram/Limited Location: S3E Height: 170.18 cm Weight: 92.99 kg BSA: 2.04 m2 Heart Rate: 70 bpm BP: 132 / 60 mmHg Service Trainer: SB Referring MD: Berto Charles MD Wood Boat Builder Supervisor: Jairo Suarez MD Symptoms: bacteremia Study Quality: Fair/pt term exam/valvular focused ECG Rhythm: Sinus Conclusions: - Technically extremely limited study due to patient noncooperation Findings Procedure Information The quality of the study was technically difficult. The study quality is limited by the patients inability to tolerate the test, patients body habitus, limitations of a portable exam, and an uncooperative patient. Left Ventricle Technically very limited study as patient was uncooperative. LV was not well visualized. Limited to evaluate for vegetations or infective endocarditis as well. Recommendations, Care & Conclusions Consider a TUCKER if clinically appropriate. Updated in Other Vendor System with Status of Final Jairo Suarez MD electronically signed on 12/23/2022 4:39:09 PM with status of Final
[2022-12-23 07:04] LABS: Glucose, Whole Blood 76 mg/dL (60-115)
[2022-12-23 07:09] LABS: Anion Gap 17 (12-20); Blood Urea Nitrogen 16 mg/dL (9-16); Calcium 9.3 mg/dL (8.4-10.2); Carbon Dioxide 24 mmol/L (22-29); Chloride 107 mmol/L (96-108); Creatinine Clr Calc Pharmacy 74.1; Estimated Glomerular Filt Rate > 60; Glucose Fasting 67 mg/dL (60-99); Potassium 3.6 mmol/L (3.3-5.1); Sodium 144 mmol/L (135-145)
[2022-12-23 07:37] VITALS: BP 129/68; PULSE 69; RESP 18; TEMP 36.2; O2SAT 97
--- NOTE | 2022-12-23 08:33 | HO.PM.IMPN ---
Subjective Subjective Date of Service: 12/23/22 Interval History: better appetite Physical Exam Vital Signs: Vital Signs: Last Vital Signs Temp 97.1 F 12/23/22 07:37 Pulse 69 12/23/22 07:37 Resp 18 12/23/22 07:37 BP 129/68 12/23/22 07:37 Pulse Ox 97 12/23/22 07:37 O2 Del Method 12/23/22 07:37 BMI result Body Mass Index 32.1 Const: General: cooperative HEENT: Head: Yes normal to inspection Face and sinus: Yes normal facial exam Mouth: Normal oral and palatal mucosa present Teeth and gingiva: dentition normal Eyes: General: appearance normal, both eyes and all related structures Pupils: Equal, round and reactive pupils present Resp: Effort & Inspection: normal respiratory effort Cardio: Rate: regular rate Rhythm: regular rhythm GI: Palpation (GI): Soft to palpation and nontender : General: Yes no CVA tenderness Back/Spine/Pelvis: Back: no CVA tenderness Skin: General skin exam: no rashes or lesions noted Neuro: General: moves all extremities Cranial nerves: Yes Equal, round and reactive pupils present Extrem: General: Yes normal to inspection Psych: Appearance: grossly normal Objective Data Active Medications Acetaminophen (Acetaminophen Supp 650 Mg Supp.Rect) 650 mg [place] Q6H PRN PRN Reason: Pain, Mild (Pain Scale 1-3) Aspirin (Aspirin Enteric Coated 81 Mg Tablet.) 81 mg PO DAILY [facility] Last Admin: 12/22/22 08:46 Dose: 81 mg Documented By: TAMICA Atorvastatin Calcium (Atorvastatin Calcium 40 Mg Tablet) 40 mg PO BEDTIME [facility] Last Admin: 12/22/22 20:28 Dose: 40 mg Documented By: NARINDER Dextrose (Dextrose 50 % 25 Gm/50 Ml Syringe) 25 gm IVPUSH Q15M PRN; Protocol PRN Reason: per Hypoglycemia Standing Ord. Last Admin: 12/19/22 03:27 Dose: 25 gm Documented By: NARINDER Divalproex Sodium (Divalproex Sodium Sprinkles 125 Mg ) 125 mg PO BID [facility] Last Admin: 12/22/22 20:28 Dose: 125 mg Documented By: NARINDER Glucose (Glucose Gel 15 Gm Gel..Gram.) 15 gm PO Q15M PRN; Protocol PRN Reason: per Hypoglycemia Standing Ord. Vancomycin HCl 1,250 mg/ (Sodium Chloride) 250 mls @ 166.667 mls/hr IV Q24H [facility] Last Infusion: 12/22/22 13:56 Dose: 166.6 mls/hr Documented By: TAMICA Insulin Human Lispro (Insulin Lispro 100 Unit/Ml 3 Ml Vial) 0 unit SUBCUT Q6H [facility]; Protocol Last Admin: 12/23/22 07:14 Dose: Not Given Documented By: NARINDER Non-Admin Reason: No Insulin Coverage Levetiracetam (Levetiracetam Oral Soln 500 Mg/5 Ml) 1,000 mg PO BID [facility] Last Admin: 12/22/22 20:28 Dose: 1,000 mg Documented By: NARINDER Melatonin (Melatonin 3 Mg Tablet) 6 mg PO BEDTIME PRN PRN Reason: Insomnia Omeprazole (Omeprazole 40 Mg Capsule.Dr) 40 mg PO BID@0630,1630 [facility] Last Admin: 12/23/22 05:30 Dose: Not Given Documented By: NARINDER Non-Admin Reason: unable to swallow safely Ondansetron HCl (Ondansetron Hcl 4 Mg/2 Ml Vial) 4 mg IVPUSH Q8H PRN PRN Reason: Nausea and Vomiting Pharmacy Consult (Consult Rx Perform Med Rec) 1 each MISCELLANE ONCE PRN PRN Reason: Consult order Pharmacy Consult (Consult Rx Vancomycin Dosing) 1 each MISCELLANE DAILY PRN PRN Reason: Consult order Sodium Chloride (0.9 % Sodium Chloride Flush 3 Ml Syringe) 3 ml IVFLUSH QSHIFT [facility] Last Admin: 12/23/22 06:15 Dose: 3 ml Documented By: NARINDER Labs 12/23/22 05:45 12/23/22 05:45 Labs: Laboratory Results - last 24 hr 12/22/22 12/22/22 12/22/22 11:03 11:06 16:25 MCV MCH MCHC RDW Plt Count MPV Absolute Nucleated RBC Nucleated RBC % (auto) Anion Gap Estim Creat Clear Calc Estimated GFR POC Glucose 124 H 137 H Fasting Glucose Calcium Vancomycin Trough 13.2 12/22/22 12/23/22 12/23/22 21:12 03:27 05:45 MCV MCH MCHC RDW Plt Count MPV Absolute Nucleated RBC Nucleated RBC % (auto) Anion Gap 17 Estim Creat Clear Calc 74.1 Estimated GFR > 60 POC Glucose 172 H 84 Fasting Glucose 67 Calcium 9.3 Vancomycin Trough 12/23/22 12/23/22 05:45 07:00 MCV 78.3 L MCH 22.6 L MCHC 28.9 L RDW 23.1 H Plt Count 357 MPV 9.4 Absolute Nucleated RBC 0.000 Nucleated RBC % (auto) 0.0 Anion Gap Estim Creat Clear Calc Estimated GFR POC Glucose 76 Fasting Glucose Calcium Vancomycin Trough Microbiology Microbiology Results: Microbiology 12/21/22 05:55 Blood Culture - Preliminary Blood - Venous Prelim: GPC Gram Stain only 12/21/22 05:55 Blood Culture - Preliminary Blood - Venous Prelim: GPC Gram Stain only Assessment and Plan (1) Anemia: Status: Acute Plan 77-year-old female with pertinent history of [id number] diabetes mellitus, mood disorder, history of CVA with left hemiparesis, mixed hyperlipidemia, essential hypertension, history of PE on Eliquis was sent to the emergency department for altered mental status. 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 Mechanical due to bleed DNR/DNI reason for continued hospitalization:working up ams and gi bleed, bacteremia Time Spent With Patient Time: Total time managing care of this patient today ____ minutes. Quality Stroke Does the patient have a stroke diagnosis?: No VTE Prior VTE?: No VTE Risk Level:: Medical - moderate - high VTE Device Contraindication: N/A - Device Ordered VTE Drug Contraindication: Treatment Not Indicated
[2022-12-23] MEDS: Divalproex Sodium Sprinkles 125 MG CAP.DR.SPR PO ×2 (10:28→20:31)
[2022-12-23] MEDS: levETIRAcetam Oral Soln 500 MG/5 ML 1000 MG PO ×2 (10:28→20:31)
[2022-12-23 11:20] LABS: Glucose, Whole Blood 132 mg/dL (60-115)
[2022-12-23] MEDS: vancomycin HCL 1,250 MG in 0.9 % Sodium Chloride 250 ML 166.6 MG IV (12:17)
--- NOTE | 2022-12-23 14:34 | MHC.CM.PN ---
Pt is a bed hold at [facility] and will return when medically stable . Repeat blood cultures drawn 12/23 and not resulted. Pt will need BLS transport. CM to follow
[2022-12-23 15:05] VITALS: BP 132/61; PULSE 69; RESP 18; TEMP 36; O2SAT 98
[2022-12-23 16:08] LABS: Glucose, Whole Blood 150 mg/dL (60-115)
[2022-12-23] MEDS: Omeprazole 40 MG CAPSULE.DR PO (16:57)
--- NOTE | 2022-12-23 18:51 | MHC.SL.SWA ---
Speech Pathologist Impression: Risk of Aspiration Due to: Neurological Condition Dysphasia Diet Status: Recommend continue on PUREE (NDD1) with HONEY THICK liquids by TSP, pills crushed in puree. Patient will continue to need 1-1 feeding, discontinue if patient is not alert/awake/engaged in meal, is coughing during meal or evidences excessive throat clearing/vocal wetness (clinical signs of aspiration). Liquid Consistency and Strategies for Safe Swallow: Liquid Intake Recommendation: Honey Thick Liquid Intake Strategies: Liquids by Teaspoon Only Solid Food Consistency: Dietary Recommendations: Pureed (NDD1) Additional Modifications to Solid Foods: 1-1 feeding, close monitor for clinical signs of aspiration. Blend in sauces/gravies. DO NOT give thin soups/broths (not appropriate consistency). Oral Medication Intake: Crushed with Puree Please contact the pharmacy regarding appropriate crushable or liquid drug formulations that are available whenever modified delivery is recommended. Compensatory Strategies and Precautions to be Taken for Safe Swallow: Sitting Upright (90 deg) No Straw Liquids from Spoon Small Bites and Sips Alternate Liquids/Solids Rate of Ingestion Change Supervision While Eating and Drinking for Safe Swallow: Total Supervision (1:1) Foods to Avoid: Sticky, congealed purees. Thin broths/soups. Swallowing Recommended Treatments: Compens. Strategy Educat. Recommendation for Speech: Inpatient Speech Therapy Speech Therapy through Rehab Facility Comment: Patient seen during lunch to assess swallow/toleration of diet. Patient was alone in room with lunch tray at bedside at onset. Patient was repositioned to be seated upright in bed for the meal. Patient was communicated to in Danish, with patient minimally verbalizing throughout. Patient took puree by tsp, producing a mildly prolonged oral phase, mild delay initiating swallow, reduced laryngeal elevation on swallow noted. Honey thick liquids were given by tsp, with mild delay of oral transit, mild delay of swallow, reduced laryngeal elevation. Patient noted to periodically clear throat during meal followed by swallow, with clearer vocal/airway quality after. Recommend continue on PUREE (NDD1) with HONEY THICK liquids by TSP, pills crushed in puree. Patient will continue to need 1-1 feeding, discontinue if patient is not alert/awake/engaged in meal, is coughing during meal or evidences excessive throat clearing/vocal wetness (clinical signs of aspiration). Frequency/Duration: Date Range for Service Req: Timeline to reassess: Business Intelligence Administrator Clinican/Clinical Fellow: No Supervisory Statement: I have reviewed and agree with the student/clinical fellow's documentation: N/A Speech Language Pathologist: Nubia James M.A., [facility]
[2022-12-23 19:39] VITALS: BP 152/64; PULSE 70; RESP 18; TEMP 35.8; O2SAT 99
[2022-12-23 19:51] LABS: Glucose, Whole Blood 147 mg/dL (60-115)
[2022-12-23] MEDS: Atorvastatin Calcium 40 MG TABLET PO (20:31)
[2022-12-24 03:02] LABS: Glucose, Whole Blood 96 mg/dL (60-115)
[2022-12-24 03:46] VITALS: BP 164/65; PULSE 69; RESP 18; TEMP 36.3; O2SAT 99
[2022-12-24 06:42] LABS: Anion Gap 17 (12-20); Blood Urea Nitrogen 14 mg/dL (9-16); Calcium 9.1 mg/dL (8.4-10.2); Carbon Dioxide 25 mmol/L (22-29); Chloride 106 mmol/L (96-108); Creatinine Clr Calc Pharmacy 78.5; Estimated Glomerular Filt Rate > 60; Glucose Fasting 86 mg/dL (60-99); Potassium 3.5 mmol/L (3.3-5.1); Sodium 144 mmol/L (135-145)
[2022-12-24 06:51] LABS: Hematocrit 26.7 % (37.0-47.0); Hemoglobin 7.7 g/dl (12.0-16.0); Mean Corpuscular HGB Conc 28.8 g/dl (31.0-35.0); Mean Corpuscular Hemoglobin 22.8 pg (27.0-33.0); Mean Platelet Volume 9.4 fL (9.4-12.3); Platelet Count 348 X10*3/uL (160-400); Red Blood Count 3.38 X10*6/uL (4.20-5.50); Red Cell Distribution Width 23.3 % (11.0-16.0); White Blood Count 8.4 X10*3/uL (4.8-10.8)
[2022-12-24 07:21] VITALS: BP 152/66; PULSE 72; RESP 18; TEMP 36.2; O2SAT 98
[2022-12-24 07:25] LABS: Glucose, Whole Blood 82 mg/dL (60-115)
[2022-12-24] MEDS: Aspirin 81 MG TAB.CHEW PO (08:41)
[2022-12-24] MEDS: levETIRAcetam Oral Soln 500 MG/5 ML 1000 MG PO (08:41)
[2022-12-24] MEDS: Divalproex Sodium Sprinkles 125 MG CAP.DR.SPR PO ×2 (08:41→19:48)
[2022-12-24] MEDS: 0.9 % Sodium Chloride Flush 3 ML SYRINGE IVFLUSH ×3 (08:46→19:48)
[2022-12-24 11:28] LABS: Vancomycin Random 12.5 mcg/mL (15-20)
[2022-12-24 11:30] LABS: Glucose, Whole Blood 127 mg/dL (60-115)
--- NOTE | 2022-12-24 11:44 | HE.PHANOTE ---
Vancomycin Dosing Addendum Patients level came back at 12.5 mg/L. Continue 1250 mg Q24H dosing. Renal function stable. Predicted AUC 418 mg/L/hr
[2022-12-24] MEDS: vancomycin HCL 1,250 MG in 0.9 % Sodium Chloride 250 ML 166.6 MG IV (12:07)
--- NOTE | 2022-12-24 12:25 | MHC.CM.PN ---
Per ROUNDS discussion, Patient is not yet medically cleared for dc (BC pending); returning to [facility] is the plan and CM will continue to follow.
--- NOTE | 2022-12-24 13:04 | P.PNIM_ITS ---
Subjective Subjective Date of Service: 12/24/22 Interval History: More alert and interactive Denies any pain Blood culture still pending No other overnight events Review of Systems Review of Systems: Yes all other systems are reviewed and are negative Physical Exam Vital Signs: Vital Signs: Last Vital Signs Temp 97.1 F 12/24/22 07:21 Pulse 72 12/24/22 07:21 Resp 18 12/24/22 07:21 BP 152/66 H 12/24/22 07:21 Pulse Ox 98 12/24/22 07:21 O2 Del Method 12/24/22 07:21 BMI result Body Mass Index 32.1 Const: Other: Constitutional : Awake, interactive, not in distress Neck : Normal inspection, Supple Cardiovascular : RRR, no JVP, no lower extremity edema Respiratory : good bilateral air entry, no crackles, wheezes or rhonchi Gastrointestinal: soft, lax, Normal bowel sounds, Non tender Skin : Warm, Dry, stage II sacral ulcer Neurological : Alert & oriented to self only, No focal deficit Objective Data Active Medications Acetaminophen (Acetaminophen Supp 650 Mg Supp.Rect) 650 mg [place] Q6H PRN PRN Reason: Pain, Mild (Pain Scale 1-3) Aspirin (Aspirin 81 Mg Tab.Chew) 81 mg PO DAILY [facility] Last Admin: 12/24/22 08:41 Dose: 81 mg Documented By: SHOSHANA Atorvastatin Calcium (Atorvastatin Calcium 40 Mg Tablet) 40 mg PO BEDTIME [facility] Last Admin: 12/23/22 20:31 Dose: 40 mg Documented By: NARINDER Dextrose (Dextrose 50 % 25 Gm/50 Ml Syringe) 25 gm IVPUSH Q15M PRN; Protocol PRN Reason: per Hypoglycemia Standing Ord. Last Admin: 12/19/22 03:27 Dose: 25 gm Documented By: NARINDER Divalproex Sodium (Divalproex Sodium Sprinkles 125 Mg ) 125 mg PO BID [facility] Last Admin: 12/24/22 08:41 Dose: 125 mg Documented By: SHOSHANA Glucose (Glucose Gel 15 Gm Gel..Gram.) 15 gm PO Q15M PRN; Protocol PRN Reason: per Hypoglycemia Standing Ord. Vancomycin HCl 1,250 mg/ (Sodium Chloride) 250 mls @ 166.667 mls/hr IV Q24H [facility] Last Admin: 12/24/22 12:07 Dose: 166.6 mls/hr Documented By: SHOSHANA Insulin Human Lispro (Insulin Lispro 100 Unit/Ml 3 Ml Vial) 0 unit SUBCUT QIDACHS [facility]; Protocol Levetiracetam (Levetiracetam Oral Soln 500 Mg/5 Ml) 1,000 mg PO BID [facility] Last Admin: 12/24/22 08:41 Dose: 1,000 mg Documented By: SHOSHANA Melatonin (Melatonin 3 Mg Tablet) 6 mg PO BEDTIME PRN PRN Reason: Insomnia Omeprazole (Omeprazole 20 Mg/10 Ml Susp.Recon) 40 mg PO BID@0630,1630 [facility] Ondansetron HCl (Ondansetron Hcl 4 Mg/2 Ml Vial) 4 mg IVPUSH Q8H PRN PRN Reason: Nausea and Vomiting Pharmacy Consult (Consult Rx Perform Med Rec) 1 each MISCELLANE ONCE PRN PRN Reason: Consult order Pharmacy Consult (Consult Rx Vancomycin Dosing) 1 each MISCELLANE DAILY PRN PRN Reason: Consult order Sodium Chloride (0.9 % Sodium Chloride Flush 3 Ml Syringe) 3 ml IVFLUSH QSHIFT [facility] Last Admin: 12/24/22 08:46 Dose: 3 ml Documented By: SHOSHANA Labs 12/24/22 05:28 12/24/22 05:28 Labs: Laboratory Results - last 24 hr 12/23/22 12/23/22 12/24/22 16:05 19:41 02:58 MCV MCH MCHC RDW Plt Count MPV Absolute Nucleated RBC Nucleated RBC % (auto) Anion Gap Estim Creat Clear Calc Estimated GFR POC Glucose 150 H 147 H 96 Fasting Glucose Calcium Random Vancomycin 12/24/22 12/24/22 12/24/22 05:28 05:28 07:19 MCV 79.0 L MCH 22.8 L MCHC 28.8 L RDW 23.3 H Plt Count 348 MPV 9.4 Absolute Nucleated RBC 0.000 Nucleated RBC % (auto) 0.0 Anion Gap 17 Estim Creat Clear Calc 78.5 Estimated GFR > 60 POC Glucose 82 Fasting Glucose 86 Calcium 9.1 Random Vancomycin 12/24/22 12/24/22 10:50 11:22 MCV MCH MCHC RDW Plt Count MPV Absolute Nucleated RBC Nucleated RBC % (auto) Anion Gap Estim Creat Clear Calc Estimated GFR POC Glucose 127 H Fasting Glucose Calcium Random Vancomycin 12.5 L Microbiology Microbiology Results: Microbiology 12/21/22 05:55 Blood Culture - Final Blood - Venous Staphylococcus lugdunensis 12/21/22 05:55 Blood Culture - Final Blood - Venous Staphylococcus lugdunensis 12/23/22 05:45 Blood Culture - Preliminary Blood - Venous No growth after 24 hours. 12/23/22 05:45 Blood Culture - Preliminary Blood - Venous No growth after 24 hours. Assessment and Plan (1) Acute metabolic encephalopathy: Status: Acute (2) Bacteremia due to Staphylococcus: Status: Acute (3) Symptomatic anemia: Status: Acute Plan 77-year-old female with pertinent history of [id number] diabetes mellitus, mood disorder, history of CVA with left hemiparesis, mixed hyperlipidemia, essential hypertension, history of PE on Eliquis was sent to the emergency department for altered mental status. 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, honey thick possible seizure - DC keppra, on valproic acid EEG with generalized slowing only asa, statin staph lugdunensis bacteremia Previously 2/2 santi, pending repeat blood cultures continue vanco iv follow up repeat ID input appreciated, 4 weeks of IV vancomycin echo not good quality as the patient was fighting during the procedure To place a PICC line Stage 2 sacral ulcer wound care check CT if any deep infx or bone involvement iron defeciency anemia likely chronic lower GI blood loss transfused 2 units prbc, hgb improved appropriately and stable so far monitor follow up GI - eventual scope in 1-2 weeks DM insulin history of PE holding eliquis for gi bleed 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 Mechanical due to bleed DNR/DNI reason for continued hospitalization:working up encephalopathy and bacteremia pending safe discharge plan Time Spent With Patient Time: Total time managing care of this patient today ____ minutes. Quality Stroke Does the patient have a stroke diagnosis?: No VTE Prior VTE?: No VTE Risk Level:: Medical - moderate - high VTE Device Contraindication: N/A - Device Ordered VTE Drug Contraindication: Treatment Not Indicated
[2022-12-24 15:25] VITALS: BP 115/56; PULSE 66; RESP 18; TEMP 36.9; O2SAT 96
--- NOTE | 2022-12-24 15:58 | MHC.SLORD ---
Addendum entered and electronically signed by Rosalind Blackmon MA, CCC-[employer] 12/24/22 18:09: D.S. Original Note: Speech Language Pathology Order Status: Per RN, pt tolerating current diet recommendation of puree solids (NDD1) and honey thick liquids. [employer] to continue to follow.
[2022-12-24] MEDS: iohexoL 350 MG/ML 100 ML INFUS..BTL IV (17:38)
[2022-12-24 17:46] LABS: Glucose, Whole Blood 137 mg/dL (60-115)
[2022-12-24 19:24] VITALS: BP 150/120; PULSE 81; RESP 18; TEMP 36.6; O2SAT 97
[2022-12-24 19:31] LABS: Glucose, Whole Blood 140 mg/dL (60-115)
[2022-12-24] MEDS: Atorvastatin Calcium 40 MG TABLET PO (19:48)
[2022-12-24 20:58] VITALS: BP 157/77; PULSE 79
[2022-12-25] VITALS (9 sets, daily range): BP systolic 121–158; BP diastolic 58–91; PULSE 63–71; RESP 16–19; TEMP 35.5–36.6; O2SAT 97–98
[2022-12-25 07:34] LABS: Glucose, Whole Blood 89 mg/dL (60-115)
[2022-12-25 07:40] LABS: Creatinine Clr Calc Pharmacy 80.8; Estimated Glomerular Filt Rate > 60
--- NOTE | 2022-12-25 08:09 | HE.PHANOTE ---
Vancomycin Dosing Addendum Patients level due tomorrow 12/26 @1100. Renal function stable. Will continue current dose of 1250 mg Q24H. Patients WBC stable, no fevers recently. Will wait to see level from tomorrow before changing dose. Predicted AUC 406 mg/L/hr
[2022-12-25] MEDS: Aspirin 81 MG TAB.CHEW PO (09:06)
[2022-12-25] MEDS: Divalproex Sodium Sprinkles 125 MG CAP.DR.SPR PO ×2 (09:06→19:49)
[2022-12-25] MEDS: Ferrous Sulfate 324 MG TABLET.DR PO (09:07)
[2022-12-25] MEDS: 0.9 % Sodium Chloride Flush 3 ML SYRINGE IVFLUSH ×2 (09:10→19:49)
[2022-12-25 11:49] LABS: Glucose, Whole Blood 135 mg/dL (60-115)
[2022-12-25] MEDS: vancomycin HCL 1,250 MG in 0.9 % Sodium Chloride 250 ML 166.6 MG IV (13:02)
--- NOTE | 2022-12-25 14:08 | HO.PM.IMPN ---
Subjective Subjective Date of Service: 12/25/22 Interval History: More alert and interactive Denies any pain having breakfast, family at bedise Blood culture still pending No other overnight events Review of Systems Review of Systems: Yes all other systems are reviewed and are negative Physical Exam Vital Signs: Vital Signs: Last Vital Signs Temp 97.8 F 12/25/22 08:00 Pulse 67 12/25/22 08:00 Resp 18 12/25/22 08:00 BP 129/58 L 12/25/22 08:00 Pulse Ox 97 12/25/22 08:00 O2 Del Method 12/25/22 08:00 BMI result Body Mass Index 32.1 Const: Other: Constitutional : Awake, interactive, not in distress Neck : Normal inspection, Supple Cardiovascular : RRR, no JVP, no lower extremity edema Respiratory : good bilateral air entry, no crackles, wheezes or rhonchi Gastrointestinal: soft, lax, Normal bowel sounds, Non tender Skin : Warm, Dry, stage II sacral ulcer Neurological : Alert & oriented to self only, No focal deficit Objective Data Active Medications Acetaminophen (Acetaminophen Supp 650 Mg Supp.Rect) 650 mg [place] Q6H PRN PRN Reason: Pain, Mild (Pain Scale 1-3) Aspirin (Aspirin 81 Mg Tab.Chew) 81 mg PO DAILY [facility] Last Admin: 12/25/22 09:06 Dose: 81 mg Documented By: SHOSHANA Atorvastatin Calcium (Atorvastatin Calcium 40 Mg Tablet) 40 mg PO BEDTIME [facility] Last Admin: 12/24/22 19:48 Dose: 40 mg Documented By: JAH Dextrose (Dextrose 50 % 25 Gm/50 Ml Syringe) 25 gm IVPUSH Q15M PRN; Protocol PRN Reason: per Hypoglycemia Standing Ord. Last Admin: 12/19/22 03:27 Dose: 25 gm Documented By: NARINDER Divalproex Sodium (Divalproex Sodium Sprinkles 125 Mg Cap.) 125 mg PO BID [facility] Last Admin: 12/25/22 09:06 Dose: 125 mg Documented By: SHOSHANA Ferrous Sulfate (Ferrous Sulfate 324 Mg Jeremy.Dr) 324 mg PO DAILY [facility] Last Admin: 12/25/22 09:07 Dose: 324 mg Documented By: SHOSHANA Glucose (Glucose Gel 15 Gm Gel..Gram.) 15 gm PO Q15M PRN; Protocol PRN Reason: per Hypoglycemia Standing Ord. Vancomycin HCl 1,250 mg/ (Sodium Chloride) 250 mls @ 166.667 mls/hr IV Q24H [facility] Last Admin: 12/25/22 13:02 Dose: 166.6 mls/hr Documented By: SHOSHANA Insulin Human Lispro (Insulin Lispro 100 Unit/Ml 3 Ml Vial) 0 unit SUBCUT QIDACHS [facility]; Protocol Last Admin: 12/25/22 11:44 Dose: Not Given Documented By: SHOSHANA Non-Admin Reason: No Insulin Coverage Melatonin (Melatonin 3 Mg Tablet) 6 mg PO BEDTIME PRN PRN Reason: Insomnia Omeprazole (Omeprazole 20 Mg/10 Ml Susp.Recon) 40 mg PO BID@0630,1630 [facility] Last Admin: 12/25/22 05:29 Dose: 40 mg Documented By: JAH Ondansetron HCl (Ondansetron Hcl 4 Mg/2 Ml Vial) 4 mg IVPUSH Q8H PRN PRN Reason: Nausea and Vomiting Pharmacy Consult (Consult Rx Perform Med Rec) 1 each MISCELLANE ONCE PRN PRN Reason: Consult order Pharmacy Consult (Consult Rx Vancomycin Dosing) 1 each MISCELLANE DAILY PRN PRN Reason: Consult order Sodium Chloride (0.9 % Sodium Chloride Flush 3 Ml Syringe) 3 ml IVFLUSH QSHIFT [facility] Last Admin: 12/25/22 09:10 Dose: 3 ml Documented By: SHOSHANA Labs 12/24/22 05:28 12/25/22 05:50 Labs: Laboratory Results - last 24 hr 12/24/22 12/24/22 12/25/22 17:43 19:27 05:50 Estim Creat Clear Calc 80.8 Estimated GFR > 60 POC Glucose 137 H 140 H Blood Type Antibody Screen Crossmatch 12/25/22 12/25/22 12/25/22 07:13 08:48 11:41 Estim Creat Clear Calc Estimated GFR POC Glucose 89 135 H Blood Type O Positive Antibody Screen NEGATIVE Crossmatch See Detail Microbiology Microbiology Results: Microbiology 12/23/22 05:45 Blood Culture - Preliminary Blood - Venous No growth after 48 hours. 12/23/22 05:45 Blood Culture - Preliminary Blood - Venous No growth after 48 hours. Assessment and Plan (1) Symptomatic anemia: Status: Acute (2) Bacteremia due to Staphylococcus: Status: Acute (3) Acute metabolic encephalopathy: Status: Acute (4) Sacral decubitus ulcer, stage II: Status: Acute Plan 77-year-old female with pertinent history of cjo-inlazsj-vhzyzdtrz diabetes mellitus, mood disorder, history of CVA with left hemiparesis, mixed hyperlipidemia, essential hypertension, history of PE on Eliquis was sent to the emergency department for altered mental status. 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, honey thick EEG with generalized slowing only possible seizure - DC jose, on valproic acid asa, statin staph lugdunensis bacteremia Previously 2/2 warneri, pending repeat blood cultures continue vanco iv follow up repeat ID input appreciated, 4 weeks of IV vancomycin echo not good quality as the patient was fighting during the procedure To place a PICC line once cultures finalized Stage 2 sacral ulcer wound care check CT if any deep infx or bone involvement iron defeciency anemia likely chronic lower GI blood loss transfused 2 units prbc, hgb down to 7.7 to give an extra unit of blood follow up GI - eventual scope in 1-2 weeks DM insulin history of PE holding eliquis for gi bleed 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 Mechanical due to bleed DNR/DNI reason for continued hospitalization:working up encephalopathy and bacteremia pending safe discharge plan Time Spent With Patient Time: Total time managing care of this patient today ____ minutes. Quality Stroke Does the patient have a stroke diagnosis?: No VTE Prior VTE?: No VTE Risk Level:: Medical - moderate - high VTE Device Contraindication: N/A - Device Ordered VTE Drug Contraindication: Treatment Not Indicated
--- NOTE | 2022-12-25 15:59 | MHC.SLORD ---
Speech Language Pathology Order Status: Patient seen at conclusion of lunch with Son reporting that she had eaten well with no difficulty. Son was giving mother thickened coffee, with patient noted to tolerate without clinical signs of aspiration. [employer] will continue to follow.
[2022-12-25 16:41] LABS: Glucose, Whole Blood 143 mg/dL (60-115)
[2022-12-25] MEDS: Atorvastatin Calcium 40 MG TABLET PO (19:49)
[2022-12-25 20:45] LABS: Glucose, Whole Blood 133 mg/dL (60-115)
[2022-12-26 03:24] VITALS: BP 165/72; PULSE 66; RESP 17; TEMP 36.1; O2SAT 95
[2022-12-26 07:15] LABS: Hematocrit 30.4 % (37.0-47.0); Hemoglobin 9.1 g/dl (12.0-16.0); Mean Corpuscular HGB Conc 29.9 g/dl (31.0-35.0); Mean Corpuscular Hemoglobin 24.1 pg (27.0-33.0); Mean Corpuscular Volume 80.6 fL (80.0-98.0); Mean Platelet Volume 9.7 fL (9.4-12.3); Platelet Count 396 X10*3/uL (160-400); Red Blood Count 3.77 X10*6/uL (4.20-5.50); Red Cell Distribution Width 21.8 % (11.0-16.0)
[2022-12-26 07:18] VITALS: BP 135/65; PULSE 73; RESP 18; TEMP 36.3; O2SAT 96
[2022-12-26 07:47] LABS: Creatinine Clr Calc Pharmacy 68.4; Estimated Glomerular Filt Rate > 60
[2022-12-26 07:56] LABS: Glucose, Whole Blood 90 mg/dL (60-115)
[2022-12-26] MEDS: Aspirin 81 MG TAB.CHEW PO (08:43)
[2022-12-26] MEDS: Ferrous Sulfate 324 MG TABLET.DR PO (08:43)
[2022-12-26] MEDS: Divalproex Sodium Sprinkles 125 MG CAP.DR.SPR PO (08:43)
[2022-12-26] MEDS: 0.9 % Sodium Chloride Flush 3 ML SYRINGE IVFLUSH ×2 (08:48→16:53)
--- NOTE | 2022-12-26 11:36 | PM.IDPN ---
Subjective Subjective Date of Service: 12/26/22 Critical Care Time (minutes): 15 Comment: she has no complaints, no changes Objective Data Labs 12/26/22 05:52 12/26/22 05:52 Labs: Laboratory Results - last 24 hr 12/25/22 12/25/22 12/25/22 08:48 11:41 16:38 WBC RBC Hgb Hct MCV MCH MCHC RDW Plt Count MPV Absolute Nucleated RBC Nucleated RBC % (auto) Creatinine Estim Creat Clear Calc Estimated GFR POC Glucose 135 H 143 H Blood Type O Positive Antibody Screen NEGATIVE Crossmatch See Detail 12/25/22 12/26/22 12/26/22 20:41 05:52 05:52 WBC 11.0 H RBC 3.77 L Hgb 9.1 L Hct 30.4 L MCV 80.6 MCH 24.1 L MCHC 29.9 L RDW 21.8 H Plt Count 396 MPV 9.7 Absolute Nucleated RBC 0.000 Nucleated RBC % (auto) 0.0 Creatinine 0.78 Estim Creat Clear Calc 68.4 Estimated GFR > 60 POC Glucose 133 H Blood Type Antibody Screen Crossmatch 12/26/22 07:16 WBC RBC Hgb Hct MCV MCH MCHC RDW Plt Count MPV Absolute Nucleated RBC Nucleated RBC % (auto) Creatinine Estim Creat Clear Calc Estimated GFR POC Glucose 90 Blood Type Antibody Screen Crossmatch Microbiology Microbiology Results: Microbiology 12/23/22 05:45 Blood - Venous Blood Culture - Preliminary No growth after 48 hours. 12/23/22 05:45 Blood - Venous Blood Culture - Preliminary No growth after 48 hours. 12/21/22 05:55 Blood - Venous Blood Culture - Final Staphylococcus lugdunensis 12/21/22 05:55 Blood - Venous Blood Culture - Final Staphylococcus lugdunensis 12/18/22 14:22 Blood - Venous Blood Culture - Final Staphylococcus warneri 12/18/22 14:22 Blood - Venous Blood Culture - Final Staphylococcus warneri Physical Exam Vital Signs: Vital Signs: Last Vital Signs Temp 97.4 F 12/26/22 07:18 Pulse 73 12/26/22 07:18 Resp 18 12/26/22 07:18 BP 135/65 12/26/22 07:18 Pulse Ox 96 12/26/22 07:18 O2 Del Method 12/26/22 07:18 BMI result Body Mass Index 32.1 Const: General: cooperative HEENT: Head: Yes normal to inspection Mouth: Normal oral and palatal mucosa present Resp: Effort & Inspection: normal respiratory effort Cardio: Rate: regular rate Rhythm: regular rhythm GI: Palpation (GI): Soft to palpation and nontender Extrem: General: Yes normal to inspection Assessment and Plan Assessment and plan (1) Bacteremia due to Staphylococcus: Problem details: She has some sacral skin breakdown but no osteomyelitis seen on CT scan. Bacteremia appears to be idiopathic but skin marbella,staph lugdunensis. She has no site seen of any osteomyelitis or peritonitis. It is still possible that this represents contamination but more unlikely. Status: Acute Assessment and Plan: Continue Vancomycin,finish January 19. I can see in office. (2) Sacral decubitus ulcer, stage II: Status: Acute (3) Unresponsive state: Status: Acute Time Spent With Patient Time: Total time managing care of this patient today ____ minutes.
--- NOTE | 2022-12-26 12:00 | MHC.CM.PN ---
PATIENT IS OFF UNIT FOR PICC PLACEMENT. PLAN IS 26 MORE DAYS OF IV VANCO. TWAN DISLA MADE AWARE IN CAPREPORT WITH A REQUEST FOR RETURN TO FACILITY THIS AFTERNOON
--- NOTE | 2022-12-26 12:02 | MHC.SLORD ---
Speech Language Pathology Order Status: Attempted to see patient this a.m.: RN reported patient away in OR for PICC line. BUSINESS SUPPORT COORDINATOR will continue to follow.
--- NOTE | 2022-12-26 12:54 | P.PICC_ITS ---
PICC Line Insertion NPICC Diagnosis: Gram Positive Bacteremia Indication: Jail antibiotics needed Pertinent Labs: reviewed Technique: Following informed consent including risks, benefits and alternatives and using sterile technique including cap and mask, sterile gown, glove and drape, the right arm was prepped and draped in the usual sterile fashion of full barrier technique with CHG. Following completion of Cecil Protocol the skin and soft tissues were anesthetized with 1% Lidocaine plain. Using ultrasound guidance, right cephalic vein access was obtained by Salvatore Jackson RN, but unable to advance guidewire. Right brachial vein was then accessed on first attempt by Nigel Moore RN. Over an 0.018 wire through peel-away sheath, a 4FR PI CC line was positioned. Catheter length is 42 CM internal length, 0 CM external length, for a total trimmed length of 42 CM. The procedure was performed in S272. Tip verification was performed by Humza Blanton with Sherlock 3CG. Tip located in SVC. Ultrasound was used to document vein patency and for needle entry. A formal ultrasound picture and cardiac rhythm strip was recorded. Vascular Air Traffic Systems Technician has released the line for use and it is currently dressed with a StatLock, Tegaderm, and CHG disc. Verification has been performed for blood return and line patency. (PICC placement prior to final blood culture results approved by Dr Finnegan via 12/26/2022 [employer] message[address] Chavez and Ramona Monreal are aware) Arm Circumference: 34 CM Equipment: BARD Power PICC Solo Catheter Type: 4FR single lumen PASV PICC Lot #: [id number]
--- NOTE | 2022-12-26 13:02 | PM.DS ---
DS: Providers Provider Date of Service: 12/26/22 Date of admission: 12/18/22 19:00 Primary care physician: Vanessa Kennedy MD Consults: 12/18/22 19:02 Consult to Gastroenterology Routine Consulting Provider: Elvis Angeles Reason for consultation: ?blood loss anemia 12/21/22 09:34 Consult to Infectious Diseases Routine Consulting Provider: Romy Finnegan Reason for consultation: 2 staph warneri, ?significance DS: Diagnosis Discharge Diagnosis (1) Bacteremia due to Staphylococcus: Status: Acute (2) Sacral decubitus ulcer, stage II: Status: Acute (3) Unresponsive state: Status: Acute (4) Symptomatic anemia: Status: Acute (5) Acute metabolic encephalopathy: Status: Acute DS: Summary Hospital Course Hospital Course: Admission note HPI This is a 77-year-old female with pertinent history of [id number]-cwbuepech diabetes mellitus, mood disorder, history of CVA, mixed hyperlipidemia, essential hypertension, history of PE on Eliquis was sent to the emergency department for altered mental status.? Patient was found with unresponsiveness at around 11:00 today.? Patient is unable to provide any history.? History obtained from the ER provider and chart review.? Apparently patient refused breakfast this morning and later was found to be unresponsiveness. In the emergency department, left gaze deviation was noted and neurology was consulted Hospital course The patient was admitted for evaluation of acute metabolic encephalopathy with no clear etiology at the beginning as she was evaluated by Neurology who recommended brain images and EEG. CT head was negative for any acute findings. EEG showed General slowing with no evidence of seizures. Patient was started on Keppra along with her home dose valproic acid. Keppra was discontinued after EEG confirm no seizure. Mental status started to improve as the patient was noticed to have an infection with positive blood culture. First it was positive for coagulase-negative staphylococcal as she was evaluated by infectious disease specialist who recommended to hold on antibiotics at that point but the 2nd repeated culture was consistent with staph lugdunensis which appears to be idiopathic per ID who recommended 4 weeks of IV vancomycin to finish by January 19. The patient should follow with ID in the office. She will need continuous rotation in bed to prevent sacral ulcer from getting worse. She was noted to have iron deficiency anemia with no overt bleeding. Seems to be secondary to chronic lower GI loss. Transfuse 2 units of blood with hemoglobin improving and remaining stable. Evaluated by bread wrapping machine feeder who recommended to follow-up as outpatient for endoscopies. Eliquis was held and restarted at time of discharge per GI recommendations. To continue pantoprazole b.i.d. started on p.o. iron supplement. PICC line was placed for antibiotic administration. Continue vancomycin 1.25 g daily to finish total of 4 weeks of antibiotics Continue was rotation in the bed and local wound care to he the sacral ulcer Continue p.o. iron supplement To follow-up as outpatient with Gastroenterology for endoscopies for further evaluation of gastrointestinal bleeding Time Spent with Patient Time attestation: Total time managing care of this patient today ____ minutes. Discharge coordination time: Greater than 30 minutes Quality: Safe Use of Opioids Does Pt have an Active Cancer Diagnosis on the Problem List?: No Quality: Stroke Does the patient have a stroke diagnosis?: No Physical Exam Vital Signs: Vital Signs: Last Vital Signs Temp 97.4 F 12/26/22 07:18 Pulse 73 12/26/22 07:18 Resp 18 12/26/22 07:18 BP 135/65 12/26/22 07:18 Pulse Ox 96 12/26/22 07:18 O2 Del Method 12/26/22 07:18 BMI result Body Mass Index 32.1 Const: Other: Constitutional : Awake, interactive, not in distress Neck : Normal inspection, Supple Cardiovascular : RRR, no JVP, no lower extremity edema Respiratory : good bilateral air entry, no crackles, wheezes or rhonchi Gastrointestinal: soft, lax, Normal bowel sounds, Non tender Skin : Warm, Dry, stage II sacral ulcer Neurological : Alert & oriented to self only, No focal deficit DS: Data Data Completed and Pending Labs on day of discharge: Laboratory Results - last 24 hr 12/25/22 12/25/22 12/25/22 08:48 16:38 20:41 WBC RBC Hgb Hct MCV MCH MCHC RDW Plt Count MPV Absolute Nucleated RBC Nucleated RBC % (auto) Creatinine Estim Creat Clear Calc Estimated GFR POC Glucose 143 H 133 H Blood Type O Positive Antibody Screen NEGATIVE Crossmatch See Detail 12/26/22 12/26/22 12/26/22 05:52 05:52 07:16 WBC 11.0 H RBC 3.77 L Hgb 9.1 L Hct 30.4 L MCV 80.6 MCH 24.1 L MCHC 29.9 L RDW 21.8 H Plt Count 396 MPV 9.7 Absolute Nucleated RBC 0.000 Nucleated RBC % (auto) 0.0 Creatinine 0.78 Estim Creat Clear Calc 68.4 Estimated GFR > 60 POC Glucose 90 Blood Type Antibody Screen Crossmatch Preliminary micro results at discharge 12/23/22 05:45 Blood Culture - Preliminary Blood - Venous No growth after 48 hours. 12/23/22 05:45 Blood Culture - Preliminary Blood - Venous No growth after [address] scan - head: Radiologist's impression: ITS Impressions Head CT 12/18/22 14:05 IMPRESSION: 1. Loss of thayer-white matter differentiation within the high parasagittal right parietal lobe suggestive of an acute to subacute infarct. 2. No evidence of acute intracranial hemorrhage. 3. Extensive underlying microangiopathy and generalized cerebral volume loss. Chronic lacunar infarcts of the deep nuclei. This critical result was discussed with Dr. Clark Irizarry at 14:25 on 12/18/2022 and it was ascertained that the content and urgency of the report was understood at the time of direct communication. Chest X-Ray 12/18/22 14:55 IMPRESSION: Unremarkable examination. Abdomen/Pelvis CT 12/18/22 17:04 IMPRESSION: 1. Mild thickening of the rectosigmoid colon with focal narrowing of the sigmoid colon followed by gaseous distention of the proximal colon. Differential considerations include infectious/inflammatory colitis, however underlying neoplasm cannot be excluded, particularly in the setting of anemia of unknown etiology and recommend correlation with colonoscopy.. 2. Hepatic steatosis. Chest CT 12/18/22 17:04 IMPRESSION: 1. Mild thickening of the rectosigmoid colon with focal narrowing of the sigmoid colon followed by gaseous distention of the proximal colon. Differential considerations include infectious/inflammatory colitis, however underlying neoplasm cannot be excluded, particularly in the setting of anemia of unknown etiology and recommend correlation with colonoscopy.. 2. Hepatic steatosis. Pelvis CT 12/24/22 17:47 IMPRESSION: 1. Subtle skin thickening over the sacrum, potentially corresponding to the known site of soft tissue ulceration. No underlying fluid collections. No evidence of osteomyelitis. 2. Air-fluid level in the rectum, consistent with liquid stool. 3. Mild bladder wall thickening with mucosal hyperemia is suggestive of cystitis. Recommend correlation with urinalysis. 4. Mild osteoarthritis in the hips, SI joints, and pubic symphysis. 5. Mild anasarca. 6. Degenerative spondylosis in the lower lumbar spine with grade 1 anterolisthesis of L4 on L5 and L5 on S1. Discharge Plan Discharge Anticipated Discharge Date/Time: 12/26/22 12:31 Patient Disposition: Xfer SNF Discharge Diagnosis: Staphylococcus bacteremia Decubitus ulcer Metabolic encephalopathy Referrals: [facility] [Outside] - 1 Week Vanessa Kennedy MD [Primary Care Provider] - 1 Week Discharge Medications: New vancomycin 1.25 gram recon soln 1.25 g IV Q24H Qty: 26 0RF ferrous sulfate 324 mg (65 mg iron) Tablet,Delayed Release (Dr/Ec) 324 mg PO DAILY Qty: 30 0RF Continued atorvastatin 40 mg tablet 40 mg PO BEDTIME lisinopril 40 mg tablet 1 tab PO DAILY glipizide 5 mg tablet 1 tab PO BID olopatadine 0.2 % drops 1 drp ophthalmic (eye) BID sennosides [senna] 8.6 mg Tablet 17.2 mg PO BEDTIME aspirin 81 mg Tablet,Chewable 81 mg PO DAILY albuterol 90 mcg/actuation Aerosol 90 mcg INHALATION Q4H furosemide 40 mg tablet 1 tab PO DAILY acetaminophen 325 mg Tablet 650 mg PO Q4H PRN (Reason: Pain) potassium chloride 40 mEq/15 mL Liquid 40 meq PO DAILY pantoprazole 40 mg tablet,delayed release (DR/EC) 1 tab PO BID divalproex 125 mg capsule, delayed rel sprinkle 125 mg PO BID apixaban 5 mg tablet 5 mg PO BID Discharge Orders: Discharge Order (Routine); Ordered 12/26/22 Ordered By: Rosio Chavez Diet: Advance to usual diet Activity on Discharge: As tolerated Stand Alone Forms: Patient Portal Discharge page Care Plan Goals: Read below Health Concerns: Read below Plan of Treatment: Read below Assessment: You were admitted to the hospital for evaluation for altered mentation. Believed to be secondary to having infection. Evaluated by brain images an EEG which did not show any stroke or evidence of seizure. Your blood culture grew bacteria that was evaluated by infectious disease specialist who recommended 4 weeks of IV antibiotics. Noted to have sacral ulcer that needs to be taking care of to prevent worsening. Continue vancomycin 1.25 g daily to finish total of 4 weeks of antibiotics Continue was rotation in the bed and local wound care to he the sacral ulcer Continue p.o. iron supplement To follow-up as outpatient with Gastroenterology for endoscopies for further evaluation of gastrointestinal bleeding Discharge Date/Time: 12/26/22 17:45
[2022-12-26 13:11] LABS: Glucose, Whole Blood 159 mg/dL (60-115)
[2022-12-26] MEDS: Insulin Lispro 100 UNIT/ML 3 ML VIAL SUBCUT ×2 (13:32→16:51)
[2022-12-26 13:37] LABS: COVID-19 Test Negative (Negative); IDNOW Serial# 16C4AD1C
[2022-12-26 14:22] LABS: Vancomycin Random 10.8 mcg/mL (15-20)
--- NOTE | 2022-12-26 14:29 | HE.PHANOTE ---
VANCOMYCIN DOSING ADDENDUM PATIENTS LEVEL CAME BACK AT 10.8 MG/L. HOWEVER LEVEL WAS 3 HOURS LATE. WILL CONTINUE CURRENT DOSE THE RENAL FUNCTION HAS SPIKE, SCR FROM 0.66 TO 0.78. NEXT LEVEL TO BE DRAWN 12/27 @ 1300
--- NOTE | 2022-12-26 15:08 | MHC.CM.PN ---
PATIENT TO RETURN TO [place] TODAY. PLAN IS A 1700 TRANSPORT REQUEST VIA [facility], UNIT, AND SON, JOSH [phone] AWARE OF PLAN. IMM 12/26 IN CHART
[2022-12-26] MEDS: vancomycin HCL 1,250 MG in 0.9 % Sodium Chloride 250 ML 166.67 MG IV (15:10)
[2022-12-26] MEDS: 0.9 % Sodium Chloride Flush 10 ML SYRINGE 5 ML IVFLUSH ×2 (15:11→16:52)
[2022-12-26 16:00] VITALS: BP 96/58; PULSE 69; RESP 17; TEMP 36.2; O2SAT 97
[2022-12-27 06:09] LABS: Glucose, Whole Blood 128 mg/dL (60-115)
== END 2022-12-26 17:45 | disposition skilled nursing facility (03) | DRG 592 ==
LOC: HO.ED 18:31 → HO.EDOVER 19:10 → HO.S3 12-19 01:06
PROVIDERS: Emergency Medicine; Internal Medicine; Admitting Provider Student in an Organized Health Care Education/Training Program; Emergency Provider Emergency Medicine; PCP Internal Medicine; Visit Provider Student in an Organized Health Care Education/Training Program
PROC: 02HV33Z Insertion of Infusion Device into Superior Vena Cava, Percutaneous Approach (ICD-10-PCS; principal; 2022-12-26 10:00)
DX: L89.152 Pressure ulcer of sacral region, stage 2 (principal); G93.41 Metabolic encephalopathy; I69.354 Hemiplegia and hemiparesis following cerebral infarction affecting left non-dominant side; K92.2 Gastrointestinal hemorrhage, unspecified; R78.81 Bacteremia; D50.0 Iron deficiency anemia secondary to blood loss (chronic); E11.9 Type 2 diabetes mellitus without complications; G30.9 Alzheimer's disease, unspecified; F02.80 Dementia in other diseases classified elsewhere, unspecified severity, without behavioral disturbance, psychotic disturbance, mood disturbance, and anxiety; F01.50 Vascular dementia, unspecified severity, without behavioral disturbance, psychotic disturbance, mood disturbance, and anxiety; Z66 Do not resuscitate; I10 Essential (primary) hypertension; B95.7 Other staphylococcus as the cause of diseases classified elsewhere; E78.2 Mixed hyperlipidemia; Z20.822 Contact with and (suspected) exposure to COVID-19; Z86.711 Personal history of pulmonary embolism; Z79.01 Long term (current) use of anticoagulants; Z79.82 Long term (current) use of aspirin; Z79.84 Long term (current) use of oral hypoglycemic drugs; Z79.899 Other long term (current) drug therapy
CPT/HCPCS: 36415; 36573; 70450; 71045; 71260; 72193; 74177; 80048; 80076; 80202; 80307; 81003; 82550; 82565; 82947; 83010; 83540; 83605; 83615; 84484; 85025; 85027; 85045; 85610; 85730; 86850; 86900; 86901; 86923; 87040; 87077; 87186; 87205; 87635; 92526; 92610; 93005; 93308; 95816; 99285; C1751; C1758; J1953; J3370; J3371; P9016; Q9957; Q9967

== ENCOUNTER 2023-01-05 14:39 | Inpatient (IN) | payer OTHER, SELFPAY ==
[2023-01-05] VITALS (10 sets, daily range): BP systolic 131–160; BP diastolic 43–98; PULSE 77–93; RESP 12–22; TEMP 37.1–37.7; O2SAT 95–97; BMI 33.5
--- NOTE | ~2023-01-05 | CT_ITS ---
EXAMINATION: CT ABDOMEN AND PELVIS WITHOUT CONTRAST CLINICAL INFORMATION: Abdominal pain. Rule out urologic obstruction. COMPARISON: CT abdomen pelvis 12/18/2022, pelvic CT 12/24/2022 TECHNIQUE: Multidetector volumetric imaging was performed from the superior aspect of the liver through the pubic symphysis. Sagittal and coronal reformatted images were obtained on the technologist's workstation. This CT examination was performed using dose optimization techniques as appropriate, variously including the following: *Automated exposure control *Adjustment of mA and/or kV according to patient size (this includes techniques or standardized protocols for targeted exams where dose is matched to indication/reason for exam; i.e. extremities or head) *Use of iterative reconstruction technique DLP: 1167 mGy-cm FINDINGS: LUNG BASES: Subsegmental atelectasis in the right lung base. Coronary artery vascular calcifications. LIVER, GALLBLADDER, AND BILIARY TREE: The liver is normal in size, shape, and attenuation. No focal hepatic lesion or biliary ductal dilatation is present. Status post cholecystectomy. PANCREAS: Unremarkable. SPLEEN: Unremarkable. ADRENAL GLANDS: Unremarkable. KIDNEYS AND URETERS: Mild bilateral hydroureteronephrosis. The ureters are mildly dilated to the level of the urinary bladder. Mild symmetric bilateral perirenal fascial stranding, nonspecific. No radiodense urinary tract calculi. No renal lesions. BLADDER: Decompressed with Shore catheter in place. GASTROINTESTINAL TRACT: Mild to moderate gaseous distention of the redundant colon. No dilated bowel loops or bowel wall thickening. Normal appendix. No free air or ascites. ABDOMINAL WALL: Rectus diastases. Small fat-containing umbilical hernia. Mild body wall edema in the flanks and lateral proximal thighs. LYMPH NODES: No lymphadenopathy. VASCULAR: Normal caliber abdominal aorta. Moderate vascular calcifications. PELVIC VISCERA: Uterine vascular calcifications. Gynecologic structures otherwise grossly unremarkable, limited assessment. OSSEOUS STRUCTURES: No acute fracture or suspicious osseous lesion. Mild multilevel spondylosis of the visualized thoracolumbar spine and lumbar facet arthrosis. CT/CT abdomen pelvis wo IV con IMPRESSION: 1. Mild bilateral hydroureteronephrosis with mild ureteral dilation to the level the decompressed bladder. No radiodense urinary tract calculi. 2. No evidence of bowel obstruction or other acute intra-abdominal process. 3. Mild to moderate gaseous distention of the colon.
--- NOTE | 2023-01-05 15:01 | ED_ITS ---
HPI - General Adult General Chief complaint: Urogenital-Female Stated complaint: New onset vaginal secretion per EMS Time Seen by Provider: 01/05/23 14:46 Source: EMS Mode of arrival: EMS Limitations: altered mental status History of Present Illness HPI narrative: Patient comes to the emergency room via EMS from a [facility] facility. EMS states that they were at the halfway taking at different patient back to the halfway, the patient's nurse at the facility told EMS that since EMS was there, might as well have the patient taken to the ED for evaluation of vaginal discharge. Patient has history major CVAs. Patient at baseline can barely move her extremities and is nonverbal. Patient unable to give any history. Of note, patient was discharged 10 days ago for bacteremia of unknown source. Patient is still being treated with vancomycin through a PICC line. Related Data Home Medications Medication Instructions Recorded Confirmed albuterol 90 mcg/actuation aerosol 90 mcg inhalation Q4H 10/09/20 12/18/22 inhaler aspirin 81 mg chewable tablet 81 mg PO DAILY 10/09/20 12/18/22 atorvastatin 40 mg tablet 40 mg PO BEDTIME 10/09/20 12/18/22 glipizide 5 mg tablet 1 tab PO BID 10/09/20 12/18/22 lisinopril 40 mg tablet 1 tab PO DAILY 10/09/20 12/18/22 olopatadine 0.2 % eye drops 1 drp ophthalmic (eye) BID 10/09/20 12/18/22 sennosides 8.6 mg tablet (senna) 17.2 mg PO BEDTIME 10/09/20 12/18/22 acetaminophen 325 mg tablet 650 mg PO Q4H PRN Pain 12/18/22 12/18/22 apixaban 5 mg tablet 5 mg PO BID 12/18/22 12/18/22 divalproex 125 mg capsule,delayed 125 mg PO BID 12/18/22 12/18/22 release sprinkle furosemide 40 mg tablet 1 tab PO DAILY 12/18/22 12/18/22 pantoprazole 40 mg tablet,delayed 1 tab PO BID 12/18/22 12/18/22 release potassium chloride 40 mEq/15 mL 40 meq PO DAILY 12/18/22 12/18/22 oral liquid Previous Rx's Medication Instructions Recorded ferrous sulfate 324 mg (65 mg 324 mg PO DAILY #30 tabs 12/26/22 iron) tablet,delayed release vancomycin 1.25 gram intravenous 1.25 g IV Q24H #26 ea 12/26/22 solution Allergies Allergy/AdvReac Type Severity Reaction Status Date / Time No Known Allergies Allergy Verified 10/09/20 11:55 Review of Systems Review of Systems: Yes Unobtainable due to mental condition [facility] Past Medical History Medical History Anemia Chronic lower back pain COVID-19 CVA (cerebral vascular accident) Diabetes HTN (hypertension) Hyperlipidemia Sacral decubitus ulcer, stage II Schizoaffective disorder Social History Social History Household Members: Unknown / Unable to assess Household Members Other:: SNF Housing: Unknown / Unable to assess Do you presently have visiting nurse or other home services: No ([facility]TIREMENT) Unable to assess alcohol history related to: Unable to respond Alcohol intake: never Patient Tobacco Use Status: Tobacco use Unknown Smoked in Last 30 Days: No Second Hand Smoke Exposure: No Use of substances other than those prescribed or required for medical reasons: No Advance Directives: Yes Advance Directives on File: Yes Advance Directives Date on File: 12/18/22 service: No Current occupational status: retired Physical Exam ED Vital Signs: Vital Signs - 24 hr 01/05/23 15:11 01/05/23 17:40 01/05/23 18:00 Temperature 99.8 F 98.7 F Pulse Rate 90 87 82 Respiratory Rate 17 12 22 H Blood Pressure 144/49 H 160/43 H 143/43 H Pulse Oximetry 96 96 97 Oxygen Delivery Method Room Air Room Air 01/05/23 19:34 Temperature 98.7 F Pulse Rate 83 Respiratory Rate 16 Blood Pressure 131/53 L Pulse Oximetry 95 Oxygen Delivery Method Room Air BMI result Body Mass Index 33.5 Const Other: Appearance: Somnolent, opens her eyes on commands but goes back to sleep. Nonverbal Eyes: Pupils equal, round and reactive to light. ENT: Pharynx normal. Neck: Normal inspection. Neck supple. No lymph nodes noted. No crepitus CVS: Normal heart rate and rhythm. Pulses normal. Normal S1 and S2 Respiratory: No respiratory distress. Breath sounds normal. No Wheezing. No rales Abdomen: Soft and nontender. No rigidity. No distention. Skin: Skin warm and dry. Normal skin color. Normal skin turgor. Extremities: No lower extremity edema. No Lacerations. No Rash Neuro: Unable to participating cranial nerve assessment. Patient does not seem to be moving her upper and lower extremities bilaterally. Psych: calm, cooperative, normal affect Nutritional Appearance: average body habitus Course Course Course Narrative: -patient unable to void he has any concerns. -all of patient's labs and vitals are pending Medical Decision Making Medical Decision Making [facility] Narrative: -at this time, 17:40, patient was straight cath, pyuria was extracted. Also, patient was retaining over 1000 cc of fluid in the bladder. Patient has now a Shore catheter patient's white blood cell count 21.1, lactic acid 249, blood pressure 144/49. Sepsis is not suspected. Patient being giving fluids based on ideal weight of 68 kg, patient is obese. Also, patient given ceftriaxone, patient already received 1 dose of vancomycin which she received today in the morning at the halfway. -patient has acute kidney injury. Patient already receiving fluids -after Shore catheter incision, it was noted that patient had pyuria and hematuria -CBI in progress -I discussed the patient with Dr. Blue, patient being admitted. -at time of admission, patient's blood pressure 131/53, heart rate 80, respirati ons 16, temperature 98 degrees pr 7, oxygen saturation 95% on room air. Differential Diagnosis Differential Diagnoses: The differential diagnosis associated with the presentation includes (UTI, pyelonephritis) Admission/Observation Consideration of admission/observation: Escalation of care including admission/observation considered Consult Healthcare Provider Management of the patient was discussed with: Hospitalist Lab Data [facility] Lab Attestation statement: I reviewed the patient's lab results. 01/05/23 15:22 01/05/23 15:22 Labs: Lab Results 01/05/23 01/05/23 01/05/23 Range/Units 15:22 15:22 15:22 WBC 21.1 H (4.8-10.8) X10*3/uL RBC 3.87 L (4.20-5.50) X10*6/uL Hgb 9.4 L (12.0-16.0) g/dl Hct 32.2 L (37.0-47.0) % MCV 83.2 (80.0-98.0) fL MCH 24.3 L (27.0-33.0) pg MCHC 29.2 L (31.0-35.0) g/dl RDW 23.9 H (11.0-16.0) % Plt Count 635 H D (160-400) X10*3/uL MPV 9.7 (9.4-12.3) fL Immature Gran % (Auto) 0.7 H (0.0-0.4) % Neut % (Auto) 81.4 H (45-73) % Lymph % (Auto) 7.5 L (20-40) % [place] % (Auto) 9.7 (2-11) % Eos % (Auto) 0.3 (0-4) % Baso % (Auto) 0.4 (0-2) % Lymph # (Auto) 1.6 (1.2-4.9) X10*3/uL [place] # (Auto) 2.0 H (0.1-1.2) X10*3/uL Eos # (Auto) 0.1 (0.0-0.4) X10*3/uL Baso # (Auto) 0.1 (0.0-0.2) X10*3/uL Abs Immat Gran (auto) 0.14 H (0.00-0.03) X10*3/uL Absolute Neuts (auto) 17.1 H (2.0-8.3) x10*3/uL Absolute Nucleated RBC 0.000 (0.0-0.012) X10*3/uL Nucleated RBC % (auto) 0.0 (0.0-0.2) /100WBC Smear Tech's Comments VERIFIED Sodium 144 (135-145) mmol/L Potassium 3.3 (3.3-5.1) mmol/L Chloride 104 (96-108) mmol/L Carbon Dioxide 26 (22-29) mmol/L Anion Gap 17 (12-20) BUN 42 H (9-16) mg/dL Creatinine 2.72 H (0.5-1.4) mg/dL Estim Creat Clear Calc 20.7 Estimated GFR 17 Random Glucose 249 H (60-115) mg/dL Lactic Acid 1.7 (0.5-2.0) mmol/L Calcium 9.1 (8.4-10.2) mg/dL Total Bilirubin 0.5 (0.0-1.0) mg/dL Direct Bilirubin 0.2 (0.0-0.5) mg/dL AST 15 (5-31) U/L ALT 11 (0-31) U/L Alkaline Phosphatase 89 (39-117) U/L Total Protein 5.7 L (6.5-8.0) g/dL Albumin 2.9 L (3.5-5.0) g/dL Urine Color Urine Appearance Urine pH (5.0-9.0) Ur Specific [place] (1.005-1.025) Urine Protein (Neg-Trace) mg/dL Urine Glucose (UA) (Negative) mg/dL Urine Ketones (Negative) mg/dL Urine Blood (Negative) Urine Nitrite (Negative) Ur Leukocyte Esterase (Negative) Urine RBC (0-2) /HPF Urine WBC (0-5) /HPF Ur Squamous Epith Cells (0-2) /HPF Urine Bacteria (None Seen) Hyaline Casts (0-2) /LPF COVID-19 (EMERY) (Negative) COVID-19 Clin Com Influenza Type A (CAITY) (Negative) Influenza Type B (CAITY) (Negative) Influenza A & B Note 01/05/23 01/05/23 01/05/23 Range/Units 15:34 15:34 17:40 WBC (4.8-10.8) X10*3/uL RBC (4.20-5.50) X10*6/uL Hgb (12.0-16.0) g/dl Hct (37.0-47.0) % MCV (80.0-98.0) fL MCH (27.0-33.0) pg MCHC (31.0-35.0) g/dl RDW (11.0-16.0) % Plt Count (160-400) X10*3/uL MPV (9.4-12.3) fL Immature Gran % (Auto) (0.0-0.4) % Neut % (Auto) (45-73) % Lymph % (Auto) (20-40) % [place] % (Auto) (2-11) % Eos % (Auto) (0-4) % Baso % (Auto) (0-2) % Lymph # (Auto) (1.2-4.9) X10*3/uL [place] # (Auto) (0.1-1.2) X10*3/uL Eos # (Auto) (0.0-0.4) X10*3/uL Baso # (Auto) (0.0-0.2) X10*3/uL Abs Immat Gran (auto) (0.00-0.03) X10*3/uL Absolute Neuts (auto) (2.0-8.3) x10*3/uL Absolute Nucleated RBC (0.0-0.012) X10*3/uL Nucleated RBC % (auto) (0.0-0.2) /100WBC Smear Tech's Comments Sodium (135-145) mmol/L Potassium (3.3-5.1) mmol/L Chloride (96-108) mmol/L Carbon Dioxide (22-29) mmol/L Anion Gap (12-20) BUN (9-16) mg/dL Creatinine (0.5-1.4) mg/dL Estim Creat Clear Calc Estimated GFR Random Glucose (60-115) mg/dL Lactic Acid (0.5-2.0) mmol/L Calcium (8.4-10.2) mg/dL Total Bilirubin (0.0-1.0) mg/dL Direct Bilirubin (0.0-0.5) mg/dL AST (5-31) U/L ALT (0-31) U/L Alkaline Phosphatase (39-117) U/L Total Protein (6.5-8.0) g/dL Albumin (3.5-5.0) g/dL Urine Color Yellow Urine Appearance Turbid Urine pH 8.0 (5.0-9.0) Ur Specific [place] 1.015 (1.005-1.025) Urine Protein 100 (2+) H (Neg-Trace) mg/dL Urine Glucose (UA) Negative (Negative) mg/dL Urine Ketones Negative (Negative) mg/dL Urine Blood Large (3+) H (Negative) Urine Nitrite Negative (Negative) Ur Leukocyte Esterase Large (3+) H (Negative) Urine RBC >20 H (0-2) /HPF Urine WBC >50 H (0-5) /HPF Ur Squamous Epith Cells 0-2 (0-2) /HPF Urine Bacteria 4+ (None Seen) Hyaline Casts 3-5 (0-2) /LPF COVID-19 (EMERY) Negative (Negative) COVID-19 Clin Com See Note Influenza Type A (CAITY) Negative (Negative) Influenza Type B (CAITY) Negative (Negative) Influenza A & B Note See Note Critical Care Time Critical Care Time Critical Care Time: Yes Total Critical Care Time: 50 Attestation: I have personally provided critical care time. Time includes review of lab data, radiology results, discussion with consultants, and monitoring for potential decompensation. Intervention performed as documented. Discharge Plan Discharge Clinical Impression: UTI (urinary tract infection), HIRAM (acute kidney injury) Patient Disposition: Admitted As Inpatient Prescriptions: No Action atorvastatin 40 mg tablet 40 mg PO BEDTIME lisinopril 40 mg tablet 1 tab PO DAILY glipizide 5 mg tablet 1 tab PO BID olopatadine 0.2 % drops 1 drp ophthalmic (eye) BID sennosides [senna] 8.6 mg Tablet 17.2 mg PO BEDTIME aspirin 81 mg Tablet,Chewable 81 mg PO DAILY albuterol 90 mcg/actuation Aerosol 90 mcg INHALATION Q4H furosemide 40 mg tablet 1 tab PO DAILY acetaminophen 325 mg Tablet 650 mg PO Q4H PRN (Reason: Pain) potassium chloride 40 mEq/15 mL Liquid 40 meq PO DAILY pantoprazole 40 mg tablet,delayed release (DR/EC) 1 tab PO BID divalproex 125 mg capsule, delayed rel sprinkle 125 mg PO BID apixaban 5 mg tablet 5 mg PO BID vancomycin 1.25 gram recon soln 1.25 g IV Q24H Qty: 26 0RF ferrous sulfate 324 mg (65 mg iron) Tablet,Delayed Release (Dr/Ec) 324 mg PO DAILY Qty: 30 0RF
[2023-01-05 15:32] LABS: Basophils Absolute Auto 0.1 X10*3/uL (0.0-0.2); Basophils Percent Auto 0.4 % (0-2); Eosinophils Absolute Auto 0.1 X10*3/uL (0.0-0.4); Eosinophils Percent Auto 0.3 % (0-4); Hematocrit 32.2 % (37.0-47.0); Hemoglobin 9.4 g/dl (12.0-16.0); Imm Gran Abs Auto 0.14 X10*3/uL (0.00-0.03); Imm Gran Pct Auto 0.7 % (0.0-0.4); Lymphocytes Absolute Auto 1.6 X10*3/uL (1.2-4.9); Lymphocytes Percent Auto 7.5 % (20-40); MANUAL DIFF FLAG SCAN; Mean Corpuscular HGB Conc 29.2 g/dl (31.0-35.0); Mean Corpuscular Hemoglobin 24.3 pg (27.0-33.0); Mean Corpuscular Volume 83.2 fL (80.0-98.0); Mean Platelet Volume 9.7 fL (9.4-12.3); Monocytes Percent Auto 9.7 % (2-11); Neutrophils Absolute Auto 17.1 x10*3/uL (2.0-8.3); Neutrophils Percent Auto 81.4 % (45-73); Platelet Count 635 X10*3/uL (160-400); Red Blood Count 3.87 X10*6/uL (4.20-5.50); Red Cell Distribution Width 23.9 % (11.0-16.0); SCAN SMEAR FLAG 1; White Blood Count 21.1 X10*3/uL (4.8-10.8)
[2023-01-05 15:46] LABS: Lactic Acid 1.7 mmol/L (0.5-2.0)
[2023-01-05 15:50] LABS: Alanine Aminotransferase 11 U/L (0-31); Albumin Level 2.9 g/dL (3.5-5.0); Alkaline Phosphatase 89 U/L (39-117); Anion Gap 17 (12-20); Aspartate Amino Transferase 15 U/L (5-31); Bilirubin Direct 0.2 mg/dL (0.0-0.5); Bilirubin Total 0.5 mg/dL (0.0-1.0); Blood Urea Nitrogen 42 mg/dL (9-16); Calcium 9.1 mg/dL (8.4-10.2); Carbon Dioxide 26 mmol/L (22-29); Chloride 104 mmol/L (96-108); Creatinine Clr Calc Pharmacy 20.7; Estimated Glomerular Filt Rate 17; Glucose Random 249 mg/dL (60-115); Potassium 3.3 mmol/L (3.3-5.1); Sodium 144 mmol/L (135-145); Total Protein 5.7 g/dL (6.5-8.0)
[2023-01-05 16:03] LABS: COVID-19 Test Negative (Negative); IDNOW Serial# 16C4AD1C
[2023-01-05 16:04] LABS: IDNOW Serial# BCCEAD1C; Influenza A Negative (Negative); Influenza B2 Negative (Negative)
[2023-01-05 16:04] LABS: SLIDE REVIEW VERIFIED
[2023-01-05 17:52] LABS: Appearance Urine Turbid; Color Urine Yellow; Glucose Urine UA Negative (Negative); Leukocyte Esterase Urine Large (3+) (Negative); Nitrite Urine Negative (Negative); Specific Gravity - Urine 1.015 (1.005-1.025); UMIC TRIGGER UACC YES; Urine Blood Large (3+) (Negative); Urine Ketones Negative (Negative); Urine Protein 100 (2+) mg/dL (Neg-Trace)
[2023-01-05 17:57] LABS: Bacteria Urine 4+ (None Seen); RBC Urine >20 /HPF (0-2); Squamous Epithelial Cell Urine 0-2 /HPF (0-2); UACC Culture Trigger YES; WBC Urine >50 /HPF (0-5)
--- NOTE | 2023-01-05 20:20 | P.HPHOSP_ITS ---
History of Present Illness Date of Service: 01/05/23 Attending physician on admission: Darcy Blue Chief Complaint: vaginal discharge 77-year-old female with pertinent history of [id number] diabetes mellitus, schizoaffective disorder, history of CVA, mixed hyperlipidemia, esse ntial hypertension, history CVA, history of PE on Eliquis was sent to the emergency department for evaluation of vaginal discharge by SNF staff. She was recently admitted for acute metabolic encephalopathy and staph lugdunesis bacteremia of unclear etiology, seen by ID, and has PICC line in place for IV vanco (end date January 19). The patient is nonverbal and can barely move extremities at baseline following CVAs. She is unable to provide history. On arrival, vital signs stable. Leukocytosis of 21.1. Creatinine 2.72, baseline 0.78. Electrolyte levels normal. Glucose 249. UA with 3+ bacteria, negative nitrites, 3+ blood, 2+ protein, significant urinary sediment, 4+ bacteria. On bladder scan, she was found to be retaining [address] abdomen/pelvis showed mild bilateral hydroureteronephrosis with mild ureteral dilatation to the level of the bladder. Shore catheter placed and patient given 1 g IV ceftriaxone and 1 L IV an S. following Shore catheter placement, patient noted to be draining fruit punch colored urine witihout clots. Review of Systems Review of Systems: Yes Unobtainable due to mental condition [facility] Medical History (Updated 01/05/23 @ 20:43 by ROOSEVELT Martinez) Anemia Chronic lower back pain COVID-19 COVID-19 virus infection CVA (cerebral vascular accident) Diabetes HTN (hypertension) Hyperlipidemia Sacral decubitus ulcer, stage II Schizoaffective disorder Social History Household Members: Unknown / Unable to assess Household Members Other:: SNF Housing: Unknown / Unable to assess Do you presently have visiting nurse or other home services: No ([facility]) Unable to assess alcohol history related to: Unable to respond Alcohol intake: unknown Patient Tobacco Use Status: Tobacco use Unknown Smoked in Last 30 Days: No Second Hand Smoke Exposure: No Use of substances other than those prescribed or required for medical reasons: Unknown Advance Directives: Yes Advance Directives on File: Yes Advance Directives Date on File: 12/18/22 service: No Current occupational status: retired [employer] Allergies Allergy/AdvReac Type Severity Reaction Status Date / Time No Known Allergies Allergy Verified 10/09/20 11:55 Active Medications: Current Medications Ondansetron HCl (Ondansetron Hcl 4 Mg/2 Ml Vial) 4 mg IVPUSH Q8H PRN PRN Reason: Nausea and Vomiting Sodium Chloride (0.9 % Sodium Chloride Flush 3 Ml Syringe) [facility] Medication Instructions Recorded Confirmed Last Taken Type albuterol 90 mcg/actuation aerosol 90 mcg inhalation Q4H 10/09/20 12/18/22 Unknown History inhaler aspirin 81 mg chewable tablet 81 mg PO DAILY 10/09/20 12/18/22 Unknown History atorvastatin 40 mg tablet 40 mg PO BEDTIME 10/09/20 12/18/22 Unknown History glipizide 5 mg tablet 1 tab PO BID 10/09/20 12/18/22 Unknown History lisinopril 40 mg tablet 1 tab PO DAILY 10/09/20 12/18/22 Unknown History olopatadine 0.2 % eye drops 1 drp ophthalmic (eye) BID 10/09/20 12/18/22 Unknown History sennosides 8.6 mg tablet (senna) 17.2 mg PO BEDTIME 10/09/20 12/18/22 Unknown History acetaminophen 325 mg tablet 650 mg PO Q4H PRN Pain 12/18/22 12/18/22 Unknown History apixaban 5 mg tablet 5 mg PO BID 12/18/22 12/18/22 Unknown History divalproex 125 mg capsule,delayed 125 mg PO BID 12/18/22 12/18/22 Unknown History release sprinkle furosemide 40 mg tablet 1 tab PO DAILY 12/18/22 12/18/22 Unknown History pantoprazole 40 mg tablet,delayed 1 tab PO BID 12/18/22 12/18/22 Unknown History release potassium chloride 40 mEq/15 mL 40 meq PO DAILY 12/18/22 12/18/22 Unknown History oral liquid Physical Exam Vital Signs and Narrative: Vital Signs: Last Vital Signs Temp 98.7 F 01/05/23 19:34 Pulse 83 01/05/23 19:34 Resp 16 01/05/23 19:34 BP 131/53 L 01/05/23 19:34 Pulse Ox 95 01/05/23 19:34 O2 Del Method 01/05/23 19:34 BMI result Body Mass Index 33.5 Constitutional -somnolent but arousable, No apparent distress Eyes - PERRLA, EOMI Cardiovascular - S1S2, RRR, No edema Respiratory - Normal lung expansion, Normal respiratory effort, No respiratory distress, CTA bilaterally Gastrointestinal - NT / ND; +BS; No rebound or guarding : No CVA tenderness. Shore catheter in place draining fruit punch colored urine Extremities - no calf tenderness bilaterally, no swelling Skin - Warm/Dry Neurological - somnolent but arousable, nonverbal at baseline. Unable to move extremities much at baseline Psychological - Appropriate affect Results Labs 01/05/23 15:22 01/05/23 15:22 Labs: Laboratory Results - last 24 hr 01/05/23 01/05/23 01/05/23 15:22 15:22 15:22 MCV 83.2 MCH 24.3 L MCHC 29.2 L RDW 23.9 H Plt Count 635 H D MPV 9.7 Immature Gran % (Auto) 0.7 H Neut % (Auto) 81.4 H Lymph % (Auto) 7.5 L Price % (Auto) 9.7 Eos % (Auto) 0.3 Baso % (Auto) 0.4 Lymph # (Auto) 1.6 Price # (Auto) 2.0 H Eos # (Auto) 0.1 Baso # (Auto) 0.1 Abs Immat Gran (auto) 0.14 H Absolute Neuts (auto) 17.1 H Absolute Nucleated RBC 0.000 Nucleated RBC % (auto) 0.0 Smear Tech's Comments VERIFIED Anion Gap 17 Estim Creat Clear Calc 20.7 Estimated GFR 17 Random Glucose 249 H Lactic Acid 1.7 Calcium 9.1 Total Bilirubin 0.5 Direct Bilirubin 0.2 AST 15 ALT 11 Alkaline Phosphatase 89 Total Protein 5.7 L Albumin 2.9 L Urine Color Urine Appearance Urine pH Ur Specific [place] Urine Protein Urine Glucose (UA) Urine Ketones Urine Blood Urine Nitrite Ur Leukocyte Esterase Urine RBC Urine WBC Ur Squamous Epith Cells Urine Bacteria Hyaline Casts COVID-19 (EMERY) COVID-19 Clin Com Influenza Type A (CAITY) Influenza Type B (CAITY) Influenza A & B Note 01/05/23 01/05/23 01/05/23 15:34 15:34 17:40 MCV MCH MCHC RDW Plt Count MPV Immature Gran % (Auto) Neut % (Auto) Lymph % (Auto) Price % (Auto) Eos % (Auto) Baso % (Auto) Lymph # (Auto) Price # (Auto) Eos # (Auto) Baso # (Auto) Abs Immat Gran (auto) Absolute Neuts (auto) Absolute Nucleated RBC Nucleated RBC % (auto) Smear Tech's Comments Anion Gap Estim Creat Clear Calc Estimated GFR Random Glucose Lactic Acid Calcium Total Bilirubin Direct Bilirubin AST ALT Alkaline Phosphatase Total Protein Albumin Urine Color Yellow Urine Appearance Turbid Urine pH 8.0 Ur Specific [place] 1.015 Urine Protein 100 (2+) H Urine Glucose (UA) Negative Urine Ketones Negative Urine Blood Large (3+) H Urine Nitrite Negative Ur Leukocyte Esterase Large (3+) H Urine RBC >20 H Urine WBC >50 H Ur Squamous Epith Cells 0-2 Urine Bacteria 4+ Hyaline Casts 3-5 COVID-19 (EMERY) Negative COVID-19 Clin Com See Note Influenza Type A (CAITY) Negative Influenza Type B (CAITY) Negative Influenza A & B Note See Note Imaging Radiologist's Impressions: Impressions Abdomen/Pelvis CT 01/05/23 18:25 IMPRESSION: 1. Mild bilateral hydroureteronephrosis with mild ureteral dilation to the level the decompressed bladder. No radiodense urinary tract calculi. 2. No evidence of bowel obstruction or other acute intra-abdominal process. 3. Mild to moderate gaseous distention of the colon. Assessment and Plan (1) Urinary retention: Status: Acute (2) Bilateral hydronephrosis: Status: Acute (3) HIRAM (acute kidney injury): Status: Acute (4) UTI (urinary tract infection): Status: Acute Plan 77-year-old female with pertinent history of [id number] diabetes mellitus, mood disorder, history of CVA, mixed hyperlipidemia, essential hypertension, history CVA, history of PE on Eliquis admitted for acute UTI with urinary retention and HIRAM. #Acute UTI with pyuria and urinary retention -UA with 3+ bacteria, negative nitrites, 3+ blood, positive urinary sediment, and 4+ bacteria -CT of the abdomen/pelvis showing bilateral hydroureteronephrosis and ureteral dilatation to the level of the bladder -noted to be retaining 1000 mL urine. Continue Shore catheter with close monitoring of I and O -hematuria noted post Shore catheter insertion, likely traumatic without clots, hold on any CBI at this time -continue IV ceftriaxone -appreciate urology input -leukocytosis of 21.1. No other sirs criteria, no sepsis -follow cultures and CBC # acute kidney injury-likely prerenal -continue IVF -follow BMP #? acute metabolic encephalopathy-likely secondary to UTI -patient quite somnolent but arousable. Unable to assess orientation as patient is nonverbal -monitor mentation -keep NPO for now until more awake. Per NEIGHBORHOOD PLANNER on previous admission, patient tolerates pureed diet with honey thick liquids # [id number] type 2 diabetes-uncontrolled -POC glucose -NPO for now but advance to diabetic diet as above -hold p.o. antihyperglycemics -Humalog on sliding scale # staph lugdunensis bacteremia-unclear source -diagnosed during last admission -seen by ID at that time. Continue IV vancomycin via PICC line (end date 01/19) # chronic iron deficiency anemia -continue ferrous sulfate -outpatient GI consult for evaluation of slow lower GI bleed # history pulmonary embolism -continue Eliquis # history CVA -continue Eliquis , statin, and aspirin -patient nonverbal at baseline and unable to move her extremities much at baseline following CVA # mood disorder -continue home meds # hypertension-reasonably controlled -hold lisinopril in setting of HIRAM. Continue Lasix DVT prophylaxis-on Eliquis DNR/DNI Patient requires inpatient stay of at least 2 midnights for management of pyuria with urinary retention and HIRAM requiring IV antibiotics, close monitoring of I and O as well as renal function electrolytes, and IV fluids Time Spent With Patient Time: Total time managing care of this patient today ____ minutes. Quality Stroke Does the patient have a stroke diagnosis?: No VTE Prior VTE?: Yes VTE Risk Level:: Medical - moderate - high VTE Device Contraindication: Treatment Not Indicated VTE Drug Contraindication: N/A - Med Ordered
[2023-01-05] MEDS: 0.9 % Sodium Chloride 2,500 ML 999 ML IVCONT (20:35)
[2023-01-05] MEDS: cefTRIAXone sodium 1 GM in 0.9 % Sodium Chloride 50 ML IV (20:35)
--- NOTE | 2023-01-05 21:52 | PHA.PROG ---
Admission Date/Time: January 05, 2023 20:10 Indication: bacteremia Weight in k.2 kg Adjusted body weight in Kg: [place] body weight in Kg: Obesity Dosing Indication % IBW: Serum Creatinine - Last 168 Hours 01/05/23 15:22 Creatinine 2.72 H Estimated CrCl and GFR - Last 168 Hours 01/05/23 15:22 Estim Creat Clear Calc 20.7 Estimated GFR 17 Vancomycin Loading Dose: 2000mg X 1 Current Vancomycin Dosing Regimen: 500mg Q24H Vancomycin Monitoring using AUC goal of 400 - 600 range with trough as surrogate marker: 547mg/L Date and Time for next Vancomycin Level to be drawn: 01/07/23 @1900 Pharmacist Comments on Vancomycin Plan: Renal function very poor, will ocntinue to monitor. Obesity model being used Vancomycin dosing will take advantage of [employer] as a clinical decision support tool that uses Bayesian modeling to calculate individual patient's pharmacokinetic parameters and forecast the patient's drug concentration time course with the target goal AUC 24 range of 400 - 600 mg/L/hr.
[2023-01-06] VITALS (7 sets, daily range): BP systolic 120–174; BP diastolic 48–90; PULSE 70–88; RESP 12–20; TEMP 36–37.1; O2SAT 92–98
--- NOTE | 2023-01-06 00:41 | PC.NURSE ---
I assumed nursing care of Jennifer at 184. Since that time the pt has been sleeping in bed. She opens her eyes to verbal stimuli but falls back to sleep rather quickly. She makes eye contact with RN and is calm and cooperative. Respirations are non-labored, room air sat's 95% or better, RR WNL. On my arrival I was requested to perform CBI on this pt due to bloody urine output in the Shore catheter that was placed prior to my arrival. CBI was set up and initiated - irrigant is infusing at a moderate rate, urine output is mildly blood tinged at this time. We will continue to monitor Ibis.
[2023-01-06 07:57] LABS: Glucose, Whole Blood 147 mg/dL (60-115)
--- NOTE | 2023-01-06 09:23 | PC.NURSE ---
rn to rn report given to magaly. pt aware of plan of care.
--- NOTE | 2023-01-06 09:25 | PC.NURSE ---
rn to rn report given to irasema mckenzie aware of plan of care for admission to room 343.
[2023-01-06] MEDS: 0.9 % Sodium Chloride Flush 3 ML SYRINGE IVFLUSH ×3 (09:33→21:10)
--- NOTE | 2023-01-06 09:38 | PC.NURSE ---
pt is a/o x 2 no sob/saeed noted speaks in full sentences. (vietnamese). lungs - cta. heart sounds - regular. abd - obese, c/ 2/10 r side of abd, bs + x 4 quads. lymphodema noted to l arm. r lower leg edema. kt wraps to tina lower legs.
--- NOTE | 2023-01-06 09:51 | PM.UROCN ---
History of Present Illness Consult details Consult date: 01/06/23 Narrative: 77-year-old female with past medical history of ggp-zkytjdf-jznlvqtuo diabetes mellitus, schizoaffective disorder, paraplegia secondary to history of CVA, mixed hyperlipidemia, essential hypertension, history of PE on Eliquis. Pt nonverbal. History obtain from chart review. Pt was sent to the emergency department for evaluation of vaginal discharge by SNF staff. She was recently admitted for acute metabolic encephalopathy and staph lugdunesis bacteremia of unclear etiology, seen by ID, and has PICC line in place for IV vanco (end date January 19). Pertinent labs:? Leukocytosis of 21.1.? Creatinine 2.72, baseline 0.78.? UA with 3+ bacteria, negative nitrites, 3+ blood, 2+ On bladder scan, she was found to be retaining 1000 mL of urine.?Shore catheter placed with hematuria noted without clots. CT abdomen/pelvis showed mild bilateral hydroureteronephrosis with mild ureteral dilatation to the level of the bladder.? Patient received 1 g IV ceftriaxone in ED. Review of Systems Review of Systems: 10 point ROS negative other than stated in HPI PMFSH Past Medical History Medical History Anemia Chronic lower back pain COVID-19 COVID-19 virus infection CVA (cerebral vascular accident) Diabetes HTN (hypertension) Hyperlipidemia Sacral decubitus ulcer, stage II Schizoaffective disorder Social History Social History Household Members: Unknown / Unable to assess Household Members Other:: SNF Housing: Senior Living Do you presently have visiting nurse or other home services: No Unable to assess alcohol history related to: Unable to respond Alcohol intake: unknown Patient Tobacco Use Status: Tobacco use Unknown Second Hand Smoke Exposure: No Advance Directives Date on File: 12/18/22 service: No Current occupational status: retired Meds Allergies Allergy/AdvReac Type Severity Reaction Status Date / Time No Known Allergies Allergy Verified 10/09/20 11:55 Active Medications: Current Medications Dextrose (Dextrose 50 % 25 Gm/50 Ml Syringe) 25 gm IVPUSH Q15M PRN; Protocol PRN Reason: per Hypoglycemia Standing Ord. Glucose (Glucose Gel 15 Gm Gel..Gram.) 15 gm PO Q15M PRN; Protocol PRN Reason: per Hypoglycemia Standing Ord. Vancomycin HCl 500 mg/ Sodium (Chloride) 110 mls @ 110 mls/hr IV Q24H [facility] Insulin Human Lispro (Insulin Lispro 100 Unit/Ml 3 Ml Vial) 0 unit SUBCUT QIDACHS [facility]; Protocol Last Admin: 01/06/23 09:33 Dose: Not Given Ondansetron HCl (Ondansetron Hcl 4 Mg/2 Ml Vial) 4 mg IVPUSH Q8H PRN PRN Reason: Nausea and Vomiting Pharmacy Consult (Consult Rx Vancomycin Dosing) 1 each MISCELLANE DAILY PRN PRN Reason: Consult order Stop: 01/19/23 21:00 Pharmacy Consult (Consult Rx Perform Med Rec) 1 each MISCELLANE ONCE PRN PRN Reason: Consult order Sodium Chloride (0.9 % Sodium Chloride Flush 3 Ml Syringe) 3 ml IVFLUSH QSHIFT [facility] Last Admin: 01/06/23 09:33 Dose: 3 ml Home Medications Medication Instructions Recorded Confirmed Last Taken Type albuterol 90 mcg/actuation aerosol 90 mcg inhalation Q4H 10/09/20 01/06/23 Unknown History inhaler aspirin 81 mg chewable tablet 81 mg PO DAILY 10/09/20 01/06/23 Unknown History atorvastatin 40 mg tablet 40 mg PO BEDTIME 10/09/20 01/06/23 Unknown History glipizide 5 mg tablet 5 mg PO DAILY 10/09/20 01/06/23 Unknown History lisinopril 40 mg tablet 40 mg PO DAILY 10/09/20 01/06/23 Unknown History olopatadine 0.2 % eye drops 1 drp ophthalmic (eye) BID 10/09/20 01/06/23 Unknown History sennosides 8.6 mg tablet (senna) 17.2 mg PO BEDTIME 10/09/20 01/06/23 Unknown History acetaminophen 325 mg tablet 650 mg PO Q4H PRN Fever Or Pain 12/18/22 01/06/23 Unknown History apixaban 5 mg tablet 5 mg PO BID 12/18/22 01/06/23 Unknown History divalproex 125 mg capsule,delayed 125 mg PO BID 12/18/22 01/06/23 Unknown History release sprinkle furosemide 40 mg tablet 40 mg PO DAILY 12/18/22 01/06/23 Unknown History pantoprazole 40 mg tablet,delayed 40 mg PO BID 12/18/22 01/06/23 Unknown History release potassium chloride 40 mEq/15 mL 40 meq PO DAILY 12/18/22 01/06/23 Unknown History oral liquid albuterol sulfate 90 mcg/actuation 2 puff inhalation Q4H PRN 01/06/23 01/06/23 Unknown History aerosol inhaler (Ventolin HFA) Shortness Of Breath Or Wheezing bisacodyl 10 mg rectal suppository 10 mg OK DAILY PRN Constipation 01/06/23 01/06/23 Unknown History ferrous gluconate 324 mg (38 mg 324 mg PO DAILY 01/06/23 01/06/23 Unknown History iron) tablet magnesium hydroxide 400 mg/5 mL 30 ml PO DAILY PRN Constipation 01/06/23 01/06/23 Unknown History oral suspension (Milk of Magnesia) ondansetron 4 mg disintegrating 4 mg PO Q6H PRN Nausea And Vomiting 01/06/23 01/06/23 Unknown History tablet polyethylene glycol 3350 17 gram 17 g PO DAILY 01/06/23 01/06/23 Unknown History oral powder packet (Miralax) sodium phosphates 19 gram-7 118 ml OK DAILY PRN Constipation 01/06/23 01/06/23 Unknown History gram/118 mL enema (Fleet Enema) Physical Exam Vital Signs: Vital Signs: Last Vital Signs Temp 98.8 F 01/06/23 09:30 Pulse 75 01/06/23 09:30 Resp 12 01/06/23 09:30 BP 120/48 L 01/06/23 09:30 Pulse Ox 98 01/06/23 09:30 O2 Del Method 01/06/23 09:30 BMI result Body Mass Index 33.5 Const: Other: nonverbal General: no acute distress Nutritional Appearance: overweight HEENT: Head: Yes normal to inspection, Yes normocephalic and Yes atraumatic Neck: Neck: Yes normal visual inspection and Yes trachea midline Chest: Chest palpation & inspection: normal inspection of the chest Resp: Effort & Inspection: normal respiratory effort Cardio: Rate: regular rate GI: Inspection: Yes normal to inspection Palpation (GI): Soft to palpation : Other: Shore in place Skin: General skin exam: no rashes or lesions noted Extrem: Other: Left hemiplegia Psych: Mental Status: other ( nonverbal) Results Labs 01/05/23 15:22 01/05/23 15:22 Labs: Abnormal lab results 01/05/23 01/05/23 01/05/23 Range/Units 15:22 15:22 17:40 WBC 21.1 H (4.8-10.8) X10*3/uL RBC 3.87 L (4.20-5.50) X10*6/uL Hgb 9.4 L (12.0-16.0) g/dl Hct 32.2 L (37.0-47.0) % MCH 24.3 L (27.0-33.0) pg MCHC 29.2 L (31.0-35.0) g/dl RDW 23.9 H (11.0-16.0) % Plt Count 635 H D (160-400) X10*3/uL Immature Gran % (Auto) 0.7 H (0.0-0.4) % Neut % (Auto) 81.4 H (45-73) % Lymph % (Auto) 7.5 L (20-40) % [place] # (Auto) 2.0 H (0.1-1.2) X10*3/uL Abs Immat Gran (auto) 0.14 H (0.00-0.03) X10*3/uL Absolute Neuts (auto) 17.1 H (2.0-8.3) x10*3/uL BUN 42 H (9-16) mg/dL Creatinine 2.72 H (0.5-1.4) mg/dL POC Glucose (60-115) mg/dL Random Glucose 249 H (60-115) mg/dL Total Protein 5.7 L (6.5-8.0) g/dL Albumin 2.9 L (3.5-5.0) g/dL Urine Protein 100 (2+) H (Neg-Trace) mg/dL Urine Blood Large (3+) H (Negative) Ur Leukocyte Esterase Large (3+) H (Negative) Urine RBC >20 H (0-2) /HPF Urine WBC >50 H (0-5) /HPF 01/06/23 Range/Units 07:47 WBC (4.8-10.8) X10*3/uL RBC (4.20-5.50) X10*6/uL Hgb (12.0-16.0) g/dl Hct (37.0-47.0) % MCH (27.0-33.0) pg MCHC (31.0-35.0) g/dl RDW (11.0-16.0) % Plt Count (160-400) X10*3/uL Immature Gran % (Auto) (0.0-0.4) % Neut % (Auto) (45-73) % Lymph % (Auto) (20-40) % [place] # (Auto) (0.1-1.2) X10*3/uL Abs Immat Gran (auto) (0.00-0.03) X10*3/uL Absolute Neuts (auto) (2.0-8.3) x10*3/uL BUN (9-16) mg/dL Creatinine (0.5-1.4) mg/dL POC Glucose 147 H (60-115) mg/dL Random Glucose (60-115) mg/dL Total Protein (6.5-8.0) g/dL Albumin (3.5-5.0) g/dL Urine Protein (Neg-Trace) mg/dL Urine Blood (Negative) Ur Leukocyte Esterase (Negative) Urine RBC (0-2) /HPF Urine WBC (0-5) /HPF Short CBC 01/05/23 Range/Units 15:22 WBC 21.1 H (4.8-10.8) X10*3/uL Hgb 9.4 L (12.0-16.0) g/dl Hct 32.2 L (37.0-47.0) % Plt Count 635 H D (160-400) X10*3/uL BMP 01/05/23 15:22 Sodium 144 Potassium 3.3 Chloride 104 Carbon Dioxide 26 BUN 42 H Creatinine 2.72 H Calcium 9.1 Liver Function 01/05/23 Range/Units 15:22 Total Bilirubin 0.5 (0.0-1.0) mg/dL Direct Bilirubin 0.2 (0.0-0.5) mg/dL AST 15 (5-31) U/L ALT 11 (0-31) U/L Alkaline Phosphatase 89 (39-117) U/L Albumin 2.9 L (3.5-5.0) g/dL Urine 01/05/23 Range/Units 17:40 Urine Color Yellow Urine Appearance Turbid Urine pH 8.0 (5.0-9.0) Ur Specific [place] 1.015 (1.005-1.025) Urine Protein 100 (2+) H (Neg-Trace) mg/dL Urine Glucose (UA) Negative (Negative) mg/dL Imaging Abdomen CT scan report/results: report reviewed and image reviewed CT scan - pelvis: report reviewed and image reviewed Additional studies: Date of Service: 01/05/23 CT ABDOMEN AND PELVIS WITHOUT CONTRAST? CLINICAL INFORMATION: Abdominal pain. Rule out urologic obstruction.? COMPARISON: CT abdomen pelvis 12/18/2022, pelvic CT 12/24/2022? FINDINGS: LUNG BASES: Subsegmental atelectasis in the right lung base. Coronary artery vascular calcifications.? LIVER, GALLBLADDER, AND BILIARY TREE: The liver is normal in size, shape, and attenuation. No focal hepatic lesion or biliary ductal dilatation is present. Status post cholecystectomy.? PANCREAS: Unremarkable.? SPLEEN: Unremarkable.? ADRENAL GLANDS: Unremarkable.? KIDNEYS AND URETERS: Mild bilateral hydroureteronephrosis. The ureters are mildly dilated to the level of the urinary bladder. Mild symmetric bilateral perirenal fascial stranding, nonspecific. No radiodense urinary tract calculi. No renal lesions.? BLADDER: Decompressed with Shore catheter in place.? GASTROINTESTINAL TRACT: Mild to moderate gaseous distention of the redundant colon. No dilated bowel loops or bowel wall thickening. Normal appendix. No free air or ascites.? ABDOMINAL WALL: Rectus diastases. Small fat-containing umbilical hernia. Mild body wall edema in the flanks and lateral proximal thighs. ? LYMPH NODES: No lymphadenopathy. VASCULAR: Normal caliber abdominal aorta. Moderate vascular calcifications. PELVIC VISCERA: Uterine vascular calcifications. Gynecologic structures otherwise grossly unremarkable, limited assessment.? OSSEOUS STRUCTURES: No acute fracture or suspicious osseous lesion. Mild multilevel spondylosis of the visualized thoracolumbar spine and lumbar facet arthrosis.? IMPRESSION: 1.? Mild bilateral hydroureteronephrosis with mild ureteral dilation to the level the decompressed bladder. No radiodense urinary tract calculi. 2.? No evidence of bowel obstruction or other acute intra-abdominal process. 3.? Mild to moderate gaseous distention of the colon. ? Assessment and Plan (1) Urinary retention: Status: Acute (2) Bilateral hydronephrosis: Status: Acute (3) HIRAM (acute kidney injury): Status: Acute (4) UTI (urinary tract infection): Status: Acute Plan Recommend ID to see regarding abx therapy urine c/s pending urine clear on CBI B/L hydronephrosis secondary to urinary retention no surgical intervention planned at this time. Pt on Eliquis due to h/o PE Time Spent With Patient Time: Total time managing care of this patient today ____ minutes. Procedures Date of Service Date of Service: 01/06/23
--- NOTE | 2023-01-06 09:58 | PC.NURSE ---
pt's daughter gertrude davis ([phone]) called and was updated on pt status. daughter states that she is the primary hcp and is requesting that she be called first then her brother if she is unavailable for any updates. pt aware of plan of care for admission to room 343.
--- NOTE | 2023-01-06 10:07 | PC.NURSE ---
pt has received 2100ml of cbi with very clear urine. cbi is being held at this time. med surg floor rn to follow up the admitting md.
--- NOTE | 2023-01-06 10:25 | MHC.CM.PN ---
IMM 12/18/22 DELIVERED TO DTR/HCP MARIIA MAURER AT 10:20AM [phone], MARIIA REPORTS PT IS TOTALLY DEPENDENT W/CARE AT BASELINE IS NORMALLY IS MORE RESPONSIVE THEN HOW [place] [facility] [place] WILL BE FOR PT TO RETURN TO LTC AT [facility] ONCE MEDICALLY CLEARED.
[2023-01-06 11:04] LABS: Glucose, Whole Blood 141 mg/dL (60-115)
--- NOTE | 2023-01-06 11:26 | P.PNIM_ITS ---
Subjective Subjective Date of Service: 01/06/23 Interval History: Follow up UTI, hydronephrosis nonverbal, encephalopathy Review of Systems Review of Systems: Yes Unobtainable due to mental condition Physical Exam Vital Signs: Vital Signs: Last Vital Signs Temp 96.8 F 01/06/23 10:27 Pulse 74 01/06/23 10:27 Resp 18 01/06/23 10:27 BP 153/70 H 01/06/23 10:27 Pulse Ox 96 01/06/23 10:27 O2 Del Method 01/06/23 10:27 BMI result Body Mass Index 33.5 Appearing in no acute distress lung sounds are clear to auscultation heart regular rate rhythm, clear S1, S2 positive bowel sounds, abdomen is soft, nontender neuro patient is sleeping Objective Data Active Medications Dextrose (Dextrose 50 % 25 Gm/50 Ml Syringe) 25 gm IVPUSH Q15M PRN; Protocol PRN Reason: per Hypoglycemia Standing Ord. Glucose (Glucose Gel 15 Gm Gel..Gram.) 15 gm PO Q15M PRN; Protocol PRN Reason: per Hypoglycemia Standing Ord. Vancomycin HCl 500 mg/ Sodium (Chloride) 110 mls @ 110 mls/hr IV Q24H [facility] Insulin Human Lispro (Insulin Lispro 100 Unit/Ml 3 Ml Vial) 0 unit SUBCUT QIDACHS [facility]; Protocol Last Admin: 01/06/23 09:33 Dose: Not Given Documented By: GWEN Non-Admin Reason: No Insulin Coverage Ondansetron HCl (Ondansetron Hcl 4 Mg/2 Ml Vial) 4 mg IVPUSH Q8H PRN PRN Reason: Nausea and Vomiting Pharmacy Consult (Consult Rx Vancomycin Dosing) 1 each MISCELLANE DAILY PRN PRN Reason: Consult order Stop: 01/19/23 21:00 Pharmacy Consult (Consult Rx Perform Med Rec) 1 each MISCELLANE ONCE PRN PRN Reason: Consult order Sodium Chloride (0.9 % Sodium Chloride Flush 3 Ml Syringe) [facility] Last Admin: 01/06/23 09:33 Dose: 3 ml Documented By: GWEN Labs 01/05/23 15:22 01/05/23 15:22 Labs: Laboratory Results - last 24 hr 01/05/23 01/05/23 01/05/23 15:22 15:22 15:22 MCV 83.2 MCH 24.3 L MCHC 29.2 L RDW 23.9 H Plt Count 635 H D MPV 9.7 Immature Gran % (Auto) 0.7 H Neut % (Auto) 81.4 H Lymph % (Auto) 7.5 L [place] % (Auto) 9.7 Eos % (Auto) 0.3 Baso % (Auto) 0.4 Lymph # (Auto) 1.6 [place] # (Auto) 2.0 H Eos # (Auto) 0.1 Baso # (Auto) 0.1 Abs Immat Gran (auto) 0.14 H Absolute Neuts (auto) 17.1 H Absolute Nucleated RBC 0.000 Nucleated RBC % (auto) 0.0 Smear Tech's Comments VERIFIED Anion Gap 17 Estim Creat Clear Calc 20.7 Estimated GFR 17 POC Glucose Random Glucose 249 H Lactic Acid 1.7 Calcium 9.1 Total Bilirubin 0.5 Direct Bilirubin 0.2 AST 15 ALT 11 Alkaline Phosphatase 89 Total Protein 5.7 L Albumin 2.9 L Urine Color Urine Appearance Urine pH Ur Specific [place] Urine Protein Urine Glucose (UA) Urine Ketones Urine Blood Urine Nitrite Ur Leukocyte Esterase Urine RBC Urine WBC Ur Squamous Epith Cells Urine Bacteria Hyaline Casts COVID-19 ([facility]) COVID-19 Clin Com Influenza Type A ([facility]) Influenza Type B (CA[facility]) Influenza A & B Note 01/05/23 01/05/23 01/05/23 15:34 15:34 17:40 MCV MCH MCHC RDW Plt Count MPV Immature Gran % (Auto) Neut % (Auto) Lymph % (Auto) [place] % (Auto) Eos % (Auto) Baso % (Auto) Lymph # (Auto) [place] # (Auto) Eos # (Auto) Baso # (Auto) Abs Immat Gran (auto) Absolute Neuts (auto) Absolute Nucleated RBC Nucleated RBC % (auto) Smear Tech's Comments Anion Gap Estim Creat Clear Calc Estimated GFR POC Glucose Random Glucose Lactic Acid Calcium Total Bilirubin Direct Bilirubin AST ALT Alkaline Phosphatase Total Protein Albumin Urine Color Yellow Urine Appearance Turbid Urine pH 8.0 Ur Specific [place] 1.015 Urine Protein 100 (2+) H Urine Glucose (UA) Negative Urine Ketones Negative Urine Blood Large (3+) H Urine Nitrite Negative Ur Leukocyte Esterase Large (3+) H Urine RBC >20 H Urine WBC >50 H Ur Squamous Epith Cells 0-2 Urine Bacteria 4+ Hyaline Casts 3-5 COVID-19 ([facility]) Negative COVID-19 Clin Com See Note Influenza Type A ([facility]) Negative Influenza Type B ([facility]) Negative Influenza A & B Note See Note 01/06/23 01/06/23 07:47 11:00 MCV MCH MCHC RDW Plt Count MPV Immature Gran % (Auto) Neut % (Auto) Lymph % (Auto) [place] % (Auto) Eos % (Auto) Baso % (Auto) Lymph # (Auto) [place] # (Auto) Eos # (Auto) Baso # (Auto) Abs Immat Gran (auto) Absolute Neuts (auto) Absolute Nucleated RBC Nucleated RBC % (auto) Smear Tech's Comments Anion Gap Estim Creat Clear Calc Estimated GFR POC Glucose 147 H 141 H Random Glucose Lactic Acid Calcium Total Bilirubin Direct Bilirubin AST ALT Alkaline Phosphatase Total Protein Albumin Urine Color Urine Appearance Urine pH Ur Specific [place] Urine Protein Urine Glucose (UA) Urine Ketones Urine Blood Urine Nitrite Ur Leukocyte Esterase Urine RBC Urine WBC Ur Squamous Epith Cells Urine Bacteria Hyaline Casts COVID-19 ([facility]) COVID-19 Clin Com Influenza Type A ([facility]) Influenza Type B ([facility]) Influenza A & B Note Microbiology Microbiology Results: Microbiology 01/05/23 17:58 Urine Culture - Preliminary Urine Catheterized - Shore Catheter Gram negative skye Assessment and Plan (1) Bilateral hydronephrosis: Status: Acute Plan 77-year-old female with pertinent history of unu-ivqrraa-uqltryutl diabetes mellitus, mood disorder, history of CVA, mixed hyperlipidemia, essential hypertension, history CVA, history of PE on Eliquis admitted for acute UTI with urinary retention and HIRAM. Acute GNR UTI with pyuria and urinary retention CT of the abdomen/pelvis showing bilateral hydroureteronephrosis and ureteral dilatation to the level of the bladder f/c placed continue IV ceftriaxone appreciate urology input follow final cx acute kidney injury-likely prerenal from hydronephrosis continue IVF follow BMP acute metabolic encephalopathy secondary to UTI patient quite somnolent but arousable.? monitor mentation keep NPO for now until more awake.? Per [employer]ED [employer]UMBER on previous admission, patient tolerates pureed diet with honey thick liquids bvg-qjieqgr-ichkjmzct type 2 diabetes-uncontrolled ss, ada diet staph lugdunensis bacteremia-unclear source diagnosed during last admission Continue IV vancomycin via PICC line (end date 3/6) chronic iron deficiency anemia continue ferrous sulfate history pulmonary embolism continue Eliquis history CVA continue Eliquis , statin, and aspirin patient nonverbal at baseline and unable to move her extremities much at baseline following CVA mood disorder continue home meds hypertension-reasonably controlled hold lisinopril in setting of HIRAM.? Continue Lasix DVT prophylaxis-on Eliquis Attending Dr. Sherwood DNR/DNI continued hospital stay for management of pyuria with urinary retention and HIRAM requiring IV antibiotics, close monitoring of I and O as well as renal function electrolytes, and IV fluids Time Spent With Patient Time: Total time managing care of this patient today ____ minutes. Quality Stroke Does the patient have a stroke diagnosis?: No VTE Prior VTE?: Yes VTE Risk Level:: Medical - moderate - high VTE Device Contraindication: Treatment Not Indicated VTE Drug Contraindication: N/A - Med Ordered
[2023-01-06 11:31] LABS: MANUAL DIFF FLAG NO
--- NOTE | 2023-01-06 11:31 | PHA.MEDREC ---
Pharmacy Consult ? Medication Reconciliation Pharmacy has completed the medication reconciliation. Med rec complete using list from chloé deluna at [place].
[2023-01-06 11:34] LABS: Basophils Absolute Auto 0.1 X10*3/uL (0.0-0.2); Basophils Percent Auto 0.4 % (0-2); Eosinophils Absolute Auto 0.3 X10*3/uL (0.0-0.4); Eosinophils Percent Auto 1.6 % (0-4); Hemoglobin 8.8 g/dl (12.0-16.0); Imm Gran Abs Auto 0.11 X10*3/uL (0.00-0.03); Imm Gran Pct Auto 0.6 % (0.0-0.4); Lymphocytes Absolute Auto 1.2 X10*3/uL (1.2-4.9); Lymphocytes Percent Auto 6.5 % (20-40); Mean Corpuscular HGB Conc 29.3 g/dl (31.0-35.0); Mean Corpuscular Hemoglobin 24.2 pg (27.0-33.0); Mean Corpuscular Volume 82.6 fL (80.0-98.0); Mean Platelet Volume 9.4 fL (9.4-12.3); Monocytes Absolute Auto 1.2 X10*3/uL (0.1-1.2); Monocytes Percent Auto 6.7 % (2-11); Neutrophils Absolute Auto 15.7 x10*3/uL (2.0-8.3); Neutrophils Percent Auto 84.2 % (45-73); Platelet Count 606 X10*3/uL (160-400); Red Blood Count 3.63 X10*6/uL (4.20-5.50); Red Cell Distribution Width 23.5 % (11.0-16.0); White Blood Count 18.6 X10*3/uL (4.8-10.8)
[2023-01-06 12:19] LABS: Estimated Glomerular Filt Rate 54
[2023-01-06 12:28] LABS: Anion Gap 15 (12-20); Blood Urea Nitrogen 33 mg/dL (9-16); Calcium 9.1 mg/dL (8.4-10.2); Carbon Dioxide 27 mmol/L (22-29); Chloride 110 mmol/L (96-108); Creatinine Clr Calc Pharmacy 58.1; Estimated Glomerular Filt Rate 55; Glucose Random 148 mg/dL (60-115); Potassium 3.2 mmol/L (3.3-5.1); Sodium 149 mmol/L (135-145)
--- NOTE | 2023-01-06 12:32 | HE.PHANOTE ---
RE: phani Renal function improved significantly, changed dose to 1000mg Q24H with predicted AUC 463mg/L, trough of 12.7. level still to be drawn 01/07 @1900
[2023-01-06 16:30] LABS: Glucose, Whole Blood 203 mg/dL (60-115)
[2023-01-06] MEDS: Insulin Lispro 100 UNIT/ML 3 ML VIAL SUBCUT ×2 (16:57→21:08)
[2023-01-06] MEDS: cefTRIAXone sodium 1 GM in 0.9 % Sodium Chloride 50 ML IV (16:57)
[2023-01-06 20:45] LABS: Glucose, Whole Blood 237 mg/dL (60-115)
[2023-01-06] MEDS: vancomycin HCL 1,000 MG in 0.9 % Sodium Chloride 250 ML 270 MG IV (21:10)
[2023-01-07 00:01] VITALS: BP 152/68
[2023-01-07 03:05] VITALS: BP 180/64; PULSE 81; RESP 20; TEMP 35.6; O2SAT 95
[2023-01-07 06:54] LABS: Creatinine Clr Calc Pharmacy 76.2; Estimated Glomerular Filt Rate > 60
[2023-01-07 07:34] LABS: Glucose, Whole Blood 125 mg/dL (60-115)
[2023-01-07 07:35] VITALS: BP 198/80; PULSE 74; RESP 19; TEMP 36.1; O2SAT 94
[2023-01-07] MEDS: 0.9 % Sodium Chloride Flush 3 ML SYRINGE IVFLUSH (07:49)
[2023-01-07 08:41] LABS: Alanine Aminotransferase 26 U/L (0-31); Albumin Level 2.4 g/dL (3.5-5.0); Alkaline Phosphatase 81 U/L (39-117); Anion Gap 12 (12-20); Aspartate Amino Transferase 33 U/L (5-31); Bilirubin Total 0.3 mg/dL (0.0-1.0); Blood Urea Nitrogen 28 mg/dL (9-16); Calcium 8.9 mg/dL (8.4-10.2); Carbon Dioxide 31 mmol/L (22-29); Chloride 114 mmol/L (96-108); Glucose Random 125 mg/dL (60-115); Sodium 154 mmol/L (135-145); Total Protein 4.9 g/dL (6.5-8.0)
[2023-01-07 09:11] LABS: MANUAL DIFF FLAG NO
[2023-01-07 09:13] LABS: Basophils Absolute Auto 0.1 X10*3/uL (0.0-0.2); Basophils Percent Auto 0.5 % (0-2); Eosinophils Absolute Auto 0.5 X10*3/uL (0.0-0.4); Eosinophils Percent Auto 3.4 % (0-4); Hematocrit 27.8 % (37.0-47.0); Imm Gran Abs Auto 0.08 X10*3/uL (0.00-0.03); Imm Gran Pct Auto 0.6 % (0.0-0.4); Lymphocytes Absolute Auto 1.8 X10*3/uL (1.2-4.9); Lymphocytes Percent Auto 12.6 % (20-40); Mean Corpuscular HGB Conc 28.8 g/dl (31.0-35.0); Mean Corpuscular Hemoglobin 24.4 pg (27.0-33.0); Mean Corpuscular Volume 84.8 fL (80.0-98.0); Mean Platelet Volume 10.1 fL (9.4-12.3); Monocytes Absolute Auto 1.1 X10*3/uL (0.1-1.2); Neutrophils Absolute Auto 10.6 x10*3/uL (2.0-8.3); Neutrophils Percent Auto 74.9 % (45-73); Platelet Count 592 X10*3/uL (160-400); Red Blood Count 3.28 X10*6/uL (4.20-5.50); Red Cell Distribution Width 23.7 % (11.0-16.0); White Blood Count 14.1 X10*3/uL (4.8-10.8)
[2023-01-07] MEDS: Aspirin 81 MG TAB.CHEW PO (09:48)
[2023-01-07] MEDS: Divalproex Sodium Sprinkles 125 MG CAP.DR.SPR PO ×2 (09:49→21:36)
[2023-01-07] MEDS: Omeprazole 20 MG CAPSULE.DR PO ×2 (09:49→16:35)
[2023-01-07] MEDS: Potassium Chloride Packet 20 MEQ PACKET 40 MEQ PO (09:50)
[2023-01-07] MEDS: lisinopriL 40 MG TABLET PO (09:50)
[2023-01-07] MEDS: Furosemide 40 MG TABLET PO (10:12)
[2023-01-07] MEDS: Apixaban 5 MG TABLET PO ×2 (10:16→21:37)
[2023-01-07 11:35] LABS: Glucose, Whole Blood 255 mg/dL (60-115)
[2023-01-07] MEDS: Insulin Lispro 100 UNIT/ML 3 ML VIAL SUBCUT ×3 (11:44→22:24)
--- NOTE | 2023-01-07 12:47 | MHC.CM.PN ---
Per MD rounds no discharge today. Blood cultures are pending. DP return to [facility]. A bedhold is in place. Patient will transport via BLS.
--- NOTE | 2023-01-07 14:05 | HO.PM.IMPN ---
Subjective Subjective Date of Service: 01/07/23 Interval History: Somnolent but arousable. Nonverbal Review of Systems Unable to obtain Physical Exam Vital Signs: Vital Signs: Last Vital Signs Temp 97.0 F 01/07/23 07:35 Pulse 74 01/07/23 07:35 Resp 19 01/07/23 07:35 BP 198/80 H 01/07/23 07:35 Pulse Ox 94 01/07/23 07:35 O2 Del Method 01/07/23 07:35 BMI result Body Mass Index 33.5 Const: Other: Somnolent but arousable. Nonverbal Resp: Other: Soft nontender nondistended normoactive bowel sounds Cardio: Other: No S4; positive S1-S2; no S3 murmurs rubs or gallops GI: Other: Soft nontender nondistended normoactive bowel sounds : Other: Shore in place Extrem: Other: No edema bilaterally Objective Data Active Medications Acetaminophen (Acetaminophen 325 Mg Tablet) 650 mg PO Q4H PRN PRN Reason: Fever Or Pain Albuterol Sulfate (Albuterol Sulfate 90 Mcg 8 Gm Inhaler) 2 puff INHALE Q4H PRN PRN Reason: Shortness Of Breath Or Wheezing Apixaban (Apixaban 5 Mg Tablet) 5 mg PO BID [facility] Last Admin: 01/07/23 10:16 Dose: 5 mg Documented By: CM Aspirin (Aspirin 81 Mg Tab.Chew) 81 mg PO DAILY [facility] Last Admin: 01/07/23 09:48 Dose: 81 mg Documented By: CM Atorvastatin Calcium (Atorvastatin Calcium 40 Mg Tablet) 40 mg PO BEDTIME [facility] Dextrose (Dextrose 50 % 25 Gm/50 Ml Syringe) 25 gm IVPUSH Q15M PRN; Protocol PRN Reason: per Hypoglycemia Standing Ord. Divalproex Sodium (Divalproex Sodium Sprinkles 125 Mg ) 125 mg PO BID [facility] Last Admin: 01/07/23 09:49 Dose: 125 mg Documented By: CM Glucose (Glucose Gel 15 Gm Gel..Gram.) 15 gm PO Q15M PRN; Protocol PRN Reason: per Hypoglycemia Standing Ord. Ceftriaxone Sodium 1 gm/ (Sodium Chloride) 50 mls @ 100 mls/hr IV Q24H [facility] Last Infusion: 01/06/23 17:43 Dose: 0 mls/hr Documented By: CM Vancomycin HCl 1,000 mg/ (Sodium Chloride) 270 mls @ 270 mls/hr IV Q24H [facility] Last Infusion: 01/06/23 22:27 Dose: 0 mls/hr Documented By: NARIDNER Dextrose (D5w) 1,000 mls @ 125 mls/hr IVCONT .Q8H [facility] Insulin Human Lispro (Insulin Lispro 100 Unit/Ml 3 Ml Vial) 0 unit SUBCUT QIDACHS [facility]; Protocol Last Admin: 01/07/23 11:44 Dose: 6 unit Documented By: CM Lisinopril (Lisinopril 40 Mg Tablet) 40 mg PO DAILY [facility]; Protocol Last Admin: 01/07/23 09:50 Dose: 40 mg Documented By: CM Non-Formulary Medication (Olopatadine) 1 drop EYE-BOTH BID [facility] Omeprazole (Omeprazole 20 Mg Capsule.Dr) 20 mg PO BID@0630,1630 [facility] Last Admin: 01/07/23 09:49 Dose: 20 mg Documented By: CM Ondansetron HCl (Ondansetron Hcl 4 Mg/2 Ml Vial) 4 mg IVPUSH Q8H PRN PRN Reason: Nausea and Vomiting Pharmacy Consult (Consult Rx Vancomycin Dosing) 1 each MISCELLANE DAILY PRN PRN Reason: Consult order Stop: 01/19/23 21:00 Pharmacy Consult (Consult Rx Perform Med Rec) 1 each MISCELLANE ONCE PRN PRN Reason: Consult order Potassium Chloride (Potassium Chloride Packet 20 Meq Packet) 40 meq PO DAILY [facility] Last Admin: 01/07/23 09:50 Dose: 40 meq Documented By: CM Senna (Sennosides 8.6 Mg Tablet) 17.2 mg PO BEDTIME [facility] Sodium Chloride (0.9 % Sodium Chloride Flush 3 Ml Syringe) 3 ml IVFLUSH QSHIFT [facility] Last Admin: 01/07/23 07:49 Dose: 3 ml Documented By: CM Labs 01/07/23 05:00 01/07/23 05:01 Labs: Laboratory Results - last 24 hr 01/06/23 01/06/23 01/07/23 16:27 20:39 05:00 MCV 84.8 MCH 24.4 L MCHC 28.8 L RDW 23.7 H Plt Count 592 H MPV 10.1 Immature Gran % (Auto) 0.6 H Neut % (Auto) 74.9 H Lymph % (Auto) 12.6 L Mckean % (Auto) 8.0 Eos % (Auto) 3.4 Baso % (Auto) 0.5 Lymph # (Auto) 1.8 Mckean # (Auto) 1.1 Eos # (Auto) 0.5 H Baso # (Auto) 0.1 Abs Immat Gran (auto) 0.08 H Absolute Neuts (auto) 10.6 H Absolute Nucleated RBC 0.000 Nucleated RBC % (auto) 0.0 Anion Gap Estim Creat Clear Calc Estimated GFR POC Glucose 203 H 237 H Random Glucose Calcium Total Bilirubin AST ALT Alkaline Phosphatase Total Protein Albumin 01/07/23 01/07/23 01/07/23 05:01 07:20 11:25 MCV MCH MCHC RDW Plt Count MPV Immature Gran % (Auto) Neut % (Auto) Lymph % (Auto) Mckean % (Auto) Eos % (Auto) Baso % (Auto) Lymph # (Auto) Mckean # (Auto) Eos # (Auto) Baso # (Auto) Abs Immat Gran (auto) Absolute Neuts (auto) Absolute Nucleated RBC Nucleated RBC % (auto) Anion Gap 12 Estim Creat Clear Calc 76.2 Estimated GFR > 60 POC Glucose 125 H 255 H Random Glucose 125 H Calcium 8.9 Total Bilirubin 0.3 AST 33 H ALT 26 Alkaline Phosphatase 81 Total Protein 4.9 L Albumin 2.4 L Microbiology Microbiology Results: Microbiology 01/05/23 17:58 Urine Culture - Final Urine Catheterized - Shore Catheter Proteus mirabilis 01/05/23 15:22 Blood Culture - Preliminary Blood - Venous No growth after 24 hours. 01/05/23 15:22 Blood Culture - Preliminary Blood - Venous No growth after 24 hours. Assessment and Plan (1) UTI (urinary tract infection): Status: Acute (2) HIRAM (acute kidney injury): Status: Acute (3) Diabetes: Status: Acute (4) Hypernatremia: Status: Acute Plan 77-year-old female with pertinent history of ohd-[id number]-[id number] diabetes mellitus, mood disorder, history of CVA, mixed hyperlipidemia, essential hypertension, history CVA, history of PE on Eliquis admitted for acute UTI with urinary retention and HIRAM. 1.Acute UTI (Proteus mirabilis) -sensitive to ceftriaxone; continue same(2) -continue Shore; will stop CBI -switched to Ceftin upon DC 2.Acute kidney injury(resolved with Shore) -follow renals/divalents 3.Acute metabolic encephalopathy secondary to UTI -Per [employer] on previous admission, patient tolerates pureed diet with honey thick liquids -follow clinically at diet 1 more awake. 4.DMII -hold glipizide until adequate p.o. -lespro correctional scale -acceptable control correctional scale 5,History pulmonary embolism -continue Eliquis 6.Hypertension -poor control -add back lisinopril at previous dosings -adjust as clinically indicated 7. Hypernatremia -free water deficit 4 L -D5W at 125 an hour -follow daily Eliquis DNR DNI Patient requires ongoing hospitalization for IV free water repletion secondary to hypernatremia Time Spent With Patient Time: Total time managing care of this patient today ____ minutes. Quality Stroke Does the patient have a stroke diagnosis?: No VTE Prior VTE?: Yes VTE Risk Level:: Medical - moderate - high VTE Device Contraindication: Treatment Not Indicated VTE Drug Contraindication: N/A - Med Ordered
[2023-01-07] MEDS: Dextrose 5 % 1,000 ML 125 ML IVCONT ×2 (14:57→23:41)
[2023-01-07 15:09] VITALS: BP 153/71; PULSE 83; RESP 18; TEMP 36.8; O2SAT 96
[2023-01-07 16:30] LABS: Glucose, Whole Blood 205 mg/dL (60-115)
[2023-01-07] MEDS: cefTRIAXone sodium 1 GM in 0.9 % Sodium Chloride 50 ML IV (16:34)
[2023-01-07 19:30] VITALS: BP 167/77; PULSE 80; RESP 18; TEMP 36.3; O2SAT 96
[2023-01-07 20:15] LABS: Glucose, Whole Blood 267 mg/dL (60-115)
[2023-01-07] MEDS: Sennosides 8.6 MG TABLET 17.2 MG PO (21:36)
[2023-01-07] MEDS: Atorvastatin Calcium 40 MG TABLET PO (21:37)
[2023-01-07] MEDS: vancomycin HCL 500 MG in 0.9 % Sodium Chloride 100 ML 110 MG IV (21:43)
[2023-01-07 23:40] VITALS: BP 142/60; PULSE 68; RESP 20; TEMP 36.1; O2SAT 94
[2023-01-08 04:00] VITALS: BP 150/62; PULSE 73; RESP 20; TEMP 36.4; O2SAT 98
[2023-01-08] MEDS: Omeprazole 20 MG CAPSULE.DR PO ×2 (05:43→16:32)
[2023-01-08] MEDS: Dextrose 5 % 1,000 ML 125 ML IVCONT ×3 (05:47→20:51)
[2023-01-08 06:33] LABS: MANUAL DIFF FLAG NO
[2023-01-08 06:37] LABS: Basophils Absolute Auto 0.1 X10*3/uL (0.0-0.2); Basophils Percent Auto 0.8 % (0-2); Eosinophils Absolute Auto 0.5 X10*3/uL (0.0-0.4); Eosinophils Percent Auto 3.4 % (0-4); Hematocrit 28.8 % (37.0-47.0); Hemoglobin 8.3 g/dl (12.0-16.0); Imm Gran Abs Auto 0.11 X10*3/uL (0.00-0.03); Imm Gran Pct Auto 0.8 % (0.0-0.4); Lymphocytes Percent Auto 14.9 % (20-40); Mean Corpuscular HGB Conc 28.8 g/dl (31.0-35.0); Mean Corpuscular Hemoglobin 23.9 pg (27.0-33.0); Monocytes Absolute Auto 1.5 X10*3/uL (0.1-1.2); Monocytes Percent Auto 10.8 % (2-11); Neutrophils Absolute Auto 9.5 x10*3/uL (2.0-8.3); Neutrophils Percent Auto 69.3 % (45-73); Platelet Count 546 X10*3/uL (160-400); Red Blood Count 3.47 X10*6/uL (4.20-5.50); Red Cell Distribution Width 23.6 % (11.0-16.0); White Blood Count 13.7 X10*3/uL (4.8-10.8)
[2023-01-08 07:40] LABS: Glucose, Whole Blood 180 mg/dL (60-115)
[2023-01-08 07:41] VITALS: BP 158/67; PULSE 71; RESP 18; TEMP 37.4; O2SAT 97
[2023-01-08 07:48] LABS: Alanine Aminotransferase 48 U/L (0-31); Albumin Level 2.4 g/dL (3.5-5.0); Alkaline Phosphatase 81 U/L (39-117); Anion Gap 16 (12-20); Aspartate Amino Transferase 57 U/L (5-31); Bilirubin Total 0.4 mg/dL (0.0-1.0); Blood Urea Nitrogen 16 mg/dL (9-16); Calcium 8.4 mg/dL (8.4-10.2); Carbon Dioxide 31 mmol/L (22-29); Chloride 106 mmol/L (96-108); Estimated Glomerular Filt Rate > 60; Glucose Fasting 165 mg/dL (60-99); Potassium 2.8 mmol/L (3.3-5.1); Sodium 150 mmol/L (135-145); Total Protein 4.9 g/dL (6.5-8.0)
[2023-01-08] MEDS: Aspirin 81 MG TAB.CHEW PO (08:16)
[2023-01-08] MEDS: Potassium Chloride Packet 20 MEQ PACKET 40 MEQ PO ×3 (08:16→16:32)
[2023-01-08] MEDS: Insulin Lispro 100 UNIT/ML 3 ML VIAL SUBCUT ×4 (08:16→20:43)
[2023-01-08] MEDS: lisinopriL 40 MG TABLET PO (08:16)
[2023-01-08] MEDS: Divalproex Sodium Sprinkles 125 MG CAP.DR.SPR PO ×2 (08:16→20:42)
[2023-01-08] MEDS: Apixaban 5 MG TABLET PO ×2 (08:16→20:42)
--- NOTE | 2023-01-08 08:41 | P.CDIC_ITS ---
CDI Concurrent Query Documentation Clarification: PHYSICIAN'S DOCUMENTATION REQUEST Date of Query: 01/08/23 0841 Patient Name: Ibis Hernandez Admit Date: 01/05/23 Dear Doctor, A review of the medical record indicates additional documentation may be needed. Please review below and update the documentation accordingly. Clinical Indicators: Risk Factors/Clinical Indicators/Treatments LABS: POC glucose 255 267 Insulin Please clarify the following regarding Diabetes Mellitus (DM): Labs: * Hyperglycemia or other etiology of lab findings * Other complication ? please specify * Unable to determine Use of terms such as suspected, likely, concern for, or probable (associated with a specific diagnosis that is being evaluated, monitored, or treated as if it exists) are acceptable and can be coded in the inpatient setting, when documented at the time of discharge. Thank you, Nesha Washington [facility], CDIS Extension: [phone] Please use your independent medical judgment in providing your response. THIS QUERY IS PART OF THE PERMANENT MEDICAL RECORD Provider Response: Other Other Diagnosis: diabetes type 2 with hyperglycemia
[2023-01-08 11:28] LABS: Glucose, Whole Blood 258 mg/dL (60-115)
--- NOTE | 2023-01-08 14:27 | HO.PM.IMPN ---
Subjective Subjective Date of Service: 01/08/23 Interval History: somnolent but arousable. Appetite good (fed by sta Review of Systems unable to obtain Physical Exam Vital Signs: Vital Signs: Last Vital Signs Temp 99.3 F 01/08/23 07:41 Pulse 71 01/08/23 07:41 Resp 18 01/08/23 07:41 BP 158/67 H 01/08/23 07:41 Pulse Ox 97 01/08/23 07:41 O2 Del Method 01/08/23 07:41 BMI result Body Mass Index 33.5 Const: Other: Somnolent but arousable. Nonverbal Resp: Other: Soft nontender nondistended normoactive bowel sounds Cardio: Other: No S4; positive S1-S2; no S3 murmurs rubs or gallops GI: Other: Soft nontender nondistended normoactive bowel sounds : Other: Shore in place Extrem: Other: No edema bilaterally Objective Data Active Medications Acetaminophen (Acetaminophen 325 Mg Tablet) 650 mg PO Q4H PRN PRN Reason: Fever Or Pain Albuterol Sulfate (Albuterol Sulfate 90 Mcg 8 Gm Inhaler) 2 puff INHALE Q4H PRN PRN Reason: Shortness Of Breath Or Wheezing Apixaban (Apixaban 5 Mg Tablet) 5 mg PO BID [facility] Last Admin: 01/08/23 08:16 Dose: 5 mg Documented By: YANIRA Aspirin (Aspirin 81 Mg Tab.Chew) 81 mg PO DAILY [facility] Last Admin: 01/08/23 08:16 Dose: 81 mg Documented By: YANIRA Atorvastatin Calcium (Atorvastatin Calcium 40 Mg Tablet) 40 mg PO BEDTIME [facility] Last Admin: 01/07/23 21:37 Dose: 40 mg Documented By: HAKN Dextrose (Dextrose 50 % 25 Gm/50 Ml Syringe) 25 gm IVPUSH Q15M PRN; Protocol PRN Reason: per Hypoglycemia Standing Ord. Divalproex Sodium (Divalproex Sodium Sprinkles 125 Mg ) 125 mg PO BID [facility] Last Admin: 01/08/23 08:16 Dose: 125 mg Documented By: YANIRA Glucose (Glucose Gel 15 Gm Gel..Gram.) 15 gm PO Q15M PRN; Protocol PRN Reason: per Hypoglycemia Standing Ord. Ceftriaxone Sodium 1 gm/ (Sodium Chloride) 50 mls @ 100 mls/hr IV Q24H [facility] Last Infusion: 01/07/23 17:04 Dose: 0 mls/hr Documented By: GRAZIC Dextrose (D5w) 1,000 mls @ 125 mls/hr IVCONT .Q8H [facility] Last Admin: 01/08/23 13:13 Dose: 125 mls/hr Documented By: YANIRA Vancomycin HCl 500 mg/ Sodium (Chloride) 110 mls @ 110 mls/hr IV Q24H [facility] Last Infusion: 01/07/23 23:42 Dose: 0 mls/hr Documented By: HANK Insulin Human Lispro (Insulin Lispro 100 Unit/Ml 3 Ml Vial) 0 unit SUBCUT QIDACHS [facility]; Protocol Last Admin: 01/08/23 11:47 Dose: 6 unit Documented By: YANIRA Lisinopril (Lisinopril 40 Mg Tablet) 40 mg PO DAILY [facility]; Protocol Last Admin: 01/08/23 08:16 Dose: 40 mg Documented By: YANIRA Non-Formulary Medication (Olopatadine) 1 drop EYE-BOTH BID [facility] Omeprazole (Omeprazole 20 Mg Capsule.Dr) 20 mg PO BID@0630,1630 [facility] Last Admin: 01/08/23 05:43 Dose: 20 mg Documented By: HANK Ondansetron HCl (Ondansetron Hcl 4 Mg/2 Ml Vial) 4 mg IVPUSH Q8H PRN PRN Reason: Nausea and Vomiting Pharmacy Consult (Consult Rx Vancomycin Dosing) 1 each MISCELLANE DAILY PRN PRN Reason: Consult order Stop: 01/19/23 21:00 Pharmacy Consult (Consult Rx Perform Med Rec) 1 each MISCELLANE ONCE PRN PRN Reason: Consult order Potassium Chloride (Potassium Chloride Packet 20 Meq Packet) 40 meq PO DAILY [facility] Last Admin: 01/08/23 09:15 Dose: Not Given Documented By: YANIRA Non-Admin Reason: given dose this am Potassium Chloride (Potassium Chloride Packet 20 Meq Packet) 40 meq PO Q4H [facility] Stop: 01/08/23 16:16 Last Admin: 01/08/23 11:48 Dose: 40 meq Documented By: YANIRA Senna (Sennosides 8.6 Mg Tablet) 17.2 mg PO BEDTIME [facility] Last Admin: 01/07/23 21:36 Dose: 17.2 mg Documented By: HANK Sodium Chloride (0.9 % Sodium Chloride Flush 3 Ml Syringe) 3 ml IVFLUSH QSHIFT [facility] Last Admin: 01/08/23 13:14 Dose: Not Given Documented By: YANIRA Non-Admin Reason: IV Running Labs 01/08/23 05:04 01/08/23 05:04 Labs: Laboratory Results - last 24 hr 01/07/23 01/07/23 01/07/23 16:25 19:22 20:10 MCV MCH MCHC RDW Plt Count MPV Immature Gran % (Auto) Neut % (Auto) Lymph % (Auto) Posey % (Auto) Eos % (Auto) Baso % (Auto) Lymph # (Auto) Posey # (Auto) Eos # (Auto) Baso # (Auto) Abs Immat Gran (auto) Absolute Neuts (auto) Absolute Nucleated RBC Nucleated RBC % (auto) Anion Gap Estim Creat Clear Calc Estimated GFR POC Glucose 205 H 267 H Fasting Glucose Calcium Total Bilirubin AST ALT Alkaline Phosphatase Total Protein Albumin Vancomycin Trough 17.0 01/08/23 01/08/23 01/08/23 05:04 05:04 07:23 MCV 83.0 MCH 23.9 L MCHC 28.8 L RDW 23.6 H Plt Count 546 H MPV 10.0 Immature Gran % (Auto) 0.8 H Neut % (Auto) 69.3 Lymph % (Auto) 14.9 L Posey % (Auto) 10.8 Eos % (Auto) 3.4 Baso % (Auto) 0.8 Lymph # (Auto) 2.0 Posey # (Auto) 1.5 H Eos # (Auto) 0.5 H Baso # (Auto) 0.1 Abs Immat Gran (auto) 0.11 H Absolute Neuts (auto) 9.5 H Absolute Nucleated RBC 0.000 Nucleated RBC % (auto) 0.0 Anion Gap 16 Estim Creat Clear Calc 83.0 Estimated GFR > 60 POC Glucose 180 H Fasting Glucose 165 H Calcium 8.4 Total Bilirubin 0.4 AST 57 H ALT 48 H Alkaline Phosphatase 81 Total Protein 4.9 L Albumin 2.4 L Vancomycin Trough 01/08/23 11:24 MCV MCH MCHC RDW Plt Count MPV Immature Gran % (Auto) Neut % (Auto) Lymph % (Auto) Posey % (Auto) Eos % (Auto) Baso % (Auto) Lymph # (Auto) Posey # (Auto) Eos # (Auto) Baso # (Auto) Abs Immat Gran (auto) Absolute Neuts (auto) Absolute Nucleated RBC Nucleated RBC % (auto) Anion Gap Estim Creat Clear Calc Estimated GFR POC Glucose 258 H Fasting Glucose Calcium Total Bilirubin AST ALT Alkaline Phosphatase Total Protein Albumin Vancomycin Trough Microbiology Microbiology Results: Microbiology 01/05/23 15:22 Blood Culture - Preliminary Blood - Venous No growth after 48 hours. 01/05/23 15:22 Blood Culture - Preliminary Blood - Venous No growth after 48 hours. Assessment and Plan (1) UTI (urinary tract infection): Status: Acute (2) HIRAM (acute kidney injury): Status: Acute (3) Diabetes: Status: Acute (4) Pulmonary embolism: Status: Acute (5) Hypernatremia: Status: Acute Plan 77-year-old female with pertinent history of ily-bnakjwh-[id number] diabetes mellitus, mood disorder, history of CVA, mixed hyperlipidemia, essential hypertension, history CVA, history of PE on Eliquis admitted for acute UTI with urinary retention and HIRAM. 1.Acute UTI (Proteus mirabilis) -sensitive to ceftriaxone; continue same(3) -continue Shore; voiding trial when returns to bear amount -switched to Ceftin upon DC 2.Acute kidney injury(resolved with Shore) -follow renals/divalents 3.Acute metabolic encephalopathy secondary to UTI -Per [employer] on previous admission, patient tolerates pureed diet with honey thick liquids 4.DMII - add back glipizide -lispro correctional scale 5,History pulmonary embolism -continue Eliquis 6.Hypertension - improved control -lisinopril as ordered -adjust as clinically indicated 7. Hypernatremia( slowly improving with free water repletion) -free water deficit 4 L -D5W at 125 an hour -follow daily Eliquis DNR DNI Patient requires ongoing hospitalization for IV free water repletion secondary to hypernatremia Time Spent With Patient Time: Total time managing care of this patient today ____ minutes. Quality Stroke Does the patient have a stroke diagnosis?: No VTE Prior VTE?: Yes VTE Risk Level:: Medical - moderate - high VTE Device Contraindication: Treatment Not Indicated VTE Drug Contraindication: N/A - Med Ordered
[2023-01-08 15:08] VITALS: BP 156/68; PULSE 82; RESP 18; TEMP 36; O2SAT 97
[2023-01-08 16:00] VITALS: BP 136/57; PULSE 79; RESP 18; TEMP 36; O2SAT 96
[2023-01-08 16:09] LABS: Glucose, Whole Blood 247 mg/dL (60-115)
[2023-01-08] MEDS: cefTRIAXone sodium 1 GM in 0.9 % Sodium Chloride 50 ML IV (16:33)
[2023-01-08 19:05] VITALS: BP 152/62; PULSE 82; RESP 18; TEMP 36; O2SAT 96
[2023-01-08 19:21] LABS: Vancomycin Random 10.8 mcg/mL (15-20)
[2023-01-08 19:58] LABS: Glucose, Whole Blood 239 mg/dL (60-115)
[2023-01-08] MEDS: Atorvastatin Calcium 40 MG TABLET PO (20:42)
[2023-01-08] MEDS: vancomycin HCL 1,000 MG in 0.9 % Sodium Chloride 250 ML 270 MG IV (20:42)
[2023-01-08 23:31] VITALS: BP 156/76; PULSE 84; RESP 19; TEMP 37; O2SAT 95
[2023-01-09 03:10] VITALS: BP 150/68; PULSE 79; RESP 18; TEMP 36.1; O2SAT 95
[2023-01-09] MEDS: Omeprazole 20 MG CAPSULE.DR PO (05:13)
[2023-01-09] MEDS: Dextrose 5 % 1,000 ML 125 ML IVCONT (05:18)
[2023-01-09 06:47] LABS: Basophils Absolute Auto 0.1 X10*3/uL (0.0-0.2); Basophils Percent Auto 0.7 % (0-2); Eosinophils Absolute Auto 0.5 X10*3/uL (0.0-0.4); Hemoglobin 8.3 g/dl (12.0-16.0); Imm Gran Abs Auto 0.16 X10*3/uL (0.00-0.03); Imm Gran Pct Auto 1.1 % (0.0-0.4); Lymphocytes Absolute Auto 2.2 X10*3/uL (1.2-4.9); Lymphocytes Percent Auto 14.7 % (20-40); MANUAL DIFF FLAG SCAN; Mean Corpuscular HGB Conc 29.6 g/dl (31.0-35.0); Mean Corpuscular Hemoglobin 24.6 pg (27.0-33.0); Mean Platelet Volume 9.9 fL (9.4-12.3); Monocytes Absolute Auto 1.5 X10*3/uL (0.1-1.2); NRBC Pct Auto 0.1 /100WBC (0.0-0.2); Neutrophils Absolute Auto 10.7 x10*3/uL (2.0-8.3); Neutrophils Percent Auto 70.5 % (45-73); Platelet Count 660 X10*3/uL (160-400); Red Blood Count 3.37 X10*6/uL (4.20-5.50); Red Cell Distribution Width 22.4 % (11.0-16.0); SCAN SMEAR FLAG 1; White Blood Count 15.1 X10*3/uL (4.8-10.8)
[2023-01-09 06:53] LABS: Mean Corpuscular Volume 83.1 fL (80.0-98.0)
[2023-01-09 07:01] LABS: Alanine Aminotransferase 78 U/L (0-31); Albumin Level 2.4 g/dL (3.5-5.0); Alkaline Phosphatase 73 U/L (39-117); Anion Gap 12 (12-20); Aspartate Amino Transferase 64 U/L (5-31); Bilirubin Total 0.3 mg/dL (0.0-1.0); Blood Urea Nitrogen 11 mg/dL (9-16); Calcium 8.4 mg/dL (8.4-10.2); Carbon Dioxide 32 mmol/L (22-29); Chloride 102 mmol/L (96-108); Creatinine Clr Calc Pharmacy 86.9; Estimated Glomerular Filt Rate > 60; Glucose Fasting 193 mg/dL (60-99); Potassium 3.1 mmol/L (3.3-5.1); Sodium 143 mmol/L (135-145); Total Protein 4.9 g/dL (6.5-8.0)
[2023-01-09 07:35] LABS: SLIDE REVIEW VERIFIED
[2023-01-09 07:38] LABS: Glucose, Whole Blood 198 mg/dL (60-115)
[2023-01-09 07:41] VITALS: BP 175/74; PULSE 77; RESP 18; TEMP 36.2; O2SAT 96
[2023-01-09] MEDS: Insulin Lispro 100 UNIT/ML 3 ML VIAL SUBCUT ×2 (08:23→12:18)
[2023-01-09] MEDS: Aspirin 81 MG TAB.CHEW PO (08:24)
[2023-01-09] MEDS: Apixaban 5 MG TABLET PO (08:25)
[2023-01-09] MEDS: lisinopriL 40 MG TABLET PO (08:25)
[2023-01-09] MEDS: Divalproex Sodium Sprinkles 125 MG CAP.DR.SPR PO (08:25)
[2023-01-09] MEDS: Potassium Chloride Packet 20 MEQ PACKET 40 MEQ PO (08:25)
--- NOTE | 2023-01-09 08:33 | MHC.CDI.CONC ---
CDI Concurrent Query Documentation Clarification: PHYSICIAN'S DOCUMENTATION REQUEST Date of Query: 01/09/23 0833 Patient Name: Ibis Hernandez Admit Date: 01/05/23 Dear Doctor, A review of the medical record indicates additional documentation may be needed. Please review below and update the documentation accordingly. Clinical Indicators: Is there a diagnosis that correlates with these lab findings: Risk Factors/Clinical Indicators/Treatments LABS: potassium 2.8 3.1 Klor-Con Based on the above, could you clarify in the Progress Notes the appropriate diagnosis, if significant, that supports the above abnormalities and additional evaluation, monitoring, and/or treatment rendered: Hypokalemia or other etiology of lab findings Labs indicate a diagnosis of (please specify) Other (please specify) Unable to determine Use of terms such as suspected, likely, concern for, or probable (associated with a specific diagnosis that is being evaluated, monitored, or treated as if it exists) are acceptable and can be coded in the inpatient setting, when documented at the time of discharge. Thank you, Nesha Washington [facility], CDIS Extension: [phone] Please use your independent medical judgment in providing your response. THIS QUERY IS PART OF THE PERMANENT MEDICAL RECORD Provider Response: Other Other Diagnosis: hypokalemia as indicated by labs
--- NOTE | 2023-01-09 10:40 | PM.DS ---
DS: Providers Provider Date of Service: 01/09/23 Date of admission: 01/05/23 20:10 Date of discharge: 01/09/23 Primary care physician: Unknown Physician Consults: 01/05/23 20:30 Consult to Urology Routine Consulting Provider: Steve Roman Reason for consultation: urinary retention, hematuria DS: Diagnosis Discharge Diagnosis (1) UTI (urinary tract infection): Status: Acute (2) HIRAM (acute kidney injury): Status: Acute (3) Diabetes: Status: Acute (4) Pulmonary embolism: Status: Acute (5) Hypernatremia: Status: Acute DS: Summary Hospital Course Hospital Course: 77-year-old female with pertinent history of [id number]-kljbsuacc diabetes mellitus, schizoaffective disorder, history of CVA, mixed hyperlipidemia, essential hypertension, history CVA, history of PE on Eliquis was sent to the emergency department for evaluation of vaginal discharge by [facility] staff. She was recently admitted for acute metabolic encephalopathy and staph lugdunesis bacteremia of unclear etiology, seen by ID, and has PICC line in place for IV vanco (end date January 19). The patient is nonverbal and can barely move extremities at baseline following CVAs. She is unable to provide history.? On arrival, vital signs stable.? Leukocytosis of 21.1.? Creatinine 2.72, baseline 0.78.? Electrolyte levels normal.? Glucose 249.? UA with 3+ bacteria, negative nitrites, 3+ blood, 2+ protein, significant urinary sediment, 4+ bacteria.? On bladder scan, she was found to be retaining 1000 mL of urine.? CT abdomen/pelvis showed mild bilateral hydroureteronephrosis with mild ureteral dilatation to the level of the bladder.? Shore catheter placed and patient given 1 g IV ceftriaxone and 1 L IV an S. following Shore catheter placement, patient noted to be draining fruit punch colored urine witihout clots. Hospital Course Admitted to general medical floor. Started on CBI. Seen by Urology who felt HIRAM with secondary to acute UTI. Urine culture ultimately grew out Proteus sensitive to ceftriaxone. She was maintained on her vancomycin as prior to admission and ceftriaxone was added. At this point her urine is still red but clear, and urology recommends back to facility and voiding trial when urine clears. She will be discharged back to complete her IV vancomycin as previously ordered (last dose January 19) along with oral Ceftin. Daughter Robyn was updated prior to her discharge; all questions answered Time Spent with Patient Time attestation: Total time managing care of this patient today ____ minutes. Discharge coordination time: Greater than 30 minutes Quality: Safe Use of Opioids Does Pt have an Active Cancer Diagnosis on the Problem List?: No Quality: Stroke Does the patient have a stroke diagnosis?: Yes Reason for No Anti-thrombotic at DC: Drug treatment not indicated Reason for No Anticoagulant at DC: N/A - Med Ordered Reason Not Initiating IV-Tpa: Drug treatment not indicated Reason for No Anti-thrombotic by Day Two: N/A - Med Ordered Reason for No Statin at DC: N/A - Med Ordered Physical Exam Vital Signs: Vital Signs: Last Vital Signs Temp 97.2 F 01/09/23 07:41 Pulse 77 01/09/23 07:41 Resp 18 01/09/23 07:41 BP 175/74 H 01/09/23 07:41 Pulse Ox 96 01/09/23 07:41 O2 Del Method 01/09/23 07:41 BMI result Body Mass Index 33.5 Const: Other: Somnolent but arousable. Nonverbal Resp: Other: Soft nontender nondistended normoactive bowel sounds Cardio: Other: No S4; positive S1-S2; no S3 murmurs rubs or gallops GI: Other: Soft nontender nondistended normoactive bowel sounds : Other: Shore in place Extrem: Other: No edema bilaterally DS: Data Data Completed and Pending Completed studies during hospitalization [Text1]: Procedures Insertion of Infusion Device into Superior Vena Cava, Percutaneous Approach (12/18/22) Transfusion of Nonautologous Red Blood Cells into Peripheral Vein, Percutaneous Approach (12/18/22) Ultrasonography of Superior Vena Cava, Guidance (12/18/22) Labs on day of discharge: Laboratory Results - last 24 hr 01/08/23 01/08/23 01/08/23 11:24 16:06 18:51 WBC RBC Hgb Hct MCV MCH MCHC RDW Plt Count MPV Immature Gran % (Auto) Neut % (Auto) Lymph % (Auto) Webster % (Auto) Eos % (Auto) Baso % (Auto) Lymph # (Auto) Webster # (Auto) Eos # (Auto) Baso # (Auto) Abs Immat Gran (auto) Absolute Neuts (auto) Absolute Nucleated RBC Nucleated RBC % (auto) Smear Tech's Comments Sodium Potassium Chloride Carbon Dioxide Anion Gap BUN Creatinine Estim Creat Clear Calc Estimated GFR POC Glucose 258 H 247 H Fasting Glucose Calcium Total Bilirubin AST ALT Alkaline Phosphatase Total Protein Albumin Random Vancomycin 10.8 L 01/08/23 01/09/23 01/09/23 19:46 05:09 05:09 WBC 15.1 H RBC 3.37 L Hgb 8.3 L Hct 28.0 L MCV 83.1 MCH 24.6 L MCHC 29.6 L RDW 22.4 H Plt Count 660 H MPV 9.9 Immature Gran % (Auto) 1.1 H Neut % (Auto) 70.5 Lymph % (Auto) 14.7 L Webster % (Auto) 10.0 Eos % (Auto) 3.0 Baso % (Auto) 0.7 Lymph # (Auto) 2.2 Webster # (Auto) 1.5 H Eos # (Auto) 0.5 H Baso # (Auto) 0.1 Abs Immat Gran (auto) 0.16 H Absolute Neuts (auto) 10.7 H Absolute Nucleated RBC 0.020 H Nucleated RBC % (auto) 0.1 Smear Tech's Comments VERIFIED Sodium 143 Potassium 3.1 L Chloride 102 Carbon Dioxide 32 H Anion Gap 12 BUN 11 Creatinine 0.65 Estim Creat Clear Calc 86.9 Estimated GFR > 60 POC Glucose 239 H Fasting Glucose 193 H Calcium 8.4 Total Bilirubin 0.3 AST 64 H ALT 78 H Alkaline Phosphatase 73 Total Protein 4.9 L Albumin 2.4 L Random Vancomycin 01/09/23 07:21 WBC RBC Hgb Hct MCV MCH MCHC RDW Plt Count MPV Immature Gran % (Auto) Neut % (Auto) Lymph % (Auto) Webster % (Auto) Eos % (Auto) Baso % (Auto) Lymph # (Auto) Webster # (Auto) Eos # (Auto) Baso # (Auto) Abs Immat Gran (auto) Absolute Neuts (auto) Absolute Nucleated RBC Nucleated RBC % (auto) Smear Tech's Comments Sodium Potassium Chloride Carbon Dioxide Anion Gap BUN Creatinine Estim Creat Clear Calc Estimated GFR POC Glucose 198 H Fasting Glucose Calcium Total Bilirubin AST ALT Alkaline Phosphatase Total Protein Albumin Random Vancomycin Preliminary micro results at discharge 01/05/23 15:22 Blood Culture - Preliminary Blood - Venous No growth after 48 hours. 01/05/23 15:22 Blood Culture - Preliminary Blood - Venous No growth after 48 hours. Discharge Plan Discharge Patient Disposition: [facility] Discharge Diagnosis: acute kidney injury secondary to obstructive uropathy Referrals: [facility] [Outside] - 1 Week Physician,Unknown J [Primary Care Provider] - 1 Week Discharge Medications: New cefuroxime axetil 500 mg tablet 500 mg PO BID 7 Days Qty: 14 0RF Continued atorvastatin 40 mg tablet 40 mg PO BEDTIME lisinopril 40 mg tablet 40 mg PO DAILY glipizide 5 mg tablet 5 mg PO DAILY olopatadine 0.2 % drops 1 drp ophthalmic (eye) BID sennosides [senna] 8.6 mg Tablet 17.2 mg PO BEDTIME aspirin 81 mg Tablet,Chewable 81 mg PO DAILY albuterol 90 mcg/actuation Aerosol 90 mcg INHALATION Q4H furosemide 40 mg tablet 40 mg PO DAILY acetaminophen 325 mg Tablet 650 mg PO Q4H PRN (Reason: Fever Or Pain) potassium chloride 40 mEq/15 mL Liquid 40 meq PO DAILY pantoprazole 40 mg tablet,delayed release (DR/EC) 40 mg PO BID divalproex 125 mg capsule, delayed rel sprinkle 125 mg PO BID apixaban 5 mg tablet 5 mg PO BID vancomycin 1.25 gram recon soln 1.25 g IV Q24H Qty: 26 0RF Rx Instructions: to be used until 01/24/23 for staphlococcus bacterimia bisacodyl 10 mg Suppository 10 mg AL DAILY PRN (Reason: Constipation) Fleet Enema 19-7 gram/118 mL Enema 118 ml AL DAILY PRN (Reason: Constipation) ferrous gluconate 324 mg (38 mg iron) Tablet 324 mg PO DAILY polyethylene glycol 3350 [Miralax] 17 gram Powder In Packet 17 g PO DAILY magnesium hydroxide [Milk of Magnesia] 400 mg/5 mL Suspension 30 ml PO DAILY PRN (Reason: Constipation) albuterol sulfate [Ventolin HFA] 90 mcg/actuation Hfa Aerosol Inhaler 2 puff INHALATION Q4H PRN (Reason: Shortness Of Breath Or Wheezing) ondansetron 4 mg Tablet,Disintegrating 4 mg PO Q6H PRN (Reason: Nausea And Vomiting) Discharge Orders: Discharge Order (Routine); Ordered 02/24/23 Ordered By: Kishan Ramirez Diet: Advance to usual diet Activity on Discharge: As tolerated Stand Alone Forms: Patient Portal Discharge page Care Plan Goals: continue all pre-hospital medications; voiding trial at receiving facility Health Concerns: complete course of Ceftin b.i.d. for 7 days Plan of Treatment: as per receiving facility Assessment: see discharge summary
--- NOTE | 2023-01-09 11:02 | MHC.CM.PN ---
Addendum entered by Natalie Pearson 01/09/23 14:52: COVID RESULTS AND DC SUMMARY SENT TO [facility] Addendum entered by Natalie Pearson 01/09/23 11:26: HOSPITALIST CONTACTED PTS DAUGHTER WITH A MEDICAL UPDATE PT WILL DC TODAY BACK TO [facility] PENDING NEGATIVE COVID TEST RESULTS [facility]DA TO TRANSPORT Original Note: CM CALLED PTS DAUGHTER, MARIIA MAURER [phone] TO DELIVER PTS FOLLOW UP MEDICARE RIGHTS AND INFORM HER OF INTENT TO DC SHE REPORTS SHE CANNOT DECIDE IF SHE AGREES WITH DC UNTIL SHE SPEAKS WITH MD CM EXPLAINS MULTIPLE TIMES THAT SHE IS NOT AGREEING, THE IMM JUST NEEDS TO BE DELIVERED SO THAT SHE KNOWS HER RIGHTS PER DISCUSSION, SHE WILL RECEIVE A CALL FROM THE MD WITH MEDICAL UPDATES, SHE WILL THEN LET HIM KNOW IF SHE AGREES WITH DC PLAN
[2023-01-09 11:19] LABS: Glucose, Whole Blood 268 mg/dL (60-115)
[2023-01-09 13:42] LABS: COVID-19 Test Negative (Negative); IDNOW Serial# 16C4AD1C
== END 2023-01-09 15:56 | DRG 689 ==
LOC: HO.ED 20:30 → HO.EDOVER 20:32 → HO.S3 01-06 06:15
PROVIDERS: Nurse Practitioner Acute Care; Admitting Provider Physician Assistant; Emergency Provider Emergency Medicine; PCP Internal Medicine; Visit Provider Hospitalist
DX: N13.6 Pyonephrosis (principal); G93.41 Metabolic encephalopathy; G82.20 Paraplegia, unspecified; R78.81 Bacteremia; E87.0 Hyperosmolality and hypernatremia; N17.9 Acute kidney failure, unspecified; R31.9 Hematuria, unspecified; R33.9 Retention of urine, unspecified; D50.9 Iron deficiency anemia, unspecified; E78.2 Mixed hyperlipidemia; F25.9 Schizoaffective disorder, unspecified; Z66 Do not resuscitate; I10 Essential (primary) hypertension; B95.7 Other staphylococcus as the cause of diseases classified elsewhere; B96.4 Proteus (mirabilis) (morganii) as the cause of diseases classified elsewhere; E11.65 Type 2 diabetes mellitus with hyperglycemia; I69.328 Other speech and language deficits following cerebral infarction; E87.6 Hypokalemia; I69.369 Other paralytic syndrome following cerebral infarction affecting unspecified side; Z20.822 Contact with and (suspected) exposure to COVID-19; Z86.711 Personal history of pulmonary embolism; Z79.82 Long term (current) use of aspirin; Z79.01 Long term (current) use of anticoagulants; Z79.84 Long term (current) use of oral hypoglycemic drugs; Z79.899 Other long term (current) drug therapy
CPT/HCPCS: 36415; 74176; 76775; 80048; 80053; 80076; 80202; 81001; 82565; 82947; 83605; 85025; 87040; 87086; 87088; 87186; 87502; 87635; 99285; C1758; J0696; J3370

== ENCOUNTER 2023-01-19 14:27 | Emergency (ER) | payer OTHER, SELFPAY ==
--- NOTE | 2023-01-19 14:33 | ED_ITS ---
HPI - General Adult General Chief complaint: General Medical <Yessica Berrios NP - Last Filed: 01/19/23 18:31> Stated complaint: PICC LINE ISSUE FROM SNF PER EMS <Yessica Berrios NP - Last Filed: 01/19/23 18:31> Time Seen by Provider: 01/19/23 14:27 <Yessica Berrios NP - Last Filed: 01/19/23 18:31> Source: EMS <Yessica Berrios NP - Last Filed: 01/19/23 18:31> Mode of arrival: EMS <Yessica Berrios NP - Last Filed: 01/19/23 18:31> Limitations: no limitations <Yessica Berrios NP - Last Filed: 01/19/23 18:31> History of Present Illness HPI narrative: This is a 77-year-old female with a past medical history eho-[id number] diabetes mellitus, schizoaffective disorder, history of CVA, mixed hyperlipidemia, essential hypertension, history CVA, history of PE on Eliquis?here with complaints of SNF staff being unable to get blood return from PICC line. Patient currently received vancomycin for staph lugdunesis bacteremia of unclear etiology. Last dose per discharge summary 01/19 however for correction records the patient's last dose of vancomycin is January 24. It does look like she was discharged on December 09 but her 1st outpatient vancomycin was not started told December 11 <Yessica Berrios NP - Last Filed: 01/19/23 18:31> Related Data Home medications: Home Medications Medication Instructions Recorded Confirmed albuterol 90 mcg/actuation aerosol 90 mcg inhalation Q4H 10/09/20 01/06/23 inhaler aspirin 81 mg chewable tablet 81 mg PO DAILY 10/09/20 01/06/23 atorvastatin 40 mg tablet 40 mg PO BEDTIME 10/09/20 01/06/23 glipizide 5 mg tablet 5 mg PO DAILY 10/09/20 01/06/23 lisinopril 40 mg tablet 40 mg PO DAILY 10/09/20 01/06/23 olopatadine 0.2 % eye drops 1 drp ophthalmic (eye) BID 10/09/20 01/06/23 sennosides 8.6 mg tablet (senna) 17.2 mg PO BEDTIME 10/09/20 01/06/23 acetaminophen 325 mg tablet 650 mg PO Q4H PRN Fever Or Pain 12/18/22 01/06/23 apixaban 5 mg tablet 5 mg PO BID 12/18/22 01/06/23 divalproex 125 mg capsule,delayed 125 mg PO BID 12/18/22 01/06/23 release sprinkle furosemide 40 mg tablet 40 mg PO DAILY 12/18/22 01/06/23 pantoprazole 40 mg tablet,delayed 40 mg PO BID 12/18/22 01/06/23 release potassium chloride 40 mEq/15 mL 40 meq PO DAILY 12/18/22 01/06/23 oral liquid albuterol sulfate 90 mcg/actuation 2 puff inhalation Q4H PRN 01/06/23 01/06/23 aerosol inhaler (Ventolin HFA) Shortness Of Breath Or Wheezing bisacodyl 10 mg rectal suppository 10 mg AL DAILY PRN Constipation 01/06/23 01/06/23 ferrous gluconate 324 mg (38 mg 324 mg PO DAILY 01/06/23 01/06/23 iron) tablet magnesium hydroxide 400 mg/5 mL 30 ml PO DAILY PRN Constipation 01/06/23 01/06/23 oral suspension (Milk of Magnesia) ondansetron 4 mg disintegrating 4 mg PO Q6H PRN Nausea And Vomiting 01/06/23 01/06/23 tablet polyethylene glycol 3350 17 gram 17 g PO DAILY 01/06/23 01/06/23 oral powder packet (Miralax) sodium phosphates 19 gram-7 118 ml AL DAILY PRN Constipation 01/06/23 01/06/23 gram/118 mL enema (Fleet Enema) Previous Rx's Medication Instructions Recorded vancomycin 1.25 gram intravenous 1.25 g IV Q24H #26 ea 12/26/22 solution cefuroxime axetil 500 mg tablet 500 mg PO BID 7 days #14 tabs 01/09/23 <Yessica Brerios NP - Last Filed: 01/19/23 18:31> Allergies/adverse reactions: Allergies Allergy/AdvReac Type Severity Reaction Status Date / Time No Known Allergies Allergy Verified 10/09/20 11:55 <Yessica Berrios NP - Last Filed: 01/19/23 18:31> Review of Systems Review of Systems: Yes all other systems are reviewed and are negative <Yessica Berrios NP - Last Filed: 01/19/23 18:31> Constitutional: Constitutional: Reports no additional constitutional complaints, Denies body ache(s), Denies chills, Denies fever(s), Denies headache(s) and Denies weakness <Yessica Berrios ELECTROPLATER HELPER - Last Filed: 01/19/23 18:31> Eyes: Eyes: Reports no additional eye complaints and Denies change in vision <Yessica Berrios ELECTROPLATER HELPER - Last Filed: 01/19/23 18:31> ENT: Reports system reviewed and no additional complaints, except as documented, Denies dizziness, Denies headache(s), Denies nasal congestion, Denies nasal discharge and Denies neck pain <Yessica Berrios ELECTROPLATER HELPER - Last Filed: 01/19/23 18:31> Cardiovascular: Cardiovascular: Reports no additional cardiovascular complaints, Denies chest pain, Denies leg edema and Denies dyspnea <Yessica Berrios ELECTROPLATER HELPER - Last Filed: 01/19/23 18:31> Respiratory: Respiratory: Reports no additional respiratory complaints, Denies cough and Denies dyspnea <Yessica Berrios ELECTROPLATER HELPER - Last Filed: 01/19/23 18:31> Gastrointestinal: Gastrointestinal: Reports no additional gastrointestinal complaints, Denies abdominal pain, Denies diarrhea, Denies nausea and Denies vomiting <Yessica Berrios ELECTROPLATER HELPER - Last Filed: 01/19/23 18:31> Genitourinary: Genitourinary: Reports no additional female genitourinary complaints and Denies urinary incontinence <Yessica Berrios ELECTROPLATER HELPER - Last Filed: 01/19/23 18:31> Musculoskeletal: Musculoskeletal: Reports no additional musculoskeletal complaints, Denies back pain, Denies arthralgias, Denies joint swelling, Denies neck pain, Denies numbness and Denies tingling <Yessica Berrios ELECTROPLATER HELPER - Last Filed: 01/19/23 18:31> Integumentary/Breasts: Skin/Breast: Reports system reviewed and no additional complaints, except as docu and Denies rash <Yessica Berrios NP - Last Filed: 01/19/23 18:31> Neurologic: Reports system reviewed and no additional complaints, except as documented, Denies dizziness, Denies headache(s), Denies numbness, Denies tingling and Denies weakness <Yessica Berrios NP - Last Filed: 01/19/23 18:31> [facility] Past Medical History Attestation statement: The following information was validated with the patient. <Yessica Berrios NP - Last Filed: 01/19/23 18:31> Source: old records reviewed and nursing notes reviewed <Yessica Berrios NP - Last Filed: 01/19/23 18:31> Medical History: Medical History Anemia Chronic lower back pain COVID-19 COVID-19 virus infection CVA (cerebral vascular accident) Diabetes HTN (hypertension) Hyperlipidemia Sacral decubitus ulcer, stage II Schizoaffective disorder <Yessica Berrios NP - Last Filed: 01/19/23 18:31> Social History Social History: Social History Household Members: Unknown / Unable to assess Household Members Other:: SNF Housing: Senior Living Do you presently have visiting nurse or other home services: No Unable to assess alcohol history related to: Unable to respond Alcohol intake: never Patient Tobacco Use Status: Tobacco use Unknown Smoked in Last 30 Days: No Second Hand Smoke Exposure: No Use of substances other than those prescribed or required for medical reasons: No Advance Directives: Yes Advance Directives on File: Yes Advance Directives Date on File: 12/18/22 service: No Current occupational status: retired <Yessica Berrios NP - Last Filed: 01/19/23 18:31> Physical Exam ED Vital Signs: Vital Signs - 24 hr 01/19/23 14:50 01/19/23 18:43 Temperature 97.8 F 97.4 F Pulse Rate 86 81 Respiratory Rate 20 18 Blood Pressure 189/86 H 175/91 H Pulse Oximetry 97 96 Oxygen Delivery Method Room Air Room Air BMI result Body Mass Index 35.4 <Yessica Berrios NP - Last Filed: 01/19/23 18:31> Vital Signs - 24 hr 01/19/23 14:50 01/19/23 18:43 Temperature 97.8 F 97.4 F Pulse Rate 86 81 Respiratory Rate 20 18 Blood Pressure 189/86 H 175/91 H Pulse Oximetry 97 96 Oxygen Delivery Method Room Air Room Air BMI result Body Mass Index 35.4 <Libia Childers MD - Last Filed: 01/19/23 21:00> Const General: alert <Yessica Berrios NP - Last Filed: 01/19/23 18:31> Orientation/consciousness: patient oriented x3 <Yessica Berrios NP - Last Filed: 01/19/23 18:31> Limitations: no limitations <Yessica Berrios NP - Last Filed: 01/19/23 18:31> HENMT Head: Yes normal to inspection <Yessica Berrios NP - Last Filed: 01/19/23 18:31> Ears: hearing grossly normal bilaterally <Yessica Berrios NP - Last Filed: 01/19/23 18:31> Eyes General: appearance normal, both eyes and all related structures <Yessica Berrios NP - Last Filed: 01/19/23 18:31> Neck Neck: Yes normal visual inspection <Yessica Berrios NP - Last Filed: 01/19/23 18:31> Chest Chest palpation & inspection: normal inspection of the chest <Yessica Berrios NP - Last Filed: 01/19/23 18:31> Resp Effort & Inspection: normal respiratory effort <Yessica Berrios NP - Last Filed: 01/19/23 18:31> Auscultation: clear to auscultation bilaterally <Yessica Berrios NP - Last Filed: 01/19/23 18:31> Cardio Rate: regular rate <Yessica Berrios NP - Last Filed: 01/19/23 18:31> Rhythm: regular rhythm <Yessica Berrios NP - Last Filed: 01/19/23 18:31> Peripheral pulses: Peripheral pulses 2+ throughout <Yessica Berrios NP - Last Filed: 01/19/23 18:31> GI Inspection: Yes normal to inspection <Yessica Berrios NP - Last Filed: 01/19/23 18:31> Palpation (GI): Soft to palpation and nontender <Yessica Berrios NP - Last Filed: 01/19/23 18:31> Auscultation: normal bowel sounds <Yessica Berrios NP - Last Filed: 01/19/23 18:31> General: Yes no CVA tenderness <Yessica Berrios ELECTROPLATER HELPER - Last Filed: 01/19/23 18:31> Back/Spine/Pelvis Back: no CVA tenderness <Yessica Berrios NP - Last Filed: 01/19/23 18:31> Thoracic/Lumbar Spine: thoracic and lumbar spine normal to inspection <Yessica Berrios NP - Last Filed: 01/19/23 18:31> Neuro General: patient oriented x3 <Yessica Berrios NP - Last Filed: 01/19/23 18:31> Extrem Other: PICC present right upper extremity <Yessica Berrios NP - Last Filed: 01/19/23 18:31> General: Yes normal to inspection <Yessica Berrios NP - Last Filed: 01/19/23 18:31> Course Course Course Narrative: -I spoke to the nurses to place the PICC lines here at [facility]. They are unable to place a PICC line today. They will come and see the patient and try to troubleshoot the PICC line today. <Yessica Berrios NP - Last Filed: 01/19/23 18:31> Reevaluation(s) Reevaluation #1: 1830-the IR nurse came down to trouble shoot the PICC line. Unable to get blood return. Able to flush the line but very hard flush. Recommended cath flow with alteplase with reassessment. <Yessica Berrios NP - Last Filed: 01/19/23 18:31> Reevaluation #2: 1803-Sign out to Dr Childers pending above <Yessica Berrios NP - Last Filed: 01/19/23 18:31> Time: 20:59 <Libia Childers MD - Last Filed: 01/19/23 21:00> Reevaluation #3: I was informed by the patient's nurse that the tPA protocol work. Patient's PICC line is patent, patient's nurse was able to get blood return. Patient ready for discharge. <Libia Childers MD - Last Filed: 01/19/23 21:00> Medications Administered Discontinued Medications Generic Name Dose Route Start Last Admin Trade Name Freq PRN Reason Stop Dose Admin Alteplase, Recombinant 2 mg 01/19/23 18:15 01/19/23 19:53 Alteplase Cath Clear 2 Mg/2 Ml Vial INTRACATH 01/19/23 18:16 2 mg ONCE ONE Administration <Yessica Berrios NP - Last Filed: 01/19/23 18:31> Medications Administered Discontinued Medications Generic Name Dose Route Start Last Admin Trade Name Freq PRN Reason Stop Dose Admin Alteplase, Recombinant 2 mg 01/19/23 18:15 01/19/23 19:53 Alteplase Cath Clear 2 Mg/2 Ml Vial INTRACATH 01/19/23 18:16 2 mg ONCE ONE Administration <Libia Childers MD - Last Filed: 01/19/23 21:00> Medical Decision Making Medical Decision Making MDM Narrative: 77-year-old female coming from a correction currently on IV vancomycin q24hr which is due to be discontinued on January 24 presents with inability to flush PICC line. Per nursing unable to get blood return or flush picc line. Will place order for PICC line placement although may be difficult to get placement today Did not get vanco today <Yessica Berrios NP - Last Filed: 01/19/23 18:31> Differential Diagnosis Differential Diagnoses: The differential diagnosis associated with the presentation includes <Yessica Berrios NP - Last Filed: 01/19/23 18:31> Discharge Plan Discharge Clinical Impression: S/P PICC central line placement <Yessica Berrios NP - Last Filed: 01/19/23 18:31> Patient Disposition: Home, Self-Care <Yessica Berrios NP - Last Filed: 01/19/23 18:31> Instructions: How to Care for Your PICC (Peripherally Inserted Central Catheter) (ED) <Yessica Berrios NP - Last Filed: 01/19/23 18:31> Additional Instructions: Please follow-up with your primary care physician tomorrow. If you have any worsening or new symptoms, please return to the emergency room or call 911 <Yessica Berrios NP - Last Filed: 01/19/23 18:31> Prescriptions: No Action atorvastatin 40 mg tablet 40 mg PO BEDTIME lisinopril 40 mg tablet 40 mg PO DAILY glipizide 5 mg tablet 5 mg PO DAILY olopatadine 0.2 % drops 1 drp ophthalmic (eye) BID sennosides [senna] 8.6 mg Tablet 17.2 mg PO BEDTIME aspirin 81 mg Tablet,Chewable 81 mg PO DAILY albuterol 90 mcg/actuation Aerosol 90 mcg INHALATION Q4H furosemide 40 mg tablet 40 mg PO DAILY acetaminophen 325 mg Tablet 650 mg PO Q4H PRN (Reason: Fever Or Pain) potassium chloride 40 mEq/15 mL Liquid 40 meq PO DAILY pantoprazole 40 mg tablet,delayed release (DR/EC) 40 mg PO BID divalproex 125 mg capsule, delayed rel sprinkle 125 mg PO BID apixaban 5 mg tablet 5 mg PO BID vancomycin 1.25 gram recon soln 1.25 g IV Q24H Qty: 26 0RF Rx Instructions: to be used until 01/24/23 for staphlococcus bacterimia bisacodyl 10 mg Suppository 10 mg AL DAILY PRN (Reason: Constipation) Fleet Enema 19-7 gram/118 mL Enema 118 ml AL DAILY PRN (Reason: Constipation) ferrous gluconate 324 mg (38 mg iron) Tablet 324 mg PO DAILY polyethylene glycol 3350 [Miralax] 17 gram Powder In Packet 17 g PO DAILY magnesium hydroxide [Milk of Magnesia] 400 mg/5 mL Suspension 30 ml PO DAILY PRN (Reason: Constipation) albuterol sulfate [Ventolin HFA] 90 mcg/actuation Hfa Aerosol Inhaler 2 puff INHALATION Q4H PRN (Reason: Shortness Of Breath Or Wheezing) ondansetron 4 mg Tablet,Disintegrating 4 mg PO Q6H PRN (Reason: Nausea And Vomiting) cefuroxime axetil 500 mg tablet 500 mg PO BID 7 Days Qty: 14 0RF <Yessica Berrios NP - Last Filed: 01/19/23 18:31>
[2023-01-19 14:50] VITALS: BP 189/86; PULSE 86; RESP 20; TEMP 36.6; O2SAT 97; BMI 35.4
--- NOTE | 2023-01-19 15:24 | PC.NURSE ---
Spoke with nurse at LTC facility. Vanco to be continued until 01/24; patient sent here due to inability to draw blood back from PICC. Per LTC nurse patient is oriented to self only
--- NOTE | 2023-01-19 15:38 | PC.NURSE ---
Attempted to flush IV and changed dressing without success. Provider made aware.
--- NOTE | 2023-01-19 18:15 | PC.NURSE ---
ir at bedside for the picc line
--- NOTE | 2023-01-19 18:30 | PC.NURSE ---
Called to the ED to assess a PICC placed on 12/26/22. The picc was positioned at the hub. Dressing removed and the PICC was pulled back to 0 which is where it was when it was placed. Flushed with difficulty, no blood return. redressed with biopatch, statlock and tegaderm. Spoke with Yessica Berrios NP who stated she would instill TPA and try to get blood return flush at that time.
[2023-01-19 18:43] VITALS: BP 175/91; PULSE 81; RESP 18; TEMP 36.3; O2SAT 96
[2023-01-19] MEDS: Alteplase Cath Clear 2 MG/2 ML VIAL INTRACATH (19:53)
--- NOTE | 2023-01-19 20:43 | PC.NURSE ---
PT MEDICATED ACCORDING TO LIANA. ALTEPLASE GIVEN VIA PICC LINE. 30 MINUTES AFTER ADMINISTRATION 5ML OF BLOOD RETURN DRAWN. 20ML NS FLUSH. DR SHINE NOTIFIED
[2023-01-19 22:11] VITALS: BP 149/96; PULSE 86; RESP 17; TEMP 36.8; O2SAT 95
[2023-01-19 22:17] LABS: Glucose, Whole Blood 140 mg/dL (60-115)
--- NOTE | 2023-01-19 22:18 | PC.NURSE ---
pt up for discharge awaiting ambulance ride back to [facility]
--- NOTE | 2023-01-19 23:23 | PC.NURSE ---
pt discharged back to [facility]. this rn attempted x 3 to give nurse to nurse report to [facility]. unable to be connected to nursing staff. report given to ems. this rn contacted pt daughter as previously requested. pt daughter made aware of transfer back to sn[facility]
== END 2023-01-19 23:30 | disposition home or self-care (01) ==
PROVIDERS: Emergency Provider Emergency Medicine; PCP Internal Medicine
DX: T82.594A Other mechanical complication of infusion catheter, initial encounter (principal); Y82.8 Other medical devices associated with adverse incidents; R78.81 Bacteremia; B95.7 Other staphylococcus as the cause of diseases classified elsewhere; E11.9 Type 2 diabetes mellitus without complications; E78.5 Hyperlipidemia, unspecified
CPT/HCPCS: 82947; 99284; J2997

== ENCOUNTER 2023-02-06 13:53 | Emergency (ER) | payer OTHER, SELFPAY ==
--- NOTE | ~2023-02-06 | CT_ITS ---
EXAMINATION: CT ABDOMEN AND PELVIS WITHOUT CONTRAST CLINICAL INFORMATION: Abdominal distention COMPARISON: 01/05/2023 TECHNIQUE: Multidetector volumetric imaging was performed from the superior aspect of the liver through the pubic symphysis. Sagittal and coronal reformatted images were obtained on the technologist's workstation. This CT examination was performed using dose optimization techniques as appropriate, variously including the following: *Automated exposure control *Adjustment of mA and/or kV according to patient size (this includes techniques or standardized protocols for targeted exams where dose is matched to indication/reason for exam; i.e. extremities or head) *Use of iterative reconstruction technique DLP: 1165 mGy-cm FINDINGS: LUNG BASES: Lungs are clear. Coronary calcifications. LIVER, GALLBLADDER, AND BILIARY TREE: The liver is normal in size, shape, and attenuation. No focal hepatic lesion or biliary ductal dilatation is present. Cholecystectomy. PANCREAS: Unremarkable. SPLEEN: Unremarkable. ADRENAL GLANDS: Stable coarse calcification in the left adrenal gland indicative of prior hemorrhagic or granulomatous adrenalitis. Normal right adrenal gland. KIDNEYS AND URETERS: The kidneys are normal in size, shape, and attenuation. Previously seen mild bilateral hydroureteronephrosis is largely resolved. No calculi seen. No perinephric stranding. BLADDER: Decompressed by Shore catheter. Otherwise unremarkable. GASTROINTESTINAL TRACT: There is diffuse gaseous distention of the colon measuring up to 9 cm and the sigmoid colon. Large amount of liquid stool is present within the distal sigmoid colon and rectum. No significant pericolic fat stranding or colonic wall thickening to suggest colitis. Normal appendix. Stomach and small bowel unremarkable. ABDOMINAL WALL: Diastasis of the rectus abdominis. Small fat-containing umbilical hernia. LYMPH NODES: Normal. VASCULAR: Aorta is atherosclerotic but normal caliber. PELVIC VISCERA: Uterus and adnexa unremarkable. OSSEOUS STRUCTURES: No acute or suspicious osseous abnormalities. CT/CT abdomen pelvis wo IV con IMPRESSION: * There is diffuse gaseous distention of the colon measuring up to 9 cm in the sigmoid colon, with a large amount of predominantly liquid stool within the distal sigmoid colon and rectum. * No evidence of obstruction. No evidence of colitis. * Previously seen mild bilateral hydroureteronephrosis has resolved.
[2023-02-06 14:06] VITALS: BP 147/77; BP 158/104; PULSE 84; PULSE 87; RESP 18; TEMP 36.9; O2SAT 95; BMI 38.6
--- NOTE | 2023-02-06 14:15 | ECG_ITS ---
Test Reason : ARRHYTHMIA Blood Pressure : / mmHG Vent. Rate : 083 BPM Atrial Rate : 083 BPM P-R Int : 156 ms QRS Dur : 098 ms QT Int : 400 ms P-R-T Axes : 052 003 040 degrees QTc Int : 470 ms Normal sinus rhythm Possible Anterior infarct (cited on or before 18-DEC-2022) Abnormal ECG When compared with ECG of 18-DEC-2022 15:38, Premature supraventricular complexes are no longer Present Referred By: Joanna Mendoza Electronically Signed By:LUCIA AMADOR MD
--- NOTE | 2023-02-06 14:39 | PC.NURSE ---
Spoke with daughter swelling to left arm has been ongoing
--- NOTE | 2023-02-06 14:53 | ED.GENADULT ---
HPI - General Adult General Chief complaint: General Medical Stated complaint: Irregular bowel movements per EMS Time Seen by Provider: 02/06/23 14:05 Source: patient and EMS Mode of arrival: EMS History of Present Illness HPI narrative: 77-year-old female with history of CVA and DVTs, currently on blood thinners is brought in by EMS with reports from the facility of abnormal bowel movements and patient denies any pain in her abdomen and denies any nausea or vomiting. Although the report stated that patient is nonverbal she is communicating quite well with us at bedside. They are reports of swelling to the left upper extremity was further question by the nursing staff with patient's daughter who states that that is chronic. Related Data Home Medications Medication Instructions Recorded Confirmed albuterol 90 mcg/actuation aerosol 90 mcg inhalation Q4H 10/09/20 01/06/23 inhaler aspirin 81 mg chewable tablet 81 mg PO DAILY 10/09/20 01/06/23 atorvastatin 40 mg tablet 40 mg PO BEDTIME 10/09/20 01/06/23 glipizide 5 mg tablet 5 mg PO DAILY 10/09/20 01/06/23 lisinopril 40 mg tablet 40 mg PO DAILY 10/09/20 01/06/23 olopatadine 0.2 % eye drops 1 drp ophthalmic (eye) BID 10/09/20 01/06/23 sennosides 8.6 mg tablet (senna) 17.2 mg PO BEDTIME 10/09/20 01/06/23 acetaminophen 325 mg tablet 650 mg PO Q4H PRN Fever Or Pain 12/18/22 01/06/23 apixaban 5 mg tablet 5 mg PO BID 12/18/22 01/06/23 divalproex 125 mg capsule,delayed 125 mg PO BID 12/18/22 01/06/23 release sprinkle furosemide 40 mg tablet 40 mg PO DAILY 12/18/22 01/06/23 pantoprazole 40 mg tablet,delayed 40 mg PO BID 12/18/22 01/06/23 release potassium chloride 40 mEq/15 mL 40 meq PO DAILY 12/18/22 01/06/23 oral liquid albuterol sulfate 90 mcg/actuation 2 puff inhalation Q4H PRN 01/06/23 01/06/23 aerosol inhaler (Ventolin HFA) Shortness Of Breath Or Wheezing bisacodyl 10 mg rectal suppository 10 mg SD DAILY PRN Constipation 01/06/23 01/06/23 ferrous gluconate 324 mg (38 mg 324 mg PO DAILY 01/06/23 01/06/23 iron) tablet magnesium hydroxide 400 mg/5 mL 30 ml PO DAILY PRN Constipation 01/06/23 01/06/23 oral suspension (Milk of Magnesia) ondansetron 4 mg disintegrating 4 mg PO Q6H PRN Nausea And Vomiting 01/06/23 01/06/23 tablet polyethylene glycol 3350 17 gram 17 g PO DAILY 01/06/23 01/06/23 oral powder packet (Miralax) sodium phosphates 19 gram-7 118 ml SD DAILY PRN Constipation 01/06/23 01/06/23 gram/118 mL enema (Fleet Enema) Previous Rx's Medication Instructions Recorded vancomycin 1.25 gram intravenous 1.25 g IV Q24H #26 ea 12/26/22 solution cefuroxime axetil 500 mg tablet 500 mg PO BID 7 days #14 tabs 01/09/23 Allergies Allergy/AdvReac Type Severity Reaction Status Date / Time No Known Allergies Allergy Verified 10/09/20 11:55 Review of Systems Review of Systems: Pertinent positives and negatives as stated in HPI [facility] Past Medical History Source: nursing notes reviewed Medical History Anemia Chronic lower back pain COVID-19 COVID-19 virus infection CVA (cerebral vascular accident) Diabetes HTN (hypertension) Hyperlipidemia Sacral decubitus ulcer, stage II Schizoaffective disorder Social History Social History Household Members: Unknown / Unable to assess Household Members Other:: SNF Housing: Correction Do you presently have visiting nurse or other home services: No Unable to assess alcohol history related to: Unable to respond Alcohol intake: never Patient Tobacco Use Status: Tobacco use Unknown Second Hand Smoke Exposure: No Advance Directives: Yes Advance Directives on File: Yes Advance Directives Date on File: 12/18/22 service: No Current occupational status: retired Physical Exam ED Vital Signs: Vital Signs - 24 hr 02/06/23 14:06 02/06/23 16:51 Temperature 98.5 F Pulse Rate 87 88 Respiratory Rate 18 16 Blood Pressure 147/77 H 138/66 Pulse Oximetry 95 97 Oxygen Delivery Method Room Air Room Air BMI result Body Mass Index 38.6 VITAL SIGNS: Reviewed. GENERAL: Chronically ill, well nourished, in no acute distress. HEAD: Normocephalic/atraumatic EYES: PERRLA, EOMI EARS: Ext canals without abnormality NOSE: Nares patent bilateral OROPHARYNX: no oral lesions noted, posterior pharynx clear NECK: Supple, no adenopathy LUNGS: Good inspiratory effort, no expiratory wheeze/crackles noted SpO2<95> CARDIOVASCULAR: Regular rate and rhythm without noted murmurs, no JVD but chronic, pitting left lower extremity foot edema ABDOMEN: Soft, non-tender, non-distended with bowel sounds. : Shore catheter in place with clear urine, yellow, with sediment MUSCULOSKELETAL: No tenderness, deformities, or effusions noted on gross inspection. EXTREMITIES: No cyanosis, clubbing or edema. SKIN: Inspection of the skin reveals no rashes NEUROLOGIC: Alert and oriented x 2. Patient has baseline left-sided residual deficits from prior CVA Medical Decision Making Medical Decision Making MDM Narrative: This is a 77-year-old female who is brought in by EMS for unclear bowel habits, it is very common for CVA patient's to suffer from chronic constipation but will evaluate for possibility of obstruction. Vital signs have been reviewed and found to be stable, there is no evidence of cellulitis and although patient was reported to be nonverbal she is responding to questions and following commands. I reviewed all investigations and my interpretation is that this patient should as likely chronic dilation of the colon secondary to underlying medical condition, the stool within the rectum appears to be soft/liquid and baseline there is no evidence of acute infection, patient has not been noted to be nauseous or vomiting. There is a noted sodium level of 149 that is likely attributable to poor oral hydration which will be a recommendation on discharge. There are no other electrolyte derangements to suggest acute electrolyte abnormalities. Renal function is intact. And recommendation at this time is for discharge back to home and encourage oral hydration. Differential Diagnosis Please see the discussion above Lab Data Please see the discussion above 02/06/23 14:53 02/06/23 14:53 Labs: Lab Results 02/06/23 02/06/23 02/06/23 Range/Units 14:53 14:53 14:53 WBC 7.7 (4.8-10.8) X10*3/uL RBC 3.90 L (4.20-5.50) X10*6/uL Hgb 10.2 L D (12.0-16.0) g/dl Hct 34.1 L D (37.0-47.0) % MCV 87.4 (80.0-98.0) fL MCH 26.2 L (27.0-33.0) pg MCHC 29.9 L (31.0-35.0) g/dl RDW 19.4 H (11.0-16.0) % Plt Count 344 D (160-400) X10*3/uL MPV 9.1 L (9.4-12.3) fL Immature Gran % (Auto) 0.1 (0.0-0.4) % Neut % (Auto) 63.4 (45-73) % Lymph % (Auto) 22.2 (20-40) % Harney % (Auto) 9.0 (2-11) % Eos % (Auto) 4.8 H (0-4) % Baso % (Auto) 0.5 (0-2) % Lymph # (Auto) 1.7 (1.2-4.9) X10*3/uL Harney # (Auto) 0.7 (0.1-1.2) X10*3/uL Eos # (Auto) 0.4 (0.0-0.4) X10*3/uL Baso # (Auto) 0.0 (0.0-0.2) X10*3/uL Abs Immat Gran (auto) 0.01 (0.00-0.03) X10*3/uL Absolute Neuts (auto) 4.8 (2.0-8.3) x10*3/uL Absolute Nucleated RBC 0.000 (0.0-0.012) X10*3/uL Nucleated RBC % (auto) 0.0 (0.0-0.2) /100WBC PT 15.5 H (10.0-13.1) SEC INR 1.3 H (0.9-1.1) Sodium 149 H (135-145) mmol/L Potassium 4.0 D (3.3-5.1) mmol/L Chloride 107 (96-108) mmol/L Carbon Dioxide 31 H (22-29) mmol/L Anion Gap 15 (12-20) BUN 12 (9-16) mg/dL Creatinine 0.73 (0.5-1.4) mg/dL Estim Creat Clear Calc 72.6 Estimated GFR > 60 Random Glucose 128 H (60-115) mg/dL Calcium 9.1 D (8.4-10.2) mg/dL Total Bilirubin 0.5 (0.0-1.0) mg/dL AST 25 (5-31) U/L ALT 10 (0-31) U/L Alkaline Phosphatase 88 (39-117) U/L B-Natriuretic Peptide (<100) pg/mL Total Protein 6.3 L (6.5-8.0) g/dL Albumin 3.0 L (3.5-5.0) g/dL 02/06/23 Range/Units 14:53 WBC (4.8-10.8) X10*3/uL RBC (4.20-5.50) X10*6/uL Hgb (12.0-16.0) g/dl Hct (37.0-47.0) % MCV (80.0-98.0) fL MCH (27.0-33.0) pg MCHC (31.0-35.0) g/dl RDW (11.0-16.0) % Plt Count (160-400) X10*3/uL MPV (9.4-12.3) fL Immature Gran % (Auto) (0.0-0.4) % Neut % (Auto) (45-73) % Lymph % (Auto) (20-40) % Harney % (Auto) (2-11) % Eos % (Auto) (0-4) % Baso % (Auto) (0-2) % Lymph # (Auto) (1.2-4.9) X10*3/uL Harney # (Auto) (0.1-1.2) X10*3/uL Eos # (Auto) (0.0-0.4) X10*3/uL Baso # (Auto) (0.0-0.2) X10*3/uL Abs Immat Gran (auto) (0.00-0.03) X10*3/uL Absolute Neuts (auto) (2.0-8.3) x10*3/uL Absolute Nucleated RBC (0.0-0.012) X10*3/uL Nucleated RBC % (auto) (0.0-0.2) /100WBC PT (10.0-13.1) SEC INR (0.9-1.1) Sodium (135-145) mmol/L Potassium (3.3-5.1) mmol/L Chloride (96-108) mmol/L Carbon Dioxide (22-29) mmol/L Anion Gap (12-20) BUN (9-16) mg/dL Creatinine (0.5-1.4) mg/dL Estim Creat Clear Calc Estimated GFR Random Glucose (60-115) mg/dL Calcium (8.4-10.2) mg/dL Total Bilirubin (0.0-1.0) mg/dL AST (5-31) U/L ALT (0-31) U/L Alkaline Phosphatase (39-117) U/L B-Natriuretic Peptide 37 (<100) pg/mL Total Protein (6.5-8.0) g/dL Albumin (3.5-5.0) g/dL Independent Interpretation I performed an independent interpretation of an: EKG Interpretation: Normal sinus rhythm, HR-83, no STEMI, SD/QRS/QTC is within normal limits. Radiology Impression Radiologist Impression: My interpretation is in agreement with radiology's impression of the imaging studies. External Record Review External record reviewed: Outpatient record and Prior outpatient labs Discharge Plan Discharge Clinical Impression: Bowel movement symptom Patient Disposition: Home, Self-Care Instructions: Constipation (ED) Additional Instructions: 1. Resume all home medications. 2. Follow-up with primary care provider on Thursday morning. Return to the ER for any worsening or concerning symptoms. Prescriptions: No Action atorvastatin 40 mg tablet 40 mg PO BEDTIME lisinopril 40 mg tablet 40 mg PO DAILY glipizide 5 mg tablet 5 mg PO DAILY olopatadine 0.2 % drops 1 drp ophthalmic (eye) BID sennosides [senna] 8.6 mg Tablet 17.2 mg PO BEDTIME aspirin 81 mg Tablet,Chewable 81 mg PO DAILY albuterol 90 mcg/actuation Aerosol 90 mcg INHALATION Q4H furosemide 40 mg tablet 40 mg PO DAILY acetaminophen 325 mg Tablet 650 mg PO Q4H PRN (Reason: Fever Or Pain) potassium chloride 40 mEq/15 mL Liquid 40 meq PO DAILY pantoprazole 40 mg tablet,delayed release (DR/EC) 40 mg PO BID divalproex 125 mg capsule, delayed rel sprinkle 125 mg PO BID apixaban 5 mg tablet 5 mg PO BID vancomycin 1.25 gram recon soln 1.25 g IV Q24H Qty: 26 0RF Rx Instructions: to be used until 01/24/23 for staphlococcus bacterimia bisacodyl 10 mg Suppository 10 mg SD DAILY PRN (Reason: Constipation) Fleet Enema 19-7 gram/118 mL Enema 118 ml SD DAILY PRN (Reason: Constipation) ferrous gluconate 324 mg (38 mg iron) Tablet 324 mg PO DAILY polyethylene glycol 3350 [Miralax] 17 gram Powder In Packet 17 g PO DAILY magnesium hydroxide [Milk of Magnesia] 400 mg/5 mL Suspension 30 ml PO DAILY PRN (Reason: Constipation) albuterol sulfate [Ventolin HFA] 90 mcg/actuation Hfa Aerosol Inhaler 2 puff INHALATION Q4H PRN (Reason: Shortness Of Breath Or Wheezing) ondansetron 4 mg Tablet,Disintegrating 4 mg PO Q6H PRN (Reason: Nausea And Vomiting) cefuroxime axetil 500 mg tablet 500 mg PO BID 7 Days Qty: 14 0RF Referrals: Vanessa Kennedy MD [Primary Care Provider] -
[2023-02-06 15:05] LABS: MANUAL DIFF FLAG NO
[2023-02-06 15:06] LABS: Basophils Percent Auto 0.5 % (0-2); Eosinophils Absolute Auto 0.4 X10*3/uL (0.0-0.4); Eosinophils Percent Auto 4.8 % (0-4); Hematocrit 34.1 % (37.0-47.0); Hemoglobin 10.2 g/dl (12.0-16.0); Imm Gran Abs Auto 0.01 X10*3/uL (0.00-0.03); Imm Gran Pct Auto 0.1 % (0.0-0.4); Lymphocytes Absolute Auto 1.7 X10*3/uL (1.2-4.9); Lymphocytes Percent Auto 22.2 % (20-40); Mean Corpuscular HGB Conc 29.9 g/dl (31.0-35.0); Mean Corpuscular Hemoglobin 26.2 pg (27.0-33.0); Mean Corpuscular Volume 87.4 fL (80.0-98.0); Mean Platelet Volume 9.1 fL (9.4-12.3); Monocytes Absolute Auto 0.7 X10*3/uL (0.1-1.2); Neutrophils Absolute Auto 4.8 x10*3/uL (2.0-8.3); Neutrophils Percent Auto 63.4 % (45-73); Platelet Count 344 X10*3/uL (160-400); Red Cell Distribution Width 19.4 % (11.0-16.0); White Blood Count 7.7 X10*3/uL (4.8-10.8)
[2023-02-06 15:11] LABS: INTERNATIONAL NORM RATIO 1.3 (0.9-1.1); Prothrombin Time 15.5 SEC (10.0-13.1)
--- NOTE | 2023-02-06 15:16 | PC.NURSE ---
Patient had one episode of loose stool
[2023-02-06 15:26] LABS: Alanine Aminotransferase 10 U/L (0-31); Alkaline Phosphatase 88 U/L (39-117); Anion Gap 15 (12-20); Aspartate Amino Transferase 25 U/L (5-31); Bilirubin Total 0.5 mg/dL (0.0-1.0); Blood Urea Nitrogen 12 mg/dL (9-16); Calcium 9.1 mg/dL (8.4-10.2); Carbon Dioxide 31 mmol/L (22-29); Chloride 107 mmol/L (96-108); Creatinine Clr Calc Pharmacy 72.6; Estimated Glomerular Filt Rate > 60; Glucose Random 128 mg/dL (60-115); Sodium 149 mmol/L (135-145); Total Protein 6.3 g/dL (6.5-8.0)
[2023-02-06 15:29] LABS: B Type Natriuretic Peptide 37 pg/mL (<100)
--- NOTE | 2023-02-06 16:16 | PC.NURSE ---
Sacral wound with clean dry dressing no drainage noted dressing clean dry and intact
[2023-02-06 16:51] VITALS: BP 138/66; PULSE 88; RESP 16; O2SAT 97
[2023-02-06] MEDS: 0.9 % Sodium Chloride 500 ML 999 ML IV (17:30)
[2023-02-06 19:51] VITALS: BP 151/64; PULSE 91; RESP 18; TEMP 37.1; O2SAT 95
--- NOTE | 2023-02-06 21:56 | PC.NURSE ---
Assumed care of pt. at 1900. Pt. lying in bed at that time pending ambulance transport back to facility. IV removed and pt. tranported via EMS.
== END 2023-02-06 21:30 | disposition home or self-care (01) ==
PROVIDERS: Emergency Provider Student in an Organized Health Care Education/Training Program; PCP Internal Medicine
DX: R10.13 Epigastric pain (principal); R06.02 Shortness of breath; Z79.899 Other long term (current) drug therapy
CPT/HCPCS: 36415; 74176; 80053; 83880; 85025; 85610; 93005; 99284